=== PATIENT | female | born 1940 | race Caucasian/White ===

== ENCOUNTER → 2017-03-12 | Outpatient (CLI) | payer MEDICARE, OTHER ==
[2017-03-12 13:16] VITALS: BP 124/81; PULSE 67; RESP 18
--- NOTE | 2017-03-12 13:54 | P.PN ---
Subjective This is follow-up visit for this patient with a history of severe and chronic low back pain secondary to lumbar degenerative disc diseases , lumbar spondylosis with facet arthropathy, we have done interventional pain management injection,, diagnostic medial branch block , it will successful then we did, RFA of the medial branches lumbar area was done more than one year ago, patient reported that she had more than 80% improvement of low back pain after the radiofrequency, the last few weeks she started complaining of pain low back pain , she is increased with any activity, she denies any motor or sensory deficit, he denies any change in the bowel movements or urination, and is currently on pain medications 1-[place] 5/325 every 8 hours 2-naproxen for 50 when necessary Patient denies any side effects of the medication, denies excessive drowsiness or sleepiness, denies suicidal ideation, and reports that the current pain medication is NOT helping To control the pain and improve activity of daily living Patient denies any motor or sensory deficit , patient denies any fever or night sweats, denies any change in the bowel movements or urination Physical Examinations : 1-Constitutiona : Cooperative , not in acute distress . 2-HEENT : nech ; supple , no Lymphadenopathy , no Thyromegaly , normal thyroid size . eyes : no ptosis , no icterus, no photophobia . ENT : normal of hearing , normal oropharynx , no Thrush . 3- Respiratory : Chest clear to auscultations Bilaterally , no wheezing , no Rhonchi . 4- Cardiovascular : regular rate and rhythem , S1 , S2 , no S3 , no S4. 5- Gastrointestinal : abdomen soft no tenderness , bowel sounds positive all four quadrents , no organomegally . 6- Genitourinary : Defferred . 7- neurologic : Cranial nerve II to XII intact , no focal neurological deffecit . 8-psychatric : alert , oriented X 3 , appropriate affect , intact judgment and insight . 9-Lymphatic : no Lymphadenopathy . 10- musculoskeltal : exams of the Lumber spine = motor strength lower extremities ,thigh and legs .5/5 deep tendon reflexes : normal Knee Jerk , normal ankle Jerk . lumber facet Loading Test positive strait leg raising test positive at 60 degree , RT ,LT , Fabere test positive RT and positive LT . Range of motion: Range of motion in flexion of the lumbar spine 30 degrees Range of motion range of motion of extension of the lumbar spine 10 Assessment and plan = - Chronic low back pain secondary to lumbar degenerative disc disease , lumbar spondylosis with facet arthropathy without myelopathy , - Patient had good results after the radiofrequency ablation of the medial branch lumbar area done more than a year ago , and she got more than 80% improvement of her low back pain after radiofrequency , for this reason she would be good candidate to have repeat radiofrequency ablation of the medial branch L2-3 /L3-4 /L4-5/L5-S! Wouldn't do the left side first ,then we will do the right side later , procedure risk and benefits and alternatives discussed with the patient and she agreed to proceed Objective - Vital Signs Vital signs: Vital Signs Temp Pulse 67 03/12/17 13:05 Resp 18 03/12/17 13:05 BP 124/81 03/12/17 13:05 Pulse Ox 98 03/12/17 13:05 Intake & Output 03/11/17 03/12/17 03/12/17 18:59 06:59 18:59 Weight 75.75 kg
== END | disposition home or self-care (01) ==
LOC: PNWHC3 12:25
PROVIDERS: ATTEND Specialist
DX: M51.36 Other intervertebral disc degeneration, lumbar region (principal); M47.816 Spondylosis without myelopathy or radiculopathy, lumbar region; M46.96 Unspecified inflammatory spondylopathy, lumbar region; G89.29 Other chronic pain
CPT/HCPCS: 99211

== ENCOUNTER → 2017-04-19 | Day surgery (SDC) | payer MEDICARE ==
[2017-04-17 11:26] VITALS: BMI 27.4
[~2017-04-19] MED LIST: BUPIVACAINE (PF) 0.5% 30 ML VIAL ONE; DEXAMETHASONE SOD PHOS (MDV) 100 MG/10 ML VIAL ONE; IV FLUID CONTINUATION 1,000 ML IV ONE; LACTATED RINGERS 1,000 ML IV SCH; LIDOCAINE 1% 20 ML VIAL (10MG/ML) FOR IV START INTRADERMA ONE; MIDAZOLAM 2 MG/2 ML VIAL ONE; fentaNYL (PF) 50 MCG/ML 2 ML AMP ONE
[2017-04-19 11:04] VITALS: TEMP 97.5
--- NOTE | 2017-04-19 12:24 | P.PCN ---
Date of Procedure: 04/19/17 Preoperative Diagnosis: Postoperative Diagnosis: Procedure(s) Performed: PREOPERATIVE DIAGNOSIS: 1-Lumbar Spondylosis with Facet Arthropathy without myelopathy. 2- Lumber degenerative disc disease. POSTOPERATIVE DIAGNOSIS: 1- Lumbar Spondylosis with Facet Arthropathy without myelopathy. 2- Lumber degenerative disc disease. PROCEDURES : Right Radiofrequency thermocoagulation,L2-3 , L3-L4, L4-L5, and L5-S1 medial branch, with fluoroscopic guidance ANESTHESIA: IV sedation with versed 1 mg and fentaneyl 50 mcg and local infiltration with lidocaine 1% 6 ml EBL: Minimal PROCEDURE INDICATION: The patient with low back pain secondary to lumbar facet arthropathy who had more than 50% relief of her pain with previous diagnostic lumbar medial branch block with bupivacaine. PROCEDURE DESCRIPTION / TECHNIQUE: The patient was seen and identified in the preoperative area. Risks, benefits, complications, including but not limited to risk of infection ,bleeding , allergic reactions to the medications and no complete pain releife , and alternatives were discussed with the patient, the patient agreed to proceed with the procedure and signed the consent. IV was started. Vital signs remained stable throughout the procedure. Patient was taken to the OR and time out was completed. The patient was placed in the prone position on the procedure table. The lumber area was prepped and draped in the usual sterile fashion. . Vital signs were closely monitored during the procedure .IV sedation was used during the procedure to decrease patients anxiety. Using AP and then oblique fluoroscopy, the ``eye of the Papo dog corresponding to the connection between the superior and transverse articular processes of right L2, L3, L4, and L5 were identified, marked, and localized with 1% lidocaine. Subsequently, a 18 -sl radiofrequency cannula with a 10-mm active tip was advanced guided by fluoroscopy to each of the ``eyes of the Papo dog at right L2, , L3, L4, and L5. Each site then underwent sensory testing at 50 Hz and 0 to 1 volt and motor testing at 2.5 Hz and 0 to 3 volt with local stimulation, but no radicular symptoms down the legs. Thereafter the right L2-3 , L3-4, L4-5, and L5-S1 sites underwent radiofrequency thermocoagulation at 80 degrees celsius for 90 seconds after injecting 0.5 ml of PF lidocaine 1%. then After the thermocoagulation done , 1 ml of the block solution containing Dexamethasone 20 mg and 3 ml of marain 0.5% was injected at the right L2-3 , L3-4 , L4-5 , and L5-S1, levels after negative aspiration of CSF and blood and with no paresthesias. Cannulas were retracted while injecting lidocaine 1% until the needle is out. At the end of the procedure, the skin was cleansed and bandages were applied. COMPLICATIONS: No acute complications. DISPOSITION / PLANS: The patient was placed in a supine position and transferred to the recovery area in a stable condition for observation and was discharged from the recovery room after meeting discharge criteria. Home discharge instructions given to the patient by the staff. The patient was reexamined prior to discharge. The patient will schedule a follow up in the clinic in 2-4 weeks. ,and we will do the RFA to the Left side Implants: Indications for Procedure: Operative Findings: Description of Procedure:
[2017-04-19 12:31] VITALS: RESP 16
[2017-04-19 12:46] VITALS: BP 121/67; PULSE 52
--- NOTE | 2017-04-19 13:12 | FL ---
EXAMINATION TYPE: FL guided pain mgmt statistic DATE OF EXAM: 04/19/2017 CLINICAL HISTORY: Low back pain. TECHNIQUE: Fluoroscopy. COMPARISON: None. FINDINGS: Fluoroscopic guidance was provided during pain relief procedure performed by Dr. Borges . A total of 20 seconds of fluoroscopic time was utilized during the procedure and 3 spot images are acquired. Images acquired shows needle localization at multiple levels in the lower lumbar spine. IMPRESSION: As Above.
== END ==
LOC: ORPAIN 10:41
PROVIDERS: ATTEND Specialist
DX: M46.96 Unspecified inflammatory spondylopathy, lumbar region (principal); M51.36 Other intervertebral disc degeneration, lumbar region; M47.816 Spondylosis without myelopathy or radiculopathy, lumbar region; Z88.1 Allergy status to other antibiotic agents; Z88.8 Allergy status to other drugs, medicaments and biological substances
CPT/HCPCS: 64635; 64636 ×3; 99152; 99153; J2250; J3010; J1100

== ENCOUNTER 2017-05-10 13:48 | Emergency (ER) | payer MEDICARE ==
[2017-05-10] MEDS ORDERED: RX INFO: IV CONTRAST WAS GIVEN 1 EACH MISC MISCELLANE PRN (14:16)
[2017-05-10] MEDS ORDERED: ONDANSETRON 4 MG/2 ML VIAL IVP STA (14:16)
[2017-05-10] MEDS ORDERED: SODIUM CHLORIDE 0.9% 1,000 ML IV STA (14:16)
--- NOTE | 2017-05-10 14:18 | ED ---
Abdominal Pain HPI - General Chief Complaint: Abdominal Pain Stated Complaint: Lower Abd Pain Time Seen by Provider: 05/10/17 14:07 Source: patient, RN notes reviewed Mode of arrival: wheelchair Limitations: no limitations - History of Present Illness Initial Comments: 76-year-old female presents emergency Department chief complaint of left-sided abdominal pain. Patient states she's been having this pain on and off for the past month or so but over the last week it's been getting worse she's been having diarrhea and nausea. Patient states she has not been eating and drinking less due to the pain and now she is starting to feel somewhat lightheaded and shaky. Patient states that she was concerned due to her symptoms so she went to her doctor week ago and they said that she had a UTI she took the antibiotics however as she Developed so She Stopped Taking Those As Well. Patient Denies Any Fever Chills This. Patient Denies Any Other Symptoms with This. Patient States That She Was Concerned Due To the Fact She Started Becomes Shaky That She Shot That She Should Be Seen.Patient denies any recent fever, chills, shortness of breath, chest pain, back pain, numbness or tingling, dysuria or hematuria, constipation, headaches or visual changes, or any other current symptoms. - Related Data Home Medications Medication Instructions Recorded Confirmed Aspirin EC [Ecotrin] 81 mg PO DAILY 01/14/15 05/10/17 Cholecalciferol [Vitamin D3] 1,000 unit PO DAILY 01/14/15 05/10/17 Hydrocodone/Acetaminophen [Magnolia 1 tab PO Q8HR PRN 01/14/15 05/10/17 5-325] Levothyroxine Sodium [Synthroid] 75 mcg PO DAILY 01/14/15 05/10/17 Lisinopril [Prinivil] 10 mg PO QAM 01/14/15 05/10/17 Omeprazole [PriLOSEC] 20 mg PO AC-BRKFST 01/14/15 05/10/17 Meclizine [Antivert] 25 mg PO TID PRN 06/07/15 05/10/17 Previous Rx's Medication Instructions Recorded Ondansetron Odt [Zofran ODT] 4 mg PO Q8HR PRN #20 tab 05/10/17 Allergies Allergy/AdvReac Type Severity Reaction Status Date / Time ciprofloxacin [From Cipro] Allergy Abdominal Verified 05/10/17 14:49 Pain ciprofloxacin HCl Allergy Abdominal Verified 05/10/17 14:49 [From Cipro] Pain desvenlafaxine [From Pristiq] Allergy Unknown Verified 05/10/17 14:49 duloxetine [From Cymbalta] Allergy Unknown Verified 05/10/17 14:49 hydroxychloroquine sulfate Allergy Abdominal Verified 05/10/17 14:49 [From Plaquenil] Pain nitrofurantoin Allergy Abdominal Verified 05/10/17 14:49 [From Macrobid] Pain nitrofurantoin Allergy VOMITING,HE Verified 05/10/17 14:49 macrocrystalline ADACHE [From Macrobid] pregabalin [From Lyrica] Allergy VERTIGO Verified 05/10/17 14:49 sucralfate [From Carafate] Allergy VERTIGO,FELT Verified 05/10/17 14:49 LIKE PASSING OUT" Review of Systems ROS Statement: Those systems with pertinent positive or pertinent negative responses have been documented in the HPI. ROS Other: All systems not noted in ROS Statement are negative. Past Medical History Past Medical History: Fibromyalgia, Hypertension, Pulmonary Embolus (PE) Additional Past Medical History / Comment(s): acoustic neuroma, DEAF RT EAR. RIGHT HAND INDEX FINGER INFECTION. History of Any Multi-Drug Resistant Organisms: ESBL, MRSA Date of last positivie culture/infection: 12/03/15 MRSA; 03/27/15-ESBL MDRO Source:: Right 2nd Finger MRSA; Urine E.coli ESBL Past Surgical History: Cholecystectomy, Ear Surgery Additional Past Surgical History / Comment(s): right shoulder, right hand , BRAIN SURGERY, [facility] Past Anesthesia/Blood Transfusion Reactions: Family History of Problems w/ Anesthesia, Motion Sickness Additional Past Anesthesia/Blood Transfusion Reaction / Comment(s): brother had to be revived after anesthesia Past Psychological History: No Psychological Hx Reported Smoking Status: Never smoker Past Alcohol Use History: None Reported Past Drug Use History: None Reported - Past Family History Mother Family Medical History: No Reported History General Exam - General Exam Comments Initial Comments: General: The patient is awake and alert, in no distress, and does not appear acutely ill. Eye: Pupils are equal, round and reactive to light, extra-ocular movements are intact; there is normal conjunctiva bilaterally. No signs of icterus. Ears, nose, mouth and throat: There are moist mucous membranes and no oral lesions. Neck: The neck is supple, there is no tenderness. Cardiovascular: There is a regular rate and rhythm. No murmur, rub or gallop is appreciated. Respiratory: Lungs are clear to auscultation, respirations are non-labored, breath sounds are equal. No wheezes, stridor, rales, or rhonchi. Gastrointestinal: Soft, non-distended, non-tender abdomen without masses or organomegaly noted. There is no rebound or guarding present. No CVA tenderness. Bowel sounds are unremarkable. Back: There is no tenderness to palpation in the midline. There is no obvious deformity. No rashes noted. Musculoskeletal: Normal ROM, no tenderness, There is no pedal edema. There is no calf tenderness or swelling. Sensation intact. Pulses equal bilaterally 2+. Neurological: CN II-XII intact, There are no obvious motor or sensory deficits. Coordination appears grossly intact. Speech is normal. Skin: Skin is warm and dry and no rashes or lesions are noted. Psychiatric: Cooperative, appropriate mood & affect, normal judgment. Limitations: no limitations Course Vital Signs 05/10/17 05/10/17 14:00 16:06 Temperature 97.9 F 97.5 F L Pulse Rate 94 57 L Respiratory 18 16 Rate Blood Pressure 141/63 129/61 O2 Sat by Pulse 100 100 Oximetry Medical Decision Making - Medical Decision Making 76-year-old female emergency Department chief complaint of abdominal pain. At this time patient abdomen continues to be soft and nontender. Lab work is really presents now an acute finding. We did discuss the findings of the CAT scan that she is follow-up with her doctor about. The patient stated that she understood all questions have been answered. This time the patient will be discharged home. Patient is in agreement with the plan. We discussed follow- up and she is given referral to Dr. Dowling. - Lab Data Result diagrams: 05/10/17 14:57 05/10/17 14:57 Lab Results 05/10/17 05/10/17 05/10/17 Range/Units 14:57 14:57 14:57 WBC 4.9 (3.8-10.6) k/uL RBC 4.27 (3.80-5.40) m/uL Hgb 13.6 (11.4-16.0) gm/dL Hct 38.8 (34.0-46.0) % MCV 90.9 (80.0-100.0) fL MCH 31.9 (25.0-35.0) pg MCHC 35.1 (31.0-37.0) g/dL RDW 12.9 (11.5-15.5) % Plt Count 461 H (150-450) k/uL Neutrophils % (Manual) 44.0 % Lymphocytes % (Manual) 45.0 % Monocytes % (Manual) 9.0 % Eosinophils % (Manual) 2.0 % Neutrophils # (Manual) 2.2 (1.3-7.7) k/uL Lymphocytes # (Manual) 2.2 (1.0-4.8) k/uL Monocytes # (Manual) 0.4 (0-1.0) k/uL Eosinophils # (Manual) 0.1 (0-0.7) k/uL Nucleated RBCs 0 (0-0) /100 WBC Polychromasia Present PT (9.0-12.0) sec INR (<1.1) APTT (22.0-30.0) sec Sodium 136 L (137-145) mmol/L Potassium 4.9 (3.5-5.1) mmol/L Chloride 101 (98-107) mmol/L Carbon Dioxide 24 (22-30) mmol/L Anion Gap 11 mmol/L BUN 15 (7-17) mg/dL Creatinine 0.78 (0.52-1.04) mg/dL Est GFR (MDRD) Af Amer >60 (>60 ml/min/1.73 sqM) Est GFR (MDRD) Non-Af >60 (>60 ml/min/1.73 sqM) Glucose 82 (74-99) mg/dL Plasma Lactic Acid Henry 0.8 (0.7-2.0) mmol/L Calcium 9.7 (8.4-10.2) mg/dL Total Bilirubin 0.6 (0.2-1.3) mg/dL AST 17 (14-36) U/L ALT 23 (9-52) U/L Alkaline Phosphatase 77 (38-126) U/L Total Protein 6.8 (6.3-8.2) g/dL Albumin 4.0 (3.5-5.0) g/dL Amylase 43 (30-110) U/L Lipase 69 (23-300) U/L Urine Color Urine Appearance (Clear) Urine pH (5.0-8.0) Ur Specific Viola (1.001-1.035) Urine Protein (Negative) Urine Glucose (UA) (Negative) Urine Ketones (Negative) Urine Blood (Negative) Urine Nitrite (Negative) Urine Bilirubin (Negative) Urine Urobilinogen (<2.0) mg/dL Ur Leukocyte Esterase (Negative) Urine RBC (0-5) /hpf Urine WBC (0-5) /hpf Ur Squamous Epith Cells (0-4) /hpf Urine Bacteria (None) /hpf Hyaline Casts (0-2) /lpf 05/10/17 05/10/17 Range/Units 14:57 14:57 WBC (3.8-10.6) k/uL RBC (3.80-5.40) m/uL Hgb (11.4-16.0) gm/dL Hct (34.0-46.0) % MCV (80.0-100.0) fL MCH (25.0-35.0) pg MCHC (31.0-37.0) g/dL RDW (11.5-15.5) % Plt Count (150-450) k/uL Neutrophils % (Manual) % Lymphocytes % (Manual) % Monocytes % (Manual) % Eosinophils % (Manual) % Neutrophils # (Manual) (1.3-7.7) k/uL Lymphocytes # (Manual) (1.0-4.8) k/uL Monocytes # (Manual) (0-1.0) k/uL Eosinophils # (Manual) (0-0.7) k/uL Nucleated RBCs (0-0) /100 WBC Polychromasia PT 10.9 (9.0-12.0) sec INR 1.1 (<1.1) APTT 22.9 (22.0-30.0) sec Sodium (137-145) mmol/L Potassium (3.5-5.1) mmol/L Chloride (98-107) mmol/L Carbon Dioxide (22-30) mmol/L Anion Gap mmol/L BUN (7-17) mg/dL Creatinine (0.52-1.04) mg/dL Est GFR (MDRD) Af Amer (>60 ml/min/1.73 sqM) Est GFR (MDRD) Non-Af (>60 ml/min/1.73 sqM) Glucose (74-99) mg/dL Plasma Lactic Acid Henry (0.7-2.0) mmol/L Calcium (8.4-10.2) mg/dL Total Bilirubin (0.2-1.3) mg/dL AST (14-36) U/L ALT (9-52) U/L Alkaline Phosphatase (38-126) U/L Total Protein (6.3-8.2) g/dL Albumin (3.5-5.0) g/dL Amylase (30-110) U/L Lipase (23-300) U/L Urine Color Light Yellow Urine Appearance Clear (Clear) Urine pH 5.5 (5.0-8.0) Ur Specific Viola 1.005 (1.001-1.035) Urine Protein Negative (Negative) Urine Glucose (UA) Negative (Negative) Urine Ketones Negative (Negative) Urine Blood Negative (Negative) Urine Nitrite Negative (Negative) Urine Bilirubin Negative (Negative) Urine Urobilinogen <2.0 (<2.0) mg/dL Ur Leukocyte Esterase Trace H (Negative) Urine RBC <1 (0-5) /hpf Urine WBC 1 (0-5) /hpf Ur Squamous Epith Cells <1 (0-4) /hpf Urine Bacteria Rare H (None) /hpf Hyaline Casts 1 (0-2) /lpf - Radiology Data Radiology results: report reviewed, image reviewed Disposition Clinical Impression: Abdominal pain Disposition: TRANSFER TO PSYCH HOSP/UNIT Condition: Stable Instructions: Abdominal Pain (ED) Additional Instructions: Please use medication as discussed. Please follow up with family doctor if symptoms have not improved over the next two days. Please return to the emergency room if your symptoms increase or worsen or for any other concerns. Prescriptions: Ondansetron Odt [Zofran ODT] 4 mg PO Q8HR PRN #20 tab PRN Reason: Nausea Referrals: Pablo Argueta III, MD [Primary Care Provider] - 1-2 days Filomena Mansfield MD [STAFF PHYSICIAN] - 1-2 days Time of Disposition: 16:31
[2017-05-10 15:22] LABS: Appearance,Urine Clear (Clear); Bacteria,Urine Rare /hpf; Bilirubin,Urine Negative (Negative); Glucose,Urine (UA) Negative (Negative); Ketones,Urine Negative (Negative); Leukocyte Esterase,Urine Trace (Negative); Nitrite,Urine Negative (Negative); PH, Urine 5.5 (5.0-8.0); Particle Count 3284; Protein,Urine Negative (Negative); RBC,Urine <1 /hpf (0-5); Specific Gravity,Urine 1.005 (1.001-1.035); Squamous Epithelial Cell,Urine <1 /hpf (0-4); UA Billing (MACRO vs. MICRO) MICRO; Urobilinogen,Urine <2.0 mg/dL (<2.0); WBC,Urine 1 /hpf (0-5)
[2017-05-10 15:25] LABS: ALT 23 U/L (9-52); AST 17 U/L (14-36); Alkaline Phosphatase 77 U/L (38-126); Amylase 43 U/L (30-110); Anion Gap 11 mmol/L; Blood Urea Nitrogen 15 mg/dL (7-17); Calcium 9.7 mg/dL (8.4-10.2); Carbon Dioxide 24 mmol/L (22-30); Chloride 101 mmol/L (98-107); Glucose 82 mg/dL (74-99); INR 1.1 (<1.1); Non-African American GFR(MDRD) >60 (>60 ml/min/1.73 sqM); Partial Thromboplastin Time 22.9 sec (22.0-30.0); Potassium 4.9 mmol/L (3.5-5.1); Prothrombin Time 10.9 sec (9.0-12.0); Sodium 136 mmol/L (137-145); Total Bilirubin 0.6 mg/dL (0.2-1.3); Total Protein 6.8 g/dL (6.3-8.2)
[2017-05-10 15:26] LABS: Aty Lym Flag Moderate; CH 30.5; CHCM 33.7; HCT 38.8 % (34.0-46.0); HDW 2.25; HGB 13.6 gm/dL (11.4-16.0); MCH 31.9 pg (25.0-35.0); MCHC 35.1 g/dL (31.0-37.0); MCV 90.9 fL (80.0-100.0); Mean Platelet Volume 6.3; RBC 4.27 m/uL (3.80-5.40); RDW 12.9 % (11.5-15.5); WBC 4.9 k/uL (3.8-10.6); WBC (Perox) 4.76
[2017-05-10 15:45] LABS: Add Differential Manual Differential
[2017-05-10 15:46] LABS: Nucleated Red Blood Cells 0 /100 WBC (0-0); Polychromasia Present; Total Cells Counted 100
[2017-05-10 16:07] VITALS: RESP 16; TEMP 97.5
--- NOTE | 2017-05-10 16:10 | CT ---
EXAMINATION TYPE: CT abdomen pelvis w con DATE OF EXAM: 05/10/2017 COMPARISON: Correlation CT right hip 01/14/2015 HISTORY: 76-year-old female ABDOMINAL PAIN X1 MONTH. TECHNIQUE: Contiguous axial scanning of the abdomen and pelvis following administration of 100 ml Omn ipaque 300 IV contrast. Delayed images through the kidneys and coronal/sagittal reconstructions perf ormed. CT DLP: 639.7 mGycm Automated exposure control for dose reduction was used. FINDINGS: The heart is normal size without pericardial effusion. Lung bases clear without pleural effusion. 1.3 cm cyst in the central liver. No other focal liver lesion. The portal vein appears patent. No tresa iary ductal dilatation. Cholecystectomy clips are present. Adrenal glands, kidneys, spleen, and pancreas show no gross abnormality. [id number] atherosclerotic calcifications within the abdominal aorta without aneurysm. No dilated small bowel, free fluid, or free air. No mesenteric or retroperitoneal lymphadenopathy. Scattered mild stool burden. There is distal sigmoid diverticulosis without pericolonic inflammatory change. Bladder is urine distended. There is bulging convexity of the levator ani muscles curvature suggestin g some degree of pelvic floor relaxation. 1.4 cm cyst in the right ovary is unchanged from 2015. Left ovary is visualized. Uterus is present. No abnormal fluid collection in the pelvis or pelvic lymphad enopathy seen. Bones: Degenerated levoconvex scoliosis of the lumbar spine. There is a right L5 hemisacralization wi th a sacral alar. Mild degenerative changes at the right greater than left hip. No osseous destructiv e process. Grade 1 anterolistheses at L2-L3 and L3-L4. IMPRESSION: 1. NO ACUTE INFLAMMATORY PROCESS IDENTIFIED IN THE ABDOMEN OR PELVIS TO EXPLAIN THE PATIENT'S SYMPTOM S. 2. DISTAL SIGMOID DIVERTICULOSIS. 3. A 1.4 CM CYST IN THE RIGHT OVARY, STABLE FROM 2014. ANNUAL ULTRASOUND SURVEILLANCE IS RECOMMENDED IN A POSTMENOPAUSAL FEMALE. 4. DEGENERATIVE CHANGES THROUGHOUT THE LUMBAR SPINE.
[2017-05-10 17:12] VITALS: BP 149/66; PULSE 60
== END 2017-05-10 17:31 | disposition home or self-care (01) ==
LOC: EC 13:48
DX: R10.30 Lower abdominal pain, unspecified (principal); R11.0 Nausea; I10 Essential (primary) hypertension; Z90.49 Acquired absence of other specified parts of digestive tract; Z88.1 Allergy status to other antibiotic agents; Z88.8 Allergy status to other drugs, medicaments and biological substances; Z79.82 Long term (current) use of aspirin; Z79.899 Other long term (current) drug therapy
CPT/HCPCS: 99284; 96374; 96361; 36415; 80053; 82150; 83605; 83690; 85025; 85610; 85730; 81001; 87040; 87086; 74177; J2405; Q9967

== ENCOUNTER → 2017-06-22 | Outpatient (CLI) | payer MEDICARE ==
--- NOTE | 2017-06-23 09:08 | MR ---
EXAMINATION TYPE: MR brain and iac wo/w con DATE OF EXAM: 06/22/2017 COMPARISON: 02/28/2012 HISTORY: 76-year-old female with dizziness. History on prior MRI states surgery for acoustic neuroma in 1997. TECHNIQUE: Multiplanar, multisequence images of the brain and brainstem were acquired before and aft er administration of 15 mL IV MultiHance. Diffusion weighted imaging was performed. Additional cone d-down sequences through the internal auditory canals and posterior cranial fossa before and after IV contrast administration. FINDINGS: Diffusion weighted images demonstrate no evidence of an acute ischemic lesion in the brain. T2/FLAIR weighted sequences again show some encephalomalacia and gliosis along the right lateral aspe ct of the cerebellar hemisphere suspected to represent the surgical tract. Overlying craniotomy flap. There are mild to moderate scattered T2 bright white matter foci in the subcortical, deep, and periv entricular white matter of both cerebral hemispheres, largely unchanged from 2011. Some of these are now better seen due to less motion artifacts. Midline structures demonstrate partially empty sella but otherwise normal morphology. The craniocerv ical junction is normal. Similar mild generalized supratentorial volume loss. There is no evidence of an acute intracranial he morrhage, infarct, mass effect, or an extra-axial fluid collection. Redemonstrated is the homogeneously enhancing bifid mass which extends into both the right internal a uditory canal as well as the right cerebellar pontine angle. This measures 1.6 x 1.0 cm and 1.3 cm cr aniocaudal versus 1.5 x 1.1 x 1.3 cm, previously. Accounting for some differences in measurement tech nique, this appears overall unchanged Brainstem abnormalities are not seen. Post contrast images demonstrate no evidence of other pathologic enhancement in the posterior cranial fossa or within the left internal auditory canal. There is no abnormal enhancement of the labyrinths. Trace mucosal thickening floors of the maxillary sinuses. There is some contiguous pneumatization of the right anterior clinoid process, axial series 901 image 18. IMPRESSION: 1. 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 This is unchanged from 02/28/2012. 2. No acute intracranial abnormality seen. 3. Right posterior craniotomy flap with chronic surgical tract changes along the right lateral cerebe llar hemisphere. 4. Stable mild to moderate scattered T2 bright white matter foci. These are nonspecific but likely re present mild burden of chronic small vessel ischemic disease.
== END | disposition home or self-care (01) ==
LOC: RADMRIMAIN 12:59
PROVIDERS: ATTEND Psychiatry & Neurology Neurology
DX: G93.89 Other specified disorders of brain (principal); I67.82 Cerebral ischemia; R90.82 White matter disease, unspecified; Z98.890 Other specified postprocedural states; Z13.89 Encounter for screening for other disorder; Z86.018 Personal history of other benign neoplasm
CPT/HCPCS: 70553; A9577

== ENCOUNTER 2017-10-12 14:33 | Emergency (ER) | payer MEDICARE ==
[2017-10-12] MEDS ORDERED: NAPROXEN 250 MG TAB PO STA (15:00)
[2017-10-12 15:02] VITALS: BP 151/67; PULSE 59; RESP 16; TEMP 98.1
--- NOTE | 2017-10-12 15:11 | ED ---
Neck Injury/Pain HPI - General Source: RN notes reviewed Mode of arrival: ambulatory Limitations: no limitations <Kiana Chung - Last Filed: 10/12/17 14:59> <Ramesh Francis - Last Filed: 10/12/17 15:16> - General Chief Complaint: Neck Pain/Injury Stated Complaint: Neck Pain/Spasms Time Seen by Provider: 10/12/17 14:53 - History of Present Illness Initial Comments: This is a 77-year-old female who presents to the emergency department with chief complaint of right neck pain. Patient states that 1 hour prior to arrival she was folding laundry. She felt the sudden sharp pain in the right side of her neck. She states that she feels like she is having a muscle spasm. Denies any radiation or numbness or tingling. Denies any specific injury or trauma. Patient states that she regularly takes Aleve at home but has not taken any today. Denies fever, chills, chest pain, shortness of breath, abdominal pain, nausea or vomiting, constipation or diarrhea, dysuria or hematuria, numbness or tingling, headache or vision changes. (Kiana Chung) - Related Data Home Medications Medication Instructions Recorded Confirmed Aspirin EC [Ecotrin] 81 mg PO DAILY 01/14/15 09/12/17 Cholecalciferol [Vitamin D3] 1,000 unit PO DAILY 01/14/15 09/12/17 Hydrocodone/Acetaminophen [[place] 1 tab PO Q8HR PRN 01/14/15 09/12/17 5-325] Levothyroxine Sodium [Synthroid] 75 mcg PO DAILY 01/14/15 09/12/17 Lisinopril [Prinivil] 10 mg PO QAM 01/14/15 09/12/17 Omeprazole [PriLOSEC] 20 mg PO AC-BRKFST 01/14/15 09/12/17 Meclizine [Antivert] 25 mg PO TID PRN 06/07/15 09/12/17 Gabapentin [Neurontin] 300 mg PO HS 09/12/17 09/12/17 Previous Rx's Medication Instructions Recorded Ondansetron Odt [Zofran ODT] 4 mg PO Q8HR PRN #20 tab 05/10/17 Cephalexin [Keflex] 500 mg PO Q8HR #21 cap 09/12/17 Allergies Allergy/AdvReac Type Severity Reaction Status Date / Time ciprofloxacin [From Cipro] Allergy Abdominal Verified 05/10/17 14:49 Pain ciprofloxacin HCl Allergy Abdominal Verified 05/10/17 14:49 [From Cipro] Pain desvenlafaxine [From Pristiq] Allergy Unknown Verified 05/10/17 14:49 duloxetine [From Cymbalta] Allergy Unknown Verified 05/10/17 14:49 hydroxychloroquine sulfate Allergy Abdominal Verified 05/10/17 14:49 [From Plaquenil] Pain nitrofurantoin Allergy Abdominal Verified 05/10/17 14:49 [From Macrobid] Pain nitrofurantoin Allergy VOMITING,HE Verified 05/10/17 14:49 macrocrystalline ADACHE [From Macrobid] pregabalin [From Lyrica] Allergy VERTIGO Verified 05/10/17 14:49 sucralfate [From Carafate] Allergy VERTIGO,FELT Verified 05/10/17 14:49 LIKE PASSING OUT" Review of Systems ROS Other: All systems not noted in ROS Statement are negative. <Kiana Chung - Last Filed: 10/12/17 14:59> ROS Other: All systems not noted in ROS Statement are negative. <Ramesh Francis - Last Filed: 10/12/17 15:16> ROS Statement: Those systems with pertinent positive or pertinent negative responses have been documented in the HPI. Past Medical History Past Medical History: Fibromyalgia, Hypertension, Pulmonary Embolus (PE) Additional Past Medical History / Comment(s): acoustic neuroma, DEAF RT EAR. RIGHT HAND INDEX FINGER INFECTION. History of Any Multi-Drug Resistant Organisms: ESBL, MRSA Date of last positivie culture/infection: 12/03/15 MRSA; 03/27/15-ESBL MDRO Source:: Right 2nd Finger MRSA; Urine E.coli ESBL Past Surgical History: Cholecystectomy, Ear Surgery Additional Past Surgical History / Comment(s): right shoulder, right hand , BRAIN SURGERY, [facility] Past Anesthesia/Blood Transfusion Reactions: Family History of Problems w/ Anesthesia, Motion Sickness Additional Past Anesthesia/Blood Transfusion Reaction / Comment(s): brother had to be revived after anesthesia Past Psychological History: No Psychological Hx Reported Smoking Status: Never smoker Past Alcohol Use History: None Reported Past Drug Use History: None Reported - Past Family History Mother Family Medical History: No Reported History <JulietDustin herreraKiana Kristy - Last Filed: 10/12/17 14:59> General Exam Limitations: no limitations <Kiana Chung - Last Filed: 10/12/17 14:59> <Ramesh Francis - Last Filed: 10/12/17 15:16> - General Exam Comments Initial Comments: General: Awake and alert, well-developed; in no apparent distress. HEENT: Head atraumatic, normocephalic. Pupils are equal, round and reactive to light. Extraocular movements intact. Oropharynx moist without erythema or exudate. Neck: Supple. Normal active ROM. Tenderness on palpation of right sternocleidomastoid muscle. Cardiovascular: Regular rate and rhythm. No murmurs, rubs or gallops. Chest symmetrical. Respiratory: Lungs clear to auscultation bilaterally. No wheezes, rales or rhonchi. Normal respiratory effort with no use of accessory muscles. Musculoskeletal: Normal ROM, no tenderness bilateral upper and lower extremities. Ambulating normally. Skin: Anchor, warm and dry without rashes or lesions. Neurological: Alert and oriented x3. CN II-XII grossly intact. Speech is fluent and answers are appropriate. No focal neuro deficits. Psychiatric: Normal mood and affect. No overt signs of depression or anxiety noted. (Kiana Chung) Course <Kiana Chung Kristy - Last Filed: 10/12/17 14:59> <Ramesh Francis - Last Filed: 10/12/17 15:16> Vital Signs 10/12/17 14:54 Temperature 98.1 F Pulse Rate 59 L Respiratory 16 Rate Blood Pressure 151/67 O2 Sat by Pulse 98 Oximetry - Reevaluation(s) Reevaluation #1: 10/12/17 15:14 PT supervision: I did personally do a [id number] evaluation the patient she does demonstrate tenderness palpation over the right lateral neck musculature. There is tenderness on palpation consistent with the spasm the patient reported. No midline spinous tenderness. 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 I did review the treatment plan with the patient she is in agreement. (Ramesh Francis) Medical Decision Making <Kiana Chung - Last Filed: 10/12/17 14:59> <Ramesh Francis - Last Filed: 10/12/17 15:16> - Medical Decision Making This is a 77-year-old female who presents to the emergency department with chief complaint of neck pain. Patient states she feels that she is having a muscle spasm in the right side of her neck. There is tenderness on palpation of the sternocleidomastoid muscle. Patient denies radiation or numbness or tingling. This case was discussed with attending physician Dr. Francis, who also evaluated the patient. Patient given naproxen while in the emergency department. Recommended heat and gentle range of motion of the neck. Patient will be discharged home. She is in agreement and voices understanding. All questions were answered. (Kiana Chung) Disposition Time of Disposition: 15:12 <Kiana Chung - Last Filed: 10/12/17 14:59> <Ramesh Francis - Last Filed: 10/12/17 15:16> Clinical Impression: Strain of neck muscle Disposition: HOME SELF-CARE Condition: Good Instructions: Cervical Strain (ED) Additional Instructions: Please follow up with primary care provider within 1-2 days. Return to emergency department if symptoms should worsen or any concerns arise. Referrals: Pablo Argueta III, MD [Primary Care Provider] - 1-2 days
== END 2017-10-12 15:21 | disposition home or self-care (01) ==
LOC: EC 14:33
DX: S16.1XXA Strain of muscle, fascia and tendon at neck level, initial encounter (principal); M79.7 Fibromyalgia; I10 Essential (primary) hypertension; Z86.14 Personal history of Methicillin resistant Staphylococcus aureus infection; Z88.1 Allergy status to other antibiotic agents; Z88.8 Allergy status to other drugs, medicaments and biological substances; Z79.82 Long term (current) use of aspirin; Z79.899 Other long term (current) drug therapy; X50.1XXA Overexertion from prolonged static or awkward postures, initial encounter; Y93.89 Activity, other specified
CPT/HCPCS: 99283

== ENCOUNTER 2018-03-08 09:33 | Emergency (ER) | payer MEDICARE ==
[2018-03-08 09:55] VITALS: RESP 16
[2018-03-08] MEDS ORDERED: RX INFO: IV CONTRAST WAS GIVEN 1 EACH MISC MISCELLANE PRN (10:13)
--- NOTE | 2018-03-08 10:14 | ED ---
Abdominal Pain HPI - General Chief Complaint: Abdominal Pain Stated Complaint: rt sided abd pain Time Seen by Provider: 03/08/18 10:03 Source: patient Mode of arrival: ambulatory Limitations: no limitations - History of Present Illness Initial Comments: Patient is a 77-year-old female presented to [facility] department for abdominal pain. She states that it is located in the right lower quadrant started yesterday evening. It feels like a constant sensation that she is unable to give specifics about. There is no radiation with the pain but there is nausea present. She denies any vomiting or diarrhea as well as fever/chills. She also denies any urinary symptoms and states that she's got no past medical problems in regards her abdomen. She also admits to a 10 pound weight loss which is been unintentional over the last year. - Related Data Home Medications Medication Instructions Recorded Confirmed Aspirin EC [Ecotrin] 81 mg PO DAILY 01/14/15 03/08/18 Cholecalciferol [Vitamin D3] 5,000 unit PO DAILY 01/14/15 03/08/18 Hydrocodone/Acetaminophen [[place] 1 tab PO Q8HR PRN 01/14/15 03/08/18 5-325] Levothyroxine Sodium [Synthroid] 75 mcg PO DAILY 01/14/15 03/08/18 Lisinopril [Prinivil] 10 mg PO DAILY 01/14/15 03/08/18 Omeprazole [PriLOSEC] 20 mg PO DAILY 01/14/15 03/08/18 Meclizine [Antivert] 25 mg PO TID PRN 06/07/15 03/08/18 Gabapentin [Neurontin] 300 mg PO HS 09/12/17 03/08/18 Albuterol Inhaler [Ventolin Hfa 2 puff INHALATION RT-Q4H PRN 03/08/18 03/08/18 Inhaler] Calcium Carbonate [Calcium] 600 mg PO DAILY 03/08/18 03/08/18 Cetirizine HCl 10 mg PO DAILY 03/08/18 03/08/18 Ferrous Sulfate [Feosol] 325 mg PO DAILY 03/08/18 03/08/18 Fluticasone Nasal [place] [Flonase 2 spr EA NOSTRIL DAILY 03/08/18 03/08/18 Nasal [place]] Naproxen Sodium 440 mg PO Q12H PRN 03/08/18 03/08/18 Zolpidem [Ambien] 5 - 10 mg PO HS PRN 03/08/18 03/08/18 Allergies Allergy/AdvReac Type Severity Reaction Status Date / Time ciprofloxacin [From Cipro] Allergy Abdominal Verified 03/08/18 10:53 Pain nitrofurantoin Allergy Abdominal Verified 03/08/18 10:53 [From Macrobid] Pain pregabalin [From Lyrica] Allergy VERTIGO Verified 03/08/18 10:53 acetaminophen [From Vicodin] AdvReac Unknown Verified 03/08/18 10:53 ciprofloxacin HCl AdvReac Abdominal Verified 03/08/18 10:53 [From Cipro] Pain desvenlafaxine [From Pristiq] AdvReac Unknown Verified 03/08/18 10:53 duloxetine [From Cymbalta] AdvReac Unknown Verified 03/08/18 10:53 hydrocodone [From Vicodin] AdvReac Unknown Verified 03/08/18 10:53 hydroxychloroquine sulfate AdvReac Abdominal Verified 03/08/18 10:53 [From Plaquenil] Pain milnacipran [From [place]] AdvReac Unknown Verified 03/08/18 10:53 nitrofurantoin AdvReac VOMITING,HE Verified 03/08/18 10:53 macrocrystalline ADACHE [From Macrobid] sucralfate [From Carafate] AdvReac VERTIGO,FELT Verified 03/08/18 10:53 LIKE PASSING OUT" sulfamethoxazole AdvReac Nausea & Verified 03/08/18 10:53 [From Bactrim] Vomiting & Diarrhea trimethoprim [From Bactrim] AdvReac Nausea & Verified 03/08/18 10:53 Vomiting & Diarrhea Review of Systems ROS Statement: Those systems with pertinent positive or pertinent negative responses have been documented in the HPI. Constitutional: Negative for chills, fatigue and fever. Positive for weight loss HENT: Negative for congestion. Respiratory: Negative for chest tightness, shortness of breath and wheezing. Cardiovascular: Negative for chest pain and palpitations. Gastrointestinal: Positive for nausea and abdominal pain. Negative for abdominal distention, diarrhea, and vomiting. Genitourinary: Negative for dysuria. Musculoskeletal: Negative for back pain, neck pain and neck stiffness. Skin: Negative for color change. Neurological: Negative for dizziness, speech difficulty, weakness and light- headedness. Psychiatric/Behavioral: Negative for agitation and confusion. The patient is not nervous/anxious. ROS Other: All systems not noted in ROS Statement are negative. Past Medical History Past Medical History: Fibromyalgia, Hypertension, Pulmonary Embolus (PE) Additional Past Medical History / Comment(s): acoustic neuroma, DEAF RT EAR. RIGHT HAND INDEX FINGER INFECTION. History of Any Multi-Drug Resistant Organisms: ESBL, MRSA Date of last positivie culture/infection: 12/03/15 MRSA; 03/27/15-ESBL MDRO Source:: Right 2nd Finger MRSA; Urine E.coli ESBL Past Surgical History: Cholecystectomy, Ear Surgery Additional Past Surgical History / Comment(s): right shoulder, right hand , [facility]RAIN SURGERY, [facility] Past Anesthesia/Blood Transfusion Reactions: Family History of Problems w/ Anesthesia, Motion Sickness Additional Past Anesthesia/Blood Transfusion Reaction / Comment(s): brother had to be revived after anesthesia Past Psychological History: No Psychological Hx Reported Smoking Status: Never smoker Past Alcohol Use History: None Reported Past Drug Use History: None Reported - Past Family History Mother Family Medical History: No Reported History General Exam - General Exam Comments Initial Comments: Physical Exam Constitutional: Pt is oriented to person, place, and time. Pt appears well- developed and well-nourished. No distress. HENT: Head: Normocephalic and atraumatic. Eyes: EOM are normal. Neck: Normal range of motion. Neck supple. Cardiovascular: Normal rate, regular rhythm, S1 normal, S2 normal and normal heart sounds. Exam reveals no gallop and no friction rub. No murmur heard. Pulmonary/Chest: Effort normal and breath sounds normal. No tachypnea and no bradypnea. No respiratory distress. No wheezes or rales noted. Abdominal: Soft. Bowel sounds are normal. Pt exhibits no shifting dullness, no distension, no pulsatile liver, no fluid wave, no abdominal bruit and no ascites. There is very mild tenderness to right lower quadrant. There is no rigidity, no rebound, no guarding, no tenderness at McBurney's point and negative Virgen's sign. Musculoskeletal: Normal range of motion. Neurological: Pt is alert and oriented to person, place, and time. No cranial nerve deficit. Skin: Skin is warm and dry. No rash noted. Pt is not diaphoretic. No erythema. No pallor. Psychiatric: Pt has a normal mood and affect. Pt behavior is normal. Thought content normal. Limitations: no limitations Course Vital Signs 03/08/18 03/08/18 09:53 12:42 Temperature 98.7 F 98.6 F Pulse Rate 85 57 L Respiratory 16 16 Rate Blood Pressure 193/87 167/77 O2 Sat by Pulse 96 98 Oximetry Medical Decision Making - Medical Decision Making Laboratory studies revealed there is no significant leukocytosis and electrolytes were relatively within normal limits. Lipase and LFTs were also within normal limits and urinalysis showed no evidence acute pathology. Because the patient reported a 10 pound weight loss over the last year, CT of the abdomen was performed and showed a persistent 1.6 cm oval hypodensity lesion anteriorly on the right ovary stable from prior imaging. There were no other significant findings on CT. These results were discussed the patient and she stated that she did know about this ovarian lesion. Additionally, it was felt that it is very unlikely that this is an ovarian torsion because the patient was not having a significant amount of pain on physical exam.Explained all labs and diagnostic test results and that we will discharge the patient home and patient is to follow up with PCP in 1-2 days and return to the ED if symptoms worsen. Pt is agreeable to plan. - Lab Data Result diagrams: 03/08/18 10:10 03/08/18 10:10 Lab Results 03/08/18 03/08/18 03/08/18 Range/Units 10:10 10:10 10:10 WBC 4.8 (3.8-10.6) k/uL RBC 4.35 (3.80-5.40) m/uL Hgb 13.3 (11.4-16.0) gm/dL Hct 39.9 (34.0-46.0) % MCV 91.6 (80.0-100.0) fL MCH 30.4 (25.0-35.0) pg MCHC 33.2 (31.0-37.0) g/dL RDW 12.8 (11.5-15.5) % Plt Count 429 (150-450) k/uL Neutrophils % 49 % Lymphocytes % 35 % Monocytes % 7 % Eosinophils % 4 % Basophils % 2 % Neutrophils # 2.3 (1.3-7.7) k/uL Lymphocytes # 1.7 (1.0-4.8) k/uL Monocytes # 0.4 (0-1.0) k/uL Eosinophils # 0.2 (0-0.7) k/uL Basophils # 0.1 (0-0.2) k/uL Sodium 142 (137-145) mmol/L Potassium 4.2 (3.5-5.1) mmol/L Chloride 103 (98-107) mmol/L Carbon Dioxide 28 (22-30) mmol/L Anion Gap 11 mmol/L BUN 10 (7-17) mg/dL Creatinine 0.70 (0.52-1.04) mg/dL Est GFR (CKD-EPI)AfAm >90 (>60 ml/min/1.73 sqM) Est GFR (CKD-EPI)NonAf 84 (>60 ml/min/1.73 sqM) Glucose 83 (74-99) mg/dL Calcium 10.0 (8.4-10.2) mg/dL Magnesium 1.9 (1.6-2.3) mg/dL Total Bilirubin 0.3 (0.2-1.3) mg/dL AST 17 (14-36) U/L ALT 18 (9-52) U/L Alkaline Phosphatase 70 (38-126) U/L Total Protein 6.1 L (6.3-8.2) g/dL Albumin 3.7 (3.5-5.0) g/dL Lipase 37 (23-300) U/L Urine Color Colorless Urine Appearance Clear (Clear) Urine pH 6.0 (5.0-8.0) Ur Specific [place] 1.002 (1.001-1.035) Urine Protein Negative (Negative) Urine Glucose (UA) Negative (Negative) Urine Ketones Negative (Negative) Urine Blood Negative (Negative) Urine Nitrite Negative (Negative) Urine Bilirubin Negative (Negative) Urine Urobilinogen <2.0 (<2.0) mg/dL Ur Leukocyte Esterase Negative (Negative) Disposition Clinical Impression: Right lower quadrant abdominal pain, Lesion of ovary Disposition: HOME SELF-CARE Condition: Good Instructions: Abdominal Pain (ED) Is patient prescribed a controlled substance at d/c from ED?: No Referrals: Pablo Argueta III, MD [Primary Care Provider] - 1-2 days Time of Disposition: 12:13
[2018-03-08 10:29] LABS: Appearance,Urine Clear (Clear); Basophils # (A) 0.1 k/uL (0-0.2); Basophils % (A) 2 %; Bilirubin,Urine Negative (Negative); Blood,Urine Negative (Negative); Color,Urine Colorless; Eosinophils # (A) 0.2 k/uL (0-0.7); Eosinophils % (A) 4 %; Glucose,Urine (UA) Negative (Negative); HCT 39.9 % (34.0-46.0); HGB 13.3 gm/dL (11.4-16.0); Ketones,Urine Negative (Negative); Leukocyte Esterase,Urine Negative (Negative); Lymphocytes # (A) 1.7 k/uL (1.0-4.8); Lymphocytes % (A) 35 %; MCH 30.4 pg (25.0-35.0); MCHC 33.2 g/dL (31.0-37.0); MCV 91.6 fL (80.0-100.0); Mean Platelet Volume 6.3; Monocytes # (A) 0.4 k/uL (0-1.0); Monocytes % (A) 7 %; Neutrophils # (A) 2.3 k/uL (1.3-7.7); Neutrophils % (A) 49 %; Nitrite,Urine Negative (Negative); Platelet Count 429 k/uL (150-450); Protein,Urine Negative (Negative); RBC 4.35 m/uL (3.80-5.40); RDW 12.8 % (11.5-15.5); Specific Gravity,Urine 1.002 (1.001-1.035); Urobilinogen,Urine <2.0 mg/dL (<2.0); WBC 4.8 k/uL (3.8-10.6)
[2018-03-08 10:38] LABS: ALT 18 U/L (9-52); AST 17 U/L (14-36); Albumin 3.7 g/dL (3.5-5.0); Alkaline Phosphatase 70 U/L (38-126); Anion Gap 11 mmol/L; Blood Urea Nitrogen 10 mg/dL (7-17); Carbon Dioxide 28 mmol/L (22-30); Chloride 103 mmol/L (98-107); Glucose 83 mg/dL (74-99); Lipase 37 U/L (23-300); Magnesium 1.9 mg/dL (1.6-2.3); Potassium 4.2 mmol/L (3.5-5.1); Sodium 142 mmol/L (137-145); Total Bilirubin 0.3 mg/dL (0.2-1.3); Total Protein 6.1 g/dL (6.3-8.2)
--- NOTE | 2018-03-08 11:24 | CT ---
EXAMINATION TYPE: CT abdomen pelvis w con DATE OF EXAM: 03/08/2018 HISTORY: RLQ pain CT DLP: 682.8mGycm Automated Exposure Control for Dose Reduction was Utilized. CONTRAST: CT scan of the abdomen and pelvis is performed without oral but with IV Contrast, patient injected wi th 100 mL of Isovue 300. COMPARISON: CT abdomen and pelvis May 10, 2017 FINDINGS: LUNG BASES: In the right lung base there is 5 x 3 mm scarlike opacity axial image 1 outside field of view on prior exam. There is left basilar dependent atelectasis and/or scarring LIVER/GB: Cholecystectomy clips are seen. There is redemonstration of stable 1.0 cm hypodense lesion centrally in the liver axial image 19 favoring simple cyst. PANCREAS: No significant abnormality is seen. SPLEEN: No significant abnormality is seen. ADRENALS: No significant abnormality is seen. KIDNEYS: No significant abnormality is seen. BOWEL: Evaluation bowel is slightly suboptimal secondary to lack of enteric contrast. There is no gene picious small or large bowel dilatation. There is low-lying cecum into the right pelvis. Appendix is unremarkable from posterior aspect seen best on coronal images 42 through 53. There are diverticula s een in the sigmoid colon. No CT evidence for acute diverticulitis. UTERUS/ADNEXA: There is slightly retroverted uterus projecting to right of midline similar in appeara nce to prior. Both ovaries are seen on axial image 60. There is persistent 1.6 cm oval hypodense lesi on anteriorly right ovary stable from prior. LYMPH NODES: No greater than 1cm abdominal or pelvic lymph nodes are appreciated. OSSEOUS STRUCTURES: There is multilevel vacuum disc phenomenon and disc space narrowing. There is tra nsitional-type vertebra at lumbosacral junction there is grade 1 anterolisthesis L4 on L5. There is f acet arthropathy lower lumbar levels.. OTHER: There is moderate calcified plaque in the infrarenal abdominal aorta. IMPRESSION: No significant new or acute finding is seen to account for patient's clinical symptoms.
[2018-03-08 12:43] VITALS: BP 167/77; PULSE 57; TEMP 98.6
== END 2018-03-08 12:42 | disposition home or self-care (01) ==
LOC: EC 09:33
DX: N83.8 Other noninflammatory disorders of ovary, fallopian tube and broad ligament (principal); R10.31 Right lower quadrant pain; R11.0 Nausea; R63.4 Abnormal weight loss; H91.91 Unspecified hearing loss, right ear; I10 Essential (primary) hypertension; M79.7 Fibromyalgia; Z79.51 Long term (current) use of inhaled steroids; Z79.82 Long term (current) use of aspirin; Z79.899 Other long term (current) drug therapy; Z88.1 Allergy status to other antibiotic agents; Z88.5 Allergy status to narcotic agent; Z88.8 Allergy status to other drugs, medicaments and biological substances; Z86.14 Personal history of Methicillin resistant Staphylococcus aureus infection
CPT/HCPCS: 36415; 80053; 83690; 83735; 85025; 81003; 74177; 99284; Q9967

== ENCOUNTER → 2018-03-26 | Outpatient (CLI) | payer MEDICARE ==
--- NOTE | 2018-03-26 12:56 | US ---
EXAMINATION TYPE: US venous doppler duplex LE LT DATE OF EXAM: 03/26/2018 11:40 AM COMPARISON: NONE CLINICAL HISTORY: M79.652 Pain in left thigh; daily aspirin; PE 1987 SIDE PERFORMED: Left TECHNIQUE: The lower extremity deep venous system is examined utilizing real time linear array sonog alma with graded compression, doppler sonography and color-flow sonography. VESSELS IMAGED: Common Femoral Vein Deep Femoral Vein Greater Saphenous Vein * Femoral Vein Popliteal Vein Small Saphenous Vein * Proximal Calf Veins (* superficial vessels) Grayscale, color doppler, spectral doppler imaging performed of the deep veins of the left lower extr emity. There is normal flow, compressibility, vascular waveforms. Left Leg: Negative for DVT IMPRESSION: No sonographic evidence of deep venous arthrosis within the left lower extremity.
== END | disposition home or self-care (01) ==
LOC: RADUSWWP 11:11
PROVIDERS: ATTEND Family Medicine
DX: M79.652 Pain in left thigh (principal)

== ENCOUNTER → 2018-08-27 | Outpatient (CLI) | payer MEDICARE ==
--- NOTE | 2018-08-27 15:30 | BD ---
EXAMINATION TYPE: Axial Bone Density DATE OF EXAM: 08/27/2018 CLINICAL HISTORY: Postmenopausal female. Osteoporosis screening. Height: 61.25 Weight: 162.8 FRAX RISK QUESTIONS: Alcohol (3 or more units per day): no Family History (Parent hip fracture): no Glucocorticoids (More than 3mos): no (Ex: prednisone, prednisolone, methylprednisolone, dexamethasone, and hydrocortisone). History of Fracture in Adulthood: yes Secondary Osteoporosis: 1. Type 1 Diabetes: no 2. Hyperthyroidism: no 3. Menopause before 45: no 4. Malnutrition: no 5. Chronic liver disease: no Rheumatoid Arthritis: no Current Tobacco Use: no RISK FACTORS HISTORY OF: History of Wrist Fracture: yes, left When: about 2008 Family History of Osteoporosis: yes, mother Active: yes Diet low in dairy products/other sources of calcium: slightly, several servings a week Postmenopausal woman: yes Take estrogen and/or progesterone medications: not now How long: at least 5 years Lost more than 2 inches in height since high school: perhaps; patient states height may have been abo ut 64 inches at one time Frequent falls: no falls, just frequent dizziness Poor Health: no Hyperparathyroidism: no Adrenal Insufficiency: no MEDICATIONS: Prednisone or other steroids: no Thyroid Medications: yes Which medication: Levothyroxine How Long: more than 5 years Osteoporosis Medications: not now Which medication: possibly Fosamax How Long: unsure Additional Medications: Vitamin D Additional History: EXAM MEASUREMENTS: Bone mineral densitometry was performed using the [employer] System. Bone mineral density as measured about the Lumbar spine is: ----- L1-L4(G/cm2): 1.107 T Score Values are as follows: ----- L2: -1.7 ----- L3: -1.2 ----- L4: 0.5 ----- L1-L4: -0.6 Bone mineral density has: Increased 5.8% since study of: 11/21/2013 Bone mineral density about the R hip (g/cm2): 0.834 Bone mineral density about the L hip (g/cm2): 0.914 T Score values are as follows: -----R Neck: -1.5 -----L Neck: -0.9 -----R Total: -0.8 -----L Total: -0.9 Bone mineral density has: Decreased -3.0% since study of: 11/21/2013 IMPRESSION: Osteopenia (T Score between -2.5 and -1). There is slightly increased risk of fracture and the patient may be considered for treatment. Re-Screen 2-5 years. NOTE: T-SCORE=SD OF THE YOUNG ADULT MEAN.
== END | disposition home or self-care (01) ==
LOC: RADBDWWP 10:38
PROVIDERS: ATTEND Family Medicine
DX: M85.80 Other specified disorders of bone density and structure, unspecified site (principal)
CPT/HCPCS: 77080

== ENCOUNTER → 2018-09-12 | Outpatient (CLI) | payer MEDICARE ==
--- NOTE | 2018-09-12 15:45 | US ---
EXAMINATION TYPE: US thyroid st tissue head/neck DATE OF EXAM: 09/12/2018 COMPARISON: NONE CLINICAL HISTORY: R59.0 ENLARGED LYMPHNODES. Left lateral neck palpable x 1 year. Area of palpable scanned. Superficial vascular lesion seen = 2.7 x 2.3 x 1.0 cm. Contralateral image taken. Lesion is oval in shape and show some vascularity and color Doppler. Grayscale, color Doppler, spectral Doppler imaging performed. IMPRESSION: Indeterminate soft tissue lesion is isoechoic to surrounding fat, consider neck MRI or C T with overlying marker for better evaluation.
== END | disposition home or self-care (01) ==
LOC: RADUSWWP 13:55
PROVIDERS: ATTEND Family Medicine
DX: R59.0 Localized enlarged lymph nodes (principal)
CPT/HCPCS: 76536

== ENCOUNTER → 2018-11-07 | Outpatient (CLI) | payer MEDICARE ==
--- NOTE | 2018-11-07 09:38 | CT ---
EXAMINATION TYPE: CT soft tissue neck w con DATE OF EXAM: 11/07/2018 COMPARISON: Correlation ultrasound neck 09/12/2018 HISTORY: 78-year-old female Localized enlarged lymph on right back side of neck TECHNIQUE: Contiguous axial scanning of the soft tissues of the neck performed with IV Contrast, fernando ent injected with 100 mL of Isovue 300. Coronal/sagittal reconstructions performed. CT DLP: 372.80 mGycm Automated exposure control for dose reduction was used. FINDINGS: Right occipital craniotomy flap and partial resection extending into the right mastoid air cells. Ext ensive metal artifacts project from the anterior aspect of the right globe. Visualized paranasal sinu ses and left mastoid air cells are clear. Slight rightward nasal septal deviation. The nasopharynx is clear. Very mild thickening of the lingual tonsils. Oropharynx otherwise clear. The prevertebral soft tissues and epiglottis are within normal limits. The glottic and subglottic structures as well as the tracheal column and visualized upper lungs are c lear. Thyroid gland is small in size. The right submandibular gland is asymmetrically smaller in size. Paro tid glands appear satisfactory. There is a palpable marker along the right posterior base of the neck. Directly underlying, located d eep to the trapezius, overlying the right-sided paraspinal musculature and along the posterior margin of the levator scapulae, is an ovoid 3.3 x 2.1 x 1.5 cm fat density lesion causing asymmetric wideni ng of the intramuscular plane. No suspicious internal complexity is seen., Referred axial image 53, c oronal image 51, and sagittal image 11. Otherwise, no cervical lymphadenopathy or suspicious neck masses seen. Bones: Moderate degenerative disc disease mid to lower cervical spine. IMPRESSION: 1. PALPABLE MARKER ALONG THE RIGHT POSTERIOR BASE OF THE NECK. THERE IS AN UNDERLYING 3.3 CM LIPOMA L OCATED DEEP TO THE TRAPEZIUS MUSCLE AND ABUTTING THE RIGHT-SIDED PARASPINAL MUSCULATURE AND POSTERIOR MARGIN OF THE LEVATOR SCAPULAE. NO INTERNAL COMPLEXITY IS SEEN. IF THE AREA IS SYMPTOMATIC OR ANY GR OWTH IS NOTED, CONSIDER SURGICAL EVALUATION. 2. NO CERVICAL LYMPHADENOPATHY BY CT SIZE CRITERIA.
== END | disposition home or self-care (01) ==
LOC: RADCTMAIN 08:26
PROVIDERS: ATTEND Family Medicine
DX: D17.79 Benign lipomatous neoplasm of other sites (principal); R59.0 Localized enlarged lymph nodes
CPT/HCPCS: 82565; 84520; 70491; 36415; Q9967

== ENCOUNTER → 2019-05-01 | Outpatient (CLI) | payer MEDICARE ==
--- NOTE | 2019-05-01 10:21 | US ---
EXAMINATION TYPE: US abdomen complete DATE OF EXAM: 05/01/2019 COMPARISON: 09/29/2011 CLINICAL HISTORY: 78-year-old female R19.7 Diarrhea, R63.4 abnormal weight loss, R10.11. Lost 10 dayo nds in three weeks TECHNIQUE: Multiple sonographic images of the abdomen are obtained. FINDINGS: EXAM MEASUREMENTS: Liver Length: 12.9 cm Gallbladder: Surgically absent CBD: 1.1 cm Spleen: 8.2 cm Right Kidney: 7.9 x 3.7 x 4.7 cm Left Kidney: 9.2 x 4.1 x 4.3 cm Pancreas: wnl Liver: cyst, 1.3 x 1.1 x 1.3 cm, right lobe Gallbladder: Surgically absent Evidence for sonographic Virgen's sign: no CBD: dilated at head of pancreas Spleen: wnl Right Kidney: No hydronephrosis Left Kidney: No hydronephrosis Upper IVC: wnl Abd Aorta: wnl IMPRESSION: 1. Dilated bile duct at 1.1 cm likely within acceptable limits given patient's age and postcholecyste ctomy status. This can be confirmed with normal alkaline phosphatase and bilirubin levels. 2. Otherwise, no specific abnormality of the abdomen is identified.
== END | disposition home or self-care (01) ==
LOC: RADUSWWP 08:37
PROVIDERS: ATTEND Family Medicine
DX: K83.8 Other specified diseases of biliary tract (principal); R10.11 Right upper quadrant pain; R19.7 Diarrhea, unspecified; R63.4 Abnormal weight loss
CPT/HCPCS: 76700

== ENCOUNTER → 2020-01-21 | Outpatient (CLI) | payer MEDICARE ==
--- NOTE | 2020-01-21 12:30 | ECHOF ---
Referral Reason:R55 syncope and collapse MEASUREMENTS -------- HEIGHT: 160.0 cm WEIGHT: 72.6 kg BP: RVIDd: 3.2 cm (< 3.3) IVSd: 1.0 cm (0.6 - 1.1) LVIDd: 3.8 cm (3.9 - 5.3) LVPWd: 1.1 cm (0.6 - 1.1) IVSs: 1.4 cm LVIDs: 2.3 cm LVPWs: 1.5 cm LAESV Index (A-L): 23.78 ml/m Ao Diam: 2.4 cm (2.0 - 3.7) AV Cusp: 1.6 cm (1.5 - 2.6) MV EXCURSION: 18.414 mm (> 18.000) MV EF SLOPE: 123 mm/s (70 - 150) EPSS: 0.1 cm MV E Deonte: 0.87 m/s MV DecT: 223 ms MV A Deonte: 1.06 m/s MV E/A Ratio: 0.82 RAP: 5.00 mmHg RVSP: 40.09 mmHg FINDINGS -------- Sinus rhythm. This was a technically adequate study. The left ventricular size is normal. There is borderline concentric left ventricular hypertrophy. There is normal global left ventricular contractility. Overall left ventricular systolic function is normal with, an EF between 55 - 60 %. The diastolic filling pattern is normal for the age of the patient 9.00. The right ventricle is normal in size. Normal LA size by volume 22+/-6 ml/m2. The right atrial size is normal. Interatrial and interventricular septum intact. The aortic valve is trileaflet and appears structurally normal. There is no evidence of aortic regu rgitation. There is no evidence of aortic stenosis. Mild mitral regurgitation is present. [id number]-[id number]-[id number] tricuspid regurgitation present. There is mild to moderate pulmonary hypertension. The right ventricular systolic pressure, as measured by Doppler, is 40.09mmHg. There is no pulmonic regurgitation present. The aortic root size is normal. Normal inferior vena cava with normal inspiratory collapse consistent with estimated right atrial pre ssure of 5 mmHg. There is no pericardial effusion. CONCLUSIONS -------- 1. Sinus rhythm. 2. This was a technically adequate study. 3. The left ventricular size is normal. 4. There is borderline concentric left ventricular hypertrophy. 5. There is normal global left ventricular contractility. 6. Overall left ventricular systolic function is normal with, an EF between 55 - 60 %. 7. The diastolic filling pattern is normal for the age of the patient 9.00 8. The right ventricle is normal in size. 9. Normal LA size by volume 22+/-6 ml/m2. 10. The right atrial size is normal. 11. Interatrial and interventricular septum intact. 12. The aortic valve is trileaflet and appears structurally normal. 13. There is no evidence of aortic regurgitation. 14. There is no evidence of aortic stenosis. 15. Mild mitral regurgitation is present. 16. Wrlm-rv-[id number] tricuspid regurgitation present. 17. There is mild to moderate pulmonary hypertension. 18. The right ventricular systolic pressure, as measured by Doppler, is 40.09mmHg. 19. There is no pulmonic regurgitation present. 20. The aortic root size is normal. 21. Normal inferior vena cava with normal inspiratory collapse consistent with estimated right atrial pressure of 5 mmHg. 22. There is no pericardial effusion. CLASSROOM AIDE: Najma Shaikh RDCS
== END | disposition home or self-care (01) ==
LOC: RADECHMAIN 10:29
PROVIDERS: ATTEND Family Medicine
DX: I08.1 Rheumatic disorders of both mitral and tricuspid valves (principal); I27.20 Pulmonary hypertension, unspecified
CPT/HCPCS: 93306

== ENCOUNTER 2020-05-02 03:32 | Emergency (ER) | payer MEDICARE, OTHER ==
[2020-05-02 03:40] VITALS: RESP 18; TEMP 98
[2020-05-02] MEDS ORDERED: MORPHINE SULFATE 4 MG/ML SYRINGE IM STA (04:39)
[2020-05-02 04:55] VITALS: BP 137/87; PULSE 60
--- NOTE | 2020-05-02 04:58 | XR ---
EXAMINATION TYPE: XR knee complete RT DATE OF EXAM: 05/02/2020 COMPARISON: NONE HISTORY: Knee pain TECHNIQUE: 3 views FINDINGS: I see no fracture nor dislocation. Joint spaces are normal. There is no sign of joint effus ion. IMPRESSION: Negative right knee exam. No fracture.
--- NOTE | 2020-05-02 05:22 | ED ---
Lower Extremity Injury HPI - General Chief Complaint: Extremity Injury, Lower Stated Complaint: knee injury Time Seen by Provider: 05/02/20 03:59 Source: patient, family Mode of arrival: ambulatory Limitations: no limitations - History of Present Illness Initial Comments: This patient is 79-year-old woman who presents to be evaluated for right knee pain. The patient states that it is along the lateral aspect of the right knee. She states that it is much worse with flexion of the knee where she tries to bear weight. She has not recall an exact injury. She is able to bear some weight. Patient denies previous injury or surgery. No loss of sensation or function distal to the injury. She states that she did take a [place] which did not provide much relief at all so she thought she should have this evaluated. MD Complaint: knee injury -: hour(s) Injury: Knee: Right Type of Injury: unknown Place: home Severity: moderate Improves With: nothing Worsens With: weight bearing, movement Associated Symptoms: swelling, able to partially bear weight Treatments Prior to Arrival: other ([place]) - Related Data Home Medications Medication Instructions Recorded Confirmed Aspirin EC [Ecotrin] 81 mg PO DAILY 01/14/15 03/08/18 Cholecalciferol [Vitamin D3] 5,000 unit PO DAILY 01/14/15 03/08/18 Hydrocodone/Acetaminophen [[place] 1 tab PO Q8HR PRN 01/14/15 03/08/18 5-325] Levothyroxine Sodium [Synthroid] 75 mcg PO DAILY 01/14/15 03/08/18 Lisinopril [Prinivil] 10 mg PO DAILY 01/14/15 03/08/18 Omeprazole [PriLOSEC] 20 mg PO DAILY 01/14/15 03/08/18 Meclizine [Antivert] 25 mg PO TID PRN 06/07/15 03/08/18 Gabapentin [Neurontin] 300 mg PO HS 09/12/17 03/08/18 Albuterol Inhaler (Mhu) [Ventolin 2 puff INHALATION RT-Q4H PRN 03/08/18 03/08/18 Hfa Inhaler] Calcium Carbonate [Calcium] 600 mg PO DAILY 03/08/18 03/08/18 Cetirizine HCl 10 mg PO DAILY 03/08/18 03/08/18 Ferrous Sulfate [Feosol] 325 mg PO DAILY 03/08/18 03/08/18 Fluticasone Nasal [place] [Flonase 2 spr EA NOSTRIL DAILY 03/08/18 03/08/18 Nasal [place]] Naproxen Sodium 440 mg PO Q12H PRN 03/08/18 03/08/18 Zolpidem [Ambien] 5 - 10 mg PO HS PRN 03/08/18 03/08/18 Allergies Allergy/AdvReac Type Severity Reaction Status Date / Time ciprofloxacin [From Cipro] Allergy Abdominal Verified 05/02/20 03:40 Pain nitrofurantoin Allergy Abdominal Verified 05/02/20 03:40 [From Macrobid] Pain pregabalin [From Lyrica] Allergy VERTIGO Verified 05/02/20 03:40 acetaminophen [From Vicodin] AdvReac Unknown Verified 05/02/20 03:40 ciprofloxacin HCl AdvReac Abdominal Verified 05/02/20 03:40 [From Cipro] Pain desvenlafaxine [From Pristiq] AdvReac Unknown Verified 05/02/20 03:40 duloxetine [From Cymbalta] AdvReac Unknown Verified 05/02/20 03:40 hydrocodone [From Vicodin] AdvReac Unknown Verified 05/02/20 03:40 hydroxychloroquine sulfate AdvReac Abdominal Verified 05/02/20 03:40 [From Plaquenil] Pain milnacipran [From Savella] AdvReac Unknown Verified 05/02/20 03:40 nitrofurantoin AdvReac VOMITING,HE Verified 05/02/20 03:40 macrocrystalline ADACHE [From Macrobid] sucralfate [From Carafate] AdvReac VERTIGO,FELT Verified 05/02/20 03:40 LIKE PASSING OUT" sulfamethoxazole AdvReac Nausea & Verified 05/02/20 03:40 [From Bactrim] Vomiting & Diarrhea trimethoprim [From Bactrim] AdvReac Nausea & Verified 05/02/20 03:40 Vomiting & Diarrhea Review of Systems ROS Statement: Those systems with pertinent positive or pertinent negative responses have been documented in the HPI. ROS Other: All systems not noted in ROS Statement are negative. Constitutional: Denies: fever, chills Respiratory: Denies: dyspnea Cardiovascular: Denies: chest pain, palpitations Musculoskeletal: Reports: joint swelling, arthralgia. Denies: back pain, myalgia Skin: Denies: rash Neurological: Denies: weakness, numbness, paresthesias Past Medical History Past Medical History: Fibromyalgia, Hypertension, Pulmonary Embolus (PE) Additional Past Medical History / Comment(s): acoustic neuroma, DEAF RT EAR. RIGHT HAND INDEX FINGER INFECTION. History of Any Multi-Drug Resistant Organisms: ESBL, MRSA Date of last positivie culture/infection: 12/03/15 MRSA; 03/27/15-ESBL MDRO Source:: Right 2nd Finger MRSA; Urine E.coli ESBL Past Surgical History: Cholecystectomy, Ear Surgery Additional Past Surgical History / Comment(s): right shoulder, right hand , B RAIN SURGERY, [facility] Past Anesthesia/Blood Transfusion Reactions: Family History of Problems w/ Anesthesia, Motion Sickness Additional Past Anesthesia/Blood Transfusion Reaction / Comment(s): brother had to be revived after anesthesia Past Psychological History: No Psychological Hx Reported Smoking Status: Never smoker Past Alcohol Use History: None Reported Past Drug Use History: None Reported - Past Family History Mother Family Medical History: No Reported History General Exam Limitations: no limitations General appearance: alert, in no apparent distress Head exam: Present: atraumatic, normocephalic Eye exam: Present: normal appearance Respiratory exam: Present: normal lung sounds bilaterally. Absent: respiratory distress, wheezes, rales, rhonchi, stridor Cardiovascular Exam: Present: regular rate, normal rhythm, normal heart sounds. Absent: systolic murmur, diastolic murmur, rubs, gallop Right Hip exam: Present: normal inspection, full ROM. Absent: tenderness, swelling Upper Leg exam: Present: normal inspection, full ROM. Absent: tenderness, swelling Knee exam: Present: normal inspection, tenderness (There is tenderness in the lateral aspect), pain/laxity with valgus, pain/laxity with varus, full knee extension. Absent: full ROM (Patient refuses flexion greater than 20 active range of motion), swelling, abrasion, laceration, ecchymosis, deformity, crepitus, dislocation, erythema, effusion, posterior draw sign Lower Leg exam: Present: normal inspection, full ROM. Absent: tenderness, swelling Ankle exam: Present: normal inspection, full ROM. Absent: tenderness, swelling Foot/Toe exam: Present: normal inspection, full ROM. Absent: tenderness, swelling Neurovascular tendon exam: Absent: no vascular compromise, abnormal cap refill, motor deficit, sensory deficit Neurological exam: Present: alert. Absent: motor sensory deficit Skin exam: Present: rash. Absent: warm, dry, intact, normal color Course Vital Signs 05/02/20 05/02/20 03:35 04:53 Temperature 98 F Pulse Rate 63 60 Respiratory 18 18 Rate Blood Pressure 151/77 137/87 O2 Sat by Pulse 100 98 Oximetry Disposition Clinical Impression: Knee sprain Disposition: HOME SELF-CARE Condition: Good Instructions (If sedation given, give patient instructions): Knee Sprain (ED) Is patient prescribed a controlled substance at d/c from ED?: No Referrals: Pablo Argueta III, MD [Primary Care Provider] - 1-2 days
[2020-05-02] MEDS ORDERED: HYDROmorphone 0.5 MG/0.5 ML SYRINGE IM STA (05:25)
== END 2020-05-02 06:16 | disposition home or self-care (01) ==
LOC: EC 03:32
DX: S83.91XA Sprain of unspecified site of right knee, initial encounter (principal); M79.7 Fibromyalgia; I10 Essential (primary) hypertension; Z79.82 Long term (current) use of aspirin; Z79.899 Other long term (current) drug therapy; Z88.1 Allergy status to other antibiotic agents; Z88.2 Allergy status to sulfonamides; Z88.8 Allergy status to other drugs, medicaments and biological substances; Z88.5 Allergy status to narcotic agent; Z86.711 Personal history of pulmonary embolism; Z86.14 Personal history of Methicillin resistant Staphylococcus aureus infection; X50.9XXA Other and unspecified overexertion or strenuous movements or postures, initial encounter
CPT/HCPCS: 73562; 96372 ×2; 99283; J2270; J1170

== ENCOUNTER 2020-08-23 09:12 | Emergency (ER) | payer MEDICARE, OTHER ==
[2020-08-23 09:19] VITALS: TEMP 97.9
[2020-08-23] MEDS ORDERED: KETOROLAC 15 MG/ML 1 ML VIAL IM STA (09:52)
--- NOTE | 2020-08-23 09:55 | ED ---
Upper Extremity HPI - General Chief Complaint: Extremity Injury, Upper Stated Complaint: lt arm pain Time Seen by Provider: 08/23/20 09:25 Source: patient Mode of arrival: ambulatory Limitations: physical limitation - History of Present Illness Initial Comments: This 80-year-old female who states she's had left shoulder pain for about the last 2 weeks she worse today. She denies any trauma any history of bursitis or rotator cuff injury. She is dominant right-handed. She points to the anterior left shoulder and over the posterior superior aspect of the shoulder for pain. The loss of function to her upper or lower extremities however. No shortness breath no cough no other symptoms reported. MD Complaint: Injury to:: left, shoulder - Related Data Home Medications Medication Instructions Recorded Confirmed Aspirin EC [Ecotrin] 81 mg PO DAILY 01/14/15 08/23/20 Cholecalciferol [Vitamin D3] 1,000 unit PO DAILY 01/14/15 08/23/20 Hydrocodone/Acetaminophen [[place] 1 tab PO Q8HR PRN 01/14/15 08/23/20 5-325] Lisinopril [Prinivil] 10 mg PO DAILY 01/14/15 08/23/20 Omeprazole [PriLOSEC] 20 mg PO DAILY 01/14/15 08/23/20 Meclizine [Antivert] 25 mg PO TID PRN 06/07/15 08/23/20 Atorvastatin [Lipitor] 40 mg PO HS 08/23/20 08/23/20 Levothyroxine Sodium [Synthroid] 75 mcg PO DAILY 08/23/20 08/23/20 Previous Rx's Medication Instructions Recorded predniSONE [Deltasone] 20 mg PO BID #10 tab 08/23/20 Allergies Allergy/AdvReac Type Severity Reaction Status Date / Time ciprofloxacin [From Cipro] Allergy Abdominal Verified 08/23/20 09:49 Pain nitrofurantoin Allergy Abdominal Verified 08/23/20 09:49 [From Macrobid] Pain pregabalin [From Lyrica] Allergy VERTIGO Verified 08/23/20 09:49 acetaminophen [From Vicodin] AdvReac Unknown Verified 08/23/20 09:49 ciprofloxacin HCl AdvReac Abdominal Verified 08/23/20 09:49 [From Cipro] Pain desvenlafaxine [From Pristiq] AdvReac Unknown Verified 08/23/20 09:49 duloxetine [From Cymbalta] AdvReac Unknown Verified 08/23/20 09:49 hydrocodone [From Vicodin] AdvReac Unknown Verified 08/23/20 09:49 hydroxychloroquine sulfate AdvReac Abdominal Verified 08/23/20 09:49 [From Plaquenil] Pain milnacipran [From Sav[place]] AdvReac Unknown Verified 08/23/20 09:49 nitrofurantoin AdvReac VOMITING,HE Verified 08/23/20 09:49 macrocrystalline ADACHE [From Macrobid] sucralfate [From Carafate] AdvReac VERTIGO,FELT Verified 08/23/20 09:49 LIKE PASSING OUT" sulfamethoxazole AdvReac Nausea & Verified 08/23/20 09:49 [From Bactrim] Vomiting & Diarrhea trimethoprim [From Bactrim] AdvReac Nausea & Verified 08/23/20 09:49 Vomiting & Diarrhea Review of Systems ROS Statement: Those systems with pertinent positive or pertinent negative responses have been documented in the HPI. ROS Other: All systems not noted in ROS Statement are negative. Past Medical History Past Medical History: Fibromyalgia, Hypertension, Pulmonary Embolus (PE) Additional Past Medical History / Comment(s): acoustic neuroma, DEAF RT EAR. RIGHT HAND INDEX FINGER INFECTION. History of Any Multi-Drug Resistant Organisms: ESBL, MRSA Date of last positivie culture/infection: 12/03/15 MRSA; 03/27/15-ESBL MDRO Source:: Right 2nd Finger MRSA; Urine E.coli ESBL Past Surgical History: Cholecystectomy, Ear Surgery Additional Past Surgical History / Comment(s): right shoulder, right hand , BRAIN SURGERY, [facility] Past Anesthesia/Blood Transfusion Reactions: Family History of Problems w/ Anesthesia, Motion Sickness Additional Past Anesthesia/Blood Transfusion Reaction / Comment(s): brother had to be revived after anesthesia Past Psychological History: No Psychological Hx Reported Smoking Status: Never smoker Past Alcohol Use History: None Reported Past Drug Use History: None Reported - Past Family History Mother Family Medical History: No Reported History General Exam - General Exam Comments Initial Comments: This is a well-developed well-nourished awake alert oriented 3 female Limitations: physical limitation General appearance: alert, in no apparent distress, anxious Head exam: Present: atraumatic, normocephalic, normal inspection Eye exam: Present: normal appearance Neck exam: Present: normal inspection, full ROM, other. Absent: tenderness, meningismus, lymphadenopathy Respiratory exam: Present: normal lung sounds bilaterally. Absent: respiratory distress, wheezes, rales, rhonchi, stridor Cardiovascular Exam: Present: regular rate (Stridor JVD or bruits), normal rhythm, normal heart sounds. Absent: systolic murmur, diastolic murmur, rubs, gallop, clicks Extremities exam: Present: normal inspection, tenderness, normal capillary refill, other (Decreased range of motion the left shoulder secondary to pain when passive range of motion pain is elicited over the anterior shoulder no step-off no crepitation before meals joint is nontender at this time.) Back exam: Present: full ROM. Absent: tenderness Neurological exam: Present: alert, oriented X3, CN II-XII intact Psychiatric exam: Present: normal affect, normal mood Skin exam: Present: warm, dry, intact, normal color. Absent: rash Course Vital Signs 08/23/20 09:16 Temperature 97.9 F Pulse Rate 96 Respiratory 18 Rate Blood Pressure 142/78 O2 Sat by Pulse 98 Oximetry Medical Decision Making - Medical Decision Making I did discuss the findings with the patient family. Patient will be discharged we placed on oral steroids a short course of a sling Tylenol for pain and orthopedic follow-up she has [facility] past return when necessary - Radiology Data Radiology results: image reviewed (Review the imaging no evidence of acute findings some evidence of degenerative joint disease.) Disposition Clinical Impression: Left shoulder pain Disposition: HOME SELF-CARE Condition: Good Instructions (If sedation given, give patient instructions): Shoulder Pain (ED), Arthralgia (ED) Prescriptions: predniSONE [Deltasone] 20 mg PO BID #10 tab Is patient prescribed a controlled substance at d/c from ED?: No Referrals: Pablo Argueta III, MD [Primary Care Provider] - 1-2 days Reggie Garcia DO [Doctor of Osteopathic Medicine] - 1-2 days
[2020-08-23] MEDS ORDERED: predniSONE 50 MG TAB PO STA (10:41)
--- NOTE | 2020-08-23 10:43 | XR ---
EXAMINATION TYPE: XR shoulder complete LT DATE OF EXAM: 08/23/2020 Comparison: None Clinical History: 80-year-old female Nontraumatic pain Findings: Moderate degenerative change at the acromioclavicular joint with joint space narrowing, marginal spur ring, and a fragmented spur or loose body. Subacromial space is preserved. There is mild degenerative spurring of the inferior humeral head. Some mild bony irregularity also noted at the greater tuberos ity. No acute fracture, subluxation, or dislocation. Visualized left hemithorax is clear. Impression: Moderate AC joint OA. Some changes at the greater tuberosity can be seen with chronic rotator cuff te ndinopathy. No acute osseous abnormality seen.
[2020-08-23 10:55] VITALS: BP 143/69; PULSE 62; RESP 12
== END 2020-08-23 10:56 | disposition home or self-care (01) ==
LOC: EC 09:12
DX: M25.512 Pain in left shoulder (principal); I10 Essential (primary) hypertension; Z79.82 Long term (current) use of aspirin; Z79.899 Other long term (current) drug therapy; Z79.890 Hormone replacement therapy; Z88.1 Allergy status to other antibiotic agents; Z88.8 Allergy status to other drugs, medicaments and biological substances; Z88.6 Allergy status to analgesic agent; Z88.2 Allergy status to sulfonamides; Z86.711 Personal history of pulmonary embolism; Z88.5 Allergy status to narcotic agent
CPT/HCPCS: 73030; 99283; 96372; J1885; J7512

== ENCOUNTER → 2021-06-14 | Outpatient (CLI) | payer MEDICARE, OTHER ==
--- NOTE | 2021-06-14 12:02 | US ---
EXAMINATION TYPE: US abdomen complete DATE OF EXAM: 06/14/2021 COMPARISON: 05/01/2019 CLINICAL HISTORY: 80-year-old female R10.10 Upper Abdominal Pain,R14.0,N28.1 Cyst of kidney. Abdomen pain and bloating x couple months, history cholecystectomy TECHNIQUE: Multiple sonographic images of the abdomen are obtained. FINDINGS: EXAM MEASUREMENTS: Liver Length: 12.4 cm CBD: 1.1 cm Spleen: Unable to adequately assess Right Kidney: 8.2 x 3.5 x 4.6 cm Left Kidney: 9.4 x 4.3 x 3.8 cm Pancreas: Suboptimal visualization of the pancreatic tail due to shadowing from bowel gas. Visualize d portions appear within normal limits. Liver: 1.4cm right lobe cyst. Overall normal homogeneous echotexture. Gallbladder: surgically absent Evidence for sonographic Virgen's sign: no CBD: Dilated up to 1.1 cm. Spleen: obscured by overlying bowel gas Right Kidney: visualized portions wnl, inferior pole limited by overlying bowel gas. No hydronephros is. Left Kidney: wnl Upper IVC: wnl Abd Aorta: wnl IMPRESSION: 1. Dilated bile duct at 1.1 cm, suspected chronic, secondary to postcholecystectomy status and patien t's age, unchanged from 05/01/2019. 2. A benign 1.4 cm right hepatic lobe cyst.
== END | disposition home or self-care (01) ==
LOC: RADUSWWP 09:22
PROVIDERS: ATTEND Family Medicine
DX: K76.89 Other specified diseases of liver (principal); N28.1 Cyst of kidney, acquired; Z90.49 Acquired absence of other specified parts of digestive tract
CPT/HCPCS: 76700

== ENCOUNTER 2021-09-10 10:38 | Emergency (ER) | payer MEDICARE, OTHER ==
[2021-09-10 10:46] VITALS: RESP 18
[2021-09-10] MEDS ORDERED: LIDOCAINE-PRILOCAINE 2.5-2.5% CREAM 5 GM TUBE TOPICAL STA (12:05)
[2021-09-10] MEDS ORDERED: LIDOCAINE 1% INJ 10MG/ML (20 ML MDV) SQ ONE (12:06)
--- NOTE | 2021-09-10 12:08 | ED ---
General Adult HPI - General Source: patient, RN notes reviewed Mode of arrival: ambulatory Limitations: no limitations - History of Present Illness -: days(s) (2) Location: genitals (Left labia) Radiation: non-radiation Severity scale (1-10): 5 Consistency: constant Improves with: none Worsens with: other (Palpation) Associated Symptoms: denies other symptoms Treatments Prior to Arrival: none <Oscar Coffman - Last Filed: 09/10/21 16:37> <Barbara Santacruz - Last Filed: 09/11/21 14:30> - General Chief complaint: Urogenital Stated complaint: abscess Time Seen by Provider: 09/10/21 11:12 - History of Present Illness Initial comments: 81-year-old female presents to the emergency room alert and oriented 4 with complaints of left labial abscess for 2 days. Patient states that she has had this before several years ago. She has not seen her primary care doctor. She states that it is increasing in size. She denies any drainage, fevers, nausea or vomiting. (Oscar Coffman) - Related Data Home Medications Medication Instructions Recorded Confirmed Aspirin EC [Ecotrin] 81 mg PO DAILY 01/14/15 08/23/20 Cholecalciferol [Vitamin D3] 1,000 unit PO DAILY 01/14/15 08/23/20 Hydrocodone/Acetaminophen [[place] 1 tab PO Q8HR PRN 01/14/15 08/23/20 5-325] Lisinopril [Prinivil] 10 mg PO DAILY 01/14/15 08/23/20 Omeprazole [PriLOSEC] 20 mg PO DAILY 01/14/15 08/23/20 Meclizine [Antivert] 25 mg PO TID PRN 06/07/15 08/23/20 Atorvastatin [Lipitor] 40 mg PO HS 08/23/20 08/23/20 Levothyroxine Sodium [Synthroid] 75 mcg PO DAILY 08/23/20 08/23/20 Previous Rx's Medication Instructions Recorded predniSONE [Deltasone] 20 mg PO BID #10 tab 08/23/20 Cephalexin [Keflex] 500 mg PO Q6HR 7 Days #28 cap 09/10/21 Allergies Allergy/AdvReac Type Severity Reaction Status Date / Time ciprofloxacin [From Cipro] Allergy Abdominal Verified 09/10/21 10:46 Pain nitrofurantoin Allergy Abdominal Verified 09/10/21 10:46 [From Macrobid] Pain pregabalin [From Lyrica] Allergy VERTIGO Verified 09/10/21 10:46 acetaminophen [From Vicodin] AdvReac Unknown Verified 09/10/21 10:46 ciprofloxacin HCl AdvReac Abdominal Verified 09/10/21 10:46 [From Cipro] Pain desvenlafaxine [From Pristiq] AdvReac Unknown Verified 09/10/21 10:46 duloxetine [From Cymbalta] AdvReac Unknown Verified 09/10/21 10:46 hydrocodone [From Vicodin] AdvReac Unknown Verified 09/10/21 10:46 hydroxychloroquine sulfate AdvReac Abdominal Verified 09/10/21 10:46 [From Plaquenil] Pain milnacipran [From Savella] AdvReac Unknown Verified 09/10/21 10:46 nitrofurantoin AdvReac VOMITING,HE Verified 09/10/21 10:46 macrocrystalline ADACHE [From Macrobid] sucralfate [From Carafate] AdvReac VERTIGO,FELT Verified 09/10/21 10:46 LIKE PASSING OUT" sulfamethoxazole AdvReac Nausea & Verified 09/10/21 10:46 [From Bactrim] Vomiting & Diarrhea trimethoprim [From Bactrim] AdvReac Nausea & Verified 09/10/21 10:46 Vomiting & Diarrhea Review of Systems ROS Other: All systems not noted in ROS Statement are negative. <Oscar Coffman - Last Filed: 09/10/21 16:37> ROS Other: All systems not noted in ROS Statement are negative. <Barbara Santacruz - Last Filed: 09/11/21 14:30> ROS Statement: Those systems with pertinent positive or pertinent negative responses have been documented in the HPI. Past Medical History Past Medical History: Fibromyalgia, Hypertension, Pulmonary Embolus (PE) Additional Past Medical History / Comment(s): acoustic neuroma, DEAF RT EAR. RIGHT HAND INDEX FINGER INFECTION. History of Any Multi-Drug Resistant Organisms: ESBL, MRSA Date of last positivie culture/infection: 12/03/15 MRSA; 03/27/15-ESBL MDRO Source:: Right 2nd Finger MRSA; Urine E.coli ESBL Past Surgical History: Cholecystectomy, Ear Surgery Additional Past Surgical History / Comment(s): right shoulder, right hand , BRAIN SURGERY, [facility] Past Anesthesia/Blood Transfusion Reactions: Family History of Problems w/ Anesthesia, Motion Sickness Additional Past Anesthesia/Blood Transfusion Reaction / Comment(s): brother had to be revived after anesthesia Past Psychological History: No Psychological Hx Reported Smoking Status: Never smoker Past Alcohol Use History: None Reported Past Drug Use History: None Reported - Past Family History Mother Family Medical History: No Reported History <Oscar Coffman - Last Filed: 09/10/21 16:37> General Exam Limitations: no limitations General appearance: alert, in no apparent distress Head exam: Present: atraumatic, normocephalic, normal inspection Eye exam: Present: normal appearance, EOMI ENT exam: Present: normal exam, normal oropharynx, mucous membranes moist Neck exam: Present: normal inspection, full ROM. Absent: tenderness, meningismus, lymphadenopathy Respiratory exam: Present: normal lung sounds bilaterally. Absent: respiratory distress, wheezes, rales, rhonchi, stridor Cardiovascular Exam: Present: regular rate, normal rhythm, normal heart sounds. Absent: systolic murmur, diastolic murmur, rubs, gallop, clicks GI/Abdominal exam: Present: soft, normal bowel sounds. Absent: distended, tenderness, guarding, rebound, rigid External exam: Present: erythema (Left labia), swelling. Absent: lacerations, ecchymosis Back exam: Present: normal inspection. Absent: full ROM, tenderness, CVA tenderness (R), CVA tenderness (L), rash noted Neurological exam: Present: alert, oriented X3 Psychiatric exam: Present: normal affect, normal mood Skin exam: Present: warm, dry, intact, normal color, erythema (Left labia). Absent: rash, cyanosis, diaphoretic <Oscar Coffman - Last Filed: 09/10/21 16:37> Course Vital Signs 09/10/21 09/10/21 09/10/21 10:42 14:30 14:56 Temperature 97.6 F 101.8 F H Pulse Rate 74 95 Respiratory 18 18 Rate Blood Pressure 185/92 129/61 O2 Sat by Pulse 98 97 Oximetry Medical Decision Making <Oscar Coffman - Last Filed: 09/10/21 16:37> <Barbara Santacruz Last Filed: 09/11/21 14:30> - Medical Decision Making 2 incisions made, one to the left labia and one to the buttock. There was no purulent drainage. The area is indurated with evidence of cellulitis. Patient was placed on antibiotics and directed to do sitz baths once a day. Drected to follow up with her primary care doctor or paper tube cutter. Patient and family member are agreeable to this plan of care. Case discussed with Dr. Santacruz (Oscar Coffman) I was available for consultation in the emergency department. The history and physical exam were done by the midlevel provider. I was consulted for this patients care. I reviewed the case with the midlevel provider and based on their presentation of the patient, I agree with the assessment, medical decision making and plan of care as documented. Chart was dictated using [employer] dictation software. Attempts were made to correct any dictation errors however some typographical errors may persist. (Barbara Santacruz) Disposition Is patient prescribed a controlled substance at d/c from ED?: No Time of Disposition: 13:34 <Oscar Coffman - Last Filed: 09/10/21 16:37> <Barbara Santacruz - Last Filed: 09/11/21 14:30> Clinical Impression: Bartholin's gland abscess Disposition: HOME SELF-CARE Condition: Good Instructions (If sedation given, give patient instructions): Abscess Incision and Drainage (ED), Sitz Bath (DC) Additional Instructions: Take antibiotics as prescribed for the next 7 days. Do sitz baths while at home as directed. Follow-up with your primary care doctor or paper tube cutter next week. Return to the emergency room with any new or worsening symptoms. Tylenol and or Motrin for pain. Prescriptions: Cephalexin [Keflex] 500 mg PO Q6HR 7 Days #28 cap Referrals: Pablo Argueta III, MD [Primary Care Provider] - 1-2 days Ryan Geller MD [STAFF PHYSICIAN] - 1-2 days
[2021-09-10] MEDS ORDERED: IBUPROFEN 600 MG TAB PO STA (14:32)
[2021-09-10 14:56] VITALS: TEMP 101.8
[2021-09-10 14:57] VITALS: BP 129/61; PULSE 95
== END 2021-09-10 14:57 | disposition home or self-care (01) ==
LOC: EC 10:38
DX: N75.1 Abscess of Bartholin's gland (principal); I10 Essential (primary) hypertension; Z79.82 Long term (current) use of aspirin; Z88.1 Allergy status to other antibiotic agents; Z88.2 Allergy status to sulfonamides; Z86.711 Personal history of pulmonary embolism; Z90.49 Acquired absence of other specified parts of digestive tract; Z88.5 Allergy status to narcotic agent
CPT/HCPCS: 99282; 56420; J2001

== ENCOUNTER 2021-09-11 14:27 | Inpatient (IN) | payer MEDICARE, OTHER ==
[2021-09-11] MEDS ORDERED: ONDANSETRON 4 MG/2 ML VIAL IVP STA (16:04)
[2021-09-11] MEDS ORDERED: FAMOTIDINE 20 MG/2 ML VIAL IV STA (16:04)
--- NOTE | 2021-09-11 16:08 | ED ---
General Adult HPI - General Chief complaint: Nausea/Vomiting/Diarrhea Stated complaint: Revisit/Nausea/Vomiting/Shakiness Time Seen by Provider: 09/11/21 15:40 Source: patient, family, RN notes reviewed Mode of arrival: wheelchair Limitations: no limitations - History of Present Illness Initial comments: Patient is a pleasant 81-year-old female presenting to the emergency department with nausea. Onset of symptoms was this morning. Patient feels nauseated however has only vomited once. Patient did have around 5 episodes of diarrhea this morning however that seems to stop. No abdominal pain. Patient was recently seen for abscess in her groin. This was attempted to be drained. Patient did have fever yesterday. - Related Data Home Medications Medication Instructions Recorded Confirmed Aspirin EC [Ecotrin] 81 mg PO DAILY 01/14/15 08/23/20 Cholecalciferol [Vitamin D3] 1,000 unit PO DAILY 01/14/15 08/23/20 Hydrocodone/Acetaminophen [[place] 1 tab PO Q8HR PRN 01/14/15 08/23/20 5-325] Lisinopril [Prinivil] 10 mg PO DAILY 01/14/15 08/23/20 Omeprazole [PriLOSEC] 20 mg PO DAILY 01/14/15 08/23/20 Meclizine [Antivert] 25 mg PO TID PRN 06/07/15 08/23/20 Atorvastatin [Lipitor] 40 mg PO HS 08/23/20 08/23/20 Levothyroxine Sodium [Synthroid] 75 mcg PO DAILY 08/23/20 08/23/20 Previous Rx's Medication Instructions Recorded predniSONE [Deltasone] 20 mg PO BID #10 tab 08/23/20 Cephalexin [Keflex] 500 mg PO Q6HR 7 Days #28 cap 09/10/21 Allergies Allergy/AdvReac Type Severity Reaction Status Date / Time ciprofloxacin [From Cipro] Allergy Abdominal Verified 09/11/21 15:01 Pain nitrofurantoin Allergy Abdominal Verified 09/11/21 15:01 [From Macrobid] Pain pregabalin [From Lyrica] Allergy VERTIGO Verified 09/11/21 15:01 acetaminophen [From Vicodin] AdvReac Unknown Verified 09/11/21 15:01 ciprofloxacin HCl AdvReac Abdominal Verified 09/11/21 15:01 [From Cipro] Pain desvenlafaxine [From Pristiq] AdvReac Unknown Verified 09/11/21 15:01 duloxetine [From Cymbalta] AdvReac Unknown Verified 09/11/21 15:01 hydrocodone [From Vicodin] AdvReac Unknown Verified 09/11/21 15:01 hydroxychloroquine sulfate AdvReac Abdominal Verified 09/11/21 15:01 [From Plaquenil] Pain milnacipran [From Savella] AdvReac Unknown Verified 09/11/21 15:01 nitrofurantoin AdvReac VOMITING,HE Verified 09/11/21 15:01 macrocrystalline ADACHE [From Macrobid] sucralfate [From Carafate] AdvReac VERTIGO,FELT Verified 09/11/21 15:01 LIKE PASSING OUT" sulfamethoxazole AdvReac Nausea & Verified 09/11/21 15:01 [From Bactrim] Vomiting & Diarrhea trimethoprim [From Bactrim] AdvReac Nausea & Verified 09/11/21 15:01 Vomiting & Diarrhea Review of Systems ROS Statement: Those systems with pertinent positive or pertinent negative responses have been documented in the HPI. ROS Other: All systems not noted in ROS Statement are negative. Constitutional: Reports: fever, chills Eyes: Denies: eye pain ENT: Denies: ear pain Respiratory: Denies: cough, dyspnea Cardiovascular: Denies: chest pain Endocrine: Denies: fatigue Gastrointestinal: Reports: nausea, vomiting, diarrhea. Denies: abdominal pain Genitourinary: Denies: dysuria Musculoskeletal: Denies: back pain Skin: Reports: rash Neurological: Denies: weakness Past Medical History Past Medical History: Fibromyalgia, Hypertension, Pulmonary Embolus (PE) Additional Past Medical History / Comment(s): acoustic neuroma, DEAF RT EAR. RIGHT HAND INDEX FINGER INFECTION. History of Any Multi-Drug Resistant Organisms: ESBL, MRSA Date of last positivie culture/infection: 12/03/15 MRSA; 03/27/15-ESBL MDRO Source:: Right 2nd Finger MRSA; Urine E.coli ESBL Past Surgical History: Cholecystectomy, Ear Surgery Additional Past Surgical History / Comment(s): right shoulder, right hand , BRAIN SURGERY, [facility], abscess lanced in groin Past Anesthesia/Blood Transfusion Reactions: Family History of Problems w/ Anesthesia, Motion Sickness Additional Past Anesthesia/Blood Transfusion Reaction / Comment(s): brother had to be revived after anesthesia Past Psychological History: No Psychological Hx Reported Smoking Status: Never smoker Past Alcohol Use History: None Reported Past Drug Use History: None Reported - Past Family History Mother Family Medical History: No Reported History General Exam Limitations: no limitations General appearance: alert, in no apparent distress Head exam: Present: normocephalic Eye exam: Present: normal appearance Neck exam: Present: normal inspection Respiratory exam: Present: normal lung sounds bilaterally Cardiovascular Exam: Present: tachycardia GI/Abdominal exam: Present: soft, normal bowel sounds. Absent: distended, tenderness, guarding, rebound, rigid, pulsatile mass External exam: Present: other (Left labial region with mild swelling and erythema. No fluctuance.) Extremities exam: Present: normal inspection Neurological exam: Present: alert Psychiatric exam: Present: normal affect, normal mood Skin exam: Present: normal color Course Vital Signs 09/11/21 09/11/21 09/11/21 14:58 15:50 16:45 Temperature 98.9 F Pulse Rate 120 H 103 H 77 Respiratory 19 20 20 Rate Blood Pressure 89/49 89/47 92/53 O2 Sat by Pulse 96 95 94 L Oximetry 09/11/21 09/11/21 17:30 17:50 Temperature Pulse Rate 81 77 Respiratory 20 20 Rate Blood Pressure 111/69 92/46 O2 Sat by Pulse 98 99 Oximetry - Reevaluation(s) Reevaluation #1: 09/11/21 18:15 Patient does meet criteria for severe sepsis diagnosed at 1814. IV fluid bolus has been ordered. Blood cultures and lactic acid and IV antibiotics have all been ordered. Patient reevaluated. EKG Findings - EKG Comments: EKG Findings:: Normal sinus rhythm with rate of 78. IN 136. QRS 74. QT 380. QTC 433. Normal axis. Normal QRS. No acute ST change. Procedures - Sepsis Sepsis Focused Exam #1 Time Sepsis Criteria Met: 18:14 Sepsis Focused Exam Date: 09/11/21 Sepsis Focused Exam Time: 19:00 Sepsis Focused Exam Complete: Yes Vital Signs & RN Notes Reviewed: Yes Capillary Refill: < 2 Seconds: Fingers, Toes Peripheral Pulses: Normal: Radial (R), Radial (L) Skin Color: Normal for Patient Respiratory Exam: normal lung sounds Cardiovascular Exam: regular rate Medical Decision Making - Medical Decision Making Patient was reevaluated. Patient and family were updated. Case was discussed with practitioner Bhavana, covering with Dr. Kaplan, who admits for Dr. Argueta. - Lab Data Result diagrams: 09/11/21 16:15 09/11/21 16:15 Lab Results 09/11/21 09/11/21 09/11/21 Range/Units 16:15 16:15 16:15 WBC 21.5 H (3.8-10.6) k/uL RBC 3.93 (3.80-5.40) m/uL Hgb 12.5 (11.4-16.0) gm/dL Hct 37.1 (34.0-46.0) % MCV 94.3 (80.0-100.0) fL MCH 31.9 (25.0-35.0) pg MCHC 33.9 (31.0-37.0) g/dL RDW 13.1 (11.5-15.5) % Plt Count 448 (150-450) k/uL MPV 8.0 Neutrophils % 92 % Lymphocytes % 4 % Monocytes % 3 % Eosinophils % 1 % Basophils % 0 % Neutrophils # 19.8 H (1.3-7.7) k/uL Lymphocytes # 0.8 L (1.0-4.8) k/uL Monocytes # 0.6 (0-1.0) k/uL Eosinophils # 0.3 (0-0.7) k/uL Basophils # 0.1 (0-0.2) k/uL PT 11.9 (9.0-12.0) sec INR 1.1 (<1.2) APTT 25.8 (22.0-30.0) sec Sodium 132 L (137-145) mmol/L Potassium 3.7 (3.5-5.1) mmol/L Chloride 101 (98-107) mmol/L Carbon Dioxide 19 L (22-30) mmol/L Anion Gap 12 mmol/L BUN 19 H (7-17) mg/dL Creatinine 1.44 H (0.52-1.04) mg/dL Est GFR (CKD-EPI)AfAm 39 (>60 ml/min/1.73 sqM) Est GFR (CKD-EPI)NonAf 34 (>60 ml/min/1.73 sqM) Glucose 103 H (74-99) mg/dL Plasma Lactic Acid Henry (0.7-2.0) mmol/L Calcium 9.2 (8.4-10.2) mg/dL Total Bilirubin 0.7 (0.2-1.3) mg/dL AST 25 (14-36) U/L ALT 21 (4-34) U/L Alkaline Phosphatase 96 (38-126) U/L Troponin I (0.000-0.034) ng/mL Total Protein 5.9 L (6.3-8.2) g/dL Albumin 3.1 L (3.5-5.0) g/dL Coronavirus (PCR) (Not Detectd) 09/11/21 09/11/21 09/11/21 Range/Units 16:15 16:15 16:43 WBC (3.8-10.6) k/uL RBC (3.80-5.40) m/uL Hgb (11.4-16.0) gm/dL Hct (34.0-46.0) % MCV (80.0-100.0) fL MCH (25.0-35.0) pg MCHC (31.0-37.0) g/dL RDW (11.5-15.5) % Plt Count (150-450) k/uL MPV Neutrophils % % Lymphocytes % % Monocytes % % Eosinophils % % Basophils % % Neutrophils # (1.3-7.7) k/uL Lymphocytes # (1.0-4.8) k/uL Monocytes # (0-1.0) k/uL Eosinophils # (0-0.7) k/uL Basophils # (0-0.2) k/uL PT (9.0-12.0) sec INR (<1.2) APTT (22.0-30.0) sec Sodium (137-145) mmol/L Potassium (3.5-5.1) mmol/L Chloride (98-107) mmol/L Carbon Dioxide (22-30) mmol/L Anion Gap mmol/L BUN (7-17) mg/dL Creatinine (0.52-1.04) mg/dL Est GFR (CKD-EPI)AfAm (>60 ml/min/1.73 sqM) Est GFR (CKD-EPI)NonAf (>60 ml/min/1.73 sqM) Glucose (74-99) mg/dL Plasma Lactic Acid Henry 1.6 (0.7-2.0) mmol/L Calcium (8.4-10.2) mg/dL Total Bilirubin (0.2-1.3) mg/dL AST (14-36) U/L ALT (4-34) U/L Alkaline Phosphatase (38-126) U/L Troponin I <0.012 (0.000-0.034) ng/mL Total Protein (6.3-8.2) g/dL Albumin (3.5-5.0) g/dL Coronavirus (PCR) Not Detected (Not Detectd) - Radiology Data Radiology results: image reviewed (Chest x-ray shows no acute process) Critical Care Time Critical Care Time: Yes Total Critical Care Time: 33 Disposition Clinical Impression: Cellulitis of labia, Severe sepsis Disposition: ADMITTED IP TO THIS [facility] Condition: Serious Is patient prescribed a controlled substance at d/c from ED?: No Referrals: Pablo Argueta III, MD [Primary Care Provider] - 1-2 days Decision Time: 18:16
[2021-09-11] MEDS: SODIUM CHLORIDE 0.9% 500 ML 500 ML IV SCH (16:12)
[2021-09-11] MEDS ORDERED: SODIUM CHLORIDE 0.9% 1,000 ML IV SCH (16:15)
[2021-09-11 16:36] LABS: Basophils # (A) 0.1 k/uL (0-0.2); Basophils % (A) 0 %; Eosinophils # (A) 0.3 k/uL (0-0.7); Eosinophils % (A) 1 %; HCT 37.1 % (34.0-46.0); HGB 12.5 gm/dL (11.4-16.0); INR 1.1 (<1.2); Lymphocytes # (A) 0.8 k/uL (1.0-4.8); Lymphocytes % (A) 4 %; MCH 31.9 pg (25.0-35.0); MCHC 33.9 g/dL (31.0-37.0); MCV 94.3 fL (80.0-100.0); Monocytes # (A) 0.6 k/uL (0-1.0); Monocytes % (A) 3 %; Neutrophils # (A) 19.8 k/uL (1.3-7.7); Neutrophils % (A) 92 %; Partial Thromboplastin Time 25.8 sec (22.0-30.0); Platelet Count 448 k/uL (150-450); Prothrombin Time 11.9 sec (9.0-12.0); RBC 3.93 m/uL (3.80-5.40); RDW 13.1 % (11.5-15.5); WBC 21.5 k/uL (3.8-10.6)
[2021-09-11 16:42] LABS: Albumin 3.1 g/dL (3.5-5.0); Calcium 9.2 mg/dL (8.4-10.2); Potassium 3.7 mmol/L (3.5-5.1); Total Bilirubin 0.7 mg/dL (0.2-1.3); Total Protein 5.9 g/dL (6.3-8.2)
--- NOTE | 2021-09-11 17:17 | XR ---
EXAMINATION TYPE: XR chest 2V DATE OF EXAM: 09/11/2021 COMPARISON: NONE HISTORY: Nausea and vomiting TECHNIQUE: 2 views FINDINGS: Heart and mediastinum are normal. Lungs are clear. Diaphragm is normal. Bony thorax appears normal. IMPRESSION: Normal chest. No change.
[2021-09-11] MEDS ORDERED: SODIUM CHLORIDE 0.9% 500 ML 500 ML IV STA (17:38)
[2021-09-11] MEDS ORDERED: SODIUM CHLORIDE 0.9% 1,000 ML IV STA (17:38)
[2021-09-11] MEDS ORDERED: VANCOMYCIN IV PER PHARMACY 1 EACH MISC MISCELLANE PRN (18:11)
[2021-09-11] MEDS ORDERED: AMPICILLIN-SULBACTAM 3 GM in SODIUM CHLORIDE 0.9% 100 ML IVPB STA (18:11)
[2021-09-11] MEDS ORDERED: ONDANSETRON 4 MG/2 ML VIAL IVP PRN (18:12)
[2021-09-11] MEDS ORDERED: NALOXONE 0.4 MG/ML 1 ML VIAL IV PRN (18:12)
[2021-09-11] MEDS ORDERED: VANCOMYCIN 1,250 MG in SODIUM CHLORIDE 0.9% 250 ML IVPB STA (18:15)
[2021-09-11 19:30] LABS: Appearance,Urine Clear (Clear); Bacteria,Urine Rare /hpf; Bilirubin,Urine Negative (Negative); Blood,Urine Trace (Negative); Color,Urine Yellow; Glucose,Urine (UA) Negative (Negative); Ketones,Urine Negative (Negative); Leukocyte Esterase,Urine Moderate (Negative); Mucus,Urine Rare /hpf; Nitrite,Urine Negative (Negative); Protein,Urine Negative (Negative); RBC,Urine 1 /hpf (0-5); Specific Gravity,Urine 1.009 (1.001-1.035); Squamous Epithelial Cell,Urine 2 /hpf (0-4); Urobilinogen,Urine <2.0 mg/dL (<2.0); WBC,Urine 17 /hpf (0-5)
[2021-09-11] MEDS: ACETAMINOPHEN TAB 325 MG TAB PO PRN (23:17)
[2021-09-12] MEDS: SODIUM CHLORIDE 0.9% 1,000 ML IV SCH ×2 (00:17→13:29)
[2021-09-12] MEDS: AMPICILLIN-SULBACTAM 1.5 GM in SODIUM CHLORIDE 0.9% 50 ML IVPB SCH ×5 (00:18→23:18)
[2021-09-12] MEDS: ACETAMINOPHEN TAB 325 MG TAB PO PRN ×3 (05:43→19:57)
[2021-09-12 08:43] LABS: MCH 31.4 pg (27.0-32.0); MCHC 32.3 g/dL (32.0-37.0); MCV 97.5 fL (80.0-97.0); Mean Platelet Volume 10.1 fL (9.5-12.2); Platelet Count 332 X 10*3/uL (140-440); RBC 3.18 X 10*6/uL (4.10-5.20); RDW 13.2 % (11.5-14.5); WBC 17.35 X 10*3/uL (4.50-10.00)
[2021-09-12 09:06] LABS: African American GFR (CKD) 49.1 (60.0-200.0); Albumin 2.5 g/dL (3.8-4.9); Albumin/Globulin Ratio 1.47 (1.60-3.17); Anion Gap 10.2 mmol/L (4.00-12.00); BUN/Creat Ratio 12.58 Ratio (12.00-20.00); Blood Urea Nitrogen 15.1 mg/dL (9.0-27.0); Calcium 7.8 mg/dL (8.7-10.3); Carbon Dioxide 18.8 mmol/L (21.6-31.8); Globulin 1.7 g/dL (1.6-3.3); Non-African American GFR(CKD) 42.3 (60.0-200.0); Potassium 3.8 mmol/L (3.5-5.5); Total Bilirubin 0.5 mg/dL (0.30-1.20); Total Protein 4.2 g/dL (6.2-8.2)
[2021-09-12] MEDS ORDERED: VANCOMYCIN 1,250 MG in SODIUM CHLORIDE 0.9% 250 ML IVPB SCH (10:00)
[2021-09-12 10:20] LABS: Basophils % (A) 0.6 %; Eosinophils # (A) 0.02 X 10*3/uL (0.04-0.35); Eosinophils % (A) 0.1 %; Lymphocytes # (A) 0.76 X 10*3/uL (0.90-5.00); Lymphocytes % (A) 4.4 %; Monocytes # (A) 0.69 X 10*3/uL (0.20-1.00); Neutrophils # (A) 15.52 X 10*3/uL (1.80-7.70); Neutrophils % (A) 89.4 %
--- NOTE | 2021-09-12 13:30 | P.HPIM ---
History of Present Illness 81-year-old pleasant female came in with complaints of multiple episodes of nausea vomiting. Patient was a recently treated for left groin abscess which was incised and drained and see any obvious abscesses but patient may have cell ulitis in the left groin area and maybe intertrigo. Patient was given prescription of Keflex after I&D and patient didn't tolerate this medication started having nausea vomiting abdominal discomfort because of which patient came to ER. Patient is presently on Unasyn and vancomycin and infectious d isease evaluated the patient patient is able to tolerate these medications we will patient doesn't have any fevers at this time patient does have leukocytosis. Patient is bit hyponatremic because of nausea vomiting and the noniron gap metabolic acidosis secondary to nausea vomiting which improved at this time. Patient is an 75 mL of normal saline at this time. REVIEW OF SYSTEMS: CONSTITUTIONAL: No fever, no malaise, no fatigue. HEENT: No recent visual problems or hearing problems. Denied any sore throat. CARDIOVASCULAR: No chest pain, orthopnea, PND, no palpitations, no syncope. PULMONARY: No shortness of breath, no cough, no hemoptysis. GASTROINTESTINAL: No diarrhea, no abdominal pain. NEUROLOGICAL: No headaches, no weakness, no numbness. HEMATOLOGICAL: Denies any bleeding or petechiae. GENITOURINARY: Denies any burning micturition, frequency, or urgency. MUSCULOSKELETAL/RHEUMATOLOGICAL: Denies any joint pain, swelling, or any muscle pain. ENDOCRINE: Denies any polyuria or polydipsia. The rest of the 14-point review of systems is negative. PHYSICAL EXAMINATION: GENERAL: The patient is alert and oriented x3, not in any acute distress. Well developed, well nourished. HEENT: Pupils are round and equally reacting to light. EOMI. No scleral icterus. No conjunctival pallor. Normocephalic, atraumatic. No pharyngeal erythema. No thyromegaly. CARDIOVASCULAR: S1 and S2 present. No murmurs, rubs, or gallops. PULMONARY: Chest is clear to auscultation, no wheezing or crackles. ABDOMEN: Soft, nontender, nondistended, normoactive bowel sounds. No palpable organomegaly. MUSCULOSKELETAL: No joint swelling or deformity. EXTREMITIES: No cyanosis, clubbing, or pedal edema. NEUROLOGICAL: Gross neurological examination did not reveal any focal deficits. SKIN: No rashes. Assessment and plan -Left groin cellulitis history of recent abscess that was drained possible intertrigo and antibiotics as per infectious disease. Patient is presently on IV vancomycin which will be continued patient has history of MRSA in the past patient is also on Unasyn. -Hypervolemic hyponatremia improved with IV fluids -Acute and failure secondary to prerenal azotemia from nausea vomiting which improved -Leukocytosis: Secondary to left groin cellulitis or intertrigo which is improving with her present antibiotics which will be continued -Noniron gap metabolic acidosis secondary to nausea vomiting. -Nausea vomiting: Secondary to antibiotics, patient is presently tolerating vancomycin and Unasyn which will be continued. DVT prophylaxis: Lovenox Past Medical History Past Medical History: Fibromyalgia, Hypertension, Pulmonary Embolus (PE) Additional Past Medical History / Comment(s): acoustic neuroma, DEAF RT EAR. RIGHT HAND INDEX FINGER INFECTION. History of Any Multi-Drug Resistant Organisms: ESBL, MRSA Date of last positivie culture/infection: 12/03/15 MRSA; 03/27/15-ESBL MDRO Source:: Right 2nd Finger MRSA; Urine E.coli ESBL Past Surgical History: Cholecystectomy, Ear Surgery Additional Past Surgical History / Comment(s): right shoulder, right hand , BRAIN SURGERY, [facility], abscess lanced in groin Past Anesthesia/Blood Transfusion Reactions: Family History of Problems w/ Anesthesia, Motion Sickness Additional Past Anesthesia/Blood Transfusion Reaction / Comment(s): brother had to be revived after anesthesia Past Psychological History: No Psychological Hx Reported Smoking Status: Never smoker Past Alcohol Use History: None Reported Past Drug Use History: None Reported - Past Family History Mother Family Medical History: No Reported History Medications and Allergies Home Medications Medication Instructions Recorded Confirmed Type Aspirin EC [Ecotrin] 81 mg PO DAILY 01/14/15 09/11/21 History Hydrocodone/Acetaminophen [[place] 1 tab PO Q8HR PRN 01/14/15 09/11/21 History 5-325] Lisinopril [Prinivil] 10 mg PO DAILY 01/14/15 09/11/21 History Omeprazole [PriLOSEC] 20 mg PO DAILY 01/14/15 09/11/21 History Meclizine [Antivert] 25 mg PO DIRECTED PRN 06/07/15 09/11/21 History Levothyroxine Sodium [Synthroid] 75 mcg PO DAILY 08/23/20 09/11/21 History Cephalexin [Keflex] 500 mg PO Q6HR 7 Days #28 cap 09/10/21 09/11/21 Rx Cholecalciferol [Vitamin D3 (25 25 mcg PO DAILY 09/11/21 09/11/21 History Mcg = 1000 Iu)] Ezetimibe [Zetia] 10 mg PO DAILY 09/11/21 09/11/21 History Allergies Allergy/AdvReac Type Severity Reaction Status Date / Time ciprofloxacin [From Cipro] Allergy Abdominal Verified 09/11/21 19:48 Pain nitrofurantoin Allergy Abdominal Verified 09/11/21 19:48 [From Macrobid] Pain pregabalin [From Lyrica] Allergy VERTIGO Verified 09/11/21 19:48 acetaminophen [From Vicodin] AdvReac Unknown Verified 09/11/21 19:48 ciprofloxacin HCl AdvReac Abdominal Verified 09/11/21 19:48 [From Cipro] Pain desvenlafaxine [From Pristiq] AdvReac Unknown Verified 09/11/21 19:48 duloxetine [From Cymbalta] AdvReac Unknown Verified 09/11/21 19:48 hydrocodone [From Vicodin] AdvReac Unknown Verified 09/11/21 19:48 hydroxychloroquine sulfate AdvReac Abdominal Verified 09/11/21 19:48 [From Plaquenil] Pain milnacipran [From Savella] AdvReac Unknown Verified 09/11/21 19:48 nitrofurantoin AdvReac VOMITING,HE Verified 09/11/21 19:48 macrocrystalline ADACHE [From Macrobid] sucralfate [From Carafate] AdvReac VERTIGO,FELT Verified 09/11/21 19:48 LIKE PASSING OUT" sulfamethoxazole AdvReac Nausea & Verified 09/11/21 19:48 [From Bactrim] Vomiting & Diarrhea trimethoprim [From Bactrim] AdvReac Nausea & Verified 09/11/21 19:48 Vomiting & Diarrhea Physical Exam Vitals: Vital Signs Temp Pulse Pulse Resp BP BP Pulse Ox 09/12/21 08:00 16 09/12/21 07:47 99.1 F 76 16 93/59 97 09/12/21 06:00 86/50 09/12/21 03:49 90/58 09/12/21 01:42 98.6 F 67 14 80/46 98 09/11/21 23:15 89/53 09/11/21 21:16 92/57 09/11/21 20:00 98.3 F 16 84/50 95 09/11/21 19:35 98.2 F 94 20 98/48 98 09/11/21 19:00 85 20 98/47 99 09/11/21 18:30 83 20 104/50 100 09/11/21 18:20 82 20 84/57 99 09/11/21 17:50 77 20 92/46 99 09/11/21 17:30 81 20 111/69 98 09/11/21 16:45 77 20 92/53 94 L 09/11/21 15:50 103 H 20 89/47 95 09/11/21 14:58 98.9 F 120 H 19 89/49 96 Intake and Output 09/11/21 09/12/21 09/12/21 22:59 06:59 14:59 Intake Total 200 Balance 200 Intake: Oral 200 Other: # Voids 1 Weight 72.575 kg Results CBC & Chem 7: 09/12/21 02:49 09/12/21 02:49 Labs: Abnormal Lab Results - Last 24 Hours (Table) 09/11/21 09/11/21 09/11/21 Range/Units 16:15 16:15 16:15 WBC 21.5 H (3.8-10.6) k/uL RBC (4.10-5.20) X 10*6/uL Hgb (12.0-15.0) g/dL Hct (37.2-46.3) % MCV (80.0-97.0) fL Immature Gran # (0.00-0.04) X 10*3/uL Neutrophils # 19.8 H (1.3-7.7) k/uL Lymphocytes # 0.8 L (1.0-4.8) k/uL Eosinophils # (0.04-0.35) X 10*3/uL Sodium 132 L (137-145) mmol/L Chloride (96-109) mmol/L Carbon Dioxide 19 L (22-30) mmol/L BUN 19 H (7-17) mg/dL Creatinine 1.44 H (0.52-1.04) mg/dL Est GFR (CKD-EPI)AfAm (60.0-200.0) Est GFR (CKD-EPI)NonAf (60.0-200.0) Glucose 103 H (74-99) mg/dL Calcium (8.7-10.3) mg/dL Total Protein 5.9 L (6.3-8.2) g/dL Albumin 3.1 L (3.5-5.0) g/dL Albumin/Globulin Ratio (1.60-3.17) g/dL Urine Blood Trace H (Negative) Ur Leukocyte Esterase Moderate H (Negative) Urine WBC 17 H (0-5) /hpf Urine Bacteria Rare H (None) /hpf Urine Mucus Rare H (None) /hpf 09/12/21 09/12/21 Range/Units 02:49 02:49 WBC 17.35 H (3.8-10.6) k/uL RBC 3.18 L (4.10-5.20) X 10*6/uL Hgb 10.0 L (12.0-15.0) g/dL Hct 31.0 L (37.2-46.3) % MCV 97.5 H (80.0-97.0) fL Immature Gran # 0.26 H (0.00-0.04) X 10*3/uL Neutrophils # 15.52 H (1.3-7.7) k/uL Lymphocytes # 0.76 L (1.0-4.8) k/uL Eosinophils # 0.02 L (0.04-0.35) X 10*3/uL Sodium (137-145) mmol/L Chloride 110 H (96-109) mmol/L Carbon Dioxide 18.8 L (22-30) mmol/L BUN (7-17) mg/dL Creatinine (0.52-1.04) mg/dL Est GFR (CKD-EPI)AfAm 49.1 L (60.0-200.0) Est GFR (CKD-EPI)NonAf 42.3 L (60.0-200.0) Glucose (74-99) mg/dL Calcium 7.8 L (8.7-10.3) mg/dL Total Protein 4.2 L (6.3-8.2) g/dL Albumin 2.5 L (3.5-5.0) g/dL Albumin/Globulin Ratio 1.47 L (1.60-3.17) g/dL Urine Blood (Negative) Ur Leukocyte Esterase (Negative) Urine WBC (0-5) /hpf Urine Bacteria (None) /hpf Urine Mucus (None) /hpf Microbiology - Last 24 Hours (Table) 09/11/21 16:15 Urine Culture - Preliminary Urine,Voided
[2021-09-12] MEDS: FAMOTIDINE 20 MG TAB PO SCH ×2 (14:09→19:57)
--- NOTE | 2021-09-12 18:50 | P.OBCN ---
History of Present Illness Consult date: 09/12/21 Reason for consult: other (Labial cellulitis) Chief complaint: Perineal pain History of present illness: This patient is a very pleasant 81-year-old 3 para 3 female who initially presented to the emergency department afternoon of Sunday with complaints of left labial pain for 2 days. Patient was seen in the emergency department that they and apparently they felt she had an abscess in the left labia and attempted to drain it twice without any fluid presenting. She was subsequently sent home on oral antibiotics. At the time of that emergency room visit her temperature was 101.8. Patient was discharged home and instructed to follow up with her primary physician. She developed some nausea vomiting and increased pain and repeat presented to the emergency department yesterday afternoon. Patient was subsequently admitted yesterday and given IV antibiotics. In talking to the patient, she reports a past history of an infection in the labial area in the remote past, many years ago. She does not have a primary drag seiner that she sees. Review of Systems Genitourinary: Reports as per HPI Menstruation: Reports amenorrhea Past Medical History Past Medical History: Fibromyalgia, Hypertension, Pulmonary Embolus (PE) Additional Past Medical History / Comment(s): acoustic neuroma, DEAF RT EAR. RIGHT HAND INDEX FINGER INFECTION. History of Any Multi-Drug Resistant Organisms: ESBL, MRSA Year Discovered:: 12/03/15 MRSA; 03/27/15-ESBL MDRO Source:: Right 2nd Finger MRSA; Urine E.coli ESBL Past Surgical History: Cholecystectomy, Ear Surgery Additional Past Surgical History / Comment(s): right shoulder, right hand , BRAIN SURGERY, [facility], abscess lanced in groin Past Anesthesia/Blood Transfusion Reactions: Family History of Problems w/ Anesthesia, Motion Sickness Additional Past Anesthesia/Blood Transfusion Reaction / Comm: brother had to be revived after anesthesia Past Psychological History: No Psychological Hx Reported Smoking Status: Never smoker Past Alcohol Use History: None Reported Past Drug Use History: None Reported - Past Family History Mother Family Medical History: No Reported History Medications and Allergies Home Medications Medication Instructions Recorded Confirmed Type Aspirin EC [Ecotrin] 81 mg PO DAILY 01/14/15 09/11/21 History Hydrocodone/Acetaminophen [[place] 1 tab PO Q8HR PRN 01/14/15 09/11/21 History 5-325] Lisinopril [Prinivil] 10 mg PO DAILY 01/14/15 09/11/21 History Omeprazole [PriLOSEC] 20 mg PO DAILY 01/14/15 09/11/21 History Meclizine [Antivert] 25 mg PO DIRECTED PRN 06/07/15 09/11/21 History Levothyroxine Sodium [Synthroid] 75 mcg PO DAILY 08/23/20 09/11/21 History Cephalexin [Keflex] 500 mg PO Q6HR 7 Days #28 cap 09/10/21 09/11/21 Rx Cholecalciferol [Vitamin D3 (25 25 mcg PO DAILY 09/11/21 09/11/21 History Mcg = 1000 Iu)] Ezetimibe [Zetia] 10 mg PO DAILY 09/11/21 09/11/21 History Allergies Allergy/AdvReac Type Severity Reaction Status Date / Time ciprofloxacin [From Cipro] Allergy Abdominal Verified 09/11/21 19:48 Pain nitrofurantoin Allergy Abdominal Verified 09/11/21 19:48 [From Macrobid] Pain pregabalin [From Lyrica] Allergy VERTIGO Verified 09/11/21 19:48 acetaminophen [From Vicodin] AdvReac Unknown Verified 09/11/21 19:48 ciprofloxacin HCl AdvReac Abdominal Verified 09/11/21 19:48 [From Cipro] Pain desvenlafaxine [From Pristiq] AdvReac Unknown Verified 09/11/21 19:48 duloxetine [From Cymbalta] AdvReac Unknown Verified 09/11/21 19:48 hydrocodone [From Vicodin] AdvReac Unknown Verified 09/11/21 19:48 hydroxychloroquine sulfate AdvReac Abdominal Verified 09/11/21 19:48 [From Plaquenil] Pain milnacipran [From Savella] AdvReac Unknown Verified 09/11/21 19:48 nitrofurantoin AdvReac VOMITING,HE Verified 09/11/21 19:48 macrocrystalline ADACHE [From Macrobid] sucralfate [From Carafate] AdvReac VERTIGO,FELT Verified 09/11/21 19:48 LIKE PASSING OUT" sulfamethoxazole AdvReac Nausea & Verified 09/11/21 19:48 [From Bactrim] Vomiting & Diarrhea trimethoprim [From Bactrim] AdvReac Nausea & Verified 09/11/21 19:48 Vomiting & Diarrhea Exam Vital Signs Temp Pulse Pulse Resp BP BP Pulse Ox 09/12/21 14:00 98.4 F 75 18 96/59 97 09/12/21 08:00 16 09/12/21 07:47 99.1 F 76 16 93/59 97 09/12/21 06:00 86/50 09/12/21 03:49 90/58 09/12/21 01:42 98.6 F 67 14 80/46 98 09/11/21 23:15 89/53 09/11/21 21:16 92/57 09/11/21 20:00 98.3 F 16 84/50 95 09/11/21 19:35 98.2 F 94 20 98/48 98 09/11/21 19:00 85 20 98/47 99 Intake and Output 09/12/21 09/12/21 09/12/21 06:59 14:59 22:59 Intake Total 200 Balance 200 Intake: Oral 200 Other: # Voids 1 2 - OBG Physical Exam Vulva: Examination is limited to the pelvis. She has significant induration of the left labia without flocculants consistent with cellulitis. Results Result Diagrams: 09/12/21 02:49 09/12/21 02:49 Abnormal Lab Results - Last 24 Hours (Table) 09/11/21 09/12/21 09/12/21 Range/Units 16:15 02:49 02:49 WBC 17.35 H (4.50-10.00) X 10*3/uL RBC 3.18 L (4.10-5.20) X 10*6/uL Hgb 10.0 L (12.0-15.0) g/dL Hct 31.0 L (37.2-46.3) % MCV 97.5 H (80.0-97.0) fL Immature Gran # 0.26 H (0.00-0.04) X 10*3/uL Neutrophils # 15.52 H (1.80-7.70) X 10*3/uL Lymphocytes # 0.76 L (0.90-5.00) X 10*3/uL Eosinophils # 0.02 L (0.04-0.35) X 10*3/uL Chloride 110 H (96-109) mmol/L Carbon Dioxide 18.8 L (21.6-31.8) mmol/L Est GFR (CKD-EPI)AfAm 49.1 L (60.0-200.0) Est GFR (CKD-EPI)NonAf 42.3 L (60.0-200.0) Calcium 7.8 L (8.7-10.3) mg/dL Total Protein 4.2 L (6.2-8.2) g/dL Albumin 2.5 L (3.8-4.9) g/dL Albumin/Globulin Ratio 1.47 L (1.60-3.17) g/dL Urine Blood Trace H (Negative) Ur Leukocyte Esterase Moderate H (Negative) Urine WBC 17 H (0-5) /hpf Urine Bacteria Rare H (None) /hpf Urine Mucus Rare H (None) /hpf Microbiology - Last 24 Hours (Table) 09/11/21 16:07 Blood Culture - Preliminary Blood No Growth after 24 hours 09/11/21 16:23 Blood Culture - Preliminary Blood No Growth after 24 hours 09/11/21 16:15 Urine Culture - Preliminary Urine,Voided Assessment and Plan Assessment: This is a pleasant 81-year-old female with a several day history of left labial cellulitis. I do not believe based on exam and the attempt to drain this, that this is an abscess. I completely agree with continuing IV antibiotics with inpatient hospitalization. I explained to the patient and her daughter the severity of the cellulitis and the necessity of keeping her here until this is responding to IV antibiotics. She is agreeable to this. Her white blood cell count has decreased from admission and she is not had any significant fever since Sunday. She'll need a CBC daily and I'll continue to follow closely w ith you. At this point there is no indication for surgical intervention. (1) Cellulitis of labia Current Visit: Yes Status: Acute Code(s): N76.2 - ACUTE VULVITIS SNOMED Code(s): 85143675
[2021-09-13] MEDS: SODIUM CHLORIDE 0.9% 1,000 ML IV SCH ×2 (02:51→05:15)
[2021-09-13] MEDS: AMPICILLIN-SULBACTAM 1.5 GM in SODIUM CHLORIDE 0.9% 50 ML IVPB SCH ×3 (05:15→17:31)
--- NOTE | 2021-09-13 06:07 | P.PN ---
Progress Note - Text Progress Note Date: 09/13/21 Patient is seen and examined again this morning. She rested overnight without additional complaints. Labia appears less erythematous but still indurated. CBC is pending. She continues to be afebrile. My impression is that she appears to responding to antibiotics. We'll await CBC today. Most likely will need several days of IV antibiotics prior to discharge.
--- NOTE | 2021-09-13 07:00 | P.CONS ---
History of Present Illness - Reason for Consult Consult date: 09/12/21 labial abscess Requesting physician: Homero Vizcarra - Chief Complaint left labial pain and redness x few days - History of Present Illness History of present illness : Patient is 81-year-old female presenting to the hospital for left labial pain that started about 4 days ago patient mention she presented to the ER on Sunday where the ER physician tried to drai n it however no fluid came out patient subsequently was sent home on oral antibiotic in the form of Keflex however she presented back to the hospital with a fever and persistent pain to the left labial area which he is describing to be throbbing intensity is 5-6 out of 10 and no radiation the area is swollen and red but no significant purulent drainage patient denies having any headache or URI symptoms no chest pain shortness of breath or cough no abdominal pain or any diarrhea on presentation to the hospital patient did not have any fever and no fever has been recorded subsequently patient did have white count of 21 point 5 repeat this morning is 17.35 with a left shift he did have elevated creatinine on admission which is subsequent has normalized as of this morning UA was mildly positive blood culture has been obtained patient was started on Unasyn and vancomycin infectious disease was consulted for further management of antibiotic therapy patient did have a chest x-ray that was reported negative Review of system: CONSTITUTIONAL: Positive for weakness along with the fever. EYES: No complaint. ENT: No complaint. RESPIRATORY: No complaint. CARDIOVASCULAR: No complaint. GENITOURINARY as per history of present illness. GASTROINTESTINAL: No complaint. MUSCULOSKELETAL: No complaint. INTEGUMENTARY: No complaint. PSYCHOLOGIC: No complaint. ENDOCRINE: No complaint. NEUROLOGIC: No complaint. Past medical history : Reviewed, documented below Past surgical history : Reviewed, documented below Social history: Reviewed, documented below Medications: Reviewed, as documented below EXAMINATION: Vital sigans= Reviewed and documented below GENERAL DESCRIPTION: Elderly female lying in bed, no distress. No tachypnea or accessory muscle of respiration use. HEENT: Shows Pallor , no scleral icterus. Oral mucous membrane is dry. NECK: Trachea central, no thyromegaly. LUNGS: Unlabored breathing. Clear to auscultation anteriorly. No wheeze or crackle. HEART: S1, S2, regular rate and rhythm. ABDOMEN: Soft, no tenderness , guarding or rigidity : Left labial area did have a induration and swelling no significant fluctuation or drainage was noticed EXTREMITIES: No edema of feet. SKIN: No rash, no masses palpable. NEUROLOGICAL: The patient is awake, alert, oriented x3, mood and affect normal. LABS AND RADIOLOGY: Reviewed results see below Assessment : Patient presented to hospital with left labial abscess in this patient failing to respond to the outpatient oral Keflex therapy and concern for possible community associated MRSA versus a polymicrobial infection Plan: 1-await OB evaluation and possible drainage and deep culture 2-vancomycin pharmacy to dose with a target trough of 15 while watching kidney function and Vanco trough closely. 3-Unasyn 3 g every 6 hours We will follow on clinical condition and cultures to further adjust medication if needed Thank you for this consultation we will follow the patient along with you Past Medical History Past Medical History: Fibromyalgia, Hypertension, Pulmonary Embolus (PE) Additional Past Medical History / Comment(s): acoustic neuroma, DEAF RT EAR. RIGHT HAND INDEX FINGER INFECTION. History of Any Multi-Drug Resistant Organisms: ESBL, MRSA Year Discovered:: 12/03/15 MRSA; 03/27/15-ESBL MDRO Source:: Right 2nd Finger MRSA; Urine E.coli ESBL Past Surgical History: Cholecystectomy, Ear Surgery Additional Past Surgical History / Comment(s): right shoulder, right hand , BRAIN SURGERY, [facility], abscess lanced in groin Past Anesthesia/Blood Transfusion Reactions: Family History of Problems w/ Anesthesia, Motion Sickness Additional Past Anesthesia/Blood Transfusion Reaction / Comm: brother had to be revived after anesthesia Past Psychological History: No Psychological Hx Reported Smoking Status: Never smoker Past Alcohol Use History: None Reported Past Drug Use History: None Reported - Past Family History Mother Family Medical History: No Reported History Medications and Allergies Home Medications Medication Instructions Recorded Confirmed Type Aspirin EC [Ecotrin] 81 mg PO DAILY 01/14/15 09/11/21 History Hydrocodone/Acetaminophen [[place] 1 tab PO Q8HR PRN 01/14/15 09/11/21 History 5-325] Lisinopril [Prinivil] 10 mg PO DAILY 01/14/15 09/11/21 History Omeprazole [PriLOSEC] 20 mg PO DAILY 01/14/15 09/11/21 History Meclizine [Antivert] 25 mg PO DIRECTED PRN 06/07/15 09/11/21 History Levothyroxine Sodium [Synthroid] 75 mcg PO DAILY 08/23/20 09/11/21 History Cephalexin [Keflex] 500 mg PO Q6HR 7 Days #28 cap 09/10/21 09/11/21 Rx Cholecalciferol [Vitamin D3 (25 25 mcg PO DAILY 09/11/21 09/11/21 History Mcg = 1000 Iu)] Ezetimibe [Zetia] 10 mg PO DAILY 09/11/21 09/11/21 History Allergies Allergy/AdvReac Type Severity Reaction Status Date / Time ciprofloxacin [From Cipro] Allergy Abdominal Verified 09/11/21 19:48 Pain nitrofurantoin Allergy Abdominal Verified 09/11/21 19:48 [From Macrobid] Pain pregabalin [From Lyrica] Allergy VERTIGO Verified 09/11/21 19:48 acetaminophen [From Vicodin] AdvReac Unknown Verified 09/11/21 19:48 ciprofloxacin HCl AdvReac Abdominal Verified 09/11/21 19:48 [From Cipro] Pain desvenlafaxine [From Pristiq] AdvReac Unknown Verified 09/11/21 19:48 duloxetine [From Cymbalta] AdvReac Unknown Verified 09/11/21 19:48 hydrocodone [From Vicodin] AdvReac Unknown Verified 09/11/21 19:48 hydroxychloroquine sulfate AdvReac Abdominal Verified 09/11/21 19:48 [From Plaquenil] Pain milnacipran [From Savella] AdvReac Unknown Verified 09/11/21 19:48 nitrofurantoin AdvReac VOMITING,HE Verified 09/11/21 19:48 macrocrystalline ADACHE [From Macrobid] sucralfate [From Carafate] AdvReac VERTIGO,FELT Verified 09/11/21 19:48 LIKE PASSING OUT" sulfamethoxazole AdvReac Nausea & Verified 09/11/21 19:48 [From Bactrim] Vomiting & Diarrhea trimethoprim [From Bactrim] AdvReac Nausea & Verified 09/11/21 19:48 Vomiting & Diarrhea Physical Exam Vitals: Vital Signs Temp Pulse Pulse Resp BP BP Pulse Ox 09/12/21 07:47 99.1 F 76 16 93/59 97 09/12/21 06:00 86/50 09/12/21 03:49 90/58 09/12/21 01:42 98.6 F 67 14 80/46 98 09/11/21 23:15 89/53 09/11/21 21:16 92/57 09/11/21 20:00 98.3 F 16 84/50 95 09/11/21 19:35 98.2 F 94 20 98/48 98 09/11/21 19:00 85 20 98/47 99 09/11/21 18:30 83 20 104/50 100 09/11/21 18:20 82 20 84/57 99 09/11/21 17:50 77 20 92/46 99 09/11/21 17:30 81 20 111/69 98 09/11/21 16:45 77 20 92/53 94 L 09/11/21 15:50 103 H 20 89/47 95 09/11/21 14:58 98.9 F 120 H 19 89/49 96 Intake and Output 09/11/21 09/12/21 09/12/21 22:59 06:59 14:59 Other: # Voids 1 Weight 72.575 kg Results CBC & Chem 7: 09/12/21 02:49 09/12/21 02:49 Labs: Abnormal Lab Results - Last 24 Hours (Table) 09/11/21 09/11/21 09/11/21 Range/Units 16:15 16:15 16:15 WBC 21.5 H (3.8-10.6) k/uL RBC (4.10-5.20) X 10*6/uL Hgb (12.0-15.0) g/dL Hct (37.2-46.3) % MCV (80.0-97.0) fL Neutrophils # 19.8 H (1.3-7.7) k/uL Lymphocytes # 0.8 L (1.0-4.8) k/uL Sodium 132 L (137-145) mmol/L Chloride (96-109) mmol/L Carbon Dioxide 19 L (22-30) mmol/L BUN 19 H (7-17) mg/dL Creatinine 1.44 H (0.52-1.04) mg/dL Est GFR (CKD-EPI)AfAm (60.0-200.0) Est GFR (CKD-EPI)NonAf (60.0-200.0) Glucose 103 H (74-99) mg/dL Calcium (8.7-10.3) mg/dL Total Protein 5.9 L (6.3-8.2) g/dL Albumin 3.1 L (3.5-5.0) g/dL Albumin/Globulin Ratio (1.60-3.17) g/dL Urine Blood Trace H (Negative) Ur Leukocyte Esterase Moderate H (Negative) Urine WBC 17 H (0-5) /hpf Urine Bacteria Rare H (None) /hpf Urine Mucus Rare H (None) /hpf 09/12/21 09/12/21 Range/Units 02:49 02:49 WBC 17.35 H (3.8-10.6) k/uL RBC 3.18 L (4.10-5.20) X 10*6/uL Hgb 10.0 L (12.0-15.0) g/dL Hct 31.0 L (37.2-46.3) % MCV 97.5 H (80.0-97.0) fL Neutrophils # (1.3-7.7) k/uL Lymphocytes # (1.0-4.8) k/uL Sodium (137-145) mmol/L Chloride 110 H (96-109) mmol/L Carbon Dioxide 18.8 L (22-30) mmol/L BUN (7-17) mg/dL Creatinine (0.52-1.04) mg/dL Est GFR (CKD-EPI)AfAm 49.1 L (60.0-200.0) Est GFR (CKD-EPI)NonAf 42.3 L (60.0-200.0) Glucose (74-99) mg/dL Calcium 7.8 L (8.7-10.3) mg/dL Total Protein 4.2 L (6.3-8.2) g/dL Albumin 2.5 L (3.5-5.0) g/dL Albumin/Globulin Ratio 1.47 L (1.60-3.17) g/dL Urine Blood (Negative) Ur Leukocyte Esterase (Negative) Urine WBC (0-5) /hpf Urine Bacteria (None) /hpf Urine Mucus (None) /hpf Microbiology - Last 24 Hours (Table) 09/11/21 16:15 Urine Culture - Preliminary Urine,Voided
[2021-09-13 07:10] LABS: Basophils # (A) 0.1 k/uL (0-0.2); Basophils % (A) 0 %; Eosinophils # (A) 0.1 k/uL (0-0.7); Eosinophils % (A) 1 %; HGB 10.7 gm/dL (11.4-16.0); Lymphocytes # (A) 0.7 k/uL (1.0-4.8); Lymphocytes % (A) 4 %; MCH 31.9 pg (25.0-35.0); MCHC 32.5 g/dL (31.0-37.0); Mean Platelet Volume 7.6; Monocytes # (A) 0.5 k/uL (0-1.0); Monocytes % (A) 3 %; Neutrophils # (A) 16.6 k/uL (1.3-7.7); Neutrophils % (A) 92 %; Platelet Count 379 k/uL (150-450); RBC 3.36 m/uL (3.80-5.40); RDW 13.3 % (11.5-15.5); WBC 18.1 k/uL (3.8-10.6)
[2021-09-13 07:36] LABS: African American GFR (CKD) 79 (>60 ml/min/1.73 sqM); Anion Gap 7 mmol/L; Blood Urea Nitrogen 14 mg/dL (7-17); Calcium 8.3 mg/dL (8.4-10.2); Carbon Dioxide 19 mmol/L (22-30); Chloride 111 mmol/L (98-107); Glucose 72 mg/dL (74-99); Non-African American GFR(CKD) 69 (>60 ml/min/1.73 sqM); Potassium 3.4 mmol/L (3.5-5.1); Sodium 137 mmol/L (137-145)
[2021-09-13] MEDS: ENOXAPARIN 40 MG/0.4 ML SYRINGE SQ SCH (08:42)
[2021-09-13] MEDS: ACETAMINOPHEN TAB 325 MG TAB PO PRN ×2 (08:43→13:45)
[2021-09-13] MEDS: FAMOTIDINE 20 MG TAB PO SCH (08:43)
[2021-09-13] MEDS: VANCOMYCIN 1,250 MG in SODIUM CHLORIDE 0.9% 250 ML IVPB SCH (08:44)
[2021-09-13] MEDS ORDERED: Potassium Replacement Protocol 1 EACH MISC MISCELLANE PRN (09:24)
[2021-09-13] MEDS: POTASSIUM CHLORIDE ER 20 MEQ TAB.ER PO SCH ×2 (11:38→12:18)
[2021-09-13 11:41] LABS: Glucose,Whole Blood 83 mg/dL (75-99)
--- NOTE | 2021-09-13 11:53 | P.PN ---
Subjective Progress Note Date: 09/13/21 81-year-old pleasant female came in with complaints of multiple episodes of nausea vomiting. Patient was a recently treated for left groin abscess which was incised and drained and see any obvious abscesses but patient may have cellulitis in the left groin area and maybe intertrigo. Patient was given pre scription of Keflex after I&D and patient didn't tolerate this medication started having nausea vomiting abdominal discomfort because of which patient came to ER. Patient is presently on Unasyn and vancomycin and infectious disease evaluated the patient patient is able to tolerate these medications we will patient doesn't have any fevers at this time patient does have leukocytosis. Patient is bit hyponatremic because of nausea vomiting and the noniron gap metabolic acidosis secondary to nausea vomiting which improved at this time. Patient is an 75 mL of normal saline at this time. 09/14/2021 Patient seen today for management given the bedside. She was evaluated by OB and ID for labial cellulitis. Labia still appears erythematous however OB feels it is improving. Patient states that the area of redness did break open today and is bleeding a little bit. Labs today show white count of 18.1. Hemoglobin stable at 10.7. Potassium is 3.4 replaced per protocol. She was afebrile, hea rt rate 79. Blood pressure is on the lower side at 95/61. She is 98% room air. ROS Constitutional: Denied any fatigue denied any fever. Cardio vascular: denied any chest pain, palpitations Gastrointestinal denied any nausea vomiting, denies diarrhea : Denies dysuria, urgency or frequency Pulmonary: Denied any shortness of breath cough Neurologic denied any new focal deficits All inpatient medications were reviewed and appropriate changes in these medications as dictated in the interval history and assessment and plan. PHYSICAL EXAMINATION: GENERAL: The patient is alert and oriented x3, not in any acute distress. Well developed, well nourished. HEENT: Pupils are round and equally reacting to light. EOMI. No scleral icterus. No conjunctival pallor. Normocephalic, atraumatic. No pharyngeal erythema. No thyromegaly. CARDIOVASCULAR: S1 and S2 present. No murmurs, rubs, or gallops. PULMONARY: Chest is clear to auscultation, no wheezing or crackles. ABDOMEN: Soft, nontender, nondistended, normoactive bowel sounds. No palpable organomegaly. MUSCULOSKELETAL: No joint swelling or deformity. EXTREMITIES: No cyanosis, clubbing, or pedal edema. NEUROLOGICAL: Gross neurological examination did not reveal any focal deficits. SKIN: No rashes. : Deferred to OB. Assessment and plan -Labial cellulitis history of recent abscess that was drained possible intertrigo and antibiotics as per infectious disease. Patient is presently on IV vancomycin which will be continued patient has history of MRSA in the past patient is also on Unasyn. -Hypervolemic hyponatremia improved with IV fluids -Acute and failure secondary to prerenal azotemia from nausea vomiting which improved -Leukocytosis: Secondary to labial cellulitis and intertrigo, 18.1 today continue antibiotics -Noniron gap metabolic acidosis secondary to nausea vomiting. -Nausea vomiting: Secondary to antibiotics, patient is presently tolerating vancomycin and Unasyn which will be continued. DVT prophylaxis: Lovenox GI prophylaxis: Pepcid Objective - Vital Signs Vital signs: Vital Signs Temp 98.9 F 09/13/21 08:00 Pulse 79 09/13/21 08:00 Resp 18 09/13/21 08:00 BP 95/61 09/13/21 08:00 Pulse Ox 98 09/13/21 08:00 Intake & Output 09/12/21 09/13/21 09/13/21 18:59 06:59 18:59 Intake Total 200 900 Balance 200 900 Intake: Intake, IV Titration 900 Amount Sodium Chloride 0.9% 1, 900 000 ml @ 75 mls/hr IV . [id number] [facility] Rx#:[id number] Oral 200 Other: # Voids 2 4 # Bowel Movements 0 - Labs CBC & Chem 7: 09/13/21 05:42 09/13/21 05:42 Labs: Abnormal Lab Results - Last 24 Hours (Table) 09/13/21 09/13/21 Range/Units 05:42 05:42 WBC 18.1 H (3.8-10.6) k/uL RBC 3.36 L (3.80-5.40) m/uL Hgb 10.7 L (11.4-16.0) gm/dL Hct 33.0 L (34.0-46.0) % Neutrophils # 16.6 H (1.3-7.7) k/uL Lymphocytes # 0.7 L (1.0-4.8) k/uL Potassium 3.4 L (3.5-5.1) mmol/L Chloride 111 H (98-107) mmol/L Carbon Dioxide 19 L (22-30) mmol/L Glucose 72 L (74-99) mg/dL Calcium 8.3 L (8.4-10.2) mg/dL Microbiology - Last 24 Hours (Table) 09/11/21 16:15 Urine Culture - Final Urine,Voided 09/11/21 16:07 Blood Culture - Preliminary Blood No Growth after 24 hours 09/11/21 16:23 Blood Culture - Preliminary Blood No Growth after 24 hours Assessment and Plan Time with Patient: Greater than 30
--- NOTE | 2021-09-13 15:19 | CDI ---
Documentation Clarification Form Date: 09/13/2021 02:59:26 PM From: Serena Guidry RN CCDS Admit Date: 09/11/2021 06:12:00 PM Patient Name: Adela Melton Visit Number: [id number] Discharge Date: ATTENTION: The Clinical Documentation Specialists (CDI) and [facility] Coding Staff appreciate your assistance in clarifying documentation. Please respond to the clarification below the line at the bottom and electronically sign. The CDI & [facility] Coding staff will review the response and follow-up if needed. Please note: Queries are made part of the Legal Health Record. If you have any questions, please contact the author of this message via ITS. Dr. Kym Domínguez Severe Sepsis is documented ED note, 09/11, but is not noted in subsequent documentation. Clarification is requested. History/Risk Factors: 81-year-old female presents to the ED for nausea and vomiting. Recently treated for left groin abscess which was incised and drained. Medical history: HTN and Fibromyalgia. H&P, 09/12 Clinical Indicators: VSS: 09/11 B/P 89/49, HR 120, Temp 98.9F, RR 19, SpO2 96% room air. Labs: 09/11 Wbc 21.5, Neutrophil 19.8 OB Consult: 09/12 Left labial cellulitis. I do not believe based on exam and the attempt to drain this, that this is an abscess. ED note: 09/11 Constitutional reports: fever, chills. Treatment: 09/11 0.9ns 500cc IV bolus x 2, 09/11 0.9ns 1L IV bolus x 1, 09/11 x1, 09/11 0.9ns 500cc IV bolus x 1, Ampicillin 3gm IVPB, 09/12 current Ampicillin 1.5gm IVPB Q6HR, 09/11 Vancomycin 1,250mg IVPB x 1, 09/12 09/12 dc Vancomycin 1,250MG Q48H, 09/13 to current Vancomycin 1,250mg IVPB Q24HR. Please clarify if the Severe Sepsis is: [ x ] Sepsis confirmed, remains under treatment [ ] Sepsis confirmed, resolved [ ] Sepsis ruled out [ ] Other condition, please specify [ ] Unable to determine (Template Last Revised: January 2021) MTDD
[2021-09-13 16:47] LABS: Glucose,Whole Blood 83 mg/dL (75-99)
[2021-09-13 20:15] LABS: Glucose,Whole Blood 87 mg/dL (75-99)
--- NOTE | 2021-09-13 21:56 | PN ---
PROGRESS NOTE DATE OF SERVICE: 09/13/2021 REASON FOR FOLLOWUP: Left labial abscess and cellulitis. INTERVAL HISTORY: The patient was seen on rounds this morning. The patient has been afebrile. Overall pain and discomfort to the left labial area is slightly decreased. No chest pain, shortness of breath or cough. No abdominal pain or diarrhea. PHYSICAL EXAMINATION: Blood pressure 131/82, pulse of 71, temperature 98.2. She is 99% on room air. General description is an elderly female lying in bed in no distress. RESPIRATORY SYSTEM: Unlabored breathing. Clear to auscultation anteriorly. HEART: S1, S2. Regular rate and rhythm. ABDOMEN: Soft. No tenderness. Left labial area has swelling and induration, small opening. Cultures were obtained. LABS: Hemoglobin is 10.6, white count 18.1. Creatinine 0.81. DIAGNOSTIC IMPRESSION AND PLAN: Patient with left labial abscess and cellulitis. Culture has been obtained to guide antibiotic therapy. Continue vancomycin, Unasyn, adjusting it further based on the culture report. Continue with supportive care. MMODL / IJN: [id number] /
[2021-09-14] MEDS: AMPICILLIN-SULBACTAM 1.5 GM in SODIUM CHLORIDE 0.9% 50 ML IVPB SCH ×4 (00:52→17:37)
[2021-09-14] MEDS: SODIUM CHLORIDE 0.9% 1,000 ML IV SCH ×2 (06:05→13:28)
--- NOTE | 2021-09-14 06:42 | P.PN ---
Progress Note - Text Progress Note Date: 09/14/21 Patient is seen and examined. She patient states that she rested overnight however she does complain of constipation and some left lower quadrant discomfort today. For the most part she remains afebrile except for low-grade temp of 99. White count was still elevated yesterday at 18 is pending today. Examination is limited to her external genitalia on her left labia is still indurated but continues to improve. She states that it has started to drain which is a good sign. It appears the labial as this is responding to IV antibiotics. I'm uncertain as to the etiology for constipation and left lower quadrant pain this does not appear to be [employer] related therefore may need to be addressed otherwise. I'll continue to follow her labial abscess with you.
[2021-09-14 06:47] LABS: Glucose,Whole Blood 90 mg/dL (75-99)
[2021-09-14] MEDS: ENOXAPARIN 40 MG/0.4 ML SYRINGE SQ SCH (08:53)
[2021-09-14] MEDS: FAMOTIDINE 20 MG TAB PO SCH (08:53)
[2021-09-14] MEDS: VANCOMYCIN 1,250 MG in SODIUM CHLORIDE 0.9% 250 ML IVPB SCH (08:53)
[2021-09-14 09:40] LABS: HCT 31.1 % (37.2-46.3); HGB 10.1 g/dL (12.0-15.0); MCH 31.1 pg (27.0-32.0); MCHC 32.5 g/dL (32.0-37.0); MCV 95.7 fL (80.0-97.0); Mean Platelet Volume 9.9 fL (9.5-12.2); Platelet Count 423 X 10*3/uL (140-440); RBC 3.25 X 10*6/uL (4.10-5.20); RDW 14.1 % (11.5-14.5); WBC 16.37 X 10*3/uL (4.50-10.00)
[2021-09-14] MEDS: ACETAMINOPHEN TAB 325 MG TAB PO PRN ×2 (09:44→20:33)
[2021-09-14 10:56] LABS: African American GFR (CKD) 80.1 (60.0-200.0); Anion Gap 7.8 mmol/L (4.00-12.00); BUN/Creat Ratio 14.88 Ratio (12.00-20.00); Blood Urea Nitrogen 11.9 mg/dL (9.0-27.0); Calcium 8.2 mg/dL (8.7-10.3); Carbon Dioxide 18.2 mmol/L (21.6-31.8); Magnesium 1.8 mg/dL (1.5-2.4); Non-African American GFR(CKD) 69.1 (60.0-200.0); Potassium 4.1 mmol/L (3.5-5.5)
[2021-09-14 11:28] LABS: Glucose,Whole Blood 97 mg/dL (75-99)
[2021-09-14 13:31] LABS: Basophils # (A) 0.11 X 10*3/uL (0.00-0.10); Basophils % (A) 0.7 %; Eosinophils # (A) 0.29 X 10*3/uL (0.04-0.35); Eosinophils % (A) 1.8 %; Lymphocytes # (A) 0.98 X 10*3/uL (0.90-5.00); Monocytes # (A) 0.63 X 10*3/uL (0.20-1.00); Monocytes % (A) 3.8 %; Neutrophils # (A) 14.19 X 10*3/uL (1.80-7.70); Neutrophils % (A) 86.7 %
--- NOTE | 2021-09-14 15:49 | P.PN ---
Subjective Progress Note Date: 09/14/21 81-year-old pleasant female came in with complaints of multiple episodes of nausea vomiting. Patient was a recently treated for left groin abscess which was incised and drained and see any obvious abscesses but patient may have cellulitis in the left groin area and maybe intertrigo. Patient was given pre scription of Keflex after I&D and patient didn't tolerate this medication started having nausea vomiting abdominal discomfort because of which patient came to ER. Patient is presently on Unasyn and vancomycin and infectious disease evaluated the patient patient is able to tolerate these medications we will patient doesn't have any fevers at this time patient does have leukocytosis. Patient is bit hyponatremic because of nausea vomiting and the noniron gap metabolic acidosis secondary to nausea vomiting which improved at this time. Patient is an 75 mL of normal saline at this time. 09/13/2021 Patient seen today for management given the bedside. She was evaluated by OB and ID for labial cellulitis. Labia still appears erythematous however OB feels it is improving. Patient states that the area of redness did break open today and is bleeding a little bit. Labs today show white count of 18.1. Hemoglobin stable at 10.7. Potassium is 3.4 replaced per protocol. She was afebrile, hea rt rate 79. Blood pressure is on the lower side at 95/61. She is 98% room air. 09/14/2021 Patient is facing the chair. She states that overall she is feeling better however weak. She is on IV antibiotics for labial cellulitis. It is still draining. Labs today include a white blood cell count of 16.37, hemoglobin 10.1. Watch lites are better her potassium today is 4.1. Magnesium 1.8. Blood pressures are better 120s over 60s, afebrile, heart rate 69 sinus rhythm and she is 100% on room air. She is using some prune juice for constipation, she states her last bowel movement was Sunday where she had diarrhea. We can add Colace. Repeat labs tomorrow. Cultures are pending. Pending PT OT evaluation. ROS Constitutional: Denied any fatigue denied any fever. Cardio vascular: denied any chest pain, palpitations Gastrointestinal denied any nausea vomiting, denies diarrhea : Denies dysuria, urgency or frequency Pulmonary: Denied any shortness of breath cough Neurologic denied any new focal deficits All inpatient medications were reviewed and appropriate changes in these medica tions as dictated in the interval history and assessment and plan. PHYSICAL EXAMINATION: GENERAL: The patient is alert and oriented x3, not in any acute distress. Well developed, well nourished. HEENT: Pupils are round and equally reacting to light. EOMI. No scleral icterus. No conjunctival pallor. Normocephalic, atraumatic. No pharyngeal erythema. No thyromegaly. CARDIOVASCULAR: S1 and S2 present. No murmurs, rubs, or gallops. PULMONARY: Chest is clear to auscultation, no wheezing or crackles. ABDOMEN: Soft, nontender, nondistended, normoactive bowel sounds. No palpable organomegaly. MUSCULOSKELETAL: No joint swelling or deformity. EXTREMITIES: No cyanosis, clubbing, or pedal edema. NEUROLOGICAL: Gross neurological examination did not reveal any focal deficits. SKIN: No rashes. : Deferred to OB. Assessment and plan -Labial cellulitis history of recent abscess that was drained possible intertrigo and antibiotics as per infectious disease. Patient is presently on IV vancomycin which will be continued patient has history of MRSA in the past patient is also on Unasyn. Cultures are currently pending. -Hypervolemic hyponatremia improved with IV fluids -Acute and failure secondary to prerenal azotemia from nausea vomiting which improved -Leukocytosis: Secondary to labial cellulitis and intertrigo, 18.1 today continue antibiotics -Non anion gap metabolic acidosis secondary to nausea vomiting. -Nausea vomiting: Secondary to antibiotics, patient is presently tolerating vancomycin and Unasyn which will be continued. DVT prophylaxis: Lovenox GI prophylaxis: Pepcid PT/OT consult FULL CODE Objective - Vital Signs Vital signs: Vital Signs Temp 97.8 F 09/14/21 14:00 Pulse 69 09/14/21 14:00 Resp 18 09/14/21 14:00 BP 127/68 09/14/21 14:00 Pulse Ox 99 09/14/21 14:00 Intake & Output 09/13/21 09/14/21 09/14/21 18:59 06:59 18:59 Other: # Voids 5 6 # Bowel Movements 0 - Labs CBC & Chem 7: 09/14/21 05:43 09/14/21 05:43 Labs: Abnormal Lab Results - Last 24 Hours (Table) 09/14/21 09/14/21 Range/Units 05:43 05:43 WBC 16.37 H (4.50-10.00) X 10*3/uL RBC 3.25 L (4.10-5.20) X 10*6/uL Hgb 10.1 L (12.0-15.0) g/dL Hct 31.1 L (37.2-46.3) % Immature Gran # 0.17 H (0.00-0.04) X 10*3/uL Neutrophils # 14.19 H (1.80-7.70) X 10*3/uL Basophils # 0.11 H (0.00-0.10) X 10*3/uL Chloride 113 H (96-109) mmol/L Carbon Dioxide 18.2 L (21.6-31.8) mmol/L Calcium 8.2 L (8.7-10.3) mg/dL Microbiology - Last 24 Hours (Table) 09/13/21 11:28 Gram Stain - Preliminary Groin Wound Culture - Preliminary 09/11/21 16:07 Blood Culture - Preliminary Blood No Growth after 48 hours 09/11/21 16:23 Blood Culture - Preliminary Blood No Growth after 48 hours Assessment and Plan Time with Patient: Greater than 30
[2021-09-14 16:38] LABS: Glucose,Whole Blood 89 mg/dL (75-99)
[2021-09-14] MEDS: DOCUSATE 100 MG CAP PO SCH (20:33)
--- NOTE | 2021-09-14 23:30 | PN ---
PROGRESS NOTE DATE OF SERVICE: 09/14/2021 REASON FOR FOLLOWUP: Left labial abscess. INTERVAL HISTORY: The patient is afebrile. The patient is breathing comfortably. Overall pain and discomfort to the labial area has slightly decreased. No chest pain, shortness of breath or cough. No abdominal pain. No diarrhea. EXAMINATION: Her blood pressure is 146/82 with a pulse of 74, temperature 98.3. She is 99% on room air. General description is an elderly female lying in bed in no distress. Respiratory system: Unlabored breathing, clear to auscultation anteriorly. Heart S1, S2. Regular rate and rhythm. Abdomen soft, no tenderness. LABS: Hemoglobin is 10.1, white count 16.37, creatinine 0.80. Cultures are currently pending. DIAGNOSTIC IMPRESSION AND PLAN: Patient with left labial abscess. This patient currently covered with vancomycin which will be continued while waiting for the culture to finalize. Monitor clinical course closely. MMMAGIL / IJN: [id number] /
[2021-09-15] MEDS: AMPICILLIN-SULBACTAM 1.5 GM in SODIUM CHLORIDE 0.9% 50 ML IVPB SCH ×5 (00:56→23:41)
--- NOTE | 2021-09-15 06:29 | P.PN ---
Progress Note - Text Progress Note Date: 09/15/21 Patient seen and examined. Set she is feeling better today. Vital signs are stable she is afebrile. White blood cell count yesterday was 16 which is down from the previous day. Examination today of the left labia shows be markedly improved with less induration and does continue to drain. If the patient's WBCs continue to decrease and she stays afebrile most likely be allowed to go home on oral antibiotics in 1-2 days. Most likely these will need to be continued for 10-14 days and would need to follow up with me in 1-2 weeks. I'll continue to see her tomorrow to see how she is progressing.
[2021-09-15 07:13] LABS: Glucose,Whole Blood 81 mg/dL (75-99)
[2021-09-15] MEDS ORDERED: VANCOMYCIN TROUGH DUE 1 EACH MISC MISCELLANE ONE (08:00)
[2021-09-15 09:35] LABS: HCT 32.9 % (37.2-46.3); HGB 10.5 g/dL (12.0-15.0); MCH 30.4 pg (27.0-32.0); MCHC 31.9 g/dL (32.0-37.0); MCV 95.4 fL (80.0-97.0); Mean Platelet Volume 9.6 fL (9.5-12.2); Platelet Count 451 X 10*3/uL (140-440); RBC 3.45 X 10*6/uL (4.10-5.20); RDW 14.3 % (11.5-14.5); WBC 12.63 X 10*3/uL (4.50-10.00)
[2021-09-15 09:50] LABS: African American GFR (CKD) 90 (>60 ml/min/1.73 sqM); Anion Gap 4 mmol/L; Blood Urea Nitrogen 10 mg/dL (7-17); Calcium 8.7 mg/dL (8.4-10.2); Carbon Dioxide 21 mmol/L (22-30); Chloride 111 mmol/L (98-107); Glucose 80 mg/dL (74-99); Non-African American GFR(CKD) 78 (>60 ml/min/1.73 sqM); Potassium 4.1 mmol/L (3.5-5.1); Sodium 136 mmol/L (137-145)
[2021-09-15] MEDS: SODIUM CHLORIDE 0.9% 1,000 ML IV SCH ×2 (10:12→20:55)
[2021-09-15] MEDS: DOCUSATE 100 MG CAP PO SCH ×2 (10:12→20:55)
[2021-09-15] MEDS: FAMOTIDINE 20 MG TAB PO SCH (10:12)
[2021-09-15] MEDS: ENOXAPARIN 40 MG/0.4 ML SYRINGE SQ SCH (10:12)
[2021-09-15] MEDS: VANCOMYCIN 1,250 MG in SODIUM CHLORIDE 0.9% 250 ML IVPB SCH (10:16)
[2021-09-15 11:04] LABS: Basophils # (M) 0.13 X 10*3/uL (0.00-0.10); Eosinophils # (M) 0.38 X 10*3/uL (0.04-0.35); Lymphocytes # (M) 0.76 X 10*3/uL (0.90-5.00); Monocytes # (M) 0.51 X 10*3/uL (0.20-1.00); Neutrophils # (M) 10.86 X 10*3/uL (2.00-8.90); Neutrophils % (M) 86 %
--- NOTE | 2021-09-15 13:55 | P.PN ---
Subjective Progress Note Date: 09/15/21 81-year-old pleasant female came in with complaints of multiple episodes of nausea vomiting. Patient was a recently treated for left groin abscess which was incised and drained and see any obvious abscesses but patient may have cellulitis in the left groin area and maybe intertrigo. Patient was given pre scription of Keflex after I&D and patient didn't tolerate this medication started having nausea vomiting abdominal discomfort because of which patient came to ER. Patient is presently on Unasyn and vancomycin and infectious disease evaluated the patient patient is able to tolerate these medications we will patient doesn't have any fevers at this time patient does have leukocytosis. Patient is bit hyponatremic because of nausea vomiting and the noniron gap metabolic acidosis secondary to nausea vomiting which improved at this time. Patient is an 75 mL of normal saline at this time. 09/13/2021 Patient seen today for management given the bedside. She was evaluated by OB and ID for labial cellulitis. Labia still appears erythematous however OB feels it is improving. Patient states that the area of redness did break open today and is bleeding a little bit. Labs today show white count of 18.1. Hemoglobin stable at 10.7. Potassium is 3.4 replaced per protocol. She was afebrile, hea rt rate 79. Blood pressure is on the lower side at 95/61. She is 98% room air. 09/14/2021 Patient is facing the chair. She states that overall she is feeling better however weak. She is on IV antibiotics for labial cellulitis. It is still draining. Labs today include a white blood cell count of 16.37, hemoglobin 10.1. Watch lites are better her potassium today is 4.1. Magnesium 1.8. Blood pressures are better 120s over 60s, afebrile, heart rate 69 sinus rhythm and she is 100% on room air. She is using some prune juice for constipation, she states her last bowel movement was Sunday where she had diarrhea. We can add Colace. Repeat labs tomorrow. Cultures are pending. Pending PT OT evaluation. 09/15/2021 Patient is evaluated today sitting up in the chair. She does state that she is feeling better. Labial cellulitis has mix of purulent and bloody drainage. Cultures are still pending. Blood cultures are negative after 72 hours. Urine culture is negative. White count today is 12.63, hemoglobin 10.5 platelet count is 451. Her sodium level today is 136, chloride 111, CO2 21. She remains on IV Vanco. Patient is afebrile, blood pressure 135/76 on room air. She is sitting infectious disease and OB. She'll continue on IV antibiotics for 1-2 more days, pending finalized cultures and ID will make oral antibiotic recommendation for discharge. Patient did have a bowel movement today, shows some thinning of some constipation. ROS Constitutional: Denied any fatigue denied any fever. Cardio vascular: denied any chest pain, palpitations Gastrointestinal denied any nausea vomiting, denies diarrhea : Denies dysuria, urgency or frequency Pulmonary: Denied any shortness of breath cough Neurologic denied any new focal deficits All inpatient medications were reviewed and appropriate changes in these medications as dictated in the interval history and assessment and plan. PHYSICAL EXAMINATION: GENERAL: The patient is alert and oriented x3, not in any acute distress. Well developed, well nourished. HEENT: Pupils are round and equally reacting to light. EOMI. No scleral icterus. No conjunctival pallor. Normocephalic, atraumatic. No pharyngeal erythema. No thyromegaly. CARDIOVASCULAR: S1 and S2 present. No murmurs, rubs, or gallops. PULMONARY: Chest is clear to auscultation, no wheezing or crackles. ABDOMEN: Soft, nontender, nondistended, normoactive bowel sounds. No palpable organomegaly. MUSCULOSKELETAL: No joint swelling or deformity. EXTREMITIES: No cyanosis, clubbing, or pedal edema. NEUROLOGICAL: Gross neurological examination did not reveal any focal deficits. SKIN: No rashes. : Deferred to OB. 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 DVT prophylaxis: Lovenox GI prophylaxis: Pepcid PT/OT consult recommending home on discharge FULL CODE Objective - Vital Signs Vital signs: Vital Signs Temp 98.6 F 09/15/21 08:00 Pulse 71 09/15/21 08:00 Resp 16 09/15/21 08:00 BP 135/76 09/15/21 08:00 Pulse Ox 96 09/15/21 08:00 Intake & Output 09/14/21 09/15/21 09/15/21 18:59 06:59 18:59 Intake Total 460 Balance 460 Intake: Intake, IV Titration 260 Amount Ampicillin-Sulbactam 1.5 100 gm In Sodium Chloride 0.9 % 50 ml @ 100 mls/hr IVPB Q6HR [facility] Rx#:[id number] Sodium Chloride 0.9% 1, 160 000 ml @ 75 mls/hr IV . [id number] [facility] Rx#:[id number] Oral 200 Other: Voiding Method Toilet # Voids 4 4 - Labs CBC & Chem 7: 09/15/21 05:19 09/15/21 05:19 Labs: Abnormal Lab Results - Last 24 Hours (Table) 09/15/21 09/15/21 Range/Units 05:19 05:19 WBC 12.63 H (4.50-10.00) X 10*3/uL RBC 3.45 L (4.10-5.20) X 10*6/uL Hgb 10.5 L (12.0-15.0) g/dL Hct 32.9 L (37.2-46.3) % MCHC 31.9 L (32.0-37.0) g/dL Plt Count 451 H (140-440) X 10*3/uL Plt Count Comment INCREASED A Neutrophils # (Manual) 10.86 H (2.00-8.90) X 10*3/uL Lymphocytes # (Manual) 0.76 L (0.90-5.00) X 10*3/uL Eosinophils # (Manual) 0.38 H (0.04-0.35) X 10*3/uL Basophils # (Manual) 0.13 H (0.00-0.10) X 10*3/uL Sodium 136 L (137-145) mmol/L Chloride 111 H (98-107) mmol/L Carbon Dioxide 21 L (22-30) mmol/L Microbiology - Last 24 Hours (Table) 09/11/21 16:07 Blood Culture - Preliminary Blood No Growth after 72 hours 09/11/21 16:23 Blood Culture - Preliminary Blood No Growth after 72 hours 09/13/21 11:28 Gram Stain - Preliminary Groin Wound Culture - Preliminary Assessment and Plan Time with Patient: Greater than 30
[2021-09-15 15:36] LABS: African American GFR (CKD) 80.1 (60.0-200.0); Anion Gap 8.5 mmol/L (4.00-12.00); BUN/Creat Ratio 12.38 Ratio (12.00-20.00); Blood Urea Nitrogen 9.9 mg/dL (9.0-27.0); Calcium 8.4 mg/dL (8.7-10.3); Carbon Dioxide 19.5 mmol/L (21.6-31.8); Non-African American GFR(CKD) 69.1 (60.0-200.0); Potassium 4.3 mmol/L (3.5-5.5)
--- NOTE | 2021-09-15 16:54 | PN ---
PROGRESS NOTE DATE OF SERVICE: 09/15/2021 REASON FOR FOLLOWUP: Left labial abscess. INTERVAL HISTORY: The patient is afebrile. The patient is currently breathing comfortably. The patient denies having any chest pain or shortness of breath or cough. No abdominal pain. Overall pain and discomfort to the left labial area has decreased. She has more drainage now. PHYSICAL EXAMINATION: Blood pressure 123/76, pulse of 73, temperature of 98.9. She is 99% on room air. General description is an elderly female lying in bed in no distress. RESPIRATORY SYSTEM: Unlabored breathing. Clear to auscultation anteriorly. HEART: S1, S2. Regular rate and rhythm. ABDOMEN: Soft. No tenderness. Left labial area induration has decreased. LABS: White count down to 12.63, creatinine 0.8. Blood culture negative. DIAGNOSTIC IMPRESSION AND PLAN: Patient with left labial abscess with drainage and cultures. Those are currently pending. Patient to continue with Unasyn and vancomycin while waiting for the cultures to finalize. Continue supportive care. MMODL / IJN: [id number] /
[2021-09-16] MEDS: AMPICILLIN-SULBACTAM 1.5 GM in SODIUM CHLORIDE 0.9% 50 ML IVPB SCH ×2 (05:27→11:48)
[2021-09-16 06:11] VITALS: BP 147/77; PULSE 77; RESP 17; TEMP 99.4
--- NOTE | 2021-09-16 06:22 | P.PN ---
Progress Note - Text Progress Note Date: 09/16/21 Patient is seen and examined today. She reports that she's feeling much better today. White blood cell count was down to 12 yesterday. She did have a low- grade temp 299 for however for the most part is afebrile. Examination shows the labial cellulitis to be markedly improved as compared to yesterday. Much less induration and minimal erythema. From my standpoint I believe that her white blood cell count is good today and remains afebrile she could most likely be discharged home on oral antibiotic today or tomorrow.. I'm going to sign off on her from this point and please have her see me in 1-2 weeks in my office for follow-up examination. Thank you very much for this consultation.
[2021-09-16 06:30] LABS: African American GFR (CKD) >90 (>60 ml/min/1.73 sqM); Anion Gap 5 mmol/L; Blood Urea Nitrogen 8 mg/dL (7-17); Calcium 8.3 mg/dL (8.4-10.2); Carbon Dioxide 22 mmol/L (22-30); Chloride 109 mmol/L (98-107); Glucose 80 mg/dL (74-99); Non-African American GFR(CKD) 84 (>60 ml/min/1.73 sqM); Potassium 3.7 mmol/L (3.5-5.1); Sodium 136 mmol/L (137-145)
[2021-09-16 08:07] VITALS: BMI 28.3
[2021-09-16 09:13] LABS: HGB 10.2 g/dL (12.0-15.0); MCH 32.3 pg (27.0-32.0); MCV 94.9 fL (80.0-97.0); Mean Platelet Volume 9.3 fL (9.5-12.2); Platelet Count 466 X 10*3/uL (140-440); RBC 3.16 X 10*6/uL (4.10-5.20); RDW 14.4 % (11.5-14.5); WBC 8.49 X 10*3/uL (4.50-10.00)
[2021-09-16] MEDS: VANCOMYCIN 1,250 MG in SODIUM CHLORIDE 0.9% 250 ML IVPB SCH (09:13)
[2021-09-16] MEDS ORDERED: POTASSIUM CHLORIDE ER 20 MEQ TAB.ER PO SCH (10:00)
[2021-09-16] MEDS: FAMOTIDINE 20 MG TAB PO SCH (10:12)
[2021-09-16] MEDS: DOCUSATE 100 MG CAP PO SCH (10:12)
[2021-09-16] MEDS: ENOXAPARIN 40 MG/0.4 ML SYRINGE SQ SCH (10:12)
[2021-09-16] MEDS: SODIUM CHLORIDE 0.9% 1,000 ML IV SCH (11:33)
--- NOTE | 2021-09-16 12:12 | P.PN ---
Subjective Progress Note Date: 09/16/21 81-year-old pleasant female came in with complaints of multiple episodes of nausea vomiting. Patient was a recently treated for left groin abscess which was incised and drained and see any obvious abscesses but patient may have cellulitis in the left groin area and maybe intertrigo. Patient was given pre scription of Keflex after I&D and patient didn't tolerate this medication started having nausea vomiting abdominal discomfort because of which patient came to ER. Patient is presently on Unasyn and vancomycin and infectious disease evaluated the patient patient is able to tolerate these medications we will patient doesn't have any fevers at this time patient does have leukocytosis. Patient is bit hyponatremic because of nausea vomiting and the noniron gap metabolic acidosis secondary to nausea vomiting which improved at this time. Patient is an 75 mL of normal saline at this time. 09/13/2021 Patient seen today for management given the bedside. She was evaluated by OB and ID for labial cellulitis. Labia still appears erythematous however OB feels it is improving. Patient states that the area of redness did break open today and is bleeding a little bit. Labs today show white count of 18.1. Hemoglobin stable at 10.7. Potassium is 3.4 replaced per protocol. She was afebrile, hea rt rate 79. Blood pressure is on the lower side at 95/61. She is 98% room air. 09/14/2021 Patient is facing the chair. She states that overall she is feeling better however weak. She is on IV antibiotics for labial cellulitis. It is still draining. Labs today include a white blood cell count of 16.37, hemoglobin 10.1. Watch lites are better her potassium today is 4.1. Magnesium 1.8. Blood pressures are better 120s over 60s, afebrile, heart rate 69 sinus rhythm and she is 100% on room air. She is using some prune juice for constipation, she states her last bowel movement was Sunday where she had diarrhea. We can add Colace. Repeat labs tomorrow. Cultures are pending. Pending PT OT evaluation. 09/15/2021 Patient is evaluated today sitting up in the chair. She does state that she is feeling better. Labial cellulitis has mix of purulent and bloody drainage. Cultures are still pending. Blood cultures are negative after 72 hours. Urine culture is negative. White count today is 12.63, hemoglobin 10.5 platelet count is 451. Her sodium level today is 136, chloride 111, CO2 21. She remains on IV Vanco. Patient is afebrile, blood pressure 135/76 on room air. She is sitting infectious disease and OB. She'll continue on IV antibiotics for 1-2 more days, pending finalized cultures and ID will make oral antibiotic recommendation for discharge. Patient did have a bowel movement today, shows some thinning of some constipation. 09/16/2021 Patient was cleared from OB services for discharge and oral antibiotics and to follow up in office in 2 weeks. Patient was okay with going home today. Microbiology has finalized and there is no resistant organisms isolated. Pending oral antibiotic recommendations from infectious disease. Around lunchtime patient experienced some nausea and vomiting and was given a dose of IV Zofran. We'll just order an abdominal x-ray patient was complaining of some constipation this admission. White count today is 8.49, hemoglobin stable at 10.2, sodium 136. Vital signs show a low-grade temp of 99.4, heart rate 77, blood pressure 147/77 and she is 95% room air. ROS Constitutional: Denied any fatigue denied any fever. Cardio vascular: denied any chest pain, palpitations Gastrointestinal: Denies diarrhea, reports nausea and vomiting : Denies dysuria, urgency or frequency, reports drainage from labial lesion Pulmonary: Denied any shortness of breath cough Neurologic denied any new focal deficits All inpatient medications were reviewed and appropriate changes in these medications as dictated in the interval history and assessment and plan. PHYSICAL EXAMINATION: GENERAL: The patient is alert and oriented x3, not in any acute distress. Well developed, well nourished. HEENT: Pupils are round and equally reacting to light. EOMI. No scleral icterus. No conjunctival pallor. Normocephalic, atraumatic. No pharyngeal erythema. No thyromegaly. CARDIOVASCULAR: S1 and S2 present. No murmurs, rubs, or gallops. PULMONARY: Chest is clear to auscultation, no wheezing or crackles. ABDOMEN: Soft, nontender, nondistended, normoactive bowel sounds. No palpable organomegaly. MUSCULOSKELETAL: No joint swelling or deformity. EXTREMITIES: No cyanosis, clubbing, or pedal edema. NEUROLOGICAL: Gross neurological examination did not reveal any focal deficits. SKIN: No rashes. : Deferred to OB. 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 DVT prophylaxis: Lovenox GI prophylaxis: Pepcid FULL CODE Antibiotic recommendations from ID and patient can be discharged home. We will order an abdominal x-ray and if negative we will send patient home with oral Zofran if tolerating diet. Objective - Vital Signs Vital signs: Vital Signs Temp 99.4 F 09/16/21 06:11 Pulse 77 09/16/21 06:11 Resp 17 09/16/21 06:11 BP 147/77 09/16/21 06:11 Pulse Ox 95 09/16/21 06:11 Intake & Output 09/15/21 09/16/21 09/16/21 18:59 06:59 18:59 Weight 72.575 kg Other: Voiding Method Toilet # Voids 3 2 # Bowel Movements 1 - Labs CBC & Chem 7: 09/16/21 05:41 09/16/21 05:41 Labs: Abnormal Lab Results - Last 24 Hours (Table) 09/15/21 09/16/21 09/16/21 Range/Units 05:19 05:41 05:41 RBC 3.16 L (4.10-5.20) X 10*6/uL Hgb 10.2 L (12.0-15.0) g/dL Hct 30.0 L (37.2-46.3) % MCH 32.3 H (27.0-32.0) pg Plt Count 466 H (140-440) X 10*3/uL MPV 9.3 L (9.5-12.2) fL Sodium 136 L (137-145) mmol/L Chloride 112 H 109 H (96-109) mmol/L Carbon Dioxide 19.5 L (21.6-31.8) mmol/L Calcium 8.4 L 8.3 L (8.7-10.3) mg/dL Microbiology - Last 24 Hours (Table) 09/11/21 16:07 Blood Culture - Preliminary Blood No Growth after 96 hours 09/11/21 16:23 Blood Culture - Preliminary Blood No Growth after 96 hours 09/13/21 11:28 Gram Stain - Final Groin Wound Culture - Final Assessment and Plan Time with Patient: Greater than 30
[2021-09-16 13:20] LABS: Basophils # (M) 0.17 X 10*3/uL (0.00-0.10); Eosinophils # (M) 0.25 X 10*3/uL (0.04-0.35); Lymphocytes # (M) 0.51 X 10*3/uL (0.90-5.00); Metamyelocytes % 1 % (0-0); Monocytes # (M) 0.51 X 10*3/uL (0.20-1.00); Neutrophils # (M) 6.88 X 10*3/uL (2.00-8.90); Neutrophils % (M) 81 %; Promyelocytes # (M) 0.08 k/uL (0); Promyelocytes % 1 % (0-0)
--- NOTE | 2021-09-16 17:29 | PN ---
PROGRESS NOTE DATE OF SERVICE: 09/16/2021 REASON FOR FOLLOWUP: Left labial abscess. INTERVAL HISTORY: The patient is afebrile. The patient is currently breathing comfortably. The patient denies having any chest pain. No shortness of breath or cough. No abdominal pain or pain to the left labial area. PHYSICAL EXAMINATION: Blood pressure 147/77 with a pulse of 77, temperature 98.4. She is 95% on room air. General description is an elderly female lying in bed in no distress. Respiratory system: Unlabored breathing, clear to auscultation anteriorly. Heart S1, S2. Regular rate and rhythm. Abdomen soft, no tenderness. Left labial area swelling decreased. LABS: Hemoglobin is 10.8, white count 8.49, creatinine 0.65. DIAGNOSTIC IMPRESSION AND PLAN: Patient with left labial abscess spontaneous drainage. Culture with resistant pathogen. Finish therapy with oral Augmentin. Local wound care with Aquacel Silver packing of the wound and follow up in the office in one week. MMODL / IJN: [id number] /
--- NOTE | 2021-09-16 22:51 | P.DS ---
Providers Date of admission: 09/11/21 18:12 Attending physician: Homero Vizcarra MD Consults: 09/11/21 18:13 Consult Physician Routine Consulting Provider: Zia Beltrán Consult Reason/Comments: Labia cellulitis Do you want consulting provider notified?: Yes Consult Physician Urgent Consulting Provider: Dread Olivas Consult Reason/Comments: Labia cellulitis, sepsis Do you want consulting provider notified?: Yes [facility]: Final Diagnosis -Labial cellulitis, cultures are finalized, discharged on oral augmentin -Hypervolemic hyponatremia improved with IV fluids -Acute and failure secondary to prerenal azotemia from nausea vomiting which improved -Leukocytosis: Secondary to labial cellulitis, white count normalized today 8.49 -Non anion gap metabolic acidosis secondary to nausea vomiting, and poor oral intake, resolving -Nausea vomiting: Secondary to antibiotics DVT prophylaxis: Lovenox Patient is discharged home on oral augmentin with daily wound packing with aquacel rope and will follow up in the wound clinic in one week with Dr Olivas. In addition, she will need to follow up in the OB office in 1-[address] Beltrán. Please see progress note dated 09/16/2021 for additional information Please see medication reconciliation for a list of current medications. Thank you for allowing us to participate in the care of this patient. Patient Condition at Discharge: Stable Plan - Discharge Summary Discharge Rx Participant: No New Discharge Prescriptions: New Amoxic-Pot Clav 875-125Mg [Augmentin 875-125] 1 tab PO Q12HR 10 Days #20 tab Docusate [Colace] 100 mg PO BID cap Ondansetron Odt [Zofran Odt] 4 mg PO Q8HR PRN #12 tab PRN Reason: Nausea Famotidine [Pepcid] 20 mg PO DAILY #30 tab Continue Aspirin EC [Ecotrin Low Dose] 81 mg PO DAILY Omeprazole [PriLOSEC] 20 mg PO DAILY Lisinopril [Prinivil] 10 mg PO DAILY Hydrocodone/Acetaminophen [Driver 5-325] 1 tab PO Q8HR PRN PRN Reason: Severe Pain Meclizine [Antivert] 25 mg PO DIRECTED PRN PRN Reason: DIZZINESS Levothyroxine Sodium [Synthroid] 75 mcg PO DAILY Ezetimibe [Zetia] 10 mg PO DAILY Cholecalciferol [Vitamin D3 (25 Mcg = 1000 Iu)] 25 mcg PO DAILY Discontinued Cephalexin [Keflex] 500 mg PO Q6HR 7 Days #28 cap Discharge Medication List Aspirin EC [Ecotrin Low Dose] 81 mg PO DAILY 01/14/15 [History] Hydrocodone/Acetaminophen [Driver 5-325] 1 tab PO Q8HR PRN 01/14/15 [History] Lisinopril [Prinivil] 10 mg PO DAILY 01/14/15 [History] Omeprazole [PriLOSEC] 20 mg PO DAILY 01/14/15 [History] Meclizine [Antivert] 25 mg PO DIRECTED PRN 06/07/15 [History] Levothyroxine Sodium [Synthroid] 75 mcg PO DAILY 08/23/20 [History] Cholecalciferol [Vitamin D3 (25 Mcg = 1000 Iu)] 25 mcg PO DAILY 09/11/21 [History] Ezetimibe [Zetia] 10 mg PO DAILY 09/11/21 [History] Amoxic-Pot Clav 875-125Mg [Augmentin 875-125] 1 tab PO Q12HR 10 Days #20 tab 09/16/21 [Rx] Docusate [Colace] 100 mg PO BID cap 09/16/21 [Rx] Famotidine [Pepcid] 20 mg PO DAILY #30 tab 09/16/21 [Rx] Ondansetron Odt [Zofran Odt] 4 mg PO Q8HR PRN #12 tab 09/16/21 [Rx] Follow up Appointment(s)/Referral(s): [facility], [NON-STAFF] - ([facility] will call you to schedule your visits for home care. ) Zia Beltrán MD [STAFF PHYSICIAN] - 09/30/21 10:15 am Pablo Argueta III, MD [Primary Care Provider] - 09/21/21 8:00 am Ambulatory/Diagnostic Orders: Complete Blood Count w/diff [LAB.AMB] Time Frame: 2 Days, Location: None Selected Patient Instructions/Handouts: Cellulitis (DC) Activity/Diet/Wound Care/Special Instructions: Please call wound center [phone] to make f/u for [address] Olivas Wound care instructions Please pack wound daily with Aquacel rope , change daily Discharge Disposition: HOME WITH HOME HEALTH SERVICES
== END 2021-09-16 15:06 | disposition home health service (06) | DRG 872 ==
LOC: EC 14:27 → 4SSUR 18:12
PROVIDERS: ADMIT Internal Medicine; ATTEND Internal Medicine
DX: A41.9 Sepsis, unspecified organism (principal); E87.1 Hypo-osmolality and hyponatremia; E87.2 Acidosis; L03.314 Cellulitis of groin; Z16.24 Resistance to multiple antibiotics; Z20.822 Contact with and (suspected) exposure to COVID-19; E87.70 Fluid overload, unspecified; N76.2 Acute vulvitis; M79.7 Fibromyalgia; H91.91 Unspecified hearing loss, right ear; I10 Essential (primary) hypertension; K59.00 Constipation, unspecified; L30.4 Erythema intertrigo; R65.20 Severe sepsis without septic shock; Z79.82 Long term (current) use of aspirin; Z79.899 Other long term (current) drug therapy; Z86.711 Personal history of pulmonary embolism; Z86.14 Personal history of Methicillin resistant Staphylococcus aureus infection; Z79.890 Hormone replacement therapy
CPT/HCPCS: 36415; 56420; 71046; 80048; 80053; 80202; 81001; 83605; 83735; 84132; 84484; 85025; 85610; 85730; 87040; 87070; 87086; 87205; 87635; 93005; 94760; 96361; 96374; 96375; 99282; 99291

== ENCOUNTER → 2022-04-13 | Outpatient (CLI) | payer MEDICARE, OTHER ==
--- NOTE | 2022-04-13 22:51 | US ---
EXAMINATION TYPE: US abdomen complete DATE OF EXAM: 04/13/2022 COMPARISON: US [address] 2018 CLINICAL HISTORY: R10.9 ABD PAIN. Cholecystectomy. Pain. EXAM MEASUREMENTS: Liver Length: 11.5 cm CBD: 1.29 cm Right Kidney: 9.0 x 4.1 x 3.4 cm. Limited measurement-lower pole obscured. Left Kidney: 9.3 x 4.0 x 4.0 cm Limited due to gas. Pancreas: Appears hyperechoic. Limited due to gas. Liver: Appears coarse in echotexture with increased attenuation. Ducts appear dilated. Anechoic area seen within the right lobe: 1.7 x 1.1 x 1.1 cm. Gallbladder: Surgically absent. Evidence for sonographic Virgen's sign: No CBD: Appears dilated Spleen: Obscured by gas. Right Kidney: Limited, lower pole obscured by gas. Measurement is limited. No hydronephrosis or tj s seen. Cortex appears thin. Left Kidney: No hydronephrosis or masses seen. Cortex appears thin. Upper IVC: Slightly limited Abd Aorta: Portions seen appear wnl. Iliacs are obscured by gas. No aneurysm in the visualized abdominal aorta. Visualized pancreas within normal limits. Persistent s lightly heterogeneous liver with mild to moderate left-sided intrahepatic biliary dilatation redemons trated. Gallbladder surgically absent. Common bile duct mildly dilated similar to prior studies. García ical thinning in both kidneys. No hydronephrosis seen bilaterally. Spleen suboptimally seen on curren t study. IMPRESSION: No new suspicious findings are evident. Mild to moderate biliary dilatation redemonstrate d.
--- NOTE | 2022-04-13 22:52 | US ---
EXAMINATION TYPE: US pelvic complete DATE OF EXAM: 04/13/2022 COMPARISON: CT 2018 CLINICAL HISTORY: R10.9 ABD PAIN. Pain. . TECHNIQUE: Transabdominal (TA). Transabdominal sonographic images of the pelvis were acquired. Brooklynn purvis feels like she cannot drink more water and that her bladder is full. Patient denied transvaginal exam. Date of LMP: At 50 years old. EXAM MEASUREMENTS: Uterus: Very limited, measured at 5.5 x 3.0 x 3.2 cm Exam is very limited. 1. Uterus: Unable to clearly visualize borders. 2. Endometrium: Unable to visualize. 3. Right Ovary: Unable to visualize. 4. Left Ovary: Unable to visualize 5. Bilateral Adnexa: Appear wnl 6. Posterior cul-de-sac: Limited, appears wnl Markedly suboptimal study due to poor distended bladder and patient refusing transvaginal investigati on. IMPRESSION: As above.
== END | disposition home or self-care (01) ==
LOC: RADUSWWP 12:30
PROVIDERS: ATTEND Family Medicine
DX: K83.8 Other specified diseases of biliary tract (principal); N32.89 Other specified disorders of bladder; Z90.49 Acquired absence of other specified parts of digestive tract
CPT/HCPCS: 76700; 76856

== ENCOUNTER → 2022-05-08 | Outpatient (CLI) | payer MEDICARE, OTHER ==
--- NOTE | 2022-05-09 05:03 | MR ---
EXAMINATION TYPE: MR brain and iac wo/w con DATE OF EXAM: 05/08/2022 COMPARISON: 06/22/2017 HISTORY: Headaches, history of acoustic neuroma right ear, ear canal removed. CONTRAST: Standard multiplanar, multisequence MRI departmental protocol images were obtained without contrast a nd with 7 mL intravenous Gadavist gadolinium contrast. Diffusion images show no evidence of an acute infarct. There is some cerebral cortical atrophy. There is no mass effect or midline shift. No evidence of intracranial hemorrhage. There are scattered whit e matter high signal foci that measure up to 7 mm in both cerebral hemispheres. Total number is appro ximately 10. Ventricles are fairly normal size. Corpus callosum is intact. Sella turcica is intact. No evidence of orbital mass. Brainstem is intact. There is a large enhancing mass at the right cerebellopontine angle that measures 15 x 16 mm and exte nds into the right internal auditory canal. Lesion has fairly uniform enhancement. No evidence of a m ass on the left side internal auditory canal. On the FLAIR images there is some increased signal in the posterior fossa on the right side involving the inferior lateral right cerebellar hemisphere. This is consistent with some edema and could be po sttreatment changes or tumor reactive changes. There is normal enhancement of the venous sinuses. IMPRESSION: There is acoustic neuroma on the right side which is increased in size approximately 4 mm in thicknes s compared to the old exam. There is some reactive signal changes in the adjacent cerebellum which are slightly increased compare d to old exam.
== END | disposition home or self-care (01) ==
LOC: RADMRIMAIN 17:50
PROVIDERS: ATTEND Family Medicine
DX: H93.91 Unspecified disorder of right ear (principal); Z86.018 Personal history of other benign neoplasm
CPT/HCPCS: 70553; A9585

== ENCOUNTER → 2022-05-11 | Outpatient (CLI) | payer MEDICARE, OTHER ==
--- NOTE | 2022-05-12 09:57 | US ---
EXAMINATION TYPE: US arterial LE multi level DATE OF EXAM: 05/11/2022 11:20 AM CLINICAL HISTORY: R94.39 ABNORMAL RESULT OF OTHER CARDIOVASCULAR FUN. Abnormal result of other cardio vascular function study. Essential hypertension, hyperlipidemia, headache. Doppler Waveforms: Right: Multiphasic Left: Biphasic Ankle-Brachial Indices: Right: 1.03 Left: 0.85 Toe Brachial Indices: Right: 0.56 Left: 0.37 IMPRESSION: 1. Abnormal left LA and TBI correlate for significant atherosclerotic disease. Dedicated arteriogram recommended.
== END | disposition home or self-care (01) ==
LOC: RADUSWWP 10:14
PROVIDERS: ATTEND Family Medicine
DX: R94.39 Abnormal result of other cardiovascular function study (principal); E78.5 Hyperlipidemia, unspecified; I10 Essential (primary) hypertension
CPT/HCPCS: 93923

== ENCOUNTER 2022-05-19 14:23 | Emergency (ER) | payer MEDICARE, OTHER ==
[2022-05-19] MEDS ORDERED: SODIUM CHLORIDE 0.9% 1,000 ML IV STA (17:19)
[2022-05-19 17:55] LABS: Basophils # (A) 0.2 k/uL (0-0.2); Basophils % (A) 2 %; Eosinophils # (A) 0.2 k/uL (0-0.7); Eosinophils % (A) 2 %; HCT 39.1 % (34.0-46.0); HGB 13.2 gm/dL (11.4-16.0); Lymphocytes # (A) 1.8 k/uL (1.0-4.8); Lymphocytes % (A) 21 %; MCHC 33.8 g/dL (31.0-37.0); MCV 94.6 fL (80.0-100.0); Monocytes # (A) 0.4 k/uL (0-1.0); Monocytes % (A) 5 %; Neutrophils # (A) 5.6 k/uL (1.3-7.7); Neutrophils % (A) 68 %; Platelet Count 503 k/uL (150-450); RBC 4.13 m/uL (3.80-5.40); RDW 12.9 % (11.5-15.5); WBC 8.3 k/uL (3.8-10.6)
[2022-05-19 17:59] LABS: Appearance,Urine Cloudy (Clear); Bilirubin,Urine 1+ (Negative); Blood,Urine Negative (Negative); Color,Urine Yellow; Glucose,Urine (UA) Negative (Negative); Hyaline Casts,Urine 8 /lpf (0-2); Ketones,Urine Negative (Negative); Leukocyte Esterase,Urine Moderate (Negative); Mucus,Urine Many /hpf; Nitrite,Urine Negative (Negative); PH, Urine 5.5 (5.0-8.0); Protein,Urine Trace (Negative); RBC,Urine 1 /hpf (0-5); Specific Gravity,Urine 1.028 (1.001-1.035); Squamous Epithelial Cell,Urine <1 /hpf (0-4); WBC,Urine 3 /hpf (0-5)
[2022-05-19 18:09] LABS: Albumin 3.6 g/dL (3.5-5.0); Calcium 9.3 mg/dL (8.4-10.2); Potassium 4.4 mmol/L (3.5-5.1); Total Bilirubin 0.6 mg/dL (0.2-1.3); Total Protein 6.4 g/dL (6.3-8.2)
[2022-05-19] MEDS ORDERED: KETOROLAC 15 MG/ML 1 ML VIAL IVP STA (18:20)
[2022-05-19 18:43] VITALS: PULSE 56
--- NOTE | 2022-05-19 19:28 | ED ---
Abdominal Pain HPI - General Chief Complaint: Abdominal Pain Stated Complaint: Rt side back/Kidney Pain/Headache Time Seen by Provider: 05/19/22 16:57 Source: patient Mode of arrival: wheelchair Limitations: no limitations - History of Present Illness Initial Comments: Patient is an 81-year-old female who presents to the emergency department for evaluation of left side pain. Patient states the symptoms started this morning. Patient endorses moderate left-sided pain with radiation to the left back. Denies back injury. Denies leg weakness, numbness, and tingling. Denies numbness and tingling in the groin/buttock region. Patient also endorses chills. Denies burning with urination and increased urinary frequency however she noticed today it was more difficult to start her stream. Patient denies history of kidney infection and stone. States she has had history of urinary tract infection however it was several years ago. She denies shortness of breath, chest pain, other abdominal pain, nausea, vomiting, and blood in the urine. - Related Data Home Medications Medication Instructions Recorded Confirmed Aspirin EC [Ecotrin Low Dose] 81 mg PO DAILY 01/14/15 09/11/21 Hydrocodone/Acetaminophen [[place] 1 tab PO Q8HR PRN 01/14/15 09/11/21 5-325] Omeprazole [PriLOSEC] 20 mg PO DAILY 01/14/15 09/11/21 lisinopriL [Prinivil] 10 mg PO DAILY 01/14/15 09/11/21 Meclizine [Antivert] 25 mg PO DIRECTED PRN 06/07/15 09/11/21 Levothyroxine Sodium [Synthroid] 75 mcg PO DAILY 08/23/20 09/11/21 Cholecalciferol [Vitamin D3 (25 25 mcg PO DAILY 09/11/21 09/11/21 Mcg = 1000 Iu)] Ezetimibe [Zetia] 10 mg PO DAILY 09/11/21 09/11/21 Previous Rx's Medication Instructions Recorded Amoxic-Pot Clav 875-125Mg 1 tab PO Q12HR 10 Days #20 tab 09/16/21 [Augmentin 875-125] Docusate [Colace] 100 mg PO BID cap 09/16/21 Famotidine [Pepcid] 20 mg PO DAILY #30 tab 09/16/21 Ondansetron Odt [Zofran Odt] 4 mg PO Q8HR PRN #12 tab 09/16/21 Ibuprofen [Motrin] 800 mg PO Q8H 7 Days #21 tab 05/19/22 Lidocaine 5% Patch [Lidoderm] 1 patch TOPICAL DAILY 7 Days #7 05/19/22 patch Allergies Allergy/AdvReac Type Severity Reaction Status Date / Time ciprofloxacin [From Cipro] Allergy Abdominal Verified 05/19/22 16:10 Pain nitrofurantoin Allergy Abdominal Verified 05/19/22 16:10 [From Macrobid] Pain pregabalin [From Lyrica] Allergy VERTIGO Verified 05/19/22 16:10 acetaminophen [From Vicodin] AdvReac Unknown Verified 05/19/22 16:10 ciprofloxacin HCl AdvReac Abdominal Verified 05/19/22 16:10 [From Cipro] Pain desvenlafaxine [From Pristiq] AdvReac Unknown Verified 05/19/22 16:10 duloxetine [From Cymbalta] AdvReac Unknown Verified 05/19/22 16:10 hydrocodone [From Vicodin] AdvReac Unknown Verified 05/19/22 16:10 hydroxychloroquine sulfate AdvReac Abdominal Verified 05/19/22 16:10 [From Plaquenil] Pain milnacipran [From Savella] AdvReac Unknown Verified 05/19/22 16:10 nitrofurantoin AdvReac VOMITING,HE Verified 05/19/22 16:10 macrocrystalline ADACHE [From Macrobid] sucralfate [From Carafate] AdvReac VERTIGO,FELT Verified 05/19/22 16:10 LIKE PASSING OUT" sulfamethoxazole AdvReac Nausea & Verified 05/19/22 16:10 [From Bactrim] Vomiting & Diarrhea trimethoprim [From Bactrim] AdvReac Nausea & Verified 05/19/22 16:10 Vomiting & Diarrhea Review of Systems ROS Statement: Those systems with pertinent positive or pertinent negative responses have been documented in the HPI. ROS Other: All systems not noted in ROS Statement are negative. Past Medical History Past Medical History: Fibromyalgia, Hypertension, Pulmonary Embolus (PE) Additional Past Medical History / Comment(s): acoustic neuroma, DEAF RT EAR. RIGHT HAND INDEX FINGER INFECTION. History of Any Multi-Drug Resistant Organisms: ESBL, MRSA Date of last positivie culture/infection: 12/03/15 MRSA; 03/27/15-ESBL MDRO Source:: Right 2nd Finger MRSA; Urine E.coli ESBL Past Surgical History: Cholecystectomy, Ear Surgery Additional Past Surgical History / Comment(s): right shoulder, right hand , BRAIN SURGERY, [facility], abscess lanced in groin Past Anesthesia/Blood Transfusion Reactions: Family History of Problems w/ Anesthesia, Motion Sickness Additional Past Anesthesia/Blood Transfusion Reaction / Comment(s): brother had to be revived after anesthesia Past Psychological History: No Psychological Hx Reported Smoking Status: Never smoker Past Alcohol Use History: None Reported Past Drug Use History: None Reported - Past Family History Mother Family Medical History: No Reported History General Exam Limitations: no limitations General appearance: alert, in no apparent distress Head exam: Present: atraumatic, normocephalic, normal inspection Eye exam: Present: normal appearance, PERRL, EOMI. Absent: scleral icterus, conjunctival injection, periorbital swelling Respiratory exam: Present: normal lung sounds bilaterally. Absent: respiratory distress, wheezes, rales, rhonchi, stridor Cardiovascular Exam: Present: regular rate, normal rhythm, normal heart sounds. Absent: systolic murmur, diastolic murmur, rubs, gallop, clicks GI/Abdominal exam: Present: soft, normal bowel sounds. Absent: distended, tenderness, guarding, rebound, rigid Back exam: Present: normal inspection, full ROM, paraspinal tenderness (left lumbar). Absent: CVA tenderness (R), CVA tenderness (L), muscle spasm, vertebral tenderness, rash noted Neurological exam: Present: alert, oriented X3, CN II-XII intact Psychiatric exam: Present: normal affect, normal mood Skin exam: Present: warm, dry, intact, normal color. Absent: rash Course Vital Signs 05/19/22 05/19/22 16:11 18:42 Temperature 97.8 F Pulse Rate 61 56 L Respiratory 16 16 Rate Blood Pressure 163/71 146/77 O2 Sat by Pulse 99 99 Oximetry Medical Decision Making - Medical Decision Making This is an 81-year-old male who presents for evaluation of left flank pain. Thorough history and examination was performed. Patient is well-appearing. She is afebrile. Vitals are stable. Reports chills. The abdomen is soft and nontender. There is no CVA tenderness however there is some mild tenderness with palpation of the left lumbar paravertebral muscles. No injury. No saddle anesthesia. No loss of bowel or bladder function. Laboratory studies were obtained. Patient has a normal white blood cell count 8.3. Sodium is low at 127. There is normal kidney function. Urinalysis is not indicated of blood or infection. CT of the abdomen and pelvis without contrast shows a dilated biliary tree with some suspicion for distal common bile duct obstruction however patient does not have right-sided back pain or right-sided abdominal pain. Patient has history of cholecystectomy. There are no abnormalities in liver function enzymes and bilirubin. Patient given Toradol and fluid bolus. On reevaluation patient's have improved. Results discussed with patient. At this time there are no diagnostic studies to explain patient's symptoms. Possibly mechanical back pain as pain is reproducible with palpation and movement. Patient will be discharged with Motrin 800 and lidocaine patches. Strict return parameters were discussed. Patient and her daughter verbalize understanding and are agreeable to this plan. Dr. Arevalo is my attending. - Lab Data Result diagrams: 05/19/22 17:41 05/19/22 17:41 Lab Results 05/19/22 05/19/22 05/19/22 Range/Units 17:41 17:41 17:41 WBC 8.3 (3.8-10.6) k/uL RBC 4.13 (3.80-5.40) m/uL Hgb 13.2 (11.4-16.0) gm/dL Hct 39.1 (34.0-46.0) % MCV 94.6 (80.0-100.0) fL MCH 32.0 (25.0-35.0) pg MCHC 33.8 (31.0-37.0) g/dL RDW 12.9 (11.5-15.5) % Plt Count 503 H (150-450) k/uL MPV 7.0 Neutrophils % 68 % Lymphocytes % 21 % Monocytes % 5 % Eosinophils % 2 % Basophils % 2 % Neutrophils # 5.6 (1.3-7.7) k/uL Lymphocytes # 1.8 (1.0-4.8) k/uL Monocytes # 0.4 (0-1.0) k/uL Eosinophils # 0.2 (0-0.7) k/uL Basophils # 0.2 (0-0.2) k/uL Sodium 127 L (137-145) mmol/L Potassium 4.4 (3.5-5.1) mmol/L Chloride 95 L (98-107) mmol/L Carbon Dioxide 25 (22-30) mmol/L Anion Gap 7 mmol/L BUN 10 (7-17) mg/dL Creatinine 0.90 (0.52-1.04) mg/dL Est GFR (CKD-EPI)AfAm 70 (>60 ml/min/1.73 sqM) Est GFR (CKD-EPI)NonAf 60 (>60 ml/min/1.73 sqM) Glucose 89 (74-99) mg/dL Plasma Lactic Acid Henry (0.7-2.0) mmol/L Calcium 9.3 (8.4-10.2) mg/dL Total Bilirubin 0.6 (0.2-1.3) mg/dL AST 23 (14-36) U/L ALT 14 (4-34) U/L Alkaline Phosphatase 76 (38-126) U/L Total Protein 6.4 (6.3-8.2) g/dL Albumin 3.6 (3.5-5.0) g/dL Lipase 43 (23-300) U/L Urine Color Yellow Urine Appearance Cloudy H (Clear) Urine pH 5.5 (5.0-8.0) Ur Specific [place] 1.028 (1.001-1.035) Urine Protein Trace H (Negative) Urine Glucose (UA) Negative (Negative) Urine Ketones Negative (Negative) Urine Blood Negative (Negative) Urine Nitrite Negative (Negative) Urine Bilirubin 1+ H (Negative) Urine Urobilinogen 3.0 (<2.0) mg/dL Ur Leukocyte Esterase Moderate H (Negative) Urine RBC 1 (0-5) /hpf Urine WBC 3 (0-5) /hpf Ur Squamous Epith Cells <1 (0-4) /hpf Hyaline Casts 8 H (0-2) /lpf Urine Mucus Many H (None) /hpf 05/19/22 Range/Units 17:41 WBC (3.8-10.6) k/uL RBC (3.80-5.40) m/uL Hgb (11.4-16.0) gm/dL Hct (34.0-46.0) % MCV (80.0-100.0) fL MCH (25.0-35.0) pg MCHC (31.0-37.0) g/dL RDW (11.5-15.5) % Plt Count (150-450) k/uL MPV Neutrophils % % Lymphocytes % % Monocytes % % Eosinophils % % Basophils % % Neutrophils # (1.3-7.7) k/uL Lymphocytes # (1.0-4.8) k/uL Monocytes # (0-1.0) k/uL Eosinophils # (0-0.7) k/uL Basophils # (0-0.2) k/uL Sodium (137-145) mmol/L Potassium (3.5-5.1) mmol/L Chloride (98-107) mmol/L Carbon Dioxide (22-30) mmol/L Anion Gap mmol/L BUN (7-17) mg/dL Creatinine (0.52-1.04) mg/dL Est GFR (CKD-EPI)AfAm (>60 ml/min/1.73 sqM) Est GFR (CKD-EPI)NonAf (>60 ml/min/1.73 sqM) Glucose (74-99) mg/dL Plasma Lactic Acid [place] 0.9 (0.7-2.0) mmol/L Calcium (8.4-10.2) mg/dL Total Bilirubin (0.2-1.3) mg/dL AST (14-36) U/L ALT (4-34) U/L Alkaline Phosphatase (38-126) U/L Total Protein (6.3-8.2) g/dL Albumin (3.5-5.0) g/dL Lipase (23-300) U/L Urine Color Urine Appearance (Clear) Urine pH (5.0-8.0) Ur Specific [place] (1.001-1.035) Urine Protein (Negative) Urine Glucose (UA) (Negative) Urine Ketones (Negative) Urine Blood (Negative) Urine Nitrite (Negative) Urine Bilirubin (Negative) Urine Urobilinogen (<2.0) mg/dL Ur Leukocyte Esterase (Negative) Urine RBC (0-5) /hpf Urine WBC (0-5) /hpf Ur Squamous Epith Cells (0-4) /hpf Hyaline Casts (0-2) /lpf Urine Mucus (None) /hpf Disposition Clinical Impression: Left flank pain, Back pain Disposition: HOME SELF-CARE Condition: Good Instructions (If sedation given, give patient instructions): Flank Pain (ED), Back Pain (ED) Additional Instructions: Please take medication as prescribed. Apply lidocaine patches as directed. Using warm compress on the left lower back may help symptoms as well. Please follow-up with primary care provider in one to 2 days. Return to the emergency department if you experience new, concerning, or worsening symptoms. Prescriptions: Lidocaine 5% Patch [Lidoderm] 1 patch TOPICAL DAILY 7 Days #7 patch Ibuprofen [Motrin] 800 mg PO Q8H 7 Days #21 tab Is patient prescribed a controlled substance at d/c from ED?: No Referrals: Pablo Argueta III, MD [Primary Care Provider] - 1-2 days Time of Disposition: 19:57
--- NOTE | 2022-05-19 19:32 | CT ---
EXAMINATION TYPE: CT abdomen pelvis wo con DATE OF EXAM: 05/19/2022 COMPARISON: CT brain with no contrast HISTORY: flank pain CT DLP: 591.4 mGycm Automated exposure control for dose reduction was used. Images obtained from the diaphragm to the floor the pelvis with no contrast. Lung bases are clear of consolidation. No pleural effusion. Heart size is normal. No pericardial effu yola. There is minimal subsegmental atelectasis left lung base. There are multiple dilated bile ducts throughout the liver. There is large common bile duct that adolph ures 1.5 cm. There are clips from cholecystectomy. Spleen is intact. No pancreatic mass. Stomach is i ntact. There is no adrenal mass. Kidneys show normal size. No hydronephrosis. No retroperitoneal adenopathy. Bladder distends smoothly. No inguinal hernia. No free fluid in the pelvis. No evidence of a pelvic mass. There is no mesenteric edema. No ascites or free air. No sign of a bowel obstruction. Appendix is inf erior and appears normal. There is a degenerative first-degree L3-4 and L4-5 spondylolisthesis. No compression fracture. The sam ny pelvis is intact. The hip joints are intact. There is mild lumbar levoscoliosis. IMPRESSION: Dilated biliary tree. Distal common bile duct obstruction is suspected. MRCP or ultrasound might be h elpful for further evaluation if clinically indicated. No mass seen. Spondylotic changes in the lower lumbar spine. Degenerative subluxation. No compression fracture.
[2022-05-19] MEDS ORDERED: LIDOCAINE 5% PATCH TOPICAL SCH (20:00)
[2022-05-19 20:26] VITALS: BP 154/68; RESP 14; TEMP 96
== END 2022-05-19 20:38 | disposition home or self-care (01) ==
LOC: EC 14:23
DX: R10.9 Unspecified abdominal pain (principal); M54.50 Low back pain, unspecified; I10 Essential (primary) hypertension; Z88.2 Allergy status to sulfonamides; Z88.3 Allergy status to other anti-infective agents; Z88.6 Allergy status to analgesic agent; Z88.8 Allergy status to other drugs, medicaments and biological substances; Z91.048 Other nonmedicinal substance allergy status
CPT/HCPCS: 36415; 80053; 83605; 83690; 85025; 81001; 74176; 99284; 96374; 96361; J1885

== ENCOUNTER → 2022-10-28 | Outpatient (CLI) | payer MEDICARE, OTHER ==
--- NOTE | 2022-10-29 20:23 | MR ---
EXAMINATION TYPE: MR brain wo/w con DATE OF EXAM: 10/28/2022 COMPARISON: Prior brain MRI May 08, 2022 HISTORY: Headaches, history of acoustic neuroma, right ear canal removed TECHNIQUE: Multiplanar, multisequence images of the brain and brainstem is performed without and with IV contras t, utilizing 7 mL intravenous Gadavist . FINDINGS: Diffusion weighted images demonstrate no evidence of a recent infarct or other diffusion ab normality. There is mild to moderate ventricular and sulcal prominence. There are scattered foci of hyperintensity demonstrated throughout the white matter bilaterally. Approximately 10-15 scattered le sions are redemonstrated. Midline structures redemonstrated normal morphology. The craniocervical junction remains within norm al limits. There is persistent homogeneous enhancing right cerebellopontine angle mass measuring 1.8 x 1.1 x 1.2 cm axial image 8 and coronal image 23 grossly unchanged from prior study likely reflecting acoustic neuroma. Surgical change to the periphery of this on the right is redemonstrated. 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 No new enhancing masses are seen. The dural venous sinuses remain patent. Globes are intact and visua lized sinuses remain clear. 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 Adjacent postsurgical changes and lateral right cerebellar encephalomalacia re demonstrated. No new enhancing masses. Mild nonspecific white matter changes again seen.
== END | disposition home or self-care (01) ==
LOC: RADMRIMAIN 11:09
PROVIDERS: ATTEND Neurological Surgery
DX: D33.3 Benign neoplasm of cranial nerves (principal); G93.89 Other specified disorders of brain; R90.82 White matter disease, unspecified
CPT/HCPCS: 70553; A9585

== ENCOUNTER 2023-06-08 11:41 | Emergency (ER) | payer MEDICARE, OTHER ==
[2023-06-08 12:40] VITALS: RESP 16
--- NOTE | 2023-06-08 13:09 | ED ---
Lower Extremity Injury HPI - General Chief Complaint: Extremity Injury, Lower Stated Complaint: Left leg pain Time Seen by Provider: 06/08/23 12:44 Source: patient, RN notes reviewed Mode of arrival: ambulatory Limitations: no limitations - History of Present Illness Initial Comments: 82-year-old female presents emergency Department chief complaint left calf pain. Patient patient no injury. Patient states she feels like it's swollen but denies any redness or discoloration. Patient is concerned that she has a history of clots. Patient denies being on blood there is on daily aspirin. Patient offers no other complaints denies chest pain or shortness of breath. - Related Data Home Medications Medication Instructions Recorded Confirmed Aspirin EC [Ecotrin Low Dose] 81 mg PO DAILY 01/14/15 09/11/21 Hydrocodone/Acetaminophen [[place] 1 tab PO Q8HR PRN 01/14/15 09/11/21 5-325] Omeprazole [PriLOSEC] 20 mg PO DAILY 01/14/15 09/11/21 lisinopriL [Prinivil] 10 mg PO DAILY 01/14/15 09/11/21 Meclizine [Antivert] 25 mg PO DIRECTED PRN 06/07/15 09/11/21 Levothyroxine Sodium [Synthroid] 75 mcg PO DAILY 08/23/20 09/11/21 Cholecalciferol [Vitamin D3 (25 25 mcg PO DAILY 09/11/21 09/11/21 Mcg = 1000 Iu)] Ezetimibe [Zetia] 10 mg PO DAILY 09/11/21 09/11/21 Previous Rx's Medication Instructions Recorded Amoxic-Pot Clav 875-125Mg 1 tab PO Q12HR 10 Days #20 tab 09/16/21 [Augmentin 875-125] Docusate [Colace] 100 mg PO BID cap 09/16/21 Famotidine [Pepcid] 20 mg PO DAILY #30 tab 09/16/21 Ondansetron Odt [Zofran Odt] 4 mg PO Q8HR PRN #12 tab 09/16/21 Ibuprofen [Motrin] 800 mg PO Q8H 7 Days #21 tab 05/19/22 Lidocaine 5% Patch [Lidoderm] 1 patch TOPICAL DAILY 7 Days #7 05/19/22 patch Allergies Allergy/AdvReac Type Severity Reaction Status Date / Time ciprofloxacin [From Cipro] Allergy Abdominal Verified 06/08/23 12:37 Pain nitrofurantoin Allergy Abdominal Verified 06/08/23 12:37 [From Macrobid] Pain pregabalin [From Lyrica] Allergy VERTIGO Verified 06/08/23 12:37 acetaminophen [From Vicodin] AdvReac Unknown Verified 06/08/23 12:37 ciprofloxacin HCl AdvReac Abdominal Verified 06/08/23 12:37 [From Cipro] Pain desvenlafaxine [From Pristiq] AdvReac Unknown Verified 06/08/23 12:37 duloxetine [From Cymbalta] AdvReac Unknown Verified 06/08/23 12:37 hydrocodone [From Vicodin] AdvReac Unknown Verified 06/08/23 12:37 hydroxychloroquine sulfate AdvReac Abdominal Verified 06/08/23 12:37 [From Plaquenil] Pain milnacipran [From [place]] AdvReac Unknown Verified 06/08/23 12:37 nitrofurantoin AdvReac VOMITING,HE Verified 06/08/23 12:37 macrocrystalline ADACHE [From Macrobid] sucralfate [From Carafate] AdvReac VERTIGO,FELT Verified 06/08/23 12:37 LIKE PASSING OUT" sulfamethoxazole AdvReac Nausea & Verified 06/08/23 12:37 [From Bactrim] Vomiting & Diarrhea trimethoprim [From Bactrim] AdvReac Nausea & Verified 06/08/23 12:37 Vomiting & Diarrhea Review of Systems ROS Statement: Those systems with pertinent positive or pertinent negative responses have been documented in the HPI. ROS Other: All systems not noted in ROS Statement are negative. Past Medical History Past Medical History: Fibromyalgia, Hypertension, Pulmonary Embolus (PE) Additional Past Medical History / Comment(s): acoustic neuroma, DEAF RT EAR. RIGHT HAND INDEX FINGER INFECTION. History of Any Multi-Drug Resistant Organisms: ESBL, MRSA Date of last positivie culture/infection: 12/03/15 MRSA; 03/27/15-ESBL MDRO Source:: Right 2nd Finger MRSA; Urine E.coli ESBL Past Surgical History: Cholecystectomy, Ear Surgery Additional Past Surgical History / Comment(s): right shoulder, right hand , BRAIN SURGERY, [facility], abscess lanced in groin Past Anesthesia/Blood Transfusion Reactions: Family History of Problems w/ Anesthesia, Motion Sickness Additional Past Anesthesia/Blood Transfusion Reaction / Comment(s): brother had to be revived after anesthesia Past Psychological History: No Psychological Hx Reported Smoking Status: Never smoker Past Alcohol Use History: None Reported Past Drug Use History: None Reported - Past Family History Mother Family Medical History: No Reported History General Exam Limitations: no limitations General appearance: alert, in no apparent distress Head exam: Present: atraumatic, normocephalic, normal inspection Eye exam: Present: normal appearance, PERRL, EOMI. Absent: scleral icterus, conjunctival injection, periorbital swelling ENT exam: Present: normal exam, mucous membranes moist Neck exam: Present: normal inspection, full ROM. Absent: tenderness, meningismus, lymphadenopathy Respiratory exam: Present: normal lung sounds bilaterally. Absent: respiratory distress, wheezes, rales, rhonchi, stridor Cardiovascular Exam: Present: regular rate, normal rhythm, normal heart sounds. Absent: systolic murmur, diastolic murmur, rubs, gallop, clicks Extremities exam: Present: calf tenderness (Left). Absent: pedal edema Neurological exam: Present: alert Course Vital Signs 06/08/23 06/08/23 12:37 14:33 Temperature 98.0 F 97.6 F Pulse Rate 120 H 87 Respiratory 16 16 Rate Blood Pressure 123/69 103/71 O2 Sat by Pulse 98 97 Oximetry Medical Decision Making - Medical Decision Making Was pt. sent in by a medical professional or institution (, PA, [employer], urgent care, hospital, or custodial...) When possible be specific @ -No Did you speak to anyone other than the patient for history (EMS, parent, family, police, friend...)? What history was obtained from this source @ -No Did you review nursing and triage notes (agree or disagree)? Why? @ -I reviewed and agree with nursing and triage notes Were old charts reviewed (outside hosp., previous admission, EMS record, old EKG, old radiological studies, urgent care reports/EKG's, custodial records)? Report findings @ -No old charts were reviewed Differential Diagnosis (chest pain, altered mental status, abdominal pain women, abdominal pain men, vaginal bleeding, weakness, fever, dyspnea, syncope, headache, dizziness, GI bleed, back pain, seizure, CVA, palpatations, mental health, musculoskeletal)? @ -DVT, leg pain, calf Strain EKG interpreted by me (3pts min.). @ -None X-rays interpreted by me (1pt min.). @ -None done CT interpreted by me (1pt min.). @ -None done U/S interpreted by me (1pt. min.). @ -Ultrasound left leg negative for acute DVT What testing was considered but not performed or refused? (CT, X-rays, U/S, labs)? Why? @ -None What meds were considered but not given or refused? Why? @ -None Did you discuss the management of the patient with other professionals (professionals i.e. Dr., PA, [employer], lab, RT, psych nurse, adoption social worker, space sciences director, teacher, correction officer city or county jail, pillowcase cutter)? Give summary @ -No Was smoking cessation discussed for >3mins.? @ -No Was critical care preformed (if so, how long)? @ -No Were there social determinants of health that impacted care today? How? (Homelessness, low income, unemployed, alcoholism, drug addiction, transportation, low edu. Level, literacy, decrease access to med. care, [facility], rehab)? @ -No Was there de-escalation of care discussed even if they declined (Discuss DNR or withdrawal of care, Hospice)? DNR status @ -No What co-morbidities impacted this encounter? (DM, HTN, Smoking, COPD, CAD, Cancer, CVA, ARF, Chemo, Hep., AIDS, mental health diagnosis, sleep apnea, morbid obesity)? @ -None Was patient admitted / discharged? Hospital course, mention meds given and route, prescriptions, significant lab abnormalities, going to OR and other pertinent info. @ -Discharge ultrasound was negative for acute DVT patient symptoms are consistent with strain will be discharged in stable condition return parameters were discussed. Undiagnosed new problem with uncertain prognosis? @ -No Drug Therapy requiring intensive monitoring for toxicity (Heparin, Nitro, Ins ulin, Cardizem)? @ -No Were any procedures done? @ -No Diagnosis/symptom? @ -Left leg pain Acute, or Chronic, or Acute on Chronic? @ -Acute Uncomplicated (without systemic symptoms) or Complicated (systemic symptoms)? @ -Uncomplicated Side effects of treatment? @ -No Exacerbation, Progression, or Severe Exacerbation? @ -No Poses a threat to life or bodily function? How? (Chest pain, [place], [place], pneumonia, PE, COPD, DKA, ARF, appy, cholecystitis, CVA, Diverticulitis, Homicidal, Suicidal, threat to staff... and all critical care pts) @ -No Disposition Clinical Impression: Leg pain, left Disposition: HOME SELF-CARE Condition: Stable Instructions (If sedation given, give patient instructions): Leg Pain (ED) Additional Instructions: Please return to the Emergency Department if symptoms worsen or any other concerns. Is patient prescribed a controlled substance at d/c from ED?: No Referrals: Pablo Argueta III, MD [Primary Care Provider] - 1-2 days Time of Disposition: 13:49
--- NOTE | 2023-06-08 13:37 | US ---
EXAMINATION TYPE: US venous doppler duplex LE LT DATE OF EXAM: 06/08/2023 12:53 PM COMPARISON: NONE CLINICAL INDICATION: Female, 82 years old with history of pain; SIDE PERFORMED: Left TECHNIQUE: The lower extremity deep venous system is examined utilizing real time linear array sonog alma with graded compression, doppler sonography and color-flow sonography. VESSELS IMAGED: Common Femoral Vein Deep Femoral Vein Greater Saphenous Vein * Femoral Vein Popliteal Vein Small Saphenous Vein * Proximal Calf Veins (* superficial vessels) Left Leg: Negative for DVT IMPRESSION: Grayscale, color doppler, spectral doppler imaging performed of the deep veins of the lo wer extremities. There is normal flow, compressibility, vascular waveforms.
[2023-06-08 14:35] VITALS: BP 103/71; PULSE 87; TEMP 97.6
== END 2023-06-08 14:40 | disposition home or self-care (01) ==
LOC: EC 11:41
DX: M79.605 Pain in left leg (principal); I10 Essential (primary) hypertension; Z86.711 Personal history of pulmonary embolism; Z79.82 Long term (current) use of aspirin; Z79.899 Other long term (current) drug therapy; Z88.6 Allergy status to analgesic agent; Z88.2 Allergy status to sulfonamides; Z88.8 Allergy status to other drugs, medicaments and biological substances; Z88.1 Allergy status to other antibiotic agents
CPT/HCPCS: 99283

== ENCOUNTER → 2023-07-19 | Outpatient (CLI) | payer MEDICARE ==
[2023-07-19 12:55] LABS: African American GFR (CKD) 82 (>60 ml/min/1.73 sqM); Blood Urea Nitrogen 6 mg/dL (7-17); Non-African American GFR(CKD) 71 (>60 ml/min/1.73 sqM)
--- NOTE | 2023-07-20 13:54 | CT ---
EXAMINATION TYPE: CT chest abdomen w con DATE OF EXAM: 07/19/2023 INDICATION: abnormal lung scan COMPARISON: 05/19/2022 CT DLP: 627.2 mGycm CONTRAST: Performed with Oral Contrast and with IV Contrast, patient injected with 100 mL of Isovue 300. TECHNIQUE: Axial images at 5 mm thick sections. Reconstructed images in the coronal plane. Delayed images through the kidneys. FINDINGS: CT CHEST: Portion of the thyroid visualized is normal. The punctate peripheral density right anterolateral upper lung. Series 4 image 15. Smaller area pneum onitis is in the anterior right upper lung field. Series 4 image 19. There is a 6.6 x 3.3 cm mass dense consolidation in the posterior medial right midlung. Example image series 4 image 32. Additional workup for neoplasm is recommended. There is a 1.1 cm right hilar lymph node. Series 3 image 27Couple of small shoddy lymph nodes are not ed within the mediastinum. The ascending aorta diameter at the level of the main pulmonary artery is 3.7 cm. The main pulmonary artery diameter at the bifurcation is 2.[address] ABDOMEN: Liver: Biliary dilatation is present. Common bile duct appears prominent. No obvious mass within the head of the pancreas is identified. Spleen: Normal Pancreas: Common bile duct at the head of the pancreas appears the upper limits for normal for size. No pancreatic duct dilatation is evident. No obvious mass at the head of the pancreas is evident. Adrenal glands: The adrenal glands are normal. Gallbladder: Surgically absent Kidneys: No masses are evident. No hydronephrosis is present. No cysts are present. Delayed images were obtained through the kidneys, which remain unremarkable. Aorta: Vascular calcification is within the aorta. Inferior vena cava: Normal. Loops of bowel within the abdomen and upper pelvis are normal. There are loops of bowel which are incompletely distended or lack oral contrast limiting their evaluation. IMPRESSION: 1. Masslike area in the posterior medial right lower lung field. Additional workup neoplasm is recomm ended. 2. Prominent dilated intrahepatic bile ducts are similar to slightly more prominent than the comparis on study.
== END | disposition home or self-care (01) ==
LOC: RADCTMAIN 11:54
PROVIDERS: ATTEND Family Medicine
DX: K83.9 Disease of biliary tract, unspecified (principal); R91.8 Other nonspecific abnormal finding of lung field
CPT/HCPCS: 82565; 84520; 71260; 74160; 36415; Q9967

== ENCOUNTER → 2023-07-31 | Outpatient (CLI) | payer MEDICARE ==
--- NOTE | 2023-08-01 15:22 | MR ---
EXAMINATION TYPE: MR brain wo/w con DATE OF EXAM: 07/31/2023 2:51 PM CLINICAL INDICATION:Female, 82 years old with history of C34.81; PHH, Headaches, history of acoustic neuroma, right ear canal removed. COMPARISON: 10/28/2022. TECHNIQUE: Multi planar, multi sequence imaging was performed through the brain including: T1, T2, In version recovery, susceptibility weighted imaging and gradient echo imaging and Diffusion weighted im aging. The patient was then given intravenous contrast and multi planar, T1 fat-saturation images wer e obtained. IV Contrast: 7 cc Gadavist FINDINGS: Postsurgical changes to the right temporal bone with homogeneously enhancing lesion within the international logistics manager al auditory canal and extending into the cerebellar pontine angle measuring 17 x 13 x 12 mm similar t o prior when given differences in measuring technique. No new masses visualized. No additional abnormal postcontrast enhancement. The gillespie-white junctions, ventricular system, basal cisterns appear unremarkable. Diffusion-weighted imaging shows no evidence of restricted diffusion to suggest acute/subacute infarct. Intracranial arterial flow voids are maint ained. Midline structures show no abnormality. Scattered foci of high T2 signal intensity are seen wi thin the periventricular white matter. The susceptibility weighted images do not reveal any evidence for micro-hemorrhage. The bone marrow signal is within normal limits. Paranasal sinuses and mastoid air cells: No significant paranasal sinus disease. 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 Stable Adjacent postsurgical changes and lateral right cerebellar encephalomalacia redemonstrated. There remains no new enhancing masses. Mild nonspecific white matter changes again seen.
== END | disposition home or self-care (01) ==
LOC: RADMRIMAIN 13:53
PROVIDERS: ATTEND Internal Medicine Hematology & Oncology
DX: C34.81 Malignant neoplasm of overlapping sites of right bronchus and lung (principal); G93.89 Other specified disorders of brain; R90.82 White matter disease, unspecified; Z86.018 Personal history of other benign neoplasm
CPT/HCPCS: 70553; A9585

== ENCOUNTER 2023-10-02 14:04 | Emergency (ER) | payer MEDICARE ==
--- NOTE | 2023-10-02 14:30 | ED ---
General Adult HPI - General Source: patient, RN notes reviewed Mode of arrival: wheelchair Limitations: no limitations <Reggie Russell - Last Filed: 10/02/23 14:28> - History of Present Illness -: hour(s) Radiation: non-radiation Quality: aching Consistency: constant Improves with: none Worsens with: none Associated Symptoms: chest pain, cough, shortness of breath, weakness <Zach Roman - Last Filed: 10/09/23 22:45> - General Chief complaint: Shortness of Breath Stated complaint: covid symptoms Time Seen by Provider: 10/02/23 14:29 - History of Present Illness Initial comments: 83-year-old female presents emergency Department with chief complaint of shortness of breath. Patient's daughter tested positive for COVID-19. Patient is concerned that she has increasing cough congestion she is currently under radiation therapy for lung cancer. Patient has not been eating and drinking as much as usual. They're concerned that she may positive for COVID-19. (Reggie Russell) This is a 83-year-old female to the emergency department for shortness of breath with daughter positive coronavirus. Patient's concerned she herself also has coronavirus. Activity level as well as appetite is been diminished. (Zach Roman) - Related Data Home Medications Medication Instructions Recorded Confirmed Aspirin EC [Ecotrin Low Dose] 81 mg PO DAILY 01/14/15 09/11/21 Hydrocodone/Acetaminophen [Herkimer 1 tab PO Q8HR PRN 01/14/15 09/11/21 5-325] Omeprazole [PriLOSEC] 20 mg PO DAILY 01/14/15 09/11/21 lisinopriL [Prinivil] 10 mg PO DAILY 01/14/15 09/11/21 Meclizine [Antivert] 25 mg PO DIRECTED PRN 06/07/15 09/11/21 Levothyroxine Sodium [Synthroid] 75 mcg PO DAILY 08/23/20 09/11/21 Cholecalciferol [Vitamin D3 (25 25 mcg PO DAILY 09/11/21 09/11/21 Mcg = 1000 Iu)] Ezetimibe [Zetia] 10 mg PO DAILY 09/11/21 09/11/21 Previous Rx's Medication Instructions Recorded Amoxic-Pot Clav 875-125Mg 1 tab PO Q12HR 10 Days #20 tab 09/16/21 [Augmentin 875-125] Docusate [Colace] 100 mg PO BID cap 09/16/21 Famotidine [Pepcid] 20 mg PO DAILY #30 tab 09/16/21 Ondansetron Odt [Zofran Odt] 4 mg PO Q8HR PRN #12 tab 09/16/21 Ibuprofen [Motrin] 800 mg PO Q8H 7 Days #21 tab 05/19/22 Lidocaine 5% Patch [Lidoderm] 1 patch TOPICAL DAILY 7 Days #7 05/19/22 patch Allergies Allergy/AdvReac Type Severity Reaction Status Date / Time ciprofloxacin [From Cipro] Allergy Abdominal Verified 10/02/23 14:23 Pain nitrofurantoin Allergy Abdominal Verified 10/02/23 14:23 [From Macrobid] Pain pregabalin [From Lyrica] Allergy VERTIGO Verified 10/02/23 14:23 acetaminophen [From Vicodin] AdvReac Unknown Verified 10/02/23 14:23 ciprofloxacin HCl AdvReac Abdominal Verified 10/02/23 14:23 [From Cipro] Pain desvenlafaxine [From Pristiq] AdvReac Unknown Verified 10/02/23 14:23 duloxetine [From Cymbalta] AdvReac Unknown Verified 10/02/23 14:23 hydrocodone [From Vicodin] AdvReac Unknown Verified 10/02/23 14:23 hydroxychloroquine sulfate AdvReac Abdominal Verified 10/02/23 14:23 [From Plaquenil] Pain milnacipran [From Savella] AdvReac Unknown Verified 10/02/23 14:23 nitrofurantoin AdvReac VOMITING,HE Verified 10/02/23 14:23 macrocrystalline ADACHE [From Macrobid] sucralfate [From Carafate] AdvReac VERTIGO,FELT Verified 10/02/23 14:23 LIKE PASSING OUT" sulfamethoxazole AdvReac Nausea & Verified 10/02/23 14:23 [From Bactrim] Vomiting & Diarrhea trimethoprim [From Bactrim] AdvReac Nausea & Verified 10/02/23 14:23 Vomiting & Diarrhea Review of Systems ROS Other: All systems not noted in ROS Statement are negative. <Reggie Russell - Last Filed: 10/02/23 14:28> ROS Other: All systems not noted in ROS Statement are negative. <Zach Roman - Last Filed: 10/09/23 22:45> ROS Statement: Those systems with pertinent positive or pertinent negative responses have been documented in the HPI. Past Medical History Past Medical History: Fibromyalgia, Hypertension, Pulmonary Embolus (PE) Additional Past Medical History / Comment(s): acoustic neuroma, DEAF RT EAR. RIGHT HAND INDEX FINGER INFECTION. History of Any Multi-Drug Resistant Organisms: ESBL, MRSA Date of last positivie culture/infection: 12/03/15 MRSA; 03/27/15-ESBL MDRO Source:: Right 2nd Finger MRSA; Urine E.coli ESBL Past Surgical History: Cholecystectomy, Ear Surgery Additional Past Surgical History / Comment(s): right shoulder, right hand , BRAIN SURGERY, [facility], abscess lanced in groin Past Anesthesia/Blood Transfusion Reactions: Family History of Problems w/ Anesthesia, Motion Sickness Additional Past Anesthesia/Blood Transfusion Reaction / Comment(s): brother had to be revived after anesthesia Past Psychological History: No Psychological Hx Reported Smoking Status: Never smoker Past Alcohol Use History: None Reported Past Drug Use History: None Reported - Past Family History Mother Family Medical History: No Reported History <Regige Russell M - Last Filed: 10/02/23 14:28> General Exam Limitations: no limitations <Reggie Russell M - Last Filed: 10/02/23 14:28> General appearance: alert, in no apparent distress Head exam: Present: atraumatic, normocephalic, normal inspection Eye exam: Present: normal appearance, PERRL, EOMI. Absent: scleral icterus, conjunctival injection, periorbital swelling ENT exam: Present: normal exam, mucous membranes moist Neck exam: Present: normal inspection. Absent: tenderness, meningismus, lymphadenopathy Respiratory exam: Present: normal lung sounds bilaterally. Absent: respiratory distress, wheezes, rales, rhonchi, stridor Cardiovascular Exam: Present: regular rate, normal rhythm, normal heart sounds. Absent: systolic murmur, diastolic murmur, rubs, gallop, clicks GI/Abdominal exam: Present: soft, normal bowel sounds. Absent: distended, tenderness, guarding, rebound, rigid Extremities exam: Present: normal inspection, full ROM, normal capillary refill. Absent: tenderness, pedal edema, joint swelling, calf tenderness Back exam: Present: normal inspection Neurological exam: Present: alert, oriented X3, CN II-XII intact Psychiatric exam: Present: normal affect, normal mood Skin exam: Present: warm, dry, intact, normal color. Absent: rash <Zach Roman - Last Filed: 10/09/23 22:45> - General Exam Comments Initial Comments: Visual Physical Exam Vital signs reviewed General: Well-appearing, nontoxic, no acute distress. Head: Normocephalic, atraumatic Eyes: PERRLA, EOMI ENT: Airway patent Chest: Nonlabored breathing Skin: No visual rash, normal skin tone Neuro: Alert and oriented 3 Musculoskeletal: No gross abnormalities (Reggie Russell) Course <Zach Roman Filed: 10/09/23 22:45> Vital Signs 10/02/23 10/02/23 14:23 20:11 Temperature 98.4 F 97.8 F Pulse Rate 142 H 75 Respiratory 18 14 Rate Blood Pressure 122/22 116/53 O2 Sat by Pulse 97 98 Oximetry - Reevaluation(s) Reevaluation #1: 10/02/23 Medical record is reviewed (Zach Roman) Reevaluation #2: 10/02/23 Patient symptoms are improved (Zach Roman) Reevaluation #3: 10/02/23 Patient informed results and questions answered (Zach Roman) Reevaluation #4: Was pt. sent in by a medical professional or institution (, PA, ADMINISTRATIVE SERVICES OFFICER, urgent care, hospital, or detention...) When possible be specific @ -no Did you speak to anyone other than the patient for history (EMS, parent, family, police, friend...)? What history was obtained from this source @ -no Did you review nursing and triage notes (agree or disagree)? Why? @ -agree Are old charts reviewed (outside hosp., previous admission, EMS record, old EKG, old radiological studies, urgent care reports/EKG's, detention records)? Report findings @ -yes Differential Diagnosis (chest pain, altered mental status, abdominal pain women, abdominal pain men, vaginal bleeding, weakness, fever, dyspnea, syncope, headache, dizziness, GI bleed, back pain, seizure, CVA, palpatations, mental health, musculoskeletal)? @ -prior EKG interpreted by me (3pts min.). @ -yes X-rays interpreted by me (1pt min.). @ -yes CT interpreted by me (1pt min.). @ -no U/S interpreted by me (1pt. min.). @ -no What testing was considered but not performed or refused? (CT, X-rays, U/S, labs)? Why? @ -none What meds were considered but not given or refused? Why? @ -none Did you discuss the management of the patient with other professionals (professionals i.e. , PA, ADMINISTRATIVE SERVICES OFFICER, lab, RT, psych nurse, social sciences department chair, food assembler commissary kitchen, teacher, physics technical officer, mattress spring encaser)? Give summary @ -no Was smoking cessation discussed for >3mins.? @ -no Was critical care preformed (if so, how long)? @ -no Were there social determinants of health that impacted care today? How? (Homelessness, low income, unemployed, alcoholism, drug addiction, transportation, low edu. Level, literacy, decrease access to med. care, half-way, rehab)? @ -none Was there de-escalation of care discussed even if they declined (Discuss DNR or withdrawal of care, Hospice)? DNR status @ -no What co-morbidities impacted this encounter? (DM, HTN, Smoking, COPD, CAD, Cancer, CVA, ARF, Chemo, Hep., AIDS, mental health diagnosis, sleep apnea, morbid obesity)? @ -none Was patient admitted / discharged? Hospital course, mention meds given and route, prescriptions, significant lab abnormalities, going to OR and other pertinent info. @ - 83 female to the emergency department for evaluation of not feeling well positive diagnosis for coronavirus. Patient is in no acute distress can be discharged home Discharged Undiagnosed new problem with uncertain prognosis? @ -no Drug Therapy requiring intensive monitoring for toxicity (Heparin, Nitro, Insulin, Cardizem)? @ -no Were any procedures done? @ -no Diagnosis/symptom? @ -COronavirus Infection fever weakenss Acute, or Chronic, or Acute on Chronic? @ -Acute Uncomplicated (without systemic symptoms) or Complicated (systemic symptoms)? @ -Complicated Side effects of treatment? @ -no Exacerbation, Progression, or Severe Exacerbation? @ -exacerbation Poses a threat to life or bodily function? How? (Chest pain, USA, MS, pneumonia, PE, COPD, DKA, ARF, appy, cholecystitis, CVA, Diverticulitis, Homicidal, Suicidal, threat to staff... and all critical care pts) @ -yes with extreme of age and positive coronavirus infection (Zach Roman) Reevaluation #5: Differential Dyspnea: Coronary syndrome, arrhythmia, tamponade, asthma, COPD, pulmonary embolism, pneu monia, pneumothorax, pulmonary effusion, anaphylaxis, diabetic ketoacidosis, flailed chest, pulmonary contusion, diaphragmatic rupture, anemia, neuromuscular, this is not meant to be an all-inclusive list. (Zach Roman) EKG Findings - EKG Comments: EKG Findings:: EKG is atrial tachycardia 136 OH 147 QRS 76 QTC 339 - EKG Results: EKG: interpreted by ERMD <Zach Roman - Last Filed: 10/09/23 22:45> Medical Decision Making <Reggie Russell - Last Filed: 10/02/23 14:28> - Lab Data Result diagrams: 10/02/23 14:32 10/02/23 14:32 - EKG Data -: EKG Interpreted by Me - Radiology Data Radiology results: report reviewed (Chest x-rays negative for acute disease), image reviewed <Zach Roman - Last Filed: 10/09/23 22:45> - Medical Decision Making I performed a quick note portion of this chart signed Reggie MARION (Reggie Russell) 83 female to the emergency department for evaluation of not feeling well positive diagnosis for coronavirus. Patient is in no acute distress can be discharged home (Zach Roman) - Lab Data Lab Results 10/02/23 10/02/23 10/02/23 Range/Units 14:26 14:32 14:32 WBC 8.5 (3.8-10.6) k/uL RBC 4.73 (3.80-5.40) m/uL Hgb 14.4 (11.4-16.0) gm/dL Hct 44.6 (34.0-46.0) % MCV 94.1 (80.0-100.0) fL MCH 30.5 (25.0-35.0) pg MCHC 32.4 (31.0-37.0) g/dL RDW 14.3 (11.5-15.5) % Plt Count 415 (150-450) k/uL MPV 6.6 Neutrophils % 90 % Lymphocytes % 3 % Monocytes % 4 % Eosinophils % 3 % Basophils % 0 % Neutrophils # 7.6 (1.3-7.7) k/uL Lymphocytes # 0.2 L (1.0-4.8) k/uL Monocytes # 0.3 (0-1.0) k/uL Eosinophils # 0.2 (0-0.7) k/uL Basophils # 0.0 (0-0.2) k/uL Sodium 134 L (137-145) mmol/L Potassium 3.8 (3.5-5.1) mmol/L Chloride 100 (98-107) mmol/L Carbon Dioxide 23 (22-30) mmol/L Anion Gap 11 mmol/L BUN 9 (7-17) mg/dL Creatinine 0.63 (0.52-1.04) mg/dL Est GFR (CKD-EPI)AfAm >90 (>60 ml/min/1.73 sqM) Est GFR (CKD-EPI)NonAf 83 (>60 ml/min/1.73 sqM) Glucose 96 (74-99) mg/dL Plasma Lactic Acid Henry (0.7-2.0) mmol/L Calcium 9.4 (8.4-10.2) mg/dL Total Bilirubin 0.5 (0.2-1.3) mg/dL AST 58 H (14-36) U/L ALT 43 H (4-34) U/L Alkaline Phosphatase 81 (38-126) U/L Total Protein 6.8 (6.3-8.2) g/dL Albumin 3.9 (3.5-5.0) g/dL Influenza Type A (PCR) Not Detected (Not Detectd) Influenza Type B (PCR) Not Detected (Not Detectd) RSV (PCR) Not Detected (Not Detectd) SARS-CoV-2 (PCR) Detected A (Not Detectd) 10/02/23 Range/Units 14:32 WBC (3.8-10.6) k/uL RBC (3.80-5.40) m/uL Hgb (11.4-16.0) gm/dL Hct (34.0-46.0) % MCV (80.0-100.0) fL MCH (25.0-35.0) pg MCHC (31.0-37.0) g/dL RDW (11.5-15.5) % Plt Count (150-450) k/uL MPV Neutrophils % % Lymphocytes % % Monocytes % % Eosinophils % % Basophils % % Neutrophils # (1.3-7.7) k/uL Lymphocytes # (1.0-4.8) k/uL Monocytes # (0-1.0) k/uL Eosinophils # (0-0.7) k/uL Basophils # (0-0.2) k/uL Sodium (137-145) mmol/L Potassium (3.5-5.1) mmol/L Chloride (98-107) mmol/L Carbon Dioxide (22-30) mmol/L Anion Gap mmol/L BUN (7-17) mg/dL Creatinine (0.52-1.04) mg/dL Est GFR (CKD-EPI)AfAm (>60 ml/min/1.73 sqM) Est GFR (CKD-EPI)NonAf (>60 ml/min/1.73 sqM) Glucose (74-99) mg/dL Plasma Lactic Acid Henry 1.6 (0.7-2.0) mmol/L Calcium (8.4-10.2) mg/dL Total Bilirubin (0.2-1.3) mg/dL AST (14-36) U/L ALT (4-34) U/L Alkaline Phosphatase (38-126) U/L Total Protein (6.3-8.2) g/dL Albumin (3.5-5.0) g/dL Influenza Type A (PCR) (Not Detectd) Influenza Type B (PCR) (Not Detectd) RSV (PCR) (Not Detectd) SARS-CoV-2 (PCR) (Not Detectd) Disposition <Reggie Russell - Last Filed: 10/02/23 14:28> Is patient prescribed a controlled substance at d/c from ED?: No Time of Disposition: 18:45 <Zach Roman - Last Filed: 10/09/23 22:45> Clinical Impression: Coronavirus infection, Weakness, Fever Disposition: HOME SELF-CARE Condition: Fair Instructions (If sedation given, give patient instructions): Chest Pain (ED) Referrals: Dianna Rodriguez DO [Primary Care Provider] - 1-2 days
[2023-10-02 14:59] LABS: Basophils % (A) 0 %; Eosinophils # (A) 0.2 k/uL (0-0.7); Eosinophils % (A) 3 %; HCT 44.6 % (34.0-46.0); HGB 14.4 gm/dL (11.4-16.0); Lymphocytes # (A) 0.2 k/uL (1.0-4.8); Lymphocytes % (A) 3 %; MCH 30.5 pg (25.0-35.0); MCHC 32.4 g/dL (31.0-37.0); MCV 94.1 fL (80.0-100.0); Mean Platelet Volume 6.6; Monocytes # (A) 0.3 k/uL (0-1.0); Monocytes % (A) 4 %; Neutrophils # (A) 7.6 k/uL (1.3-7.7); Neutrophils % (A) 90 %; Platelet Count 415 k/uL (150-450); RBC 4.73 m/uL (3.80-5.40); RDW 14.3 % (11.5-15.5); WBC 8.5 k/uL (3.8-10.6)
[2023-10-02 15:12] LABS: ALT 43 U/L (4-34); AST 58 U/L (14-36); African American GFR (CKD) >90 (>60 ml/min/1.73 sqM); Albumin 3.9 g/dL (3.5-5.0); Alkaline Phosphatase 81 U/L (38-126); Anion Gap 11 mmol/L; Blood Urea Nitrogen 9 mg/dL (7-17); Calcium 9.4 mg/dL (8.4-10.2); Carbon Dioxide 23 mmol/L (22-30); Chloride 100 mmol/L (98-107); Glucose 96 mg/dL (74-99); Non-African American GFR(CKD) 83 (>60 ml/min/1.73 sqM); Potassium 3.8 mmol/L (3.5-5.1); Sodium 134 mmol/L (137-145); Total Bilirubin 0.5 mg/dL (0.2-1.3); Total Protein 6.8 g/dL (6.3-8.2)
--- NOTE | 2023-10-02 15:59 | XR ---
EXAMINATION TYPE: XR chest 2V DATE OF EXAM: 10/02/2023 COMPARISON: PET/CT 08/03/2023 and older radiograph 09/11/2021 HISTORY: 83-year-old female shortness of breath, cough, difficulty breathing TECHNIQUE: PA and lateral views FINDINGS: Heart normal size. Aorta and pelvic vasculature within normal limits. Dextro convex scoliosis. Focal posterior right midlung opacity. IMPRESSION: Large focal posterior right midlung opacity persists. Either incompletely treated pneumonia or potent ial causes of chronic airspace disease such as low-grade adenocarcinoma and lymphoma are differential considerations.
[2023-10-02] MEDS ORDERED: DEXAMETHASONE SOD PHOSPHATE 10 MG/ML 1 ML VIAL IVP STA (17:44)
[2023-10-02] MEDS ORDERED: SODIUM CHLORIDE 0.9% 2,000 ML IV STA (17:44)
[2023-10-02] MEDS ORDERED: KETOROLAC 15 MG/ML 1 ML VIAL IVP STA (17:44)
[2023-10-02] MEDS ORDERED: ACETAMINOPHEN IV (For NPO) 1,000 MG in EMPTY BAG 1 BAG IVPB STA (17:45)
[2023-10-02 20:25] VITALS: BP 116/53; PULSE 75; RESP 14; TEMP 97.8
== END 2023-10-02 20:21 | disposition home or self-care (01) ==
LOC: EC 14:04
DX: R53.1 Weakness (principal); R50.9 Fever, unspecified; I10 Essential (primary) hypertension; Z79.82 Long term (current) use of aspirin; Z79.899 Other long term (current) drug therapy; Z88.2 Allergy status to sulfonamides; Z88.5 Allergy status to narcotic agent; Z88.8 Allergy status to other drugs, medicaments and biological substances; Z90.49 Acquired absence of other specified parts of digestive tract; Z20.822 Contact with and (suspected) exposure to COVID-19
CPT/HCPCS: 96375 ×3; 96361 ×3; 96374 ×2; 99285 ×2; 36415; 93005; 80053; 83605; 85025; 87636; 71046; J1100; J0131; J1885

== ENCOUNTER 2023-10-21 09:43 | Day surgery (SDC) | payer MEDICARE ==
[2023-10-21] MEDS: SODIUM CHLORIDE 0.9% 1,000 ML IV STA (10:06)
[2023-10-21 10:12] LABS: Glucose,Whole Blood 99 mg/dL (70-110)
--- NOTE | 2023-10-21 10:18 | ED ---
Weakness HPI - General Chief complaint: Weakness Stated complaint: WEAKNESS Time Seen by Provider: 10/21/23 09:46 Source: patient, family, EMS, RN notes reviewed Mode of arrival: EMS Limitations: no limitations - History of Present Illness Initial comments: This is an 83-year-old female who presents to the emergency department for increasing weakness and shortness of breath. Patient was diagnosed with Covid about 3 weeks ago, and did end up having a negative test one week ago. However, since Covid she has been increasingly weak and short of breath according to her daughter. She was treated with Paxlovid. She did just finish treatment for lung cancer about 3 weeks ago as well. She lives with her daughter, who states that she's been increasingly weak and falling much more frequently. She has also been complaining of pain in both of her legs. MD Complaint: generalized weakness - Related Data Home Medications Medication Instructions Recorded Confirmed Aspirin EC [Ecotrin Low Dose] 81 mg PO DAILY 01/14/15 10/21/23 Omeprazole [PriLOSEC] 20 mg PO DAILY 01/14/15 10/21/23 lisinopriL [Prinivil] 10 mg PO DAILY 01/14/15 10/21/23 Levothyroxine Sodium [Synthroid] 75 mcg PO DAILY 08/23/20 10/21/23 Cholecalciferol [Vitamin D3 (25 25 mcg PO MOWEFR 09/11/21 10/21/23 Mcg = 1000 Iu)] Ezetimibe [Zetia] 10 mg PO DAILY 09/11/21 10/21/23 Albuterol Inhaler [Ventolin Hfa 1 - 2 puff INHALATION RT-Q6H PRN 10/21/23 10/21/23 Inhaler] Benzonatate [Tessalon Perle] 200 mg PO TID PRN 10/21/23 10/21/23 predniSONE See Taper PO DIRECTED 10/21/23 10/21/23 Allergies Allergy/AdvReac Type Severity Reaction Status Date / Time ciprofloxacin [From Cipro] Allergy Abdominal Verified 10/21/23 14:25 Pain, Nausea, vomiting nitrofurantoin Allergy Abdominal Verified 10/21/23 14:25 [From Macrobid] Pain, Nausea, vomiting pregabalin [From Lyrica] Allergy VERTIGO, Verified 10/21/23 14:25 confusion ciprofloxacin HCl AdvReac Abdominal Verified 10/21/23 14:25 [From Cipro] Pain, Nausea, vomiting desvenlafaxine [From Pristiq] AdvReac Confusion Verified 10/21/23 14:25 duloxetine [From Cymbalta] AdvReac Confusion Verified 10/21/23 14:25 hydrocodone [From Vicodin] AdvReac flushed, Verified 10/21/23 14:25 red face hydroxychloroquine sulfate AdvReac Confusion Verified 10/21/23 14:25 [From Plaquenil] milnacipran [From Savella] AdvReac Confusion Verified 10/21/23 14:25 nitrofurantoin AdvReac Abdominal Verified 10/21/23 14:25 macrocrystalline Pain, [From Macrobid] Nausea, vomiting sucralfate [From Carafate] AdvReac VERTIGO, Verified 10/21/23 14:25 [place] like she "was going to pass out" sulfamethoxazole AdvReac Abdominal Verified 10/21/23 14:26 [From Bactrim] Pain, Nausea, vomiting trimethoprim [From Bactrim] AdvReac Abdominal Verified 10/21/23 14:26 Pain, Nausea, vomiting Review of Systems ROS Statement: Those systems with pertinent positive or pertinent negative responses have been documented in the HPI. ROS Other: All systems not noted in ROS Statement are negative. Past Medical History Past Medical History: Fibromyalgia, Hypertension, Pulmonary Embolus (PE) Additional Past Medical History / Comment(s): acoustic neuroma, DEAF RT EAR. RIGHT HAND INDEX FINGER INFECTION. History of Any Multi-Drug Resistant Organisms: ESBL, MRSA Date of last positivie culture/infection: 12/03/15 MRSA; 03/27/15-ESBL MDRO Source:: Right 2nd Finger MRSA; Urine E.coli ESBL Past Surgical History: Cholecystectomy, Ear Surgery Additional Past Surgical History / Comment(s): right shoulder, right hand , BRAIN SURGERY, [facility], abscess lanced in groin Past Anesthesia/Blood Transfusion Reactions: Family History of Problems w/ Anesthesia, Motion Sickness Additional Past Anesthesia/Blood Transfusion Reaction / Comment(s): brother had to be revived after anesthesia Past Psychological History: No Psychological Hx Reported Smoking Status: Never smoker Past Alcohol Use History: None Reported Past Drug Use History: None Reported - Past Family History Mother Family Medical History: No Reported History General Exam Limitations: no limitations General appearance: alert, in no apparent distress Head exam: Present: atraumatic, normocephalic, normal inspection Respiratory exam: Present: wheezes Cardiovascular Exam: Present: normal rhythm, tachycardia Neurological exam: Present: alert, oriented X3, CN II-XII intact Psychiatric exam: Present: normal affect, normal mood Skin exam: Present: warm, dry, intact, normal color. Absent: rash Course Vital Signs 10/21/23 10/21/23 10/21/23 09:44 09:50 12:37 Temperature 98.0 F Pulse Rate 112 H 104 H Respiratory 18 20 18 Rate Blood Pressure 133/98 113/82 O2 Sat by Pulse 98 96 Oximetry 10/21/23 10/21/23 14:10 16:52 Temperature Pulse Rate 100 96 Respiratory 18 18 Rate Blood Pressure 123/85 118/82 O2 Sat by Pulse 95 98 Oximetry Medical Decision Making - Medical Decision Making This is an 83-year-old female who presents to the emergency department for shortness of breath and weakness. Was pt. sent in by a medical professional or institution? @ -No Did you speak to anyone other than the patient for history? @ -Her daughter provided the majority of the history. Did you review nursing and triage notes? @ -Yes, and I agree, it is accurate with regards to the patient's symptoms. Were old charts reviewed? @ -No Differential Diagnosis? @ -Differential Dyspnea: Coronary syndrome, arrhythmia, tamponade, asthma, COPD, pulmonary embolism, pneumonia, pneumothorax, pulmonary effusion, anaphylaxis, diabetic ketoacidosis, flailed chest, pulmonary contusion, diaphragmatic rupture, anemia, neurom uscular, this is not meant to be an all-inclusive list. EKG interpreted by me (3pts min.)? @ -EKG interpreted by me demonstrating the following: Sinus tachycardia. Ventricular rate 111 BPM, DC interval 127 ms, QRS duration 78 ms, QTc 360 ms. X-rays interpreted by me (1pt min.)? @ -Chest x-ray obtained. My interpretation identifies a right perihilar opacity. CT interpreted by me (1pt min.)? @ -CT angiogram of the chest obtained. My interpretation identifies a right- sided pulmonary embolus. U/S interpreted by me (1pt. min.)? @ -Duplex ultrasound of the bilateral lower extremities obtained. My interpretation identifies a right-sided DVT. What testing was considered but not performed? (CT, X-rays, U/S, labs)? Why? @ -None What meds were considered but not given? Why? @ -None Did you discuss the management of the patient with other professionals? @ -Dr. Arevalo, ED attending, discussed the case with Dr. Murdock, who accepts the patient for admission. Did you reconcile home meds? @ -Yes Was smoking cessation discussed for >3mins.? @ -No Was critical care preformed (if so, how long)? @ -Yes, >32 minutes Were there social determinants of health that impacted care today? How? (Homelessness, low income, unemployed, alcoholism, drug addiction, transportation, low edu. Level, literacy, decrease access to med. care, long-term, rehab)? @ -No Was there de-escalation of care discussed even if they declined? (Discuss DNR or withdrawal of care, Hospice)? @ -No What co-morbidities impacted this encounter? (DM, HTN, Smoking, COPD, CAD, Cancer, CVA, Hep., AIDS, mental health diagnosis, sleep apnea, morbid obesity)? @ -Fibromyalgia, hypertension Was patient admitted / discharged? @ -Admitted. Lab work obtained revealing an elevated d-dimer of 5.50 and an elevated lactic acid of 2.5. Lab work was otherwise fairly unremarkable including a negative troponin and negative BNP. Patient is still positive for COVID-19 on our testing, however this was diagnosed a few weeks ago. Chest x- ray reveals a right perihilar opacity that is persistent since at least 08/03/23, and correlation for low-grade neoplasm was advised. CT angiogram of the chest was obtained in light of the patient's symptoms and elevated d-dimer. This revealed an acute pulmonary embolus extending through the distal aspect of the right main pulmonary artery throughout the right-sided lobar branches and some of the segmental branches throughout the right lung lobes. There is no evidence of right heart strain. They also identified extensive consolidation/airspace disease throughout the posterior right mid lung that has been present since 08/03/23. Some of which has improved while other groundglass opacities have increased. They advised consideration for recurrent pneumonia or low-grade adenocarcinoma or lymphoma. They also advised the possibility of pulmonary infarct, however this is thought to be less likely. Additionally, the patient has severe intrahepatic biliary duct dilation that seems to be gradually worsening. However, patient's liver enzymes are within normal limits. Findings reviewed with the patient. States that she has had 2 pulmonary embolisms in the past, however it has been many years. Patient started on high intensity heparin protocol for pulmonary embolus. I did order a duplex ultrasound of the bilateral lower extremities at the time of admission given her reports of lower extremity pain. This revealed a DVT in the right popliteal vein and no evidence of a DVT in the left lower extremity. Patient admitted to medicine for pulmonary embolus, dyspnea, and weakness. Consult placed for vascular surgery. Undiagnosed new problem with uncertain prognosis? @ -None Drug Therapy requiring intensive monitoring for toxicity (Heparin, Nitro, Insulin, Cardizem)? @ -Heparin Were any procedures done? @ -None Diagnosis/symptom? @ -Pulmonary embolus, weakness, and dyspnea Acute, or Chronic, or Acute on Chronic? @ -Acute Uncomplicated (without systemic symptoms) or Complicated (systemic symptoms)? @ -Complicated Side effects of treatment? @ -None Exacerbation, Progression, or Severe Exacerbation] @ -Not applicable Poses a threat to life or bodily function? @ -Yes This case was discussed in detail with the attending ED physician, Dr. Arevalo. Presentation, findings, and treatment plan discussed in detail as well. - Lab Data Result diagrams: 10/21/23 10:08 10/21/23 10:08 Lab Results 10/21/23 10/21/23 10/21/23 Range/Units 10:08 10:08 10:08 WBC 7.3 (3.8-10.6) k/uL RBC 4.70 (3.80-5.40) m/uL Hgb 14.6 (11.4-16.0) gm/dL Hct 43.1 (34.0-46.0) % MCV 91.7 (80.0-100.0) fL MCH 31.1 (25.0-35.0) pg MCHC 33.9 (31.0-37.0) g/dL RDW 13.5 (11.5-15.5) % Plt Count 331 (150-450) k/uL MPV 7.5 Neutrophils % 88 % Lymphocytes % 5 % Monocytes % 4 % Eosinophils % 1 % Basophils % 0 % Neutrophils # 6.5 (1.3-7.7) k/uL Lymphocytes # 0.4 L (1.0-4.8) k/uL Monocytes # 0.3 (0-1.0) k/uL Eosinophils # 0.1 (0-0.7) k/uL Basophils # 0.0 (0-0.2) k/uL PT 10.5 (10.0-12.5) sec INR 1.0 (<1.2) APTT 21.3 L (22.0-30.0) sec D-Dimer 5.50 H (<0.60) mg/L FEU Sodium (137-145) mmol/L Potassium (3.5-5.1) mmol/L Chloride (98-107) mmol/L Carbon Dioxide (22-30) mmol/L Anion Gap mmol/L BUN (7-17) mg/dL Creatinine (0.52-1.04) mg/dL Est GFR (CKD-EPI)AfAm (>60 ml/min/1.73 sqM) Est GFR (CKD-EPI)NonAf (>60 ml/min/1.73 sqM) Glucose (74-99) mg/dL POC Glucose (mg/dL) (70-110) mg/dL POC Glu Wire Stripper ID Lactic Ac Sepsis Rflx Plasma Lactic Acid Henry (0.7-2.0) mmol/L Calcium (8.4-10.2) mg/dL Magnesium (1.6-2.3) mg/dL Total Bilirubin (0.2-1.3) mg/dL AST (14-36) U/L ALT (4-34) U/L Alkaline Phosphatase (38-126) U/L Creatine Kinase (30-135) U/L Troponin I (0.000-0.034) ng/mL NT-Pro-B Natriuret Pep pg/mL Total Protein (6.3-8.2) g/dL Albumin (3.5-5.0) g/dL Urine Color Yellow Urine Appearance Clear (Clear) Urine pH 6.0 (5.0-8.0) Ur Specific [place] 1.010 (1.001-1.035) Urine Protein Negative (Negative) Urine Glucose (UA) Negative (Negative) Urine Ketones Negative (Negative) Urine Blood Negative (Negative) Urine Nitrite Negative (Negative) Urine Bilirubin Negative (Negative) Urine Urobilinogen <2.0 (<2.0) mg/dL Ur Leukocyte Esterase Negative (Negative) Influenza Type A (PCR) (Not Detectd) Influenza Type B (PCR) (Not Detectd) RSV (PCR) (Not Detectd) SARS-CoV-2 (PCR) (Not Detectd) 10/21/23 10/21/23 10/21/23 Range/Units 10:08 10:08 10:08 WBC (3.8-10.6) k/uL RBC (3.80-5.40) m/uL Hgb (11.4-16.0) gm/dL Hct (34.0-46.0) % MCV (80.0-100.0) fL MCH (25.0-35.0) pg MCHC (31.0-37.0) g/dL RDW (11.5-15.5) % Plt Count (150-450) k/uL MPV Neutrophils % % Lymphocytes % % Monocytes % % Eosinophils % % Basophils % % Neutrophils # (1.3-7.7) k/uL Lymphocytes # (1.0-4.8) k/uL Monocytes # (0-1.0) k/uL Eosinophils # (0-0.7) k/uL Basophils # (0-0.2) k/uL PT (10.0-12.5) sec INR (<1.2) APTT (22.0-30.0) sec D-Dimer (<0.60) mg/L FEU Sodium 130 L (137-145) mmol/L Potassium 5.0 (3.5-5.1) mmol/L Chloride 99 (98-107) mmol/L Carbon Dioxide 19 L (22-30) mmol/L Anion Gap 12 mmol/L BUN 21 H (7-17) mg/dL Creatinine 0.72 (0.52-1.04) mg/dL Est GFR (CKD-EPI)AfAm >90 (>60 ml/min/1.73 sqM) Est GFR (CKD-EPI)NonAf 78 (>60 ml/min/1.73 sqM) Glucose 98 (74-99) mg/dL POC Glucose (mg/dL) (70-110) mg/dL POC Glu Wire Stripper ID Lactic Ac Sepsis Rflx Plasma Lactic Acid Henry 2.5 H* (0.7-2.0) mmol/L Calcium 9.4 (8.4-10.2) mg/dL Magnesium 2.1 (1.6-2.3) mg/dL Total Bilirubin 0.8 (0.2-1.3) mg/dL AST 24 (14-36) U/L ALT 27 (4-34) U/L Alkaline Phosphatase 87 (38-126) U/L Creatine Kinase 39 (30-135) U/L Troponin I <0.012 (0.000-0.034) ng/mL NT-Pro-B Natriuret Pep 317 pg/mL Total Protein 6.3 (6.3-8.2) g/dL Albumin 3.3 L (3.5-5.0) g/dL Urine Color Urine Appearance (Clear) Urine pH (5.0-8.0) Ur Specific [place] (1.001-1.035) Urine Protein (Negative) Urine Glucose (UA) (Negative) Urine Ketones (Negative) Urine Blood (Negative) Urine Nitrite (Negative) Urine Bilirubin (Negative) Urine Urobilinogen (<2.0) mg/dL Ur Leukocyte Esterase (Negative) Influenza Type A (PCR) (Not Detectd) Influenza Type B (PCR) (Not Detectd) RSV (PCR) (Not Detectd) SARS-CoV-2 (PCR) (Not Detectd) 10/21/23 10/21/23 10/21/23 Range/Units 10:08 10:11 10:42 WBC (3.8-10.6) k/uL RBC (3.80-5.40) m/uL Hgb (11.4-16.0) gm/dL Hct (34.0-46.0) % MCV (80.0-100.0) fL MCH (25.0-35.0) pg MCHC (31.0-37.0) g/dL RDW (11.5-15.5) % Plt Count (150-450) k/uL MPV Neutrophils % % Lymphocytes % % Monocytes % % Eosinophils % % Basophils % % Neutrophils # (1.3-7.7) k/uL Lymphocytes # (1.0-4.8) k/uL Monocytes # (0-1.0) k/uL Eosinophils # (0-0.7) k/uL Basophils # (0-0.2) k/uL PT (10.0-12.5) sec INR (<1.2) APTT (22.0-30.0) sec D-Dimer (<0.60) mg/L FEU Sodium (137-145) mmol/L Potassium (3.5-5.1) mmol/L Chloride (98-107) mmol/L Carbon Dioxide (22-30) mmol/L Anion Gap mmol/L BUN (7-17) mg/dL Creatinine (0.52-1.04) mg/dL Est GFR (CKD-EPI)AfAm (>60 ml/min/1.73 sqM) Est GFR (CKD-EPI)NonAf (>60 ml/min/1.73 sqM) Glucose (74-99) mg/dL POC Glucose (mg/dL) 99 (70-110) mg/dL POC Glu Wire Stripper ID [place] Lactic Ac Sepsis Rflx Y Plasma Lactic Acid Henry (0.7-2.0) mmol/L Calcium (8.4-10.2) mg/dL Magnesium (1.6-2.3) mg/dL Total Bilirubin (0.2-1.3) mg/dL AST (14-36) U/L ALT (4-34) U/L Alkaline Phosphatase (38-126) U/L Creatine Kinase (30-135) U/L Troponin I (0.000-0.034) ng/mL NT-Pro-B Natriuret Pep pg/mL Total Protein (6.3-8.2) g/dL Albumin (3.5-5.0) g/dL Urine Color Urine Appearance (Clear) Urine pH (5.0-8.0) Ur Specific [place] (1.001-1.035) Urine Protein (Negative) Urine Glucose (UA) (Negative) Urine Ketones (Negative) Urine Blood (Negative) Urine Nitrite (Negative) Urine Bilirubin (Negative) Urine Urobilinogen (<2.0) mg/dL Ur Leukocyte Esterase (Negative) Influenza Type A (PCR) Not Detected (Not Detectd) Influenza Type B (PCR) Not Detected (Not Detectd) RSV (PCR) Not Detected (Not Detectd) SARS-CoV-2 (PCR) Detected A (Not Detectd) - Radiology Data Radiology results: report reviewed, image reviewed Disposition Clinical Impression: Weakness, Pulmonary embolus, Dyspnea Disposition: ADMITTED IP TO THIS HOSP
[2023-10-21 10:26] LABS: Basophils % (A) 0 %; Eosinophils # (A) 0.1 k/uL (0-0.7); Eosinophils % (A) 1 %; HCT 43.1 % (34.0-46.0); HGB 14.6 gm/dL (11.4-16.0); Lymphocytes # (A) 0.4 k/uL (1.0-4.8); Lymphocytes % (A) 5 %; MCH 31.1 pg (25.0-35.0); MCHC 33.9 g/dL (31.0-37.0); MCV 91.7 fL (80.0-100.0); Mean Platelet Volume 7.5; Monocytes # (A) 0.3 k/uL (0-1.0); Monocytes % (A) 4 %; Neutrophils # (A) 6.5 k/uL (1.3-7.7); Neutrophils % (A) 88 %; Platelet Count 331 k/uL (150-450); RDW 13.5 % (11.5-15.5); WBC 7.3 k/uL (3.8-10.6)
[2023-10-21 10:51] LABS: ALT 27 U/L (4-34); African American GFR (CKD) >90 (>60 ml/min/1.73 sqM); Albumin 3.3 g/dL (3.5-5.0); Anion Gap 12 mmol/L; Blood Urea Nitrogen 21 mg/dL (7-17); Calcium 9.4 mg/dL (8.4-10.2); Carbon Dioxide 19 mmol/L (22-30); Chloride 99 mmol/L (98-107); Creatine Kinase 39 U/L (30-135); Glucose 98 mg/dL (74-99); Non-African American GFR(CKD) 78 (>60 ml/min/1.73 sqM); Sodium 130 mmol/L (137-145); Total Bilirubin 0.8 mg/dL (0.2-1.3); Total Protein 6.3 g/dL (6.3-8.2)
--- NOTE | 2023-10-21 10:55 | XR ---
EXAMINATION TYPE: XR chest 2V DATE OF EXAM: 10/21/2023 COMPARISON: 10/02/2023 HISTORY: 83-year-old female with weakness and coughing TECHNIQUE: AP and lateral views FINDINGS: Heart normal size. Aorta and pulmonary vasculature within normal limits. Ongoing right perihilar/post erior right mid lung opacity. No sizable pleural effusion. IMPRESSION: Ongoing right perihilar opacity. Given the persistence back to at least 08/03/2023, consider low-grade neoplasm as a possible etiology.
[2023-10-21 10:59] LABS: NT-Pro-B-Type Natriuretic Pept 317 pg/mL
[2023-10-21 11:00] LABS: Prothrombin Time 10.5 sec (10.0-12.5)
[2023-10-21 11:05] LABS: AST 24 U/L (14-36); Alkaline Phosphatase 87 U/L (38-126); Magnesium 2.1 mg/dL (1.6-2.3)
[2023-10-21 11:12] LABS: Partial Thromboplastin Time 21.3 sec (22.0-30.0)
[2023-10-21] MEDS: IPRATROPIUM-ALBUTEROL 3 ML NEB INHALATION STA (11:18)
[2023-10-21] MEDS: ALBUTEROL HFA INHALER INHALATION STA (11:38)
--- NOTE | 2023-10-21 11:54 | CT ---
EXAMINATION TYPE: CT chest angio for PE DATE OF EXAM: 10/21/2023 COMPARISON: PET/CT 08/03/2023 HISTORY: 83-year-old female shortness of breath, difficulty breathing, elevated d-dimer TECHNIQUE: Contiguous axial scanning of the chest performed with IV Contrast, patient injected with 6 0 mL of Isovue 370. Coronal/sagittal MIP reconstructions performed. CT DLP: 253.8 mGycm Automated exposure control for dose reduction was used. FINDINGS: Heart normal size without pericardial effusion. No flattening of the interventricular septum reflux o f contrast into the hepatic veins. Ectatic ascending aorta 3.7 cm. Conventional arch vessel branching anatomy. No thoracic lymphadenopathy by CT size criteria. Satisfactory opacification of the pulmonary to systemic examination is positive for acute pulmonary e mboli. This extends from the distal right main pulmonary artery throughout the lobar branches as well as some of the segmental branches throughout the right-sided lung lobes. Moderate burden on the left . Ongoing consolidation superior segment right lower lobe and additional patchy groundglass changes pos terior right lower lobe. There has been some improvement in the additional groundglass opacities whic h extended into the lateral margin of the right midlung. Nonspecific 3 mm nodule posterior left midlung can be reassessed on follow-up, not well seen previous ly. Several additional subpleural densities likely scarring at the right upper lobe. Severe intrahepatic biliary ductal dilatation. This may be chronic for the patient given that it was present on 08/03/2023 as well. It appears to be slightly increased from 05/19/2022 and significantly inc reased from older prior 03/08/2018. Cholecystectomy clips. Bones: Moderate multilevel degenerative disc disease. IMPRESSION: 1. EXAM POSITIVE FOR ACUTE PULMONARY EMBOLI EXTENDING THROUGH THE DISTAL ASPECT OF THE RIGHT MAIN PUL MONARY ARTERY, THROUGHOUT THE RIGHT-SIDED LOBAR BRANCHES, AND SOME OF THE SEGMENTAL BRANCHES THROUGHO UT THE RIGHT LUNG LOBES. MODERATE OVERALL BURDEN ON THE RIGHT. NO CT EVIDENCE FOR RIGHT HEART STRAIN. 2. Extensive consolidation/airspace disease throughout posterior right midlung was present to some ex tent on 08/03/2023. Some of the opacity is improved while other groundglass such as at the right lower lobe has increased. The etiology is unclear. Consider either recurrent pneumonia and/or low-grade ad enocarcinoma or lymphoma. A large area of pulmonary infarct is also possible but considered less like ly given that it was there on 08/03/2023. 3. Severe intrahepatic biliary ductal dilatation seems to be gradually worsening. Similar compared to 08/03/2023 though. Correlate with alkaline phosphatase and bilirubin levels, any known diagnosis, and for any biliary tumor markers. ERCP can be considered. Findings [address] Arevalo in the ER at 11:50 AM.
[2023-10-21] MEDS ORDERED: HEPARIN SODIUM 1,000 UN/ML (10ML VL) IV PRN (11:55)
[2023-10-21] MEDS ORDERED: MORPHINE SULFATE 4 MG/ML SYRINGE IV PRN (12:26)
[2023-10-21] MEDS ORDERED: ONDANSETRON 4 MG/2 ML VIAL IVP PRN (12:26)
[2023-10-21] MEDS ORDERED: NALOXONE 0.4 MG/ML 1 ML VIAL IV PRN (12:26)
[2023-10-21] MEDS: HEPARIN SOD,PORK IN 0.45% NACL 25,000 UNIT in 0.45% NACL 1 250ML.BAG IV SCH (12:51)
[2023-10-21] MEDS: HEPARIN SODIUM 1,000 UN/ML (10ML VL) IV ONE (12:54)
--- NOTE | 2023-10-21 14:16 | P.HPIM ---
History of Present Illness Is a pleasant 83 years old female with past medical history of Fibromyalgia, Hypertension, Pulmonary Embolus , acoustic neuroma, DEAF RT EAR. Patient presents because of dyspnea associated with a dry cough but no chest pain Patient was diagnosed with call with infection about one week ago but her dyspnea was getting worse so she decided to come to the hospital She has some loose stool but no other diarrhea, no abdominal pain no vomiting and she has good appetite, no urinary complaints no headache dizziness weakness or numbness. She feels generally weak She denies smoking alcohol or illicit tracts Patient may be tachycardic and tachypneic but a febrile She has unremarkable CBC LFTs and troponin. Sodium slightly low at 1:30 CTA of the chest showing extensive pulmonary embolism of the right main pulmonary artery with extension into the lobar branches and some segmental branches there is some moderate burden on the right side but no evidence of hard straining by radiologist. Also patient has extensive consultation on the right mid lung which could be related to pneumonia, adenocarcinoma versus lymphoma per radiologist. Also patient with evidence of severe intrabiliary dilatation intrahepatic biliary dilatation which is suspicious for malignancy causing obstruction versus others Review of Systems Review of systems CONSTITUTIONAL: No fever, no malaise, no fatigue. HEENT: No recent visual problems or hearing problems. Denied any sore throat. CARDIOVASCULAR: No orthopnea, PND, no palpitations, no syncope. PULMONARY: No shortness of breath, no cough, no hemoptysis. GASTROINTESTINAL: No diarrhea, no nausea, no vomiting, no abdominal pain. Normoactive bowel sounds. NEUROLOGICAL: No headaches, no weakness, no numbness. HEMATOLOGICAL: Denies any bleeding or petechiae. GENITOURINARY: Denies any burning micturition, frequency, or urgency. MUSCULOSKELETAL/RHEUMATOLOGICAL: Denies any joint pain, swelling, or any muscle pain. ENDOCRINE: Denies any polyuria or polydipsia. Past Medical History Past Medical History: Fibromyalgia, Hypertension, Pulmonary Embolus (PE) Additional Past Medical History / Comment(s): acoustic neuroma, DEAF RT EAR. RIGHT HAND INDEX FINGER INFECTION. History of Any Multi-Drug Resistant Organisms: ESBL, MRSA Date of last positivie culture/infection: 12/03/15 MRSA; 03/27/15-ESBL MDRO Source:: Right 2nd Finger MRSA; Urine E.coli ESBL Past Surgical History: Cholecystectomy, Ear Surgery Additional Past Surgical History / Comment(s): right shoulder, right hand , BRAIN SURGERY, [facility], abscess lanced in groin Past Anesthesia/Blood Transfusion Reactions: Family History of Problems w/ Anesthesia, Motion Sickness Additional Past Anesthesia/Blood Transfusion Reaction / Comment(s): brother had to be revived after anesthesia Past Psychological History: No Psychological Hx Reported Smoking Status: Never smoker Past Alcohol Use History: None Reported Past Drug Use History: None Reported - Past Family History Mother Family Medical History: No Reported History Medications and Allergies Home Medications Medication Instructions Recorded Confirmed Type Aspirin EC [Ecotrin Low Dose] 81 mg PO DAILY 01/14/15 09/11/21 History Hydrocodone/Acetaminophen [[place] 1 tab PO Q8HR PRN 01/14/15 09/11/21 History 5-325] Omeprazole [PriLOSEC] 20 mg PO DAILY 01/14/15 09/11/21 History lisinopriL [Prinivil] 10 mg PO DAILY 01/14/15 09/11/21 History Meclizine [Antivert] 25 mg PO DIRECTED PRN 06/07/15 09/11/21 History Levothyroxine Sodium [Synthroid] 75 mcg PO DAILY 08/23/20 09/11/21 History Cholecalciferol [Vitamin D3 (25 25 mcg PO DAILY 09/11/21 09/11/21 History Mcg = 1000 Iu)] Ezetimibe [Zetia] 10 mg PO DAILY 09/11/21 09/11/21 History Amoxic-Pot Clav 875-125Mg 1 tab PO Q12HR 10 Days #20 tab 09/16/21 Rx [Augmentin 875-125] Docusate [Colace] 100 mg PO BID cap 09/16/21 Rx Famotidine [Pepcid] 20 mg PO DAILY #30 tab 09/16/21 Rx Ondansetron Odt [Zofran Odt] 4 mg PO Q8HR PRN #12 tab 09/16/21 Rx Ibuprofen [Motrin] 800 mg PO Q8H 7 Days #21 tab 05/19/22 Rx Lidocaine 5% Patch [Lidoderm] 1 patch TOPICAL DAILY 7 Days #7 05/19/22 Rx patch Allergies Allergy/AdvReac Type Severity Reaction Status Date / Time ciprofloxacin [From Cipro] Allergy Abdominal Verified 10/02/23 14:23 Pain nitrofurantoin Allergy Abdominal Verified 10/02/23 14:23 [From Macrobid] Pain pregabalin [From Lyrica] Allergy VERTIGO Verified 10/02/23 14:23 acetaminophen [From Vicodin] AdvReac Unknown Verified 10/02/23 14:23 ciprofloxacin HCl AdvReac Abdominal Verified 10/02/23 14:23 [From Cipro] Pain desvenlafaxine [From Pristiq] AdvReac Unknown Verified 10/02/23 14:23 duloxetine [From Cymbalta] AdvReac Unknown Verified 10/02/23 14:23 hydrocodone [From Vicodin] AdvReac Unknown Verified 10/02/23 14:23 hydroxychloroquine sulfate AdvReac Abdominal Verified 10/02/23 14:23 [From Plaquenil] Pain milnacipran [From Savella] AdvReac Unknown Verified 10/02/23 14:23 nitrofurantoin AdvReac VOMITING,HE Verified 10/02/23 14:23 macrocrystalline ADACHE [From Macrobid] sucralfate [From Carafate] AdvReac VERTIGO,FELT Verified 10/02/23 14:23 LIKE PASSING OUT" sulfamethoxazole AdvReac Nausea & Verified 10/02/23 14:23 [From Bactrim] Vomiting & Diarrhea trimethoprim [From Bactrim] AdvReac Nausea & Verified 10/02/23 14:23 Vomiting & Diarrhea Physical Exam Vitals: Vital Signs Temp Pulse Resp BP Pulse Ox 10/21/23 12:37 104 H 18 113/82 96 10/21/23 09:50 20 10/21/23 09:44 98.0 F 112 H 18 133/98 98 Intake and Output 10/20/23 10/21/23 10/21/23 22:59 06:59 14:59 Other: Weight 65.771 kg GENERAL: The patient is alert and oriented x3, not in any acute distress. Well developed, well nourished. HEENT: Pupils are round and equally reacting to light. EOMI. No scleral icterus. No conjunctival pallor. Normocephalic, atraumatic. No pharyngeal erythema. No thyromegaly. CARDIOVASCULAR: S1 and S2 present. No murmurs, rubs, or gallops. PULMONARY: Chest is clear to auscultation, no wheezing , no crackles. ABDOMEN: Soft, nontender, nondistended, normoactive bowel sounds. No palpable organomegaly. MUSCULOSKELETAL: No joint swelling or deformity. EXTREMITIES: No cyanosis, clubbing, or pedal edema. NEUROLOGICAL: Gross neurological examination did not reveal any focal deficits. SKIN: No rashes. no petechiae. Results CBC & Chem 7: 10/21/23 10:08 10/21/23 10:08 Labs: Abnormal Lab Results - Last 24 Hours (Table) 10/21/23 10/21/23 10/21/23 Range/Units 10:08 10:08 10:08 Lymphocytes # 0.4 L (1.0-4.8) k/uL APTT 21.3 L (22.0-30.0) sec D-Dimer 5.50 H (<0.60) mg/L FEU Sodium 130 L (137-145) mmol/L Carbon Dioxide 19 L (22-30) mmol/L BUN 21 H (7-17) mg/dL Plasma Lactic Acid Henry (0.7-2.0) mmol/L Albumin 3.3 L (3.5-5.0) g/dL SARS-CoV-2 (PCR) (Not Detectd) 10/21/23 10/21/23 10/21/23 Range/Units 10:08 10:08 13:03 Lymphocytes # (1.0-4.8) k/uL APTT (22.0-30.0) sec D-Dimer (<0.60) mg/L FEU Sodium (137-145) mmol/L Carbon Dioxide (22-30) mmol/L BUN (7-17) mg/dL Plasma Lactic Acid Henry 2.5 H* 2.2 H* (0.7-2.0) mmol/L Albumin (3.5-5.0) g/dL SARS-CoV-2 (PCR) Detected A (Not Detectd) Assessment and Plan Assessment: Acute pulmonary embolism involving the right main branch extending into lobar and segmental branches with no evidence of right strain Extensive consolidation especially on the right side could be related to pneumonia, cannot rule out lymphoma or adenocarcinoma for now. Mild hyponatremia Generalized weakness Recent cold and infection 1 week ago with possible pneumonia, no hypoxia Plan: Continue with heparin drip Check echocardiogram Pulmonary team consult Severe intrahepatic biliary dilatation (no GI service in this facility this weekend prior to this week) Patient informed about this problem including risk of cancers as well as friend at bedside upon patient request and she verbalized understanding and acceptance Labs and medication were reviewed.. Continue same treatment. Continue with symptomatic treatment. Resume home medication. Monitor labs and vitals. DVT and GI prophylaxis. Further recommendations as per clinical course of the patient DVT prophylaxis: heparin GI Prophylaxis: Pepcid PT/OT: Pending Prognosis is guarded
--- NOTE | 2023-10-21 15:32 | US ---
EXAMINATION TYPE: US venous doppler duplex LE BI DATE OF EXAM: 10/21/2023 2:30 PM COMPARISON: NONE CLINICAL INDICATION: Female, 83 years old with history of Bilateral LE pain, has pulmonary embolus; P E. Bilateral leg pain SIDE PERFORMED: bilateral TECHNIQUE: The lower extremity deep venous system is examined utilizing real time linear array sonog alma with graded compression, doppler sonography and color-flow sonography. VESSELS IMAGED: Common Femoral Vein Deep Femoral Vein Greater Saphenous Vein * Femoral Vein Popliteal Vein Small Saphenous Vein * Proximal Calf Veins (* superficial vessels) There is normal color signal with no evidence of intraluminal filling defect or noncompressibility of the imaged veins of the left lower extremity. On the right, there is echogenic material within the l umen of the popliteal vein with loss of color flow signal and noncompressibility consistent with DVT, acute in appearance. Right Leg: +positive for DVT right popliteal vein Left Leg: No evidence of DVT IMPRESSION: 1. Positive for DVT in the right popliteal vein. 2. No evidence of DVT in the left lower extremity.
[2023-10-21 16:23] LABS: Appearance,Urine Clear (Clear); Color,Urine Yellow
[2023-10-21 16:24] LABS: Bilirubin,Urine Negative (Negative); Blood,Urine Negative (Negative); Glucose,Urine (UA) Negative (Negative); Ketones,Urine Negative (Negative); Leukocyte Esterase,Urine Negative (Negative); Nitrite,Urine Negative (Negative); Protein,Urine Negative (Negative); Urobilinogen,Urine <2.0 mg/dL (<2.0)
[2023-10-21] MEDS ORDERED: BENZONATATE 100 MG CAP PO PRN (18:00)
[2023-10-21] MEDS ORDERED: ALBUTEROL HFA INHALER INHALATION PRN (18:00)
[2023-10-21] MEDS: FAMOTIDINE 20 MG/2 ML VIAL IV SCH (20:33)
[2023-10-21] MEDS: ACETAMINOPHEN TAB 325 MG TAB PO PRN (21:28)
[2023-10-22] MEDS: HYDROcodone/APAP 5-325MG 1 EACH TAB PO PRN (01:10)
[2023-10-22 02:58] LABS: Basophils % (A) 0 %; Eosinophils # (A) 0.2 k/uL (0-0.7); Eosinophils % (A) 4 %; HCT 37.8 % (34.0-46.0); HGB 12.8 gm/dL (11.4-16.0); Lymphocytes # (A) 0.4 k/uL (1.0-4.8); Lymphocytes % (A) 6 %; MCH 31.2 pg (25.0-35.0); MCHC 33.8 g/dL (31.0-37.0); MCV 92.5 fL (80.0-100.0); Mean Platelet Volume 6.9; Monocytes # (A) 0.3 k/uL (0-1.0); Monocytes % (A) 5 %; Neutrophils # (A) 5.3 k/uL (1.3-7.7); Neutrophils % (A) 84 %; Platelet Count 313 k/uL (150-450); RBC 4.09 m/uL (3.80-5.40); RDW 13.9 % (11.5-15.5); WBC 6.3 k/uL (3.8-10.6)
[2023-10-22 04:08] LABS: ALT 22 U/L (4-34); AST 24 U/L (14-36); African American GFR (CKD) 85 (>60 ml/min/1.73 sqM); Albumin 2.5 g/dL (3.5-5.0); Alkaline Phosphatase 80 U/L (38-126); Anion Gap 7 mmol/L; Blood Urea Nitrogen 22 mg/dL (7-17); C Reactive Protein 1.5 mg/dL (<1.0); Calcium 8.4 mg/dL (8.4-10.2); Carbon Dioxide 21 mmol/L (22-30); Chloride 103 mmol/L (98-107); Glucose 89 mg/dL (74-99); LDH 187 U/L (120-246); Non-African American GFR(CKD) 74 (>60 ml/min/1.73 sqM); Sodium 131 mmol/L (137-145); Total Bilirubin 0.4 mg/dL (0.2-1.3)
[2023-10-22 04:50] LABS: Bilirubin, Delta 0.3 mg/dL (0.0-0.2); Bilirubin,Unconjugated 0.1 mg/dL (0.0-1.1)
[2023-10-22] MEDS: LEVOTHYROXINE 75 MCG TAB PO SCH (08:38)
[2023-10-22] MEDS: ASCORBIC ACID 500 MG TAB PO SCH (08:38)
[2023-10-22] MEDS: PANTOPRAZOLE 40 MG TABLET PO SCH (08:38)
[2023-10-22] MEDS: CHOLECALCIFEROL 25 MCG (1000 IU) TABLET PO SCH (08:38)
[2023-10-22] MEDS: lisinopriL 10 MG TAB PO SCH (08:38)
[2023-10-22] MEDS: ZINC SULFATE 220 MG CAP PO SCH (08:38)
[2023-10-22] MEDS: EZETIMIBE 10 MG TAB PO SCH (08:38)
[2023-10-22] MEDS: ASPIRIN 81 MG PO SCH (08:38)
[2023-10-22] MEDS: Apixaban Initiation Dose--VTE 5 MG TAB PO SCH (12:32)
--- NOTE | 2023-10-22 12:33 | P.GSCN ---
History of Present Illness Consult date: 10/22/23 History of present illness: CHIEF COMPLAINT: Weakness and shortness of breath HISTORY OF PRESENT ILLNESS: This is a 83-year-old female who presented with weakness and shortness of breath diagnosed with Covid about 3 weeks ago. She was found to have PE and a right leg DVT. Currently on IV heparin. The CTA of the chest has shown evidence of a severe intrahepatic biliary ductal dilation that worsened. Therefore surgical service has been consulted. Patient denies any abdominal pain. Denies any nausea or vomiting. PAST MEDICAL HISTORY: Lung CA, PE, fibromyalgia, hypertension, acoustic neuroma, PAST SURGICAL HISTORY: Cholecystectomy, ear surgery, MEDICATIONS: See below ALLERGIES: See below SOCIAL HISTORY: No illicit drug use. REVIEW OF SYSTEMS: CONSTITUTIONAL: Denies fever or chills. HEENT: Denies blurred vision, vision changes, or eye pain. Denies hemoptysis CARDIOVASCULAR: Denies chest pain or pressure. RESPIRATORY: No shortness of breath. GASTROINTESTINAL: See HPI for pertinent findings HEMATOLOGIC: Denies bleeding disorders. GENITOURINARY: Denies any blood in urine or increased urinary frequency. SKIN: Denies pruitis. Denies rash. PHYSICAL EXAM: VITAL SIGNS: Reviewed GENERAL: Well-developed in no acute distress. HEENT: No sclera icterus. Extraocular movements grossly intact. Moist buccal mucosa. Head is atraumatic, normocephalic. No nasal drainage. ABDOMEN: Soft. Nondistended. nontender NEUROLOGIC: Alert and oriented. Cranial nerves II through XII grossly intact. LABORATORY DATA: WBC 6.3 Hgb 12.8 plt 313 Na 131 K 4.0 cr 0.75 Lactic acid 2.5 to 1.4 LFTs are normal Covid detected IMAGING: Chest CTA acute pulmonary emboli through the distal aspect of the right main pulmonary artery and right-sided lobar branches. Severe intrahepatic biliary ductal dilatation seems to be gradually worsening. Similar compared to 08/03/2023. ASSESSMENT: 1. Severe intrahepatic biliary ductal dilatation that seems to have worsened noted on computed tomography scan of abdomen and pelvis 2. PE and DVT right leg 3. History of cholecystectomy several years ago PLAN: -No surgical intervention planned -Recommend that patient follow up with GI service outpatient for ERCP for further evaluation of intrahepatic and biliary ductal dilatation -Continue supportive care -Continue regular diet Physician Unit Nurse note has been reviewed by physician. Signing provider agrees with the documented findings, assessment, and plan of care. Past Medical History Past Medical History: Cancer, Fibromyalgia, Hypertension, Pulmonary Embolus (PE) Additional Past Medical History / Comment(s): acoustic neuroma, DEAF RT EAR. RIGHT HAND INDEX FINGER INFECTION. 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, MRSA Year Discovered:: 12/03/15 MRSA; 03/27/15-ESBL MDRO Source:: Right 2nd Finger MRSA; Urine E.coli ESBL Past Surgical History: Cholecystectomy, Ear Surgery Additional Past Surgical History / Comment(s): right shoulder, right hand , [facility], [facility], abscess lanced in groin, decompression of R balance system Past Anesthesia/Blood Transfusion Reactions: Family History of Problems w/ Anesthesia, Motion Sickness Additional Past Anesthesia/Blood Transfusion Reaction / Comm: brother had to be revived after anesthesia Past Psychological History: No Psychological Hx Reported Smoking Status: Never smoker Past Alcohol Use History: None Reported Past Drug Use History: None Reported - Past Family History Mother Family Medical History: No Reported History Medications and Allergies Home Medications Medication Instructions Recorded Confirmed Type Aspirin EC [Ecotrin Low Dose] 81 mg PO DAILY 01/14/15 10/21/23 History Omeprazole [PriLOSEC] 20 mg PO DAILY 01/14/15 10/21/23 History lisinopriL [Prinivil] 10 mg PO DAILY 01/14/15 10/21/23 History Levothyroxine Sodium [Synthroid] 75 mcg PO DAILY 08/23/20 10/21/23 History Cholecalciferol [Vitamin D3 (25 25 mcg PO MOWEFR 09/11/21 10/21/23 History Mcg = 1000 Iu)] Ezetimibe [Zetia] 10 mg PO DAILY 09/11/21 10/21/23 History Albuterol Inhaler [Ventolin Hfa 1 - 2 puff INHALATION RT-Q6H PRN 10/21/23 10/21/23 History Inhaler] Benzonatate [Tessalon [place]] 200 mg PO TID PRN 10/21/23 10/21/23 History predniSONE See Taper PO DIRECTED 10/21/23 10/21/23 History Apixaban [Eliquis Starter Pack 5 - 10 mg PO DIRECTED 30 Days 10/22/23 Rx (for VTE)] #1 each Allergies Allergy/AdvReac Type Severity Reaction Status Date / Time ciprofloxacin [From Cipro] Allergy Abdominal Verified 10/21/23 14:25 Pain, Nausea, vomiting nitrofurantoin Allergy Abdominal Verified 10/21/23 14:25 [From Macrobid] Pain, Nausea, vomiting pregabalin [From Lyrica] Allergy VERTIGO, Verified 10/21/23 14:25 confusion ciprofloxacin HCl AdvReac Abdominal Verified 10/21/23 14:25 [From Cipro] Pain, Nausea, vomiting desvenlafaxine [From Pristiq] AdvReac Confusion Verified 10/21/23 14:25 duloxetine [From Cymbalta] AdvReac Confusion Verified 10/21/23 14:25 hydrocodone [From Vicodin] AdvReac flushed, Verified 10/21/23 14:25 red face hydroxychloroquine sulfate AdvReac Confusion Verified 10/21/23 14:25 [From Plaquenil] milnacipran [From Savella] AdvReac Confusion Verified 10/21/23 14:25 nitrofurantoin AdvReac Abdominal Verified 10/21/23 14:25 macrocrystalline Pain, [From Macrobid] Nausea, vomiting sucralfate [From Carafate] AdvReac VERTIGO, Verified 10/21/23 14:25 [place] like she "was going to pass out" sulfamethoxazole AdvReac Abdominal Verified 10/21/23 14:26 [From Bactrim] Pain, Nausea, vomiting trimethoprim [From Bactrim] AdvReac Abdominal Verified 10/21/23 14:26 Pain, Nausea, vomiting Surgical - Exam Vital Signs Temp Pulse Resp BP Pulse Ox 98.0 F 112 H 18 133/98 98 10/21/23 09:44 10/21/23 09:44 10/21/23 09:44 10/21/23 09:44 10/21/23 09:44 Results - Labs 10/22/23 02:32 10/22/23 02:32 Abnormal Lab Results - Last 24 Hours (Table) 10/21/23 10/21/23 10/22/23 Range/Units 13:03 18:37 02:32 Lymphocytes # (1.0-4.8) k/uL APTT >200.0 H* 72.2 H (22.0-30.0) sec Sodium (137-145) mmol/L Carbon Dioxide (22-30) mmol/L BUN (7-17) mg/dL Plasma Lactic Acid Henry 2.2 H* (0.7-2.0) mmol/L Delta Bilirubin (0.0-0.2) mg/dL C-Reactive Protein (<1.0) mg/dL Total Protein (6.3-8.2) g/dL Albumin (3.5-5.0) g/dL 10/22/23 10/22/23 Range/Units 02:32 02:32 Lymphocytes # 0.4 L (1.0-4.8) k/uL APTT (22.0-30.0) sec Sodium 131 L (137-145) mmol/L Carbon Dioxide 21 L (22-30) mmol/L BUN 22 H (7-17) mg/dL Plasma Lactic Acid Henry (0.7-2.0) mmol/L Delta Bilirubin 0.3 H (0.0-0.2) mg/dL C-Reactive Protein 1.5 H (<1.0) mg/dL Total Protein 5.0 L (6.3-8.2) g/dL Albumin 2.5 L (3.5-5.0) g/dL Diabetes panel 10/22/23 Range/Units 02:32 Sodium 131 L (137-145) mmol/L Potassium 4.0 (3.5-5.1) mmol/L Chloride 103 (98-107) mmol/L Carbon Dioxide 21 L (22-30) mmol/L BUN 22 H (7-17) mg/dL Creatinine 0.75 (0.52-1.04) mg/dL Glucose 89 (74-99) mg/dL Calcium 8.4 (8.4-10.2) mg/dL AST 24 (14-36) U/L ALT 22 (4-34) U/L Alkaline Phosphatase 80 (38-126) U/L Total Protein 5.0 L (6.3-8.2) g/dL Albumin 2.5 L (3.5-5.0) g/dL Calcium panel 10/22/23 Range/Units 02:32 Calcium 8.4 (8.4-10.2) mg/dL Albumin 2.5 L (3.5-5.0) g/dL Pituitary panel 10/22/23 Range/Units 02:32 Sodium 131 L (137-145) mmol/L Potassium 4.0 (3.5-5.1) mmol/L Chloride 103 (98-107) mmol/L Carbon Dioxide 21 L (22-30) mmol/L BUN 22 H (7-17) mg/dL Creatinine 0.75 (0.52-1.04) mg/dL Glucose 89 (74-99) mg/dL Calcium 8.4 (8.4-10.2) mg/dL Adrenal panel 10/22/23 Range/Units 02:32 Sodium 131 L (137-145) mmol/L Potassium 4.0 (3.5-5.1) mmol/L Chloride 103 (98-107) mmol/L Carbon Dioxide 21 L (22-30) mmol/L BUN 22 H (7-17) mg/dL Creatinine 0.75 (0.52-1.04) mg/dL Glucose 89 (74-99) mg/dL Calcium 8.4 (8.4-10.2) mg/dL Total Bilirubin 0.4 (0.2-1.3) mg/dL AST 24 (14-36) U/L ALT 22 (4-34) U/L Alkaline Phosphatase 80 (38-126) U/L Total Protein 5.0 L (6.3-8.2) g/dL Albumin 2.5 L (3.5-5.0) g/dL
[2023-10-22 13:34] VITALS: BMI 25.7
--- NOTE | 2023-10-22 14:10 | P.GSCN ---
History of Present Illness Consult date: 10/22/23 Reason for Consult: Pulmonary embolism Requesting physician: Pippa Mendoza History of present illness: This is a pleasant 83-year-old female who presented to the emergency department for shortness of breath and weakness. Patient was diagnosed with Covid on about 3 weeks ago. She is still testing positive for coronavirus. Since her Covid infection that she has been increasingly weak and short of breath. She was treated with packed slow bid. She has a history of lung cancer and just finished treatment about 3 weeks ago as well, hypertension, fibromyalgia and history of acoustic neuroma. She had a CT angiogram of the chest that reported positive for acute pulmonary emboli extending through the distal aspect of right main pulmonary artery. Right-sided lobar branches and some segmental branches throughout the right lung lobes moderate overall burden on the right. No CT evidence for right heart strain. Troponin is negative. She also had a venous duplex that was positive for a right lower extremity DVT. Vascular surgery was consulted for pulmonary embolism. Patient was started on a heparin drip. Echocardiogram has been ordered, currently pending. Patient states she has some lower extremity discomfort. No chest pain, some shortness of breath however somewhat improved. Denies abdominal pain, nausea or vomiting. Review of Systems A 14 point review systems was completed all pertinent positives and negatives as stated in the HPI. Past Medical History Past Medical History: Cancer, Fibromyalgia, Hypertension, Pulmonary Embolus (PE) Additional Past Medical History / Comment(s): acoustic neuroma, DEAF RT EAR. RIGHT HAND INDEX FINGER INFECTION. 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, MRSA Year Discovered:: 12/03/15 MRSA; 03/27/15-ESBL MDRO Source:: Right 2nd Finger MRSA; Urine E.coli ESBL Past Surgical History: Cholecystectomy, Ear Surgery Additional Past Surgical History / Comment(s): right shoulder, right hand , BRAIN SURGERY, [facility], abscess lanced in groin, decompression of R balance system Past Anesthesia/Blood Transfusion Reactions: Family History of Problems w/ Anesthesia, Motion Sickness Additional Past Anesthesia/Blood Transfusion Reaction / Comm: brother had to be revived after anesthesia Past Psychological History: No Psychological Hx Reported Smoking Status: Never smoker Past Alcohol Use History: None Reported Past Drug Use History: None Reported - Past Family History Mother Family Medical History: No Reported History Medications and Allergies Home Medications Medication Instructions Recorded Confirmed Type Aspirin EC [Ecotrin Low Dose] 81 mg PO DAILY 01/14/15 10/21/23 History Omeprazole [PriLOSEC] 20 mg PO DAILY 01/14/15 10/21/23 History lisinopriL [Prinivil] 10 mg PO DAILY 01/14/15 10/21/23 History Levothyroxine Sodium [Synthroid] 75 mcg PO DAILY 08/23/20 10/21/23 History Cholecalciferol [Vitamin D3 (25 25 mcg PO MOWEFR 09/11/21 10/21/23 History Mcg = 1000 Iu)] Ezetimibe [Zetia] 10 mg PO DAILY 09/11/21 10/21/23 History Albuterol Inhaler [Ventolin Hfa 1 - 2 puff INHALATION RT-Q6H PRN 10/21/23 10/21/23 History Inhaler] Benzonatate [Tessalon Perle] 200 mg PO TID PRN 10/21/23 10/21/23 History predniSONE See Taper PO DIRECTED 10/21/23 10/21/23 History Apixaban [Eliquis Starter Pack 5 - 10 mg PO DIRECTED 30 Days 10/22/23 Rx (for VTE)] #1 each Allergies Allergy/AdvReac Type Severity Reaction Status Date / Time ciprofloxacin [From Cipro] Allergy Abdominal Verified 10/21/23 14:25 Pain, Nausea, vomiting nitrofurantoin Allergy Abdominal Verified 10/21/23 14:25 [From Macrobid] Pain, Nausea, vomiting pregabalin [From Lyrica] Allergy VERTIGO, Verified 10/21/23 14:25 confusion ciprofloxacin HCl AdvReac Abdominal Verified 10/21/23 14:25 [From Cipro] Pain, Nausea, vomiting desvenlafaxine [From Pristiq] AdvReac Confusion Verified 10/21/23 14:25 duloxetine [From Cymbalta] AdvReac Confusion Verified 10/21/23 14:25 hydrocodone [From Vicodin] AdvReac flushed, Verified 10/21/23 14:25 red face hydroxychloroquine sulfate AdvReac Confusion Verified 10/21/23 14:25 [From Plaquenil] milnacipran [From Savella] AdvReac Confusion Verified 10/21/23 14:25 nitrofurantoin AdvReac Abdominal Verified 10/21/23 14:25 macrocrystalline Pain, [From Macrobid] Nausea, vomiting sucralfate [From Carafate] AdvReac VERTIGO, Verified 10/21/23 14:25 [place] like she "was going to pass out" sulfamethoxazole AdvReac Abdominal Verified 10/21/23 14:26 [From Bactrim] Pain, Nausea, vomiting trimethoprim [From Bactrim] AdvReac Abdominal Verified 10/21/23 14:26 Pain, Nausea, vomiting Surgical - Exam Vital Signs Temp Pulse Resp BP Pulse Ox 98.0 F 112 H 18 133/98 98 10/21/23 09:44 10/21/23 09:44 10/21/23 09:44 10/21/23 09:44 10/21/23 09:44 General appearance: The patient is alert, oriented, appears in no acute distress. HET: Head is normocephalic and atraumatic. Pupils are equal and reactive. Neck: Supple. Heart: Regular. Lungs: Equal expansion, normal respiratory effort. Abdomen: Soft, nontender, nondistended. Extremities: Normal skin color and turgor. Neurological: No focal deficits. Generalized weakness. Right facial droop. Results - Labs 10/22/23 02:32 10/22/23 02:32 Abnormal Lab Results - Last 24 Hours (Table) 10/21/23 10/21/23 10/21/23 Range/Units 10:08 10:08 10:08 Lymphocytes # 0.4 L (1.0-4.8) k/uL APTT 21.3 L (22.0-30.0) sec D-Dimer 5.50 H (<0.60) mg/L FEU Sodium 130 L (137-145) mmol/L Carbon Dioxide 19 L (22-30) mmol/L BUN 21 H (7-17) mg/dL Plasma Lactic Acid Henry (0.7-2.0) mmol/L Delta Bilirubin (0.0-0.2) mg/dL C-Reactive Protein (<1.0) mg/dL Total Protein (6.3-8.2) g/dL Albumin 3.3 L (3.5-5.0) g/dL SARS-CoV-2 (PCR) (Not Detectd) 10/21/23 10/21/23 10/21/23 Range/Units 10:08 10:08 13:03 Lymphocytes # (1.0-4.8) k/uL APTT (22.0-30.0) sec D-Dimer (<0.60) mg/L FEU Sodium (137-145) mmol/L Carbon Dioxide (22-30) mmol/L BUN (7-17) mg/dL Plasma Lactic Acid Henry 2.5 H* 2.2 H* (0.7-2.0) mmol/L Delta Bilirubin (0.0-0.2) mg/dL C-Reactive Protein (<1.0) mg/dL Total Protein (6.3-8.2) g/dL Albumin (3.5-5.0) g/dL SARS-CoV-2 (PCR) Detected A (Not Detectd) 10/21/23 10/22/23 10/22/23 Range/Units 18:37 02:32 02:32 Lymphocytes # (1.0-4.8) k/uL APTT >200.0 H* 72.2 H (22.0-30.0) sec D-Dimer (<0.60) mg/L FEU Sodium 131 L (137-145) mmol/L Carbon Dioxide 21 L (22-30) mmol/L BUN 22 H (7-17) mg/dL Plasma Lactic Acid Henry (0.7-2.0) mmol/L Delta Bilirubin 0.3 H (0.0-0.2) mg/dL C-Reactive Protein 1.5 H (<1.0) mg/dL Total Protein 5.0 L (6.3-8.2) g/dL Albumin 2.5 L (3.5-5.0) g/dL SARS-CoV-2 (PCR) (Not Detectd) 10/22/23 Range/Units 02:32 Lymphocytes # 0.4 L (1.0-4.8) k/uL APTT (22.0-30.0) sec D-Dimer (<0.60) mg/L FEU Sodium (137-145) mmol/L Carbon Dioxide (22-30) mmol/L BUN (7-17) mg/dL Plasma Lactic Acid Henry (0.7-2.0) mmol/L Delta Bilirubin (0.0-0.2) mg/dL C-Reactive Protein (<1.0) mg/dL Total Protein (6.3-8.2) g/dL Albumin (3.5-5.0) g/dL SARS-CoV-2 (PCR) (Not Detectd) Diabetes panel 10/21/23 10/22/23 Range/Units 10:08 02:32 Sodium 130 L 131 L (137-145) mmol/L Potassium 5.0 4.0 (3.5-5.1) mmol/L Chloride 99 103 (98-107) mmol/L Carbon Dioxide 19 L 21 L (22-30) mmol/L BUN 21 H 22 H (7-17) mg/dL Creatinine 0.72 0.75 (0.52-1.04) mg/dL Glucose 98 89 (74-99) mg/dL Calcium 9.4 8.4 (8.4-10.2) mg/dL AST 24 24 (14-36) U/L ALT 27 22 (4-34) U/L Alkaline Phosphatase 87 80 (38-126) U/L Total Protein 6.3 5.0 L (6.3-8.2) g/dL Albumin 3.3 L 2.5 L (3.5-5.0) g/dL Calcium panel 10/21/23 10/22/23 Range/Units 10:08 02:32 Calcium 9.4 8.4 (8.4-10.2) mg/dL Albumin 3.3 L 2.5 L (3.5-5.0) g/dL Pituitary panel 10/21/23 10/22/23 Range/Units 10:08 02:32 Sodium 130 L 131 L (137-145) mmol/L Potassium 5.0 4.0 (3.5-5.1) mmol/L Chloride 99 103 (98-107) mmol/L Carbon Dioxide 19 L 21 L (22-30) mmol/L BUN 21 H 22 H (7-17) mg/dL Creatinine 0.72 0.75 (0.52-1.04) mg/dL Glucose 98 89 (74-99) mg/dL Calcium 9.4 8.4 (8.4-10.2) mg/dL Adrenal panel 10/21/23 10/22/23 Range/Units 10:08 02:32 Sodium 130 L 131 L (137-145) mmol/L Potassium 5.0 4.0 (3.5-5.1) mmol/L Chloride 99 103 (98-107) mmol/L Carbon Dioxide 19 L 21 L (22-30) mmol/L BUN 21 H 22 H (7-17) mg/dL Creatinine 0.72 0.75 (0.52-1.04) mg/dL Glucose 98 89 (74-99) mg/dL Calcium 9.4 8.4 (8.4-10.2) mg/dL Total Bilirubin 0.8 0.4 (0.2-1.3) mg/dL AST 24 24 (14-36) U/L ALT 27 22 (4-34) U/L Alkaline Phosphatase 87 80 (38-126) U/L Total Protein 6.3 5.0 L (6.3-8.2) g/dL Albumin 3.3 L 2.5 L (3.5-5.0) g/dL - Imaging Comments: stasis chest CT angiogram positive for acute pulmonary emboli extending through the distal aspect of the right main pulmonary artery, throughout the right-sided lobar branches, and some of the segmental branches throughout the right lung lobes. Moderate overall burden on the right. No CT evidence for right heart strain. Extensive consolidation/airspace disease throughout posterior right midlung was present to some extent on 08/03/2023. Some of the obesity is improving other groundglass such as the right lower lobe has increased. Etiology is unclear. Consider either recurrent pneumonia and/or low-grade adenocarcinoma or lymphoma. Large area of pulmonary infarct is also possible but considered less likely given that it was there on 08/03/2023. Severe intrahepatic biliary ductal dilation seems to be gradually worsening. Similar compared to 08/03/2023 though. Correlate with alkaline phosphatase and bilirubin levels, any known diagnosis and for any biliary tumor markers. ERCP can be considered. Assessment and Plan Assessment: 1. Acute right pulmonary embolism 2. Right lower extremity deep vein thrombosis 3. SARS-CoV-2 PCR positive Plan: 1. Transition patient from heparin drip to Eliquis 10 mg twice a day 2. Eliquis prescription starter pack sent to pharmacy 3. Elevate right lower extremity 4. SHEKHAR hose to right lower extremity 5. Activity as tolerated Thank you for this consultation, there is no indication for any vascular surgical intervention. Patient is cleared from vascular surgery for discharge. We will sign off at this time. The impression and plan of care has been dictated as directed. I performed a history and examination of this patient, discussed the same with the dictator. I agree with the dictator's note ,documented as a scribe. Any additional findings or plans will be noted.
--- NOTE | 2023-10-22 15:05 | P.PN ---
Subjective Progress Note Date: 10/22/23 This is an 83-year-old female with past medical history significant for lung cancer,recent Covid 2-3 weeks ago, and multiple other medical issues admitted with shortness of breath accompanying diarrhea progressing weakness. Chest CTA reported acute pulmonary emboli extending through the distal aspect of right main pulmonary artery, right-sided lobar branches and some segmental branches throughout the right lung lobes moderate overall burden on the right. No evidence for right heart strain. Doppler positive right lower extremity DVT. Echo pending. Evaluated by vascular surgery, heparin drip initiated. CTA also reported severe intrahepatic biliary ductal dilation that worsened. Evaluated by general surgery with no surgical intervention recommended .Denies nausea vomiting or diarrhea. Denies abdominal pain. Denies chest pain, palpitations. Mild shortness of breath. Objective - Vital Signs Vital signs: Vital Signs Temp 96.2 F L 10/22/23 08:00 Pulse 105 H 10/22/23 08:00 Resp 20 10/22/23 08:00 BP 104/57 10/22/23 08:00 Pulse Ox 99 10/22/23 08:00 FiO2 Intake & Output 10/21/23 10/22/23 10/22/23 18:59 06:59 18:59 Intake Total 121.678 110 Balance 121.678 110 Weight 65.771 kg 65.771 kg Intake: Intake, IV Titration 121.678 Amount Heparin Sod,Pork in 0.45% 121.678 NaCl 25,000 unit In 0.45 % NaCl 1 250ml.bag @ 18 UNITS/KG/HR 11.839 mls/hr IV .[id number] [facility] [place] Rx#: [id number] Oral 110 Other: Voiding Method Bedside Commode # Voids 2 - Exam GENERAL: alert and oriented x3, sitting up in bed, NAD HEENT: Normocephalic, Pupils are round and equally reacting to light. EOMI. No scleral icterus. No conjunctival pallor. Neck supple, no JVD. CARDIOVASCULAR: S1 and S2 present. No murmurs, rubs, or gallops. PULMONARY: Unlabored, Equal air entry, Chest is clear to auscultation, no wheezing , no crackles. ABDOMEN: Soft, nontender, nondistended, normoactive bowel sounds. No guarding EXTREMITIES: No cyanosis, clubbing, or pedal edema. NEUROLOGICAL: Gross neurological examination did not reveal any new focal deficits, right facial droop. SKIN: No rashes, warm and dry - Labs CBC & Chem 7: 10/22/23 02:32 10/22/23 02:32 Labs: Abnormal Lab Results - Last 24 Hours (Table) 10/21/23 10/21/23 10/21/23 Range/Units 10:08 10:08 10:08 Lymphocytes # (1.0-4.8) k/uL APTT 21.3 L (22.0-30.0) sec D-Dimer 5.50 H (<0.60) mg/L FEU Sodium 130 L (137-145) mmol/L Carbon Dioxide 19 L (22-30) mmol/L BUN 21 H (7-17) mg/dL Plasma Lactic Acid Henry 2.5 H* (0.7-2.0) mmol/L Delta Bilirubin (0.0-0.2) mg/dL C-Reactive Protein (<1.0) mg/dL Total Protein (6.3-8.2) g/dL Albumin 3.3 L (3.5-5.0) g/dL SARS-CoV-2 (PCR) (Not Detectd) 10/21/23 10/21/23 10/21/23 Range/Units 10:08 13:03 18:37 Lymphocytes # (1.0-4.8) k/uL APTT >200.0 H* (22.0-30.0) sec D-Dimer (<0.60) mg/L FEU Sodium (137-145) mmol/L Carbon Dioxide (22-30) mmol/L BUN (7-17) mg/dL Plasma Lactic Acid Henry 2.2 H* (0.7-2.0) mmol/L Delta Bilirubin (0.0-0.2) mg/dL C-Reactive Protein (<1.0) mg/dL Total Protein (6.3-8.2) g/dL Albumin (3.5-5.0) g/dL SARS-CoV-2 (PCR) Detected A (Not Detectd) 10/22/23 10/22/23 10/22/23 Range/Units 02:32 02:32 02:32 Lymphocytes # 0.4 L (1.0-4.8) k/uL APTT 72.2 H (22.0-30.0) sec D-Dimer (<0.60) mg/L FEU Sodium 131 L (137-145) mmol/L Carbon Dioxide 21 L (22-30) mmol/L BUN 22 H (7-17) mg/dL Plasma Lactic Acid Henry (0.7-2.0) mmol/L Delta Bilirubin 0.3 H (0.0-0.2) mg/dL C-Reactive Protein 1.5 H (<1.0) mg/dL Total Protein 5.0 L (6.3-8.2) g/dL Albumin 2.5 L (3.5-5.0) g/dL SARS-CoV-2 (PCR) (Not Detectd) Assessment and Plan Assessment: Acute right pulmonary embolism Right lower extremity deep vein thrombosis Severe intrahepatic biliary ductal dilatation that appears to have worsened as reported per computed tomography SARS-CoV-2 PCR positive Plan: Continue on current medication regime ,monitoring and symptomatic treatment. Transitioning to oral anticoagulant as per vascular surgery. No surgical intervention as per general surgery, with recommendations to follow-up with GI outpatient for ERCP. Discharge planning in progress pending clearance per pulmonary. The impression and plan of care has been dictated as directed. : I performed a history and examination of this patient, discussed the same with the dictator. I agree with the dictator's note ,documented as a scribe. Any additional findings or plans will be noted.
--- NOTE | 2023-10-22 15:57 | P.CNPUL ---
History of Present Illness Consult date: 10/22/23 Requesting physician: Felipe E Collette Reason for consult: dyspnea, pulmonary embolism, abnormal CXR/CT Chief complaint: Shortness of breath, cough, congestion History of present illness: This is a pleasant 83-year-old female patient with a known history of lung cancer recently treated, COVID-19 infection 2-3 weeks ago, thyroid is in, hypertension, gastroesophageal reflux disease. She presented here to the emergency room yesterday increasing weakness and shortness of breath since her CoVID diagnosis. She was treated with Paxlovid in the outpatient setting without much improvement. His x-ray showed ongoing right perihilar opacity. CT angiogram was positive for an acute pulmonary emboli extending through the distal aspect of the right main pulmonary artery throughout the right sided lo bar branches and some of the seventh segmental branches as well. No CT evidence of right heart strain. Extensive consolidation/airspace disease throughout the posterior right midlung consistent with lung cancer. There is also severe intrahepatic biliary ductal dilatation. White count 6.3. Hemoglobin 12.8. Platelets 313. Sodium 131. Potassium 4.0. Bicarb 21. BUN 22. Creatinine 0.75. Pro-calcitonin 0.08. Initiated on a heparin drip. Echocardiogram is pending. Dopplers of the lower extremity did reveal a positive DVT on the right. He is seen today in consultation on the regular medical floor. She is awake and alert in no acute distress. Sitting up in bed. Denies any worsening shortness of breath, cough or congestion. No chest pain. No hemoptysis. Maintaining good O2 saturations up to 99% on room air. Afebrile. Hemodynamically stable. Review of Systems REVIEW OF SYSTEMS: CONSTITUTIONAL: Positive for generalized weakness. Denies any recent significant weight loss or weight gain. EYES: Denies change in vision. EARS, NOSE, MOUTH, THROAT: Denies headaches, denies sore throat. CARDIOVASCULAR: Denies chest pain, palpitations or syncopal episodes. RESPIRATORY: Positive for shortness of breath, cough, congestion no hemoptysis. GASTROINTESTINAL: Denies change in appetite, denies abdominal pain GENITOURINARY: Denies hematuria, denies infections. MUSKULOSKELETAL: Denies pain, denies swelling. INTEGUMENTARY: Denies rash, denies eczema. NEUROLOGICAL: Denies recent memory loss, no recent seizure activity. PSYCHIATRIC: Denies anxiety, denies depression. HEMATOLOGIC/LYMPHATIC: Denies anemia, denies enlarged lymph nodes. Past Medical History Past Medical History: Cancer, Fibromyalgia, Hypertension, Pulmonary Embolus (PE) Additional Past Medical History / Comment(s): acoustic neuroma, DEAF RT EAR. RIGHT HAND INDEX FINGER INFECTION. 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, MRSA Date of last positivie culture/infection: 12/03/15 MRSA; 03/27/15-ESBL MDRO Source:: Right 2nd Finger MRSA; Urine E.coli ESBL Past Surgical History: Cholecystectomy, Ear Surgery Additional Past Surgical History / Comment(s): right shoulder, right hand , BRAIN SURGERY, [facility], abscess lanced in groin, decompression of R [place] nce system Past Anesthesia/Blood Transfusion Reactions: Family History of Problems w/ Anesthesia, Motion Sickness Additional Past Anesthesia/Blood Transfusion Reaction / Comment(s): brother had to be revived after anesthesia Past Psychological History: No Psychological Hx Reported Smoking Status: Never smoker Past Alcohol Use History: None Reported Past Drug Use History: None Reported - Past Family History Mother Family Medical History: No Reported History Medications and Allergies Home Medications Medication Instructions Recorded Confirmed Type Aspirin EC [Ecotrin Low Dose] 81 mg PO DAILY 01/14/15 10/21/23 History Omeprazole [PriLOSEC] 20 mg PO DAILY 01/14/15 10/21/23 History lisinopriL [Prinivil] 10 mg PO DAILY 01/14/15 10/21/23 History Levothyroxine Sodium [Synthroid] 75 mcg PO DAILY 08/23/20 10/21/23 History Cholecalciferol [Vitamin D3 (25 25 mcg PO MOWEFR 09/11/21 10/21/23 History Mcg = 1000 Iu)] Ezetimibe [Zetia] 10 mg PO DAILY 09/11/21 10/21/23 History Albuterol Inhaler [Ventolin Hfa 1 - 2 puff INHALATION RT-Q6H PRN 10/21/23 10/21/23 History Inhaler] Benzonatate [Tessalon Perle] 200 mg PO TID PRN 10/21/23 10/21/23 History predniSONE See Taper PO DIRECTED 10/21/23 10/21/23 History Apixaban [Eliquis Starter Pack 5 - 10 mg PO DIRECTED 30 Days 10/22/23 Rx (for VTE)] #1 each Allergies Allergy/AdvReac Type Severity Reaction Status Date / Time ciprofloxacin [From Cipro] Allergy Abdominal Verified 10/21/23 14:25 Pain, Nausea, vomiting nitrofurantoin Allergy Abdominal Verified 10/21/23 14:25 [From Macrobid] Pain, Nausea, vomiting pregabalin [From Lyrica] Allergy VERTIGO, Verified 10/21/23 14:25 confusion ciprofloxacin HCl AdvReac Abdominal Verified 10/21/23 14:25 [From Cipro] Pain, Nausea, vomiting desvenlafaxine [From Pristiq] AdvReac Confusion Verified 10/21/23 14:25 duloxetine [From Cymbalta] AdvReac Confusion Verified 10/21/23 14:25 hydrocodone [From Vicodin] AdvReac flushed, Verified 10/21/23 14:25 red face hydroxychloroquine sulfate AdvReac Confusion Verified 10/21/23 14:25 [From Plaquenil] milnacipran [From Savella] AdvReac Confusion Verified 10/21/23 14:25 nitrofurantoin AdvReac Abdominal Verified 10/21/23 14:25 macrocrystalline Pain, [From Macrobid] Nausea, vomiting sucralfate [From Carafate] AdvReac VERTIGO, Verified 10/21/23 14:25 [place] like she "was going to pass out" sulfamethoxazole AdvReac Abdominal Verified 10/21/23 14:26 [From Bactrim] Pain, Nausea, vomiting trimethoprim [From Bactrim] AdvReac Abdominal Verified 10/21/23 14:26 Pain, Nausea, vomiting Physical Exam Vitals: Vital Signs Temp Pulse Pulse Resp BP BP Pulse Ox 10/22/23 12:00 97.4 F L 104 H 20 125/65 99 10/22/23 08:00 96.2 F L 105 H 20 104/57 99 10/22/23 04:18 78 16 112/52 98 10/22/23 02:00 102 H 10/21/23 22:50 98.0 F 102 H 16 108/64 99 10/21/23 22:17 98.1 F 100 18 91/52 10/21/23 19:12 78 18 121/74 98 10/21/23 16:52 96 18 118/82 98 Intake and Output 10/22/23 10/22/23 10/22/23 06:59 14:59 22:59 Intake Total 39.594 256.8 Balance 39.594 256.8 Intake: IV 36.8 Heparin Sod,Pork in 0.45% 36.8 NaCl 25,000 unit In 0.45 % NaCl 1 250ml.bag @ 18 UNITS/KG/HR 11.839 mls/hr IV .Q21H7M [facility] Rx#: [id number] Intake, IV Titration 39.594 Amount Heparin Sod,Pork in 0.45% 39.594 NaCl 25,000 unit In 0.45 % NaCl 1 250ml.bag @ 18 UNITS/KG/HR 11.839 mls/hr IV .Q21H7M [facility] Rx#: [id number] Oral 220 Other: Voiding Method Bedside Commode # Voids 2 Weight 65.771 kg GENERAL EXAM: Alert, pleasant 83-year-old female, on room air, fairly comfortable in no apparent distress. HEAD: Normocephalic. EYES: Normal reaction of pupils, equal size. NOSE: Clear with pink turbinates. THROAT: No erythema or exudates. NECK: No masses, no JVD. CHEST: No chest wall deformity. LUNGS: Equal air entry with crackles in the right lung base. CVS: S1 and S2 normal with no audible murmur, regular rhythm. ABDOMEN: No hepatosplenomegaly, normal bowel sounds, no guarding or rigidity. SPINE: No scoliosis or deformity SKIN: No rashes CENTRAL NERVOUS SYSTEM: No focal deficits, tone is normal in all 4 extremities. EXTREMITIES: There is no peripheral edema. No clubbing, no cyanosis. Perip heral pulses are intact.am Results - Laboratory Findings CBC and BMP: 10/22/23 02:32 10/22/23 02:32 PT/INR, D-dimer PT 10.5 sec (10.0-12.5) 10/21/23 10:08 INR 1.0 (<1.2) 10/21/23 10:08 D-Dimer 5.50 mg/L FEU (<0.60) H 10/21/23 10:08 Abnormal lab findings: Abnormal Labs 10/21/23 10/21/23 10/21/23 10:08 10:08 10:08 Lymphocytes # 0.4 L APTT 21.3 L D-Dimer 5.50 H Sodium 130 L Carbon Dioxide 19 L BUN 21 H Plasma Lactic Acid Henry Delta Bilirubin C-Reactive Protein Total Protein Albumin 3.3 L SARS-CoV-2 (PCR) 10/21/23 10/21/23 10/21/23 10:08 10:08 13:03 Lymphocytes # APTT D-Dimer Sodium Carbon Dioxide BUN Plasma Lactic Acid Henry 2.5 H* 2.2 H* Delta Bilirubin C-Reactive Protein Total Protein Albumin SARS-CoV-2 (PCR) Detected A 10/21/23 10/22/23 10/22/23 18:37 02:32 02:32 Lymphocytes # APTT >200.0 H* 72.2 H D-Dimer Sodium 131 L Carbon Dioxide 21 L BUN 22 H Plasma Lactic Acid Henry Delta Bilirubin 0.3 H C-Reactive Protein 1.5 H Total Protein 5.0 L Albumin 2.5 L SARS-CoV-2 (PCR) 10/22/23 02:32 Lymphocytes # 0.4 L APTT D-Dimer Sodium Carbon Dioxide BUN Plasma Lactic Acid Henry Delta Bilirubin C-Reactive Protein Total Protein Albumin SARS-CoV-2 (PCR) - Diagnostic Findings Chest x-ray: image reviewed CT scan - chest: image reviewed Assessment and Plan Assessment: Dyspnea secondary to acute pulmonary emboli of the right lung suspect secondary to COVID-19 infection and/or recent cancer diagnosis Acute right lower extremity DVT COVID-19 infection, treated with Paxlovid in the outpatient setting Generalized weakness secondary to above Right lower lung consolidation PET scan in July 2023 with abnormal FDG uptake suspicious for neoplastic process. Recent treatment for cancer Hypothyroidism Hypertension Gastroesophageal reflux disease Plan: The patient was seen and evaluated Chest x-ray, computed tomography scan of the chest, labs and medications reviewed Currently on a heparin drip to be transitioned to oral anticoagulants Being followed by vascular services, no plans for intervention Currently stable and on room air We will continue to follow and make further recommendations based on her clinical status I have personally seen and examined the patient, performed the documentation and the assessment and plan as written. Number of minutes spent on the visit: 20.
[2023-10-22] MEDS: SODIUM CHLORIDE 0.9% 500 ML 500 ML IV ONE (21:30)
--- NOTE | 2023-10-23 10:26 | CA ---
Transthoracic Echo Report Name: Adela Melton Age: 83 Gender: F : 1940 Exam Date: 10/22/2023 10:02 Exam Location: [place] [facility] Ht (in): 63 Wt (lb): 145 Ordering Physician: Felipe Murdock MD Attending/Referring Phys: [id number], Collette Ocular Care Technologist Melanie Perez [facility] Procedure CPT: Indications: Rule out heart disease Cardiac Hx: Technical Quality: Fair Contrast 1: Total Dose (mL): Contrast 2: Total Dose (mL): MEASUREMENTS (Male / Female) Normal Values 2D ECHO LV Diastolic Diameter PLAX 3.8 cm 4.2 - 5.9 / 3.9 - 5.3 cm LV Systolic Diameter PLAX 2.6 cm IVS Diastolic Thickness 0.8 cm 0.6 - 1.0 / 0.6 - 0.9 cm LVPW Diastolic Thickness 0.6 cm 0.6 - 1.0 / 0.6 - 0.9 cm LV Relative Wall Thickness 0.4 DOPPLER AV Peak Velocity 116.3 cm/s AV Peak Gradient 5.4 mmHg AV Mean Velocity 80.0 cm/s AV Mean Gradient 2.9 mmHg AV Velocity Time Integral 18.0 cm LVOT Peak Velocity 101.9 cm/s LVOT Peak Gradient 4.2 mmHg LVOT Velocity Time Integral 16.2 cm Mitral E Point Velocity 65.8 cm/s Mitral A Point Velocity 82.8 cm/s Mitral E to A Ratio 0.8 MV Deceleration Time 190.6 ms LV E' Lateral Velocity 12.6 cm/s Mitral E to LV E' Lateral Ratio 5.2 LV E' Septal Velocity 8.8 cm/s Mitral E to LV E' Septal Ratio 7.5 TR Peak Velocity 291.2 cm/s TR Peak Gradient 33.9 mmHg Right Atrial Pressure 3.0 mmHg Pulmonary Artery Systolic Pressu 36.9 mmHg Right Ventricular Systolic Press 36.9 mmHg FINDINGS Left Ventricle Left ventricular wall thickness normal. Left ventricular cavity size normal. Normal left ventricular systolic function with no obvious regional wall motion abnormalities. Left ventricular ejection fraction is estimated at 55-60%. Right Ventricle Moderate right ventricular dilatation. Low normal right ventricular global systolic function. Mild pulmonary hypertension. Right Atrium Left Atrium Mitral Valve Structurally normal mitral valve. No mitral regurgitation. Aortic Valve No aortic valve stenosis or regurgitation. Tricuspid Valve Structurally normal tricuspid valve. Trace tricuspid regurgitation. Pulmonic Valve Pericardium No pericardial effusion. Echo free space anterior to the right ventricle likely represents a fat pad. Aorta CONCLUSIONS COVID+ limited study Technically difficult study Left ventricular ejection fraction is estimated at 55-60%. No obvious regional wall motion abnormalities. No significant valvular disease Previewed by: Dr Stefano Shell (Electronically Signed) Final Date: 23 October 2023 10:25
--- NOTE | 2023-10-23 15:27 | P.PN ---
Subjective Progress Note Date: 10/23/23 Principal diagnosis: Acute pulmonary embolism This is a pleasant 83-year-old female patient with a known history of lung cancer recently treated, COVID-19 infection 2-3 weeks ago, thyroid is in, hypertension, gastroesophageal reflux disease. She presented here to the emergency room yesterday increasing weakness and shortness of breath since her CoVID diagnosis. She was treated with Paxlovid in the outpatient setting without much improvement. His x-ray showed ongoing right perihilar opacity. CT angiogram was positive for an acute pulmonary emboli extending through the distal aspect of the right main pulmonary artery throughout the right sided lobar branches and some of the seventh segmental branches as well. No CT evidence of right heart strain. Extensive consolidation/airspace disease throughout the posterior right midlung consistent with lung cancer. There is also severe intrahepatic biliary ductal dilatation. White count 6.3. Hemoglobin 12.8. Platelets 313. Sodium 131. Potassium 4.0. Bicarb 21. BUN 22. Creatinine 0.75. Pro-calcitonin 0.08. Initiated on a heparin drip. Echocardiogram is pending. Dopplers of the lower extremity did reveal a positive DVT on the right. He is seen today in consultation on the regular medical floor. She is awake and alert in no acute distress. Sitting up in bed. Denies any worsening shortness of breath, cough or congestion. No chest pain. No hemoptysis. Maintaining good O2 saturations up to 99% on room air. Afebrile. Hemodynamically stable. Patient was reevaluated today on 10/23/2023, patient is now off heparin with transition to eliquis as per protocol. Patient continues to have some shortness of breath upon ambulation or getting out of bed. May be considered for home oxygen. Patient remains on the COVID-19 cocktail for COVID-19 infection, patient is being considered for discharge planning on oral anticoagulation therapy. Patient seems to be quite comfortable, and not in any distress Objective - Vital Signs Vital signs: Vital Signs Temp 98.2 F 10/23/23 11:21 Pulse 99 10/23/23 13:47 Resp 20 10/23/23 11:21 BP 97/55 10/23/23 11:21 Pulse Ox 99 10/23/23 13:47 FiO2 Intake & Output 10/22/23 10/23/23 10/23/23 18:59 06:59 18:59 Intake Total 481.8 220 Output Total 550 Balance 481.8 -550 220 Weight 65.771 kg Intake: IV 36.8 Heparin Sod,Pork in 0.45% 36.8 NaCl 25,000 unit In 0.45 % NaCl 1 250ml.bag @ 18 UNITS/KG/HR 11.839 mls/hr IV .Q21H7M [facility] Rx#: [id number] Oral 445 220 Output: Urine 550 Straight 550 Other: Voiding Method Bedside Commode Bedpan External Catheter External Catheter # Voids 0 1 # Bowel Movements 1 - Exam Physical Exam: Revealed 83-year-old female in no distress, on 2 L nasal cannula and O2 saturation is 99% Head: Atraumatic normocephalic HEENT:[Neck is supple.] [No neck masses.] [No thyromegaly.] [No JVD.] Chest: [Clear throughout, no crackles, no rhonchi, no wheezes.] Cardiac Exam: [Normal S1 and S2, no S3 gallop, no murmur.] Abdomen: [Soft, nontender, no megaly, no rebound, no guarding, normal bowel sounds.] Extremities: [No clubbing, no edema, no cyanosis.] Neurological Exam: [No focal neurologic deficit.] Alert and oriented 3 Psychiatric: Normal mood affect and normal mental status examination. Skin: No rash - Labs CBC & Chem 7: 10/22/23 02:32 10/22/23 02:32 Assessment and Plan Assessment: Impression: Acute pulmonary embolism Acute right lower extremity DVT Acute COVID-19 infection treated in outpatient setting with paxlovid Right lower lobe mass/ consolidation, suspicious for malignancy, needs to have further evaluation on outpatient basis unless the patient has been seen already by oncology, apparently she had a recent PET scan which was positive for significant uptake in the area of the right lower lobe. Intrahepatic biliary duct dilatation, will likely be eventually ERCP by gastroenterology. Recommendation: Continue anticoagulation therapy, patient is now on Could be considered for discharge planning however the patient needs close outpatient follow-up Could see the patient on outpatient basis for her abnormality on the CT of the chest and the right lower lobe masslike consolidation, may eventually require biopsy if not already done Recommend outpatient follow-up with gastroenterology for her intrahepatic biliary duct dilatation and possibly ERCP We'll continue to follow for now. Time with Patient: Less than 30
--- NOTE | 2023-10-23 16:03 | P.PN ---
Subjective Progress Note Date: 10/23/23 CHIEF COMPLAINT: Weakness and shortness of breath HISTORY OF PRESENT ILLNESS: Patient denies any abdominal pain. Denies any nausea or vomiting. [facility] A[facility]. WBC 6.3 Hgb 12.8 platelets 313 PHYSICAL EXAM: VITAL SIGNS: Reviewed. GENERAL: Well-developed in no acute distress. ABDOMEN: Soft. Nondistended. Nontender. NEUROLOGIC: Alert and oriented. Cranial nerves II through XII grossly intact. ASSESSMENT: 1. Severe intrahepatic biliary ductal dilatation that seems to have worsened noted on computed tomography scan of abdomen and pelvis 2. PE and DVT right leg 3. History of cholecystectomy several years ago PLAN: -Okay to discharge from surgical standpoint when medically cleared -No surgical intervention planned -Recommend that patient follow up with GI service outpatient for ERCP for further evaluation of intrahepatic and biliary ductal dilatation -Continue supportive care -Continue regular diet Physician Manager State note has been reviewed by physician. Signing provider agrees with the documented findings, assessment, and plan of care. Objective - Vital Signs Vital signs: Vital Signs Temp 98.2 F 10/23/23 11:21 Pulse 99 10/23/23 11:21 Resp 20 10/23/23 11:21 BP 97/55 10/23/23 11:21 Pulse Ox 99 10/23/23 11:32 FiO2 Intake & Output 10/22/23 10/23/23 10/23/23 18:59 06:59 18:59 Intake Total 481.8 110 Output Total 550 Balance 481.8 -550 110 Weight 65.771 kg Intake: IV 36.8 Heparin Sod,Pork in 0.45% 36.8 NaCl 25,000 unit In 0.45 % NaCl 1 250ml.bag @ 18 UNITS/KG/HR 11.839 mls/hr IV .Q21H7M [facility] Rx#: [id number] Oral 445 110 Output: Urine 550 Straight 550 Other: Voiding Method Bedside Commode Bedpan External Catheter External Catheter # Voids 0 1 # Bowel Movements 1 - Labs CBC & Chem 7: 10/22/23 02:32 10/22/23 02:32
--- NOTE | 2023-10-23 16:55 | P.PN ---
Subjective Progress Note Date: 10/23/23 10/22/23 This is an 83-year-old female with past medical history significant for lung cancer,recent Covid 2-3 weeks ago, and multiple other medical issues admitted with shortness of breath accompanying diarrhea progressing weakness. Chest CTA reported acute pulmonary emboli extending through the distal aspect of right main pulmonary artery, right-sided lobar branches and some segmental branches throughout the right lung lobes moderate overall burden on the right. No evidence for right heart strain. Doppler positive right lower extremity DVT. Echo pending. Evaluated by vascular surgery, heparin drip initiated. CTA also reported severe intrahepatic biliary ductal dilation that worsened. Evaluated by general surgery with no surgical intervention recommended .Denies nausea vomiting or diarrhea. Denies abdominal pain. Denies chest pain, palpitations. Mild shortness of breath. 10/23/2023 transitioned to oral anticoagulant. Tolerating well. This morning, patient hypotensive, 97/55 lying, 79/49 sitting and 81/55 standing with heart rates ranging from 117-121, REYMUNDO inhibitor discontinued. Denies chest pain, palpitations. Reports exertional shortness of breath. Objective - Vital Signs Vital signs: Vital Signs Temp 98.2 F 10/23/23 11:21 Pulse 99 10/23/23 11:21 Resp 20 10/23/23 11:21 BP 97/55 10/23/23 11:21 Pulse Ox 99 10/23/23 11:32 FiO2 Intake & Output 10/22/23 10/23/23 10/23/23 18:59 06:59 18:59 Intake Total 481.8 110 Output Total 550 Balance 481.8 -550 110 Weight 65.771 kg Intake: IV 36.8 Heparin Sod,Pork in 0.45% 36.8 NaCl 25,000 unit In 0.45 % NaCl 1 250ml.bag @ 18 UNITS/KG/HR 11.839 mls/hr IV .Q21H7M [facility] Rx#: [id number] Oral 445 110 Output: Urine 550 Straight 550 Other: Voiding Method Bedside Commode Bedpan External Catheter External Catheter # Voids 0 1 # Bowel Movements 1 - Exam GENERAL: alert and oriented x3, sitting up in bed, NAD. HEENT: Normocephalic, Pupils are round and equally reacting to light. EOMI. No scleral icterus. No conjunctival pallor. Neck supple, no JVD. CARDIOVASCULAR: S1 and S2 present. No murmurs, rubs, or gallops. PULMONARY: Unlabored, Equal air entry, Chest is clear to auscultation, no wheezing , no crackles. ABDOMEN: Soft, nontender, nondistended, normoactive bowel sounds. No guarding EXTREMITIES: No cyanosis, clubbing, or pedal edema. NEUROLOGICAL: Gross neurological examination did not reveal any new focal deficits, right facial droop. SKIN: No rashes, warm and dry - Labs CBC & Chem 7: 10/22/23 02:32 10/22/23 02:32 Assessment and Plan Assessment: Acute right pulmonary embolism Right lower extremity deep vein thrombosis Hypotension, REYMUNDO inhibitor discontinued. EF 55-60% Severe intrahepatic biliary ductal dilatation that appears to have worsened as reported per computed tomography, follow-up with GI outpatient SARS-CoV-2 PCR positive Right lower lobe masslike consolidation, reported per CT, suspicious for malignancy, further workup /evaluation outpatient. Recent abnormal PET scan 08/05/2023, reporting worsening right lower lung consolidation with surrounding groundglass changes, additionally there is focus of abnormal FDG activity present suspicious for neoplastic process. Plan: Continue on current medication regime ,monitoring and symptomatic treatment. Maintain oral anticoagulation. Symptomatic hypotension , REYMUNDO inhibitor discontinued, discharge held , cardiology consulted. The impression and plan of care has been dictated as directed. : I performed a history and examination of this patient, discussed the same with the dictator. I agree with the dictator's note ,documented as a scribe. Any additional findings or plans will be noted.
[2023-10-24 00:11] VITALS: RESP 16
[2023-10-24 08:30] VITALS: BP 125/67; PULSE 105; TEMP 98
[2023-10-24 09:30] LABS: African American GFR (CKD) >90 (>60 ml/min/1.73 sqM); Anion Gap 7 mmol/L; Blood Urea Nitrogen 10 mg/dL (7-17); Calcium 8.8 mg/dL (8.4-10.2); Carbon Dioxide 24 mmol/L (22-30); Chloride 102 mmol/L (98-107); Glucose 119 mg/dL (74-99); Non-African American GFR(CKD) 87 (>60 ml/min/1.73 sqM); Potassium 3.9 mmol/L (3.5-5.1); Sodium 133 mmol/L (137-145)
[2023-10-24 09:36] LABS: Basophils % (A) 1 %; Eosinophils # (A) 0.4 k/uL (0-0.7); Eosinophils % (A) 7 %; HCT 38.1 % (34.0-46.0); HGB 12.4 gm/dL (11.4-16.0); Lymphocytes # (A) 0.3 k/uL (1.0-4.8); Lymphocytes % (A) 6 %; MCH 30.9 pg (25.0-35.0); MCHC 32.6 g/dL (31.0-37.0); MCV 94.8 fL (80.0-100.0); Mean Platelet Volume 7.1; Monocytes # (A) 0.1 k/uL (0-1.0); Monocytes % (A) 2 %; Neutrophils # (A) 4.6 k/uL (1.3-7.7); Neutrophils % (A) 84 %; Platelet Count 314 k/uL (150-450); RBC 4.02 m/uL (3.80-5.40); RDW 14.1 % (11.5-15.5); WBC 5.5 k/uL (3.8-10.6)
--- NOTE | 2023-10-24 10:21 | P.CRDCN ---
History of Present Illness History of present illness: HISTORY OF PRESENT ILLNESS: This is a 83-year-old female with a past medical history significant for hypertension, hyperlipidemia, and lung cancer with previous radiation. Patient does not follow with a law librarian. We have been asked to see the patient in consultation for hypotension. Patient examined at the bedside. Patient is admitted to the hospital secondary to Covid, right lower extremity DVT and right-sided pulmonary embolism. She states she initially came to the hospital due to a fall. She did not feel lightheaded. She reports a cough for 2 weeks. Sh e denies any chest pain. She was hypotensive yesterday. Her lisinopril was discontinued. Her hypotension has improved. * EKG reveals sinus tachycardia with no signs of acute ischemia * Chest xray ongoing right perihilar opacity. Consider low-grade neoplasm of the possible etiology. * Current home cardiac medications include lisinopril 10 mg daily and Zetia 10 mg daily * Echocardiogram obtained revealing ejection fraction of 55-60%, mild pulmonary hypertension, trace TR, moderate right ventricular dilatation with RVSP of 36.9 mmHg REVIEW OF SYSTEMS: At the time of my exam: CONSTITUTIONAL: Denies fever or chills. HEENT: Denies blurred vision, vision changes, or eye pain. Denies hemoptysis CARDIOVASCULAR: Denies chest pain. Denies orthopnea. Denies PND. Denies palpitations RESPIRATORY: Denies shortness of breath. GASTROINTESTINAL: Denies abdominal pain. Denies nausea or vomiting. HEMATOLOGIC: Denies bleeding disorders. GENITOURINARY: Denies any blood in urine. SKIN: Denies pruitis. Denies rash. PHYSICAL EXAM: VITAL SIGNS: Reviewed. GENERAL: Well-developed in no acute distress. HEENT: Head is normocephalic. Pupils are equal, round. Sclerae anicteric. Mucous membranes of the mouth are moist. Neck supple. No JVD or thyromegaly LUNGS: Respirations even and unlabored. Lungs with crackles at the bases. HEART: Regular rate and rhythm. S1 and S2 heard. ABDOMEN: Soft. Nondistended. Nontender. EXTREMITIES: Normal range of motion. No clubbing or cyanosis. Peripheral pulses intact. No lower extremity edema NEUROLOGIC: Awake and alert. Oriented x 3. ASSESSMENT: Acute Covid 19 Right-sided pulmonary embolism Right lower extremity DVT Hypotension, resolved Hypertension History of lung cancer with previous radiation Severe intrahepatic biliary ductal dilatation, per CT scan History of brain tumor History of DVT, many years ago, per patient PLAN: Echo obtained and reviewed Patient is currently on Eliquis per vascular service Lisinopril has been discontinued Continue to monitor blood pressure Patient is stable for discharge from a cardiac standpoint Nurse practitioner note has been reviewed by physician. Signing provider agrees with the documented findings, assessment, and plan of care. Past Medical History Past Medical History: Cancer, Fibromyalgia, Hypertension, Pulmonary Embolus (PE) Additional Past Medical History / Comment(s): acoustic neuroma, DEAF RT EAR. RIGHT HAND INDEX FINGER INFECTION. 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, MRSA Date of last positivie culture/infection: 12/03/15 MRSA; 03/27/15-ESBL MDRO Source:: Right 2nd Finger MRSA; Urine E.coli ESBL Past Surgical History: Cholecystectomy, Ear Surgery Additional Past Surgical History / Comment(s): right shoulder, right hand , BRAIN SURGERY, [facility], abscess lanced in groin, decompression of R balance system Past Anesthesia/Blood Transfusion Reactions: Family History of Problems w/ Anesthesia, Motion Sickness Additional Past Anesthesia/Blood Transfusion Reaction / Comment(s): brother had to be revived after anesthesia Past Psychological History: No Psychological Hx Reported Smoking Status: Never smoker Past Alcohol Use History: None Reported Past Drug Use History: None Reported - Past Family History Mother Family Medical History: No Reported History Medications and Allergies Home Medications Medication Instructions Recorded Confirmed Type Aspirin EC [Ecotrin Low Dose] 81 mg PO DAILY 01/14/15 10/21/23 History Omeprazole [PriLOSEC] 20 mg PO DAILY 01/14/15 10/21/23 History Levothyroxine Sodium [Synthroid] 75 mcg PO DAILY 08/23/20 10/21/23 History Cholecalciferol [Vitamin D3 (25 25 mcg PO MOWEFR 09/11/21 10/21/23 History Mcg = 1000 Iu)] Ezetimibe [Zetia] 10 mg PO DAILY 09/11/21 10/21/23 History Albuterol Inhaler [Ventolin Hfa 1 - 2 puff INHALATION RT-Q6H PRN 10/21/23 10/21/23 History Inhaler] Benzonatate [Tessalon Perle] 200 mg PO TID PRN 10/21/23 10/21/23 History Apixaban [Eliquis Starter Pack 5 - 10 mg PO DIRECTED 30 Days 10/22/23 Rx (for VTE)] #1 each Acetaminophen Tab [Tylenol] 650 mg PO Q6HR PRN tab 10/23/23 Rx Ascorbic Acid [Vitamin C] 1,000 mg PO DAILY tab 10/23/23 Rx HYDROcodone/APAP 5-325MG [[place] 1 each PO Q6H PRN 3 Days #12 tab 10/23/23 Rx 5-325] Zinc Sulfate [Orazinc] 220 mg PO DAILY #30 cap 10/23/23 Rx Allergies Allergy/AdvReac Type Severity Reaction Status Date / Time ciprofloxacin [From Cipro] Allergy Abdominal Verified 10/21/23 14:25 Pain, Nausea, vomiting nitrofurantoin Allergy Abdominal Verified 10/21/23 14:25 [From Macrobid] Pain, Nausea, vomiting pregabalin [From Lyrica] Allergy VERTIGO, Verified 10/21/23 14:25 confusion ciprofloxacin HCl AdvReac Abdominal Verified 10/21/23 14:25 [From Cipro] Pain, Nausea, vomiting desvenlafaxine [From Pristiq] AdvReac Confusion Verified 10/21/23 14:25 duloxetine [From Cymbalta] AdvReac Confusion Verified 10/21/23 14:25 hydrocodone [From Vicodin] AdvReac flushed, Verified 10/21/23 14:25 red face hydroxychloroquine sulfate AdvReac Confusion Verified 10/21/23 14:25 [From Plaquenil] milnacipran [From Savella] AdvReac Confusion Verified 10/21/23 14:25 nitrofurantoin AdvReac Abdominal Verified 10/21/23 14:25 macrocrystalline Pain, [From Macrobid] Nausea, vomiting sucralfate [From Carafate] AdvReac VERTIGO, Verified 10/21/23 14:25 [place] like she "was going to pass out" sulfamethoxazole AdvReac Abdominal Verified 10/21/23 14:26 [From Bactrim] Pain, Nausea, vomiting trimethoprim [From Bactrim] AdvReac Abdominal Verified 10/21/23 14:26 Pain, Nausea, vomiting Physical Exam Vitals: Vital Signs Temp Pulse Pulse Pulse Resp BP BP 10/23/23 13:47 99 117 H 10/23/23 11:32 10/23/23 11:21 98.2 F 99 20 79/49 81/55 10/23/23 08:00 98 F 74 20 10/23/23 03:38 98.1 F 92 16 10/23/23 00:00 98.3 F 88 16 10/22/23 22:16 10/22/23 20:44 10/22/23 20:36 10/22/23 20:33 98.6 F 95 18 10/22/23 16:46 98 F 87 20 BP BP Pulse Ox Pulse Ox Pulse Ox Pulse Ox 10/23/23 13:47 99 99 83 L 10/23/23 11:32 99 10/23/23 11:21 97/55 99 10/23/23 08:00 115/57 99 10/23/23 03:38 110/58 98 10/23/23 00:00 105/53 99 10/22/23 22:16 99/53 10/22/23 20:44 70/40 10/22/23 20:36 82/45 10/22/23 20:33 71/54 98 10/22/23 16:46 114/55 99 Intake and Output 10/22/23 10/23/23 10/23/23 22:59 06:59 14:59 Intake Total 225 220 Output Total 550 Balance 225 -550 220 Intake: Oral 225 220 Output: Urine 550 Straight 550 Other: Voiding Method Bedside Commode Bedside Commode Bedpan External Catheter External Catheter # Voids 0 1 # Bowel Movements 1 Results 10/24/23 08:40 10/24/23 08:40 Coagulation 10/23/23 Range/Units 09:29 APTT 25.8 (22.0-30.0) sec Current Medications Generic Name Dose Route Start Last Admin Trade Name Freq PRN Reason Stop Dose Admin Acetaminophen 650 mg 10/21/23 12:26 10/22/23 13:27 Acetaminophen Tab 325 Mg Tab PO 650 mg Q6HR PRN Administration Mild Pain or Fever > 100.5 Hydrocodone Bitart/Acetaminophen 1 each 10/21/23 12:26 10/22/23 22:12 Hydrocodone/Apap 5-325mg 1 Each Tab PO 1 each Q4HR PRN Administration Moderate Pain (Scale 4 to 6) Albuterol Sulfate 1 - 2 puff 10/21/23 18:00 Albuterol Hfa Inhaler INHALATION RT-Q6H PRN Shortness Of Breath Apixaban 10 mg 10/22/23 12:00 10/23/23 09:21 Apixaban Initiation Dose--Vte 5 Mg Tab PO 11/21/23 08:59 10 mg BID TRAVIS Administration Taper Ascorbic Acid 1,000 mg 10/22/23 09:00 10/23/23 09:21 Ascorbic Acid 500 Mg Tab PO Not Given DAILY TRAVIS Aspirin 81 mg 10/22/23 09:00 10/23/23 09:20 Aspirin 81 Mg PO 81 mg DAILY TRAVIS Administration Benzonatate 200 mg 10/21/23 18:00 Benzonatate 100 Mg Cap PO TID PRN Cough Cholecalciferol 50 mcg 10/22/23 09:00 10/23/23 09:20 Cholecalciferol 25 Mcg (1000 Iu) Tablet PO 50 mcg DAILY TRAVIS Administration Ezetimibe 10 mg 10/22/23 09:00 10/23/23 09:20 Ezetimibe 10 Mg Tab PO 10 mg DAILY TRAVIS Administration Famotidine 20 mg 10/21/23 21:00 10/23/23 09:20 Famotidine 20 Mg/2 Ml Vial IV 20 mg DAILY TRAVIS Administration Levothyroxine Sodium 75 mcg 10/22/23 09:00 10/23/23 09:19 Levothyroxine 75 Mcg Tab PO 75 mcg DAILY TRAVIS Administration Morphine Sulfate 4 mg 10/21/23 12:26 Morphine Sulfate 4 Mg/Ml Syringe IV Q4HR PRN Severe Pain (Scale 7 to 10) Naloxone HCl 0.2 mg 10/21/23 12:26 Naloxone 0.4 Mg/Ml 1 Ml Vial IV Q2M PRN Opioid Reversal Ondansetron HCl 4 mg 10/21/23 12:26 Ondansetron 4 Mg/2 Ml Vial IVP Q8HR PRN Nausea And Vomiting Pantoprazole Sodium 40 mg 10/22/23 09:00 10/23/23 09:20 Pantoprazole 40 Mg Tablet PO 40 mg DAILY TRAVIS Administration Zinc Sulfate 220 mg 10/22/23 09:00 10/23/23 09:20 Zinc Sulfate 220 Mg Cap PO 220 mg DAILY TRAVIS Administration Intake and Output 10/22/23 10/23/23 10/23/23 22:59 06:59 14:59 Intake Total 225 220 Output Total 550 Balance 225 -550 220 Intake: Oral 225 220 Output: Urine 550 Straight 550 Other: Voiding Method Bedside Commode Bedside Commode Bedpan External Catheter External Catheter # Voids 0 1 # Bowel Movements 1 10/22/23 02:32 10/22/23 02:32
--- NOTE | 2023-10-24 14:15 | P.PN ---
Subjective Progress Note Date: 10/24/23 CHIEF COMPLAINT: Weakness and shortness of breath HISTORY OF PRESENT ILLNESS: Patient denies any abdominal pain. Denies any nausea or vomiting. They're planning discharge today. PHYSICAL EXAM: VITAL SIGNS: Reviewed. GENERAL: Well-developed in no acute distress. ABDOMEN: Soft. Nondistended. Nontender. NEUROLOGIC: Alert and oriented. Cranial nerves II through XII grossly intact. ASSESSMENT: 1. Severe intrahepatic biliary ductal dilatation that seems to have worsened noted on computed tomography scan of abdomen and pelvis 2. PE and DVT right leg 3. History of cholecystectomy several years ago PLAN: -Okay to discharge from surgical standpoint when medically cleared -No surgical intervention planned -Recommend that patient follow up with GI service outpatient for ERCP for further evaluation of intrahepatic and biliary ductal dilatation -Continue regular diet Physician Wire Tinner note has been reviewed by physician. Signing provider agrees with the documented findings, assessment, and plan of care. Objective - Vital Signs Vital signs: Vital Signs Temp 98 F 10/24/23 08:00 Pulse 105 H 10/24/23 08:00 Resp 16 10/24/23 08:00 BP 125/67 10/24/23 08:00 Pulse Ox 100 10/24/23 08:00 FiO2 Intake & Output 10/23/23 10/24/23 10/24/23 18:59 06:59 18:59 Intake Total 220 240 240 Balance 220 240 240 Intake: Oral 220 240 240 Other: Voiding Method Bedpan Bedside Commode External Catheter External Catheter # Voids 2 1 1 - Labs CBC & Chem 7: 10/24/23 08:40 10/24/23 08:40 Labs: Abnormal Lab Results - Last 24 Hours (Table) 10/24/23 10/24/23 Range/Units 08:40 08:40 Lymphocytes # 0.3 L (1.0-4.8) k/uL Sodium 133 L (137-145) mmol/L Glucose 119 H (74-99) mg/dL
--- NOTE | 2023-10-24 14:35 | P.PN ---
Subjective Progress Note Date: 10/24/23 This is a pleasant 83-year-old female patient with a known history of lung cancer recently treated, COVID-19 infection 2-3 weeks ago, thyroid is in, hypertension, gastroesophageal reflux disease. She presented here to the emergency room yesterday increasing weakness and shortness of breath since her CoVID diagnosis. She was treated with Paxlovid in the outpatient setting without much improvement. His x-ray showed ongoing right perihilar opacity. CT angiogram was positive for an acute pulmonary emboli extending through the distal aspect of the right main pulmonary artery throughout the right sided lobar branches and some of the seventh segmental branches as well. No CT evidence of right heart strain. Extensive consolidation/airspace disease throughout the posterior right midlung consistent with lung cancer. There is also severe intrahepatic biliary ductal dilatation. White count 6.3. H emoglobin 12.8. Platelets 313. Sodium 131. Potassium 4.0. Bicarb 21. BUN 22. Creatinine 0.75. Pro-calcitonin 0.08. Initiated on a heparin drip. Echocardiogram is pending. Dopplers of the lower extremity did reveal a positive DVT on the right. He is seen today in consultation on the regular medical floor. She is awake and alert in no acute distress. Sitting up in bed. Denies any worsening shortness of breath, cough or congestion. No chest pain. No hemoptysis. Maintaining good O2 saturations up to 99% on room air. Afebrile. Hemodynamically stable. Patient was reevaluated today on 10/23/2023, patient is now off heparin with transition to eliquis as per protocol. Patient continues to have some shortness of breath upon ambulation or getting out of bed. May be considered for home oxygen. Patient remains on the COVID-19 cocktail for COVID-19 infection, patient is being considered for discharge planning on oral anticoagulation therapy. Patient seems to be quite comfortable, and not in any distress The patient is seen today D 07/25/2023 in follow-up on the selective care unit. She is currently awake and alert in no acute distress. Sitting up in a chair. Maintaining O2 saturations in the 90s on 2 liters nasal canula. She's afebrile. Hemodynamically stable. Denies any worsening shortness of breath, cough or congestion. No hemoptysis. White count 5.5. Hemoglobin 12.4.. Sodium 133. Potassium 3.9. Bicarb 24. BUN 10. Creatinine 0.56. She has been transitioned to Eliquis. She is continued on vitamin supplements. Objective - Vital Signs Vital signs: Vital Signs Temp 98 F 10/24/23 08:00 Pulse 105 H 10/24/23 08:00 Resp 16 10/24/23 08:00 BP 125/67 10/24/23 08:00 Pulse Ox 100 10/24/23 08:00 FiO2 Intake & Output 10/23/23 10/24/23 10/24/23 18:59 06:59 18:59 Intake Total 220 240 240 Balance 220 240 240 Intake: Oral 220 240 240 Other: Voiding Method Bedpan Bedside Commode Bedside Commode External Catheter External Catheter External Catheter # Voids 2 1 1 - Exam GENERAL EXAM: Alert, very pleasant 83-year-old female, up in a chair, on 2 liters oxygen, comfortable in no apparent distress. HEAD: Normocephalic. EYES: Normal reaction of pupils, equal size. NOSE: Clear with pink turbinates. THROAT: No erythema or exudates. NECK: No masses, no JVD. CHEST: No chest wall deformity. LUNGS: Equal air entry with no crackles, wheeze, rhonchi or dullness. CVS: S1 and S2 normal with no audible murmur, regular rhythm. ABDOMEN: No hepatosplenomegaly, normal bowel sounds, no guarding or rigidity. SPINE: No scoliosis or deformity SKIN: No rashes CENTRAL NERVOUS SYSTEM: No focal deficits, tone is normal in all 4 extremities. EXTREMITIES: There is no peripheral edema. No clubbing, no cyanosis. Peripheral pulses are intact. - Labs CBC & Chem 7: 10/24/23 08:40 10/24/23 08:40 Labs: Abnormal Lab Results - Last 24 Hours (Table) 10/24/23 10/24/23 Range/Units 08:40 08:40 Lymphocytes # 0.3 L (1.0-4.8) k/uL Sodium 133 L (137-145) mmol/L Glucose 119 H (74-99) mg/dL Assessment and Plan Assessment: Acute hypoxemic respiratory failure secondary to secondary to acute pulmonary emboli of the right lung suspect secondary to COVID-19 infection and/or recent cancer diagnosis Acute right lower extremity DVT COVID-19 infection, treated with Paxlovid in the outpatient setting Generalized weakness secondary to above Right lower lung consolidation PET scan in July 2023 with abnormal FDG uptake suspicious for neoplastic process. Positive for adenocarcinoma diagnosed at [facility] and had undergone radiation Hypothyroidism Hypertension Gastroesophageal reflux disease Plan: The patient was seen and evaluated Labs and medications reviewed Transitioned to Eliquis Cleared for discharge from the pulmonary standpoint I have personally seen and examined the patient, performed the documentation and the assessment and plan as written. Number of minutes spent on the visit: 10.
--- NOTE | 2023-10-24 15:24 | P.DS ---
Providers Date of admission: 10/21/23 12:30 Expected date of discharge: 10/24/23 Attending physician: Conor Lopez MD Consults: 10/21/23 21:06 Consult Physician Routine Consulting Provider: Danielle Kulkarni Consult Reason/Comments: pe, pul consolidation , covid Do you want consulting provider notified?: Yes, Notify in am 10/21/23 21:10 Consult Physician Routine Consulting Provider: Orlando Welch Consult Reason/Comments: dilated intrabiliary tract , r/u intraabd disease Do you want consulting provider notified?: Yes, Notify in am 10/22/23 08:32 Consult Physician Urgent Consulting Provider: Orlando Welch Consult Reason/Comments: dilated biliary tract Do you want consulting provider notified?: Yes 10/23/23 12:02 Consult Physician Routine Consulting Provider: London Oquendo Consult Reason/Comments: hypotension Do you want consulting provider notified?: Yes Primary care physician: Dianna Rodriguez Hospital Course: Final Diagnoses: Acute right pulmonary embolism suspect related to COVID-19 infection and possibly recent cancer diagnosis. Patient to follow-up with oncology radiologist as previously scheduled. Acute Right lower extremity deep vein thrombosis Hypotension, REYMUNDO inhibitor discontinued. EF 55-60% Severe intrahepatic biliary ductal dilatation that appears to have worsened as reported per computed tomography, follow-up with GI outpatient SARS-CoV-2 PCR positive Right lower lobe masslike consolidation, reported per CT, suspicious for malignancy, further workup /evaluation outpatient. Recent abnormal PET scan 08/05/2023, reporting worsening right lower lung consolidation with surrounding groundglass changes, additionally there is focus of abnormal FDG activity present suspicious for neoplastic process. Hospital course: 10/22/23 This is an 83-year-old female with past medical history significant for lung cancer,recent Covid 2-3 weeks ago, and multiple other medical issues admitted with shortness of breath accompanying diarrhea progressing weakness. Chest CTA reported acute pulmonary emboli extending through the distal aspect of right main pulmonary artery, right-sided lobar branches and some segmental branches throughout the right lung lobes moderate overall burden on the right. No evidence for right heart strain. Doppler positive right lower extremity DVT. Echo pending. Evaluated by vascular surgery, heparin drip initiated. CTA also reported severe intrahepatic biliary ductal dilation that worsened. Evaluated by general surgery with no surgical intervention recommended .Denies nausea vomiting or diarrhea. Denies abdominal pain. Denies chest pain, palpitations. Mild shortness of breath. 10/23/2023 transitioned to oral anticoagulant. Tolerating well. This morning, patient hypotensive, 97/55 lying, 79/49 sitting and 81/55 standing with heart rates ranging from 117-121, REYMUNDO inhibitor discontinued. Denies chest pain, palpitations. Reports exertional shortness of breath. Maintain oral anticoagulation. Symptomatic hypotension , REYMUNDO inhibitor discontinued, discharge held , cardiology consulted. 10/24/2023 significant clinical improvement. Fever during the night , attributing it to pink PE. WBC within normal limits . Sitting up in a chair, maintaining O2 sats in the 90s on 2 L nasal cannula. Blood pressure stable with just continuation of REYMUNDO inhibitor. Patient has been up in room ambulating, tolerated exertion well. Denies lightheadedness dizziness or focal deficits. Denies chest pain, palpitations or increased shortness of breath. Denies nausea vomiting or diarrhea. Evaluated by cardiology, cleared for discharge. Cleared by pulmonary and general surgery as well for discharge. Patient will be discharged home today with home care in a stable condition with guarded prognosis. The impression and plan of care has been dictated as directed. : I performed a history and examination of this patient, discussed the same with the dictator. I agree with the dictator's note ,documented as a scribe. Any additional findings or plans will be noted. Patient Condition at Discharge: Stable Plan - Discharge Summary New Discharge Prescriptions: New Apixaban [Eliquis Starter Pack (for VTE)] 5 - 10 mg PO DIRECTED 30 Days #1 each Ascorbic Acid [Vitamin C] 1,000 mg PO DAILY tab HYDROcodone/APAP 5-325MG [[place] 5-325] 1 each PO Q6H PRN 3 Days #12 tab PRN Reason: Pain Zinc Sulfate [Orazinc] 220 mg PO DAILY #30 cap Acetaminophen Tab [Tylenol] 650 mg PO Q6HR PRN tab PRN Reason: Mild Pain Or Fever > 100.5 Continue Aspirin EC [Ecotrin Low Dose] 81 mg PO DAILY Omeprazole [PriLOSEC] 20 mg PO DAILY Levothyroxine Sodium [Synthroid] 75 mcg PO DAILY Ezetimibe [Zetia] 10 mg PO DAILY Albuterol Inhaler [Ventolin Hfa Inhaler] 1 - 2 puff INHALATION RT-Q6H PRN PRN Reason: Shortness Of Breath Benzonatate [Tessalon Perle] 200 mg PO TID PRN PRN Reason: Cough Cholecalciferol [Vitamin D3 (25 Mcg = 1000 Iu)] 25 mcg PO MOWEFR Discontinued lisinopriL [Prinivil] 10 mg PO DAILY predniSONE See Taper PO DIRECTED Discharge Medication List Aspirin EC [Ecotrin Low Dose] 81 mg PO DAILY 01/14/15 [History] Omeprazole [PriLOSEC] 20 mg PO DAILY 01/14/15 [History] Levothyroxine Sodium [Synthroid] 75 mcg PO DAILY 08/23/20 [History] Cholecalciferol [Vitamin D3 (25 Mcg = 1000 Iu)] 25 mcg PO MOWEFR 09/11/21 [History] Ezetimibe [Zetia] 10 mg PO DAILY 09/11/21 [History] Albuterol Inhaler [Ventolin Hfa Inhaler] 1 - 2 puff INHALATION RT-Q6H PRN 10/21/23 [History] Benzonatate [Tessalon Perle] 200 mg PO TID PRN 10/21/23 [History] Apixaban [Eliquis Starter Pack (for VTE)] 5 - 10 mg PO DIRECTED 30 Days #1 each 10/22/23 [Rx] Acetaminophen Tab [Tylenol] 650 mg PO Q6HR PRN tab 10/23/23 [Rx] Ascorbic Acid [Vitamin C] 1,000 mg PO DAILY tab 10/23/23 [Rx] HYDROcodone/APAP 5-325MG [[place] 5-325] 1 each PO Q6H PRN 3 Days #12 tab 10/23/23 [Rx] Zinc Sulfate [Orazinc] 220 mg PO DAILY #30 cap 10/23/23 [Rx] Follow up Appointment(s)/Referral(s): [facility], [NON-STAFF] - Conor Lopez MD [STAFF PHYSICIAN] - 3 Days London Oquendo DO [STAFF PHYSICIAN] - 1 Week (office will call with an appt.) [facility] [NON-STAFF] - Filomena Mansfield MD [STAFF PHYSICIAN] - 1 Week (intrahepatic biliary ductal dilatation) Patient Instructions/Handouts: Pulmonary Embolism (DC), Deep Vein Thrombosis (DC) Discharge Disposition: HOME WITH HOME HEALTH SERVICES
== END 2023-10-24 13:10 | disposition home health service (06) ==
LOC: EC 09:43 → OR 12:30 → UNDOADMIN 12:30 → 3SCARD 12:30 → UNDODISIN 10-24 13:10 → OR 10-24 13:10
PROVIDERS: ATTEND Family Medicine
DX: I82.413 Acute embolism and thrombosis of femoral vein, bilateral (principal); I10 Essential (primary) hypertension; M79.7 Fibromyalgia; D33.3 Benign neoplasm of cranial nerves; Z90.49 Acquired absence of other specified parts of digestive tract; Z98.890 Other specified postprocedural states; Z79.899 Other long term (current) drug therapy; Z79.82 Long term (current) use of aspirin
CPT/HCPCS: 96361; 96365; 96366; 96375; 99291; 36415; 94640; 93005; 93308; 85379; 83880; 80053; 80048 ×2; 80076; 87449; 82550; 83605; 83615; 83735; 84484; 85025 ×3; 85610; 85730 ×3; 86140; 81003; 84145; 87636; 71046; 93970; 71275; J3490 ×4; J1644 ×2; Q9967

== ENCOUNTER 2023-11-15 21:24 | Inpatient (IN) | payer MEDICARE ==
[2023-11-15] MEDS: SODIUM CHLORIDE 0.9% 1,000 ML IV STA ×2 (21:45→22:56)
[2023-11-15 21:48] LABS: Basophils # (A) 0.1 k/uL (0-0.2); Basophils % (A) 1 %; Eosinophils # (A) 0.6 k/uL (0-0.7); Eosinophils % (A) 6 %; HCT 38.2 % (34.0-46.0); HGB 12.1 gm/dL (11.4-16.0); Hypochromasia Slight; Lymphocytes # (A) 1.4 k/uL (1.0-4.8); Lymphocytes % (A) 14 %; MCH 29.3 pg (25.0-35.0); MCHC 31.7 g/dL (31.0-37.0); MCV 92.5 fL (80.0-100.0); Mean Platelet Volume 6.8; Monocytes # (A) 0.6 k/uL (0-1.0); Monocytes % (A) 6 %; Neutrophils # (A) 7.2 k/uL (1.3-7.7); Neutrophils % (A) 71 %; RBC 4.13 m/uL (3.80-5.40); WBC 10.1 k/uL (3.8-10.6)
--- NOTE | 2023-11-15 21:49 | ED ---
Abdominal Pain HPI - General Chief Complaint: Abdominal Pain Stated Complaint: MYRNA, flank pain Time Seen by Provider: 11/15/23 21:25 Source: patient, EMS, RN notes reviewed, old records reviewed, Caregiver Mode of arrival: EMS Limitations: no limitations - History of Present Illness Initial Comments: This is a 83-year-old female to the emergency room after she for evaluation of shortness of breath. Severe shortness of breath here in the ER shortness of breath with right-sided abdominal pain and right flank pain. Pain is significantly patient is no travel history no sick contacts recent diagnosis of lung cancer with shortness of breath but that shortness of breath today significantly worsening with elevated heart rate MD Complaint: abdominal pain, other (0) -: days(s) Location: diffuse, suprapubic Radiation: suprapubic Migration to: suprapubic Severity: moderate Severity scale (1-10): 7 Quality: sharp Consistency: constant Improves With: nothing Worsens With: nothing Associated Symptoms: nausea, vomiting - Related Data Home Medications Medication Instructions Recorded Confirmed Aspirin EC [Ecotrin Low Dose] 81 mg PO DAILY 01/14/15 11/16/23 Omeprazole [PriLOSEC] 20 mg PO DAILY 01/14/15 11/16/23 Levothyroxine Sodium [Synthroid] 75 mcg PO DAILY 08/23/20 11/16/23 Cholecalciferol [Vitamin D3 (25 25 mcg PO MOWEFR 09/11/21 11/16/23 Mcg = 1000 Iu)] Ezetimibe [Zetia] 10 mg PO DAILY 09/11/21 11/16/23 Albuterol Inhaler [Ventolin Hfa 1 - 2 puff INHALATION RT-Q6H PRN 10/21/23 11/16/23 Inhaler] Benzonatate [Tessalon Perle] 200 mg PO TID PRN 10/21/23 11/16/23 Apixaban [Eliquis] 2.5 mg PO BID 11/16/23 11/16/23 Fluticasone Nasal [place] [Flonase 2 spray EA NOSTRIL DAILY 11/16/23 11/16/23 Nasal [place]] Previous Rx's Medication Instructions Recorded Acetaminophen Tab [Tylenol] 650 mg PO Q6HR PRN tab 10/23/23 Ascorbic Acid [Vitamin C] 1,000 mg PO DAILY tab 10/23/23 Zinc Sulfate [Orazinc] 220 mg PO DAILY #30 cap 10/23/23 Amoxic-Pot Clav 875-125Mg 1 tab PO BID 7 Days #14 tab 11/19/23 [Augmentin 875-125] predniSONE 10 mg PO DIRECTED #30 tab 11/19/23 Allergies Allergy/AdvReac Type Severity Reaction Status Date / Time ciprofloxacin [From Cipro] AdvReac Abdominal Verified 11/16/23 09:50 Pain, Nausea, vomiting ciprofloxacin HCl AdvReac Abdominal Verified 11/16/23 09:50 [From Cipro] Pain, Nausea, vomiting desvenlafaxine [From Pristiq] AdvReac Confusion Verified 11/16/23 09:50 duloxetine [From Cymbalta] AdvReac Confusion Verified 11/16/23 09:50 hydrocodone [From Vicodin] AdvReac flushed, Verified 11/16/23 09:50 red face hydroxychloroquine sulfate AdvReac Confusion Verified 11/16/23 09:50 [From Plaquenil] milnacipran [From Savella] AdvReac Confusion Verified 11/16/23 09:50 nitrofurantoin AdvReac Abdominal Verified 11/16/23 09:50 [From Macrobid] Pain, Nausea, vomiting nitrofurantoin AdvReac Abdominal Verified 11/16/23 09:50 macrocrystalline Pain, [From Macrobid] Nausea, vomiting pregabalin [From Lyrica] AdvReac VERTIGO, Verified 11/16/23 09:50 confusion sucralfate [From Carafate] AdvReac VERTIGO, Verified 11/16/23 09:50 [place] like she "was going to pass out" sulfamethoxazole AdvReac Abdominal Verified 11/16/23 09:50 [From Bactrim] Pain, Nausea, vomiting trimethoprim [From Bactrim] AdvReac Abdominal Verified 11/16/23 09:50 Pain, Nausea, vomiting Review of Systems ROS Statement: Those systems with pertinent positive or pertinent negative responses have been documented in the HPI. ROS Other: All systems not noted in ROS Statement are negative. Past Medical History Past Medical History: Cancer, Fibromyalgia, Hypertension, Pulmonary Embolus (PE) Additional Past Medical History / Comment(s): acoustic neuroma, DEAF RT EAR. RIGHT HAND INDEX FINGER INFECTION. 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, MRSA Date of last positivie culture/infection: 12/03/15 MRSA; 03/27/15-ESBL MDRO Source:: Right 2nd Finger MRSA; Urine E.coli ESBL Past Surgical History: Cholecystectomy, Ear Surgery Additional Past Surgical History / Comment(s): right shoulder, right hand , BRAIN SURGERY, [facility], abscess lanced in groin, decompression of R balance system Past Anesthesia/Blood Transfusion Reactions: Family History of Problems w/ Anesthesia, Motion Sickness Additional Past Anesthesia/Blood Transfusion Reaction / Comment(s): brother had to be revived after anesthesia Past Psychological History: No Psychological Hx Reported Smoking Status: Never smoker Past Alcohol Use History: None Reported Past Drug Use History: None Reported - Past Family History Mother Family Medical History: No Reported History General Exam Limitations: no limitations General appearance: alert, in no apparent distress, anxious, in distress Head exam: Present: atraumatic, normocephalic, normal inspection Eye exam: Present: normal appearance, PERRL, EOMI. Absent: scleral icterus, conjunctival injection, periorbital swelling ENT exam: Present: normal exam, mucous membranes moist Neck exam: Present: normal inspection. Absent: tenderness, meningismus, lymp hadenopathy Respiratory exam: Present: respiratory distress, accessory muscle use, decreased breath sounds, prolonged expiratory. Absent: wheezes, rales, rhonchi, stridor Cardiovascular Exam: Present: normal rhythm, tachycardia, normal heart sounds. Absent: systolic murmur, diastolic murmur, rubs, gallop, clicks GI/Abdominal exam: Present: soft, normal bowel sounds. Absent: distended, tenderness, guarding, rebound, rigid Extremities exam: Present: normal inspection, full ROM, normal capillary refill. Absent: tenderness, pedal edema, joint swelling, calf tenderness Back exam: Present: normal inspection Neurological exam: Present: alert, oriented X3, CN II-XII intact Psychiatric exam: Present: normal affect, normal mood Skin exam: Present: warm, dry, intact, normal color. Absent: rash Course Vital Signs 11/15/23 11/15/23 11/16/23 21:27 22:21 00:08 Temperature 98.6 F Pulse Rate 125 H 104 H 103 H Respiratory 28 H 22 20 Rate Blood Pressure 138/79 128/65 130/74 O2 Sat by Pulse 99 97 97 Oximetry 11/16/23 11/16/23 11/16/23 01:54 02:45 02:53 Temperature Pulse Rate 109 H 109 H 116 H Respiratory 16 Rate Blood Pressure 119/80 O2 Sat by Pulse 96 Oximetry 11/16/23 02:55 Temperature Pulse Rate 116 H Respiratory 16 Rate Blood Pressure 114/86 O2 Sat by Pulse 97 Oximetry - Reevaluation(s) Reevaluation #1: 11/15/23 23:50 Record is reviewed Reevaluation #2: Patient symptoms are unchanged Reevaluation #3: Patient informed of results and questions answered Reevaluation #4: 11/15/23 23:50 Was pt. sent in by a medical professional or institution ([facility], [facility], urgent care, hospital, or penitentiary...) When possible be specific @ -no Did you speak to anyone other than the patient for history (EMS, parent, family, police, friend...)? What history was obtained from this source @ -no Did you review nursing and triage notes (agree or disagree)? Why? @ -agree Are old charts reviewed (outside hosp., previous admission, EMS record, old EKG, old radiological studies, urgent care reports/EKG's, penitentiary records)? Report findings @ -yes Differential Diagnosis (chest pain, altered mental status, abdominal pain women, abdominal pain men, vaginal bleeding, weakness, fever, dyspnea, syncope, headache, dizziness, GI bleed, back pain, seizure, CVA, palpatations, mental health, musculoskeletal)? @ -prior EKG interpreted by me (3pts min.). @ -yes X-rays interpreted by me (1pt min.). @ -no CT interpreted by me (1pt min.). @ -yes is positive for pneumonia U/S interpreted by me (1pt. min.). @ -no What testing was considered but not performed or refused? (CT, X-rays, U/S, labs)? Why? @ -none What meds were considered but not given or refused? Why? @ -none Did you discuss the management of the patient with other professionals (professionals i.e. [facility], [facility], lab, RT, psych nurse, social welfare clerk, slot shift supervisor, teacher, staff electronic warfare officer, case folder)? Give summary @ -no Was smoking cessation discussed for >3mins.? @ -no Was critical care preformed (if so, how long)? @ -no Were there social determinants of health that impacted care today? How? (Homelessness, low income, unemployed, alcoholism, drug addiction, transporta tion, low edu. Level, literacy, decrease access to med. care, assisted, rehab)? @ -none Was there de-escalation of care discussed even if they declined (Discuss DNR or withdrawal of care, Hospice)? DNR status @ -no What co-morbidities impacted this encounter? (DM, HTN, Smoking, COPD, CAD, Cancer, CVA, ARF, Chemo, Hep., AIDS, mental health diagnosis, sleep apnea, morbid obesity)? @ -none Was patient admitted / discharged? Hospital course, mention meds given and route, prescriptions, significant lab abnormalities, going to OR and other pertinent info. @ - 88 male to the emergency department for evaluation today. Patient presents today for evaluation regards to fever with pneumonia, patient is in no acute distress does have baseline altered mental status does appear to be maybe mildly worse at baseline. Patient be admitted for IV antibiotics Admitted Undiagnosed new problem with uncertain prognosis? @ -no Drug Therapy requiring intensive monitoring for toxicity (Heparin, Nitro, Insulin, Cardizem)? @ -no Were any procedures done? @ -no Diagnosis/symptom? @ -Pneumonia, chest pain, abdominal pain Acute, or Chronic, or Acute on Chronic? @ -Acute Uncomplicated (without systemic symptoms) or Complicated (systemic symptoms)? @ -Complicated Side effects of treatment? @ -no Exacerbation, Progression, or Severe Exacerbation? @ -exacerbation Poses a threat to life or bodily function? How? (Chest pain, [place], MA, pneumonia, PE, COPD, DKA, ARF, appy, cholecystitis, CVA, Diverticulitis, Homicidal, Suicidal, threat to staff... and all critical care pts) @ -yes with extremes of age and cancer Reevaluation #5: 11/15/23 23:50 Differential Abdominal Pain Women: Appendicitis, Cholecystitis, diverticulosis, ischemic bowel, pancreatitis, h epatitis, UTI, gastroenteritis, AAA, incarcerated hernia, bowel obstruction, constipation, inflammatory bowel, hepatitis, peptic ulcer disease, splenic infarction, perforated viscus, vulvitis, ovarian torsion, PID, kidney stone, placenta abruption, this is not meant to be an all-inclusive list Dyspnea: Coronary syndrome, arrhythmia, tamponade, asthma, COPD, pulmonary embolism, pneumonia, pneumothorax, pulmonary effusion, anaphylaxis, diabetic ketoacidosis, flailed chest, pulmonary contusion, diaphragmatic rupture, anemia, neuromuscular, this is not meant to be an all-inclusive list. - Consultations Consultation #1: Spoke with admitting physicians who agree to admit this patient Medical Decision Making - Medical Decision Making 83 female the emergency department today for evaluation of abdominal pain back pain positive for pneumonia. Patient be admitted for IV antibiotics - Lab Data Result diagrams: 11/18/23 06:01 11/18/23 06:01 Lab Results 11/15/23 11/15/23 11/15/23 Range/Units 21:35 21:35 21:35 WBC 10.1 (3.8-10.6) k/uL RBC 4.13 (3.80-5.40) m/uL Hgb 12.1 (11.4-16.0) gm/dL Hct 38.2 (34.0-46.0) % MCV 92.5 (80.0-100.0) fL MCH 29.3 (25.0-35.0) pg MCHC 31.7 (31.0-37.0) g/dL RDW 15.0 (11.5-15.5) % Plt Count 867 H D (150-450) k/uL MPV 6.8 Neutrophils % 71 % Lymphocytes % 14 % Monocytes % 6 % Eosinophils % 6 % Basophils % 1 % Neutrophils # 7.2 (1.3-7.7) k/uL Lymphocytes # 1.4 (1.0-4.8) k/uL Monocytes # 0.6 (0-1.0) k/uL Eosinophils # 0.6 (0-0.7) k/uL Basophils # 0.1 (0-0.2) k/uL Hypochromasia Slight PT 11.6 (10.0-12.5) sec INR 1.1 (<1.2) APTT 26.2 (22.0-30.0) sec D-Dimer 0.49 (<0.60) mg/L FEU Sodium 133 L (137-145) mmol/L Potassium 4.4 (3.5-5.1) mmol/L Chloride 99 (98-107) mmol/L Carbon Dioxide 28 (22-30) mmol/L Anion Gap 6 mmol/L BUN 16 (7-17) mg/dL Creatinine 0.63 (0.52-1.04) mg/dL Est GFR (CKD-EPI)AfAm >90 (>60 ml/min/1.73 sqM) Est GFR (CKD-EPI)NonAf 83 (>60 ml/min/1.73 sqM) Glucose 104 H (74-99) mg/dL Plasma Lactic Acid Henry (0.7-2.0) mmol/L Calcium 8.8 (8.4-10.2) mg/dL Phosphorus 3.2 (2.5-4.5) mg/dL Magnesium 2.2 (1.6-2.3) mg/dL Total Bilirubin 0.5 (0.2-1.3) mg/dL AST 23 (14-36) U/L ALT 15 (4-34) U/L Alkaline Phosphatase 112 (38-126) U/L Troponin I (0.000-0.034) ng/mL Total Protein 5.7 L (6.3-8.2) g/dL Albumin 2.6 L (3.5-5.0) g/dL Lipase 120 (23-300) U/L 11/15/23 11/15/23 Range/Units 21:35 21:35 WBC (3.8-10.6) k/uL RBC (3.80-5.40) m/uL Hgb (11.4-16.0) gm/dL Hct (34.0-46.0) % MCV (80.0-100.0) fL MCH (25.0-35.0) pg MCHC (31.0-37.0) g/dL RDW (11.5-15.5) % Plt Count (150-450) k/uL MPV Neutrophils % % Lymphocytes % % Monocytes % % Eosinophils % % Basophils % % Neutrophils # (1.3-7.7) k/uL Lymphocytes # (1.0-4.8) k/uL Monocytes # (0-1.0) k/uL Eosinophils # (0-0.7) k/uL Basophils # (0-0.2) k/uL Hypochromasia PT (10.0-12.5) sec INR (<1.2) APTT (22.0-30.0) sec D-Dimer (<0.60) mg/L FEU Sodium (137-145) mmol/L Potassium (3.5-5.1) mmol/L Chloride (98-107) mmol/L Carbon Dioxide (22-30) mmol/L Anion Gap mmol/L BUN (7-17) mg/dL Creatinine (0.52-1.04) mg/dL Est GFR (CKD-EPI)AfAm (>60 ml/min/1.73 sqM) Est GFR (CKD-EPI)NonAf (>60 ml/min/1.73 sqM) Glucose (74-99) mg/dL Plasma Lactic Acid [place] 2.0 (0.7-2.0) mmol/L Calcium (8.4-10.2) mg/dL Phosphorus (2.5-4.5) mg/dL Magnesium (1.6-2.3) mg/dL Total Bilirubin (0.2-1.3) mg/dL AST (14-36) U/L ALT (4-34) U/L Alkaline Phosphatase (38-126) U/L Troponin I <0.012 (0.000-0.034) ng/mL Total Protein (6.3-8.2) g/dL Albumin (3.5-5.0) g/dL Lipase (23-300) U/L - EKG Data -: EKG Interpreted by Me (EKG is sinus 122 MS 122 QRS 60 QTC 370) - Radiology Data Radiology results: report reviewed (CT chest abdomen pelvis is positive for acute pneumonia), image reviewed Disposition Clinical Impression: Abdominal pain, Chest pain, Dyspnea, Lung cancer, Right lower lobe pneumonia, Pneumonia Disposition: ADMITTED IP TO THIS HOSP Condition: Stable Is patient prescribed a controlled substance at d/c from ED?: No Time of Disposition: 02:00
[2023-11-15 22:00] LABS: ALT 15 U/L (4-34); AST 23 U/L (14-36); African American GFR (CKD) >90 (>60 ml/min/1.73 sqM); Albumin 2.6 g/dL (3.5-5.0); Alkaline Phosphatase 112 U/L (38-126); Anion Gap 6 mmol/L; Blood Urea Nitrogen 16 mg/dL (7-17); Calcium 8.8 mg/dL (8.4-10.2); Carbon Dioxide 28 mmol/L (22-30); Chloride 99 mmol/L (98-107); Glucose 104 mg/dL (74-99); Lipase 120 U/L (23-300); Magnesium 2.2 mg/dL (1.6-2.3); Non-African American GFR(CKD) 83 (>60 ml/min/1.73 sqM); Phosphorus 3.2 mg/dL (2.5-4.5); Potassium 4.4 mmol/L (3.5-5.1); Sodium 133 mmol/L (137-145); Total Bilirubin 0.5 mg/dL (0.2-1.3); Total Protein 5.7 g/dL (6.3-8.2)
[2023-11-15 22:07] LABS: Platelet Count 867 k/uL (150-450)
[2023-11-15 22:21] LABS: INR 1.1 (<1.2); Partial Thromboplastin Time 26.2 sec (22.0-30.0); Prothrombin Time 11.6 sec (10.0-12.5)
[2023-11-15] MEDS: methylPREDNISolone SOD SUCCI 125 MG/2 ML VIAL IV STA (22:59)
--- NOTE | 2023-11-15 23:56 | CT ---
EXAM: CT Angiography Chest With Intravenous Contrast CLINICAL HISTORY: ITS.REASON CT Reason: pain TECHNIQUE: Axial computed tomographic angiography images of the chest with intravenous contrast. CTDI is 10 mGy and DLP is 233.2 mGy-cm. This CT exam was performed using one or more of the following dose reduction techniques: automated exposure control, adjustment of the mA and/or kV according to patient size, and/or use of iterative reconstruction technique. MIP reconstructed images were created and reviewed. COMPARISON: No relevant prior studies available. FINDINGS: Pulmonary arteries: Unremarkable. No acute pulmonary embolism. Aorta: Atherosclerotic changes of the aorta. No thoracic aortic aneurysm. Lungs: Airspace consolidations in the RIGHT upper and lower lobes, consistent with severe multilobar pneumonia. Mild patchy infiltrates are also present in the lingula. Pleural space: Unremarkable. No significant effusion. No pneumothorax. Heart: Unremarkable. No cardiomegaly. No significant pericardial effusion. No evidence of RV dysfunction. Bones/joints: Degenerative changes of the spine. No acute fracture. No dislocation. Soft tissues: Unremarkable. Lymph nodes: Unremarkable. No enlarged lymph nodes. Gallbladder and bile ducts: Severe intrahepatic biliary ductal dilation. Cholecystectomy. IMPRESSION: 1. Airspace consolidations in the RIGHT upper and lower lobes, consistent with severe multilobar pneumonia. Mild patchy infiltrates are also present in the lingula. 2. No acute pulmonary embolism. 3. Severe intrahepatic biliary ductal dilation. Cholecystectomy.
--- NOTE | 2023-11-16 00:32 | CT ---
EXAM: CT Abdomen and Pelvis With Intravenous Contrast CLINICAL HISTORY: ITS.REASON CT Reason: pain TECHNIQUE: Axial computed tomography images of the abdomen and pelvis with intravenous contrast. CTDI is 18 mGy and DLP is 722.2 mGy-cm. This CT exam was performed using one or more of the following dose reduction techniques: automated exposure control, adjustment of the mA and/or kV according to patient size, and/or use of iterative reconstruction technique. COMPARISON: No relevant prior studies available. FINDINGS: Lung bases: Consolidation at the RIGHT lung base, correlate for new aspiration pneumonia. ABDOMEN: Liver: Unremarkable. No mass. Gallbladder and bile ducts: Cholecystectomy. Severe intrahepatic biliary ductal dilation. Pancreas: Unremarkable. No mass. No ductal dilation. Spleen: Unremarkable. No splenomegaly. Adrenals: Unremarkable. No mass. Kidneys and ureters: Unremarkable. No solid mass. No hydronephrosis. Stomach and bowel: Diverticulosis, without acute diverticulitis. No bowel obstruction. No free air. PELVIS: Appendix: No findings to suggest acute appendicitis. Bladder: Unremarkable. No mass. Reproductive: Atrophied uterus. ABDOMEN and PELVIS: Intraperitoneal space: See above. Bones/joints: Degenerative changes of the spine. No acute fracture. No dislocation. Soft tissues: Unremarkable. Vasculature: Atherosclerotic changes of the aorta. No abdominal aortic aneurysm. Lymph nodes: Unremarkable. No enlarged lymph nodes. IMPRESSION: 1. Consolidation at the RIGHT lung base, correlate for new aspiration pneumonia. 2. Cholecystectomy. Severe intrahepatic biliary ductal dilation. 3. Diverticulosis, without acute diverticulitis. No bowel obstruction. No free air.
[2023-11-16] MEDS: MORPHINE SULFATE 4 MG/ML SYRINGE IVP STA (01:41)
[2023-11-16] MEDS: KETOROLAC 15 MG/ML 1 ML VIAL IVP STA (01:48)
[2023-11-16] MEDS ORDERED: ALBUTEROL NEBULIZED 2.5 MG/3 ML INHALATION PRN (01:49)
[2023-11-16] MEDS ORDERED: PNEUMONIA PROTOCOL UTILIZED 1 EACH MISC PO PRN (01:49)
[2023-11-16] MEDS ORDERED: AZITHROMYCIN 500 MG in SODIUM CHLORIDE 0.9% 250 ML IVPB STA (01:49)
[2023-11-16] MEDS: ACETAMINOPHEN IV (For NPO) 1,000 MG in EMPTY BAG 1 BAG IVPB ONE (02:41)
[2023-11-16] MEDS: IPRATROPIUM-ALBUTEROL 3 ML NEB INHALATION STA ×2 (02:44)
[2023-11-16] MEDS: PIPERACILLIN-TAZOBACTAM 3.375 GM in SODIUM CHLORIDE 0.9% 100 ML IVPB STA (04:25)
[2023-11-16] MEDS: SODIUM CHLORIDE 0.9% 1,000 ML IV SCH (04:28)
[2023-11-16] MEDS: AZITHROMYCIN 500 MG in SODIUM CHLORIDE 0.9% 250 ML IVPB SCH (05:10)
[2023-11-16] MEDS ORDERED: HYDROcodone/APAP 5-325MG 1 EACH TAB PO PRN (08:37)
[2023-11-16] MEDS: ASPIRIN 81 MG PO SCH (09:06)
[2023-11-16] MEDS: PANTOPRAZOLE 40 MG TABLET PO SCH (09:06)
[2023-11-16] MEDS: LEVOTHYROXINE 75 MCG TAB PO SCH (09:06)
[2023-11-16] MEDS: APIXABAN 5 MG TAB PO SCH (09:06)
[2023-11-16] MEDS ORDERED: PIPERACILLIN-TAZOBACTAM 3.375 GM in SODIUM CHLORIDE 0.9% 100 ML IVPB SCH (10:00)
[2023-11-16] MEDS: PIPERACILLIN-TAZOBACTAM 3.375 GM in SODIUM CHLORIDE 0.9% 100 ML IVPB SCH (12:16)
--- NOTE | 2023-11-16 15:49 | P.CONS ---
History of Present Illness - Reason for Consult Consult date: 11/16/23 lung cancer Requesting physician: Zach Roman - Chief Complaint SOB - History of Present Illness Patient is an 83 year old female who initially followed with Dr. Mathis for iron deficiency anemia. She was referred back to our clini in 07/2023 for lung mass. The patient had had MRI of the back for her chronic back pain, which incidentally revealed a right lung mass. The patient therefore had a CT of the chest abdomen and pelvis on 07/19/23 with contrast. This showed a 6.6 x 3.3 cm mass versus dense consolidation in the posterior medial right mid lung. There was a 1.1 cm right hilar node. PET scan showed areas of consolidation in the right lower lobe most consistent with inflammation, with one nodule that was FDG avid, concerning for malignancy, measuring 2.9 cm. MRI of the brain showed the known acoustic neuroma and postsurgical changes. Biopsy of the right lung nodule confirmed pulmonary adenocarcinoma. We discussed ended options of surgery, versus definitive radiation. The patient was felt to be a poor candidate for surgery medically, and did not want the same herself either. She was therefore seen by radiation oncology, and was started on definitive radiation completing 15 fractions in 2022. We discussed recent data utilizing immune checkpoint inhibitor immunotherapy after definitive radiation, showing significant improvement in event free survival. Prior auth was sent for regimen, but patient has missed 3 office visits since last visit with Dr. Mathis on 09/13, due to COVID and hospitalizations. Patient presented to the emergency room with complaints of shortness of breath, cough, and right flank/ side pain. Patient was diagnosed with COVID at the end of September and daughter states that she has never fully recovered. Patient denies hemoptysis. Denies fever and chills. Denies nausea vomiting. Denies urinary complaints. Upon admission CT abdomen and pelvis revealed consolidation of the right lung base. Cholecystectomy with severe intrahepatic biliary ductal dilation. Diverticulosis without diverticulitis and no evidence of bowel obstruction or free air. CT chest was negative for pulmonary embolism. Air space consolidation in the right upper and lower lobes consistent with severe multilobar pneumonia. Mild patchy infiltrates present in the lingula. Patient has been started on azithromycin and Zosyn. CBC revealed WBC 10.1, hemoglobin 12.1, platelets 867,000. Coags and d-dimer WNL. LFTs and bilirubin normal. Patient is afebrile, SPO2 97% on 4 L. Review of Systems 10 point ROS is negative except as stated in the HPI Past Medical History Past Medical History: Cancer, Deep Vein Thrombosis (DVT), Fibromyalgia, Hypertension, Pulmonary Embolus (PE) Additional Past Medical History / Comment(s): acoustic neuroma, DEAF RT EAR. RIGHT HAND INDEX FINGER INFECTION. 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, MRSA Year Discovered:: 12/03/15 MRSA; 03/27/15-ESBL MDRO Source:: Right 2nd Finger MRSA; Urine E.coli ESBL Past Surgical History: Cholecystectomy, Ear Surgery Additional Past Surgical History / Comment(s): right shoulder, right hand , BRAIN SURGERY, [facility], abscess lanced in groin, decompression of R balance system Past Anesthesia/Blood Transfusion Reactions: Family History of Problems w/ Anesthesia, Motion Sickness Additional Past Anesthesia/Blood Transfusion Reaction / Comm: brother had to be revived after anesthesia Past Psychological History: No Psychological Hx Reported Smoking Status: Never smoker Past Alcohol Use History: None Reported Past Drug Use History: None Reported - Past Family History Mother Family Medical History: No Reported History Medications and Allergies Home Medications Medication Instructions Recorded Confirmed Type Aspirin EC [Ecotrin Low Dose] 81 mg PO DAILY 01/14/15 11/16/23 History Omeprazole [PriLOSEC] 20 mg PO DAILY 01/14/15 11/16/23 History Levothyroxine Sodium [Synthroid] 75 mcg PO DAILY 08/23/20 11/16/23 History Cholecalciferol [Vitamin D3 (25 25 mcg PO MOWEFR 09/11/21 11/16/23 History Mcg = 1000 Iu)] Ezetimibe [Zetia] 10 mg PO DAILY 09/11/21 11/16/23 History Albuterol Inhaler [Ventolin Hfa 1 - 2 puff INHALATION RT-Q6H PRN 10/21/23 11/16/23 History Inhaler] Benzonatate [Tessalon Perle] 200 mg PO TID PRN 10/21/23 11/16/23 History Acetaminophen Tab [Tylenol] 650 mg PO Q6HR PRN tab 10/23/23 11/16/23 Rx Ascorbic Acid [Vitamin C] 1,000 mg PO DAILY tab 10/23/23 11/16/23 Rx Zinc Sulfate [Orazinc] 220 mg PO DAILY #30 cap 10/23/23 11/16/23 Rx Apixaban [Eliquis] 2.5 mg PO BID 11/16/23 11/16/23 History Fluticasone Nasal [place] [Flonase 2 spray EA NOSTRIL DAILY 11/16/23 11/16/23 History Nasal [place]] Allergies Allergy/AdvReac Type Severity Reaction Status Date / Time ciprofloxacin [From Cipro] AdvReac Abdominal Verified 11/16/23 09:50 Pain, Nausea, vomiting ciprofloxacin HCl AdvReac Abdominal Verified 11/16/23 09:50 [From Cipro] Pain, Nausea, vomiting desvenlafaxine [From Pristiq] AdvReac Confusion Verified 11/16/23 09:50 duloxetine [From Cymbalta] AdvReac Confusion Verified 11/16/23 09:50 hydrocodone [From Vicodin] AdvReac flushed, Verified 11/16/23 09:50 red face hydroxychloroquine sulfate AdvReac Confusion Verified 11/16/23 09:50 [From Plaquenil] milnacipran [From Savella] AdvReac Confusion Verified 11/16/23 09:50 nitrofurantoin AdvReac Abdominal Verified 11/16/23 09:50 [From Macrobid] Pain, Nausea, vomiting nitrofurantoin AdvReac Abdominal Verified 11/16/23 09:50 macrocrystalline Pain, [From Macrobid] Nausea, vomiting pregabalin [From Lyrica] AdvReac VERTIGO, Verified 11/16/23 09:50 confusion sucralfate [From Carafate] AdvReac VERTIGO, Verified 11/16/23 09:50 [place] like she "was going to pass out" sulfamethoxazole AdvReac Abdominal Verified 11/16/23 09:50 [From Bactrim] Pain, Nausea, vomiting trimethoprim [From Bactrim] AdvReac Abdominal Verified 11/16/23 09:50 Pain, Nausea, vomiting Physical Exam Vitals: Vital Signs Temp Pulse Pulse Resp BP BP Pulse Ox 11/16/23 13:22 97.9 F 92 18 99/59 100 11/16/23 07:35 96 17 11/16/23 06:58 98.2 F 96 17 99/63 97 11/16/23 03:49 98.5 F 119 H 19 101/65 97 11/16/23 02:55 116 H 16 114/86 97 11/16/23 02:53 116 H 11/16/23 02:45 109 H 11/16/23 01:54 109 H 16 119/80 96 11/16/23 00:08 103 H 20 130/74 97 11/15/23 22:21 104 H 22 128/65 97 11/15/23 21:27 98.6 F 125 H 28 H 138/79 99 Intake and Output 11/16/23 11/16/23 11/16/23 06:59 14:59 22:59 Other: # Voids 1 # Bowel Movements 1 Weight 68.039 kg - Constitutional General appearance: average body habitus, no acute distress - EENT Eyes: anicteric sclerae, EOMI ENT: hearing grossly normal - Respiratory Respiratory: bilateral: diminished - Cardiovascular Rhythm: regular Heart sounds: normal: S1, S2 - Integumentary Integumentary: no cyanotic - Musculoskeletal Musculoskeletal: generalized weakness - Psychiatric Psychiatric: A&O x's 3 Results CBC & Chem 7: 11/15/23 21:35 11/15/23 21:35 Labs: Abnormal Lab Results - Last 24 Hours (Table) 11/15/23 11/15/23 Range/Units 21:35 21:35 Plt Count 867 H D (150-450) k/uL Sodium 133 L (137-145) mmol/L Glucose 104 H (74-99) mg/dL Total Protein 5.7 L (6.3-8.2) g/dL Albumin 2.6 L (3.5-5.0) g/dL CT scan - abdomen: report reviewed CT scan - chest: report reviewed CT scan - pelvis: report reviewed Assessment and Plan (1) Pneumonia Current Visit: Yes Status: Acute Priority: High Code(s): J18.9 - PNEUMONIA, UNSPECIFIED ORGANISM SNOMED Code(s): 292453351 (2) Lung cancer Current Visit: Yes Status: Acute Priority: Medium Code(s): C34.90 - MALIGNANT NEOPLASM OF UNSP PART OF UNSP BRONCHUS OR LUNG SNOMED Code(s): 677780802 Plan: Pneumonia: -Presented with complaints of shortness of breath, cough, and right flank/ side pain. Patient was diagnosed with COVID at the end of September and daughter states that she has never fully recovered. Denies hemoptysis. Denies fever and chills. -CT chest was negative for pulmonary embolism. Air space consolidation in the right upper and lower lobes consistent with severe multilobar pneumonia. Mild patchy infiltrates present in the lingula. Patient has been started on azithromycin and Zosyn. Coags and d-dimer WNL. Patient is afebrile, SPO2 97% on 4 L -Defer management to IM team NSCLC: -Right lung mass incidentially noted on MRI. CT of the chest abdomen and pelvis on 07/19/23 with contrast. This showed a 6.6 x 3.3 cm mass versus dense consolidation in the posterior medial right mid lung. There was a 1.1 cm right hilar node. PET scan showed areas of consolidation in the right lower lobe most consistent with inflammation, with one nodule that was FDG avid, concerning for malignancy, measuring 2.9 cm. Biopsy of the right lung nodule confirmed pulmonary adenocarcinoma. We discussed ended options of surgery, versus definitive radiation. The patient was felt to be a poor candidate for surgery medically, and did not want the same herself either. She was therefore seen by radiation oncology, and was started on definitive radiation completing 15 fractions in 2022. We discussed recent data utilizing immune checkpoint inhibitor immunotherapy after definitive radiation, showing significant improvement in event free survival. Prior auth was sent for regimen, but patient has missed 3 office visits since last visit with Dr. Mathis on 09/13, due to COVID and hospitalizations. -Spoke with patient and family today regarding immunotherapy. They are unsure at this time if patient wants to pursue any active treatment. Daughter states they will further discuss this as a family and will call clinic to schedule f/u if they want to proceed.
--- NOTE | 2023-11-16 22:51 | P.HPIM ---
History of Present Illness H&P Date: 11/16/23 Chief Complaint: shortness of breath Adela Melton is an 83 yo F with hx recently discovered lung mass, being followed by Oncology who presented to the ED with shortness of breath and cough. She states that ever since she had Covid a few months ago she has dealt with difficulty catching her breath but over the past few days it worsened to the point she felt she had to come to the hospital. She denies fever, chills. She notes she had been following with Oncology and did undergo radiation treatment to the lungs in September. Upon admission CT abdomen and pelvis revealed consolidation of the right lung base. CT chest was negative for pulmonary embolism with air space consolidation in the right upper and lower lobes consistent with severe multilobar pneumonia. CBC revealed WBC 10.1, hemoglobin 12.1, platelets 867,000. Coags and d-dimer WNL. LFTs and bilirubin normal. Patient is afebrile, SPO2 97% on 4 L. Review of Systems All systems: negative Constitutional: Reports malaise, Reports weakness, Denies chills, Denies fever Eyes: denies blurred vision, denies pain Ears, nose, mouth and throat: Denies headache, Denies sore throat Cardiovascular: Denies chest pain, Denies shortness of breath Respiratory: Reports congestion, Reports cough, Reports cough with sputum Gastrointestinal: Denies abdominal pain, Denies diarrhea, Denies nausea, Denies vomiting Genitourinary: Denies dysuria, Denies hematuria Musculoskeletal: Denies myalgias Integumentary: Denies pruritus, Denies rash Neurological: Denies numbness, Denies weakness Psychiatric: Denies anxiety, Denies depression Endocrine: Denies fatigue, Denies weight change Past Medical History Past Medical History: Cancer, Deep Vein Thrombosis (DVT), Fibromyalgia, Hypertension, Pulmonary Embolus (PE) Additional Past Medical History / Comment(s): acoustic neuroma, DEAF RT EAR. RIGHT HAND INDEX FINGER INFECTION. 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, MRSA Date of last positivie culture/infection: 12/03/15 MRSA; 03/27/15-ESBL MDRO Source:: Right 2nd Finger MRSA; Urine E.coli ESBL Past Surgical History: Cholecystectomy, Ear Surgery Additional Past Surgical History / Comment(s): right shoulder, right hand , BRAIN SURGERY, [facility], abscess lanced in groin, decompression of R balance system Past Anesthesia/Blood Transfusion Reactions: Family History of Problems w/ Anesthesia, Motion Sickness Additional Past Anesthesia/Blood Transfusion Reaction / Comment(s): brother had to be revived after anesthesia Past Psychological History: No Psychological Hx Reported Smoking Status: Never smoker Past Alcohol Use History: None Reported Past Drug Use History: None Reported - Past Family History Mother Family Medical History: No Reported History Medications and Allergies Home Medications Medication Instructions Recorded Confirmed Type Aspirin EC [Ecotrin Low Dose] 81 mg PO DAILY 01/14/15 11/16/23 History Omeprazole [PriLOSEC] 20 mg PO DAILY 01/14/15 11/16/23 History Levothyroxine Sodium [Synthroid] 75 mcg PO DAILY 08/23/20 11/16/23 History Cholecalciferol [Vitamin D3 (25 25 mcg PO MOWEFR 09/11/21 11/16/23 History Mcg = 1000 Iu)] Ezetimibe [Zetia] 10 mg PO DAILY 09/11/21 11/16/23 History Albuterol Inhaler [Ventolin Hfa 1 - 2 puff INHALATION RT-Q6H PRN 10/21/23 11/16/23 History Inhaler] Benzonatate [Tessalon Perle] 200 mg PO TID PRN 10/21/23 11/16/23 History Acetaminophen Tab [Tylenol] 650 mg PO Q6HR PRN tab 10/23/23 11/16/23 Rx Ascorbic Acid [Vitamin C] 1,000 mg PO DAILY tab 10/23/23 11/16/23 Rx Zinc Sulfate [Orazinc] 220 mg PO DAILY #30 cap 10/23/23 11/16/23 Rx Apixaban [Eliquis] 2.5 mg PO BID 11/16/23 11/16/23 History Fluticasone Nasal [place] [Flonase 2 spray EA NOSTRIL DAILY 11/16/23 11/16/23 History Nasal [place]] Allergies Allergy/AdvReac Type Severity Reaction Status Date / Time ciprofloxacin [From Cipro] AdvReac Abdominal Verified 11/16/23 09:50 Pain, Nausea, vomiting ciprofloxacin HCl AdvReac Abdominal Verified 11/16/23 09:50 [From Cipro] Pain, Nausea, vomiting desvenlafaxine [From Pristiq] AdvReac Confusion Verified 11/16/23 09:50 duloxetine [From Cymbalta] AdvReac Confusion Verified 11/16/23 09:50 hydrocodone [From Vicodin] AdvReac flushed, Verified 11/16/23 09:50 red face hydroxychloroquine sulfate AdvReac Confusion Verified 11/16/23 09:50 [From Plaquenil] milnacipran [From [place]ella] AdvReac Confusion Verified 11/16/23 09:50 nitrofurantoin AdvReac Abdominal Verified 11/16/23 09:50 [From Macrobid] Pain, Nausea, vomiting nitrofurantoin AdvReac Abdominal Verified 11/16/23 09:50 macrocrystalline Pain, [From Macrobid] Nausea, vomiting pregabalin [From Lyrica] AdvReac VERTIGO, Verified 11/16/23 09:50 confusion sucralfate [From Carafate] AdvReac VERTIGO, Verified 11/16/23 09:50 [place] like she "was going to pass out" sulfamethoxazole AdvReac Abdominal Verified 11/16/23 09:50 [From Bactrim] Pain, Nausea, vomiting trimethoprim [From Bactrim] AdvReac Abdominal Verified 11/16/23 09:50 Pain, Nausea, vomiting Physical Exam Vitals: Vital Signs Temp Pulse Pulse Resp BP BP Pulse Ox 11/16/23 19:50 98.1 F 76 18 99/62 98 11/16/23 13:22 97.9 F 92 18 99/59 100 11/16/23 07:35 96 17 11/16/23 06:58 98.2 F 96 17 99/63 97 11/16/23 03:49 98.5 F 119 H 19 101/65 97 11/16/23 02:55 116 H 16 114/86 97 11/16/23 02:53 116 H 11/16/23 02:45 109 H 11/16/23 01:54 109 H 16 119/80 96 11/16/23 00:08 103 H 20 130/74 97 Intake and Output 11/16/23 11/16/23 11/16/23 06:59 14:59 22:59 Intake Total 1450 Balance 1450 Intake: Intake, IV Titration 900 Amount Piperacillin-Tazobactam 3 100 .375 gm In Sodium Chloride 0.9% 100 ml @ 25 mls/hr IVPB Q8H TRAVIS Rx#: [id number] Sodium Chloride 0.9% 1, 800 000 ml @ 100 mls/hr IV . Q10H TRAVIS Rx#:[id number] Oral 550 Other: # Voids 1 # Bowel Movements 1 Weight 68.039 kg Vitals reviewed General: elderly female, well nourished NAD HEENT: Normocephalic, atraumatic, mucus membranes moist Neck: supple, no JVD, no thyromegaly CV: Regular rate and rhythm, pulses 2+ Lungs: Increased effort, rales throughout Abd: soft, nontender, bowel sounds present Neuro: Alert and oriented x3, no focal deficit Skin: warm and dry Results CBC & Chem 7: 11/15/23 21:35 11/15/23 21:35 Thrombosis Risk Factor Assmnt - Choose All That Apply Any of the Below Risk Factors Present?: Yes Each Factor Represents 1 point: Obesity (BMI >25) Each Risk Factor Represents 3 Points: Age 75 years or older, History of DVT/PE Thrombosis Risk Factor Assessment Total Risk Factor Score: 7 Thrombosis Risk Factor Assessment Level: High Risk Assessment and Plan Plan: Community acquired pneumonia. Pt started on zosyn and azithromycin in the ED. Continue rocephin, azithromycin. Obtain sputum culture. Albuterol nebs as needed Acute hypoxic respiratory failure. Wean O2 as tolerated, treat underlying cause Metastatic lung cancer. Oncology consult
--- NOTE | 2023-11-17 08:27 | XR ---
EXAMINATION TYPE: XR chest 1V portable DATE OF EXAM: 11/17/2023 Comparison: 10/28/[address] 11/15/2023 [id number] female with pneumoniae with pneumHeart normal size. Focal right hilar opacity persists. Worsening adjacent right midlung and peripheral right basilar opacity. New small left pleural effusi on with adjacent opacity.djacent opacity. Impression: 1. Ongoing multifocal opacities right hilum and right mid to lower lung probably combination of pneum onia and pulmonary infarcts in a patient with known pulmonary emboli. 2. New small left pleural effusion with adjacent atelectasis and/or consolidation.
--- NOTE | 2023-11-17 15:30 | P.PN ---
Subjective Progress Note Date: 11/17/23 Adela Melton is an 83 yo F with hx recently discovered lung mass, being followed by Oncology who presented to the ED with shortness of breath and cough. She states that ever since she had Covid a few months ago she has dealt with difficulty catching her breath but over the past few days it worsened to the point she felt she had to come to the hospital. She denies fever, chills. She notes she had been following with Oncology and did undergo radiation treatment to the lungs in September. Upon admission CT abdomen and pelvis revealed consolidation of the right lung base. CT chest was negative for pulmonary embolism with air space consolidation in the right upper and lower lobes consistent with severe multilobar pneumonia. CBC revealed WBC 10.1, hemoglobin 12.1, platelets 867,000. Coags and d-dimer WNL. LFTs and bilirubin normal. Patient is afebrile, SPO2 97% on 4 L. 11/17. Patient seen and examined. States she feels slightly better compared to yesterday. Complaining of dry cough. Gets short of breath and exertion REVIEW OF SYSTEMS: CONSTITUTIONAL: No fever, no malaise,. CARDIOVASCULAR: No chest pain, no palpitations, no syncope. PULMONARY: As mentioned above GASTROINTESTINAL: No diarrhea, no nausea, no vomiting, no abdominal pain. NEUROLOGICAL: No headaches, no weakness, PHYSICAL EXAMINATION: GENERAL: The patient is alert and oriented x3, Ill-looking HEENT: Pupils are round and equally reacting to light. EOMI. No scleral icterus. No conjunctival pallor. Normocephalic, atraumatic. No pharyngeal erythema. No thyromegaly. CARDIOVASCULAR: S1 and S2 present. No murmurs, rubs, or gallops. PULMONARY: Coarse breath some bilaterally, no wheeze, no crackles ABDOMEN: Soft, nontender, nondistended, normoactive bowel sounds. No palpable organomegaly. MUSCULOSKELETAL: No joint swelling or deformity. EXTREMITIES: No cyanosis, clubbing, or pedal edema. NEUROLOGICAL: Gross neurological examination did not reveal any focal deficits. SKIN: No rashes. Assessment and plan Bacterial pneumonia Acute hypoxic respiratory failure Metastatic lung cancer Monitor vital signs Monitor CBC Monitor CMP Continue telemetry monitoring Encourage use of incentive spirometer Continue breathing treatments Follow-up on blood cultures Continue IV Zosyn and azithromycin Consult pulmonary Hematology oncology following Labs and medication were reviewed.. Continue same treatment. Continue with symptomatic treatment. Resume home medication. Monitor labs and vitals. DVT and GI prophylaxis. Further recommendations as per clinical course of the patient Dictation was produced using [employer] dictation software. please excuse any grammatical, word or spelling errors. Objective - Vital Signs Vital signs: Vital Signs Temp 98.5 F 11/17/23 07:45 Pulse 77 11/17/23 07:45 Resp 16 11/17/23 07:45 BP 103/60 11/17/23 07:45 Pulse Ox 98 11/17/23 07:45 FiO2 Intake & Output 11/16/23 11/17/23 11/17/23 18:59 06:59 18:59 Intake Total 1450 Balance 1450 Intake: Intake, IV Titration 900 Amount Piperacillin-Tazobactam 3 100 .375 gm In Sodium Chloride 0.9% 100 ml @ 25 mls/hr IVPB Q8H TRAVIS Rx#: [id number] Sodium Chloride 0.9% 1, 800 000 ml @ 100 mls/hr IV . Q10H TRAVIS Rx#:[id number] Oral 550 Other: # Voids 1 5 # Bowel Movements 1 - Labs CBC & Chem 7: 11/15/23 21:35 11/15/23 21:35 Labs: Microbiology - Last 24 Hours (Table) 11/16/23 02:27 Blood Culture - Preliminary Blood 11/16/23 02:12 Blood Culture - Preliminary Blood
[2023-11-18 09:55] LABS: ALT 14 U/L (8-44); AST 24 U/L (13-35); Albumin 2.4 g/dL (3.8-4.9); Albumin/Globulin Ratio 1.04 Ratio (1.60-3.17); Alkaline Phosphatase 75 U/L (41-126); BUN/Creat Ratio 19.33 Ratio (12.00-20.00); Blood Urea Nitrogen 11.6 mg/dL (9.0-27.0); Chloride 111 mmol/L (96-109); Globulin 2.3 g/dL (1.6-3.3); Glucose 78 mg/dL (70-110); Potassium 4.3 mmol/L (3.5-5.5); Sodium 143 mmol/L (135-145); Total Bilirubin 0.2 mg/dL (0.3-1.2); Total Protein 4.7 g/dL (6.2-8.2)
[2023-11-18 10:02] LABS: Basophils # (A) 0.11 X 10*3/uL (0.00-0.10); Basophils % (A) 1.6 %; Eosinophils # (A) 0.32 X 10*3/uL (0.04-0.35); Eosinophils % (A) 4.7 %; HCT 34.2 % (37.2-46.3); HGB 10.4 g/dL (12.0-15.0); Lymphocytes # (A) 1.01 X 10*3/uL (0.90-5.00); Lymphocytes % (A) 14.9 %; MCH 28.8 pg (27.0-32.0); MCHC 30.4 g/dL (32.0-37.0); MCV 94.7 FL (80.0-97.0); Mean Platelet Volume 8.3 FL (9.5-12.2); Monocytes # (A) 0.71 X 10*3/uL (0.20-1.00); Monocytes % (A) 10.5 %; NRBC Per 100 WBC 0 X 10*3/uL (0.00-0.01); Neutrophils # (A) 4.55 X 10*3/uL (1.80-7.70); Neutrophils % (A) 67.1 %; Platelet Count 744 X 10*3/uL (140-440); RBC 3.61 X 10*6/uL (4.10-5.20); RDW 16.6 % (11.5-14.5); WBC 6.78 X 10*3/uL (4.50-10.00)
--- NOTE | 2023-11-18 13:42 | P.CNPUL ---
History of Present Illness Consult date: 11/18/23 Requesting physician: Conor Lopez Reason for consult: dyspnea, hypoxemia, abnormal CXR/CT Chief complaint: Shortness of breath, right-sided abdominal/flank pain History of present illness: This is a pleasant 83-year-old female patient with a poor historian. She does have a history of fibromyalgia, hypertension, pulmonary embolism and the coagulated with Eliquis, pulmonary adenocarcinoma with radiation completed in September 2023, nonsmoker. She presented here to the emergency room with c omplaints of increasing shortness of breath right-sided abdominal/flank pain. She was seen here last month with an acute pulmonary embolism of the right lung suspected secondary to COVID-19 infection and/or recent cancer diagnosis. CT angiogram this admission revealed no acute pulmonary embolism. There is airspace consolidations in the right upper and lower lobes consistent with severe multilobar pneumonia. Mild patchy infiltrates present in the lingula. DT scan of the abdomen revealed previous cholecystectomy. Severe intrahepatic biliary ductal dilatation. Diverticulosis without diverticulitis. No bowel obstruction. No free air. Blood cultures revealing no growth. White count 6.7 . Hemoglobin 10.4. Platelets 744. Sodium 143. Potassium 4.3. Bicarb 25. BUN 12. Creatinine 0.6. Glucose 78. Urine legionella antigen was negative. She is seen today in consultation on the regular medical floor. She is currently resting comfortably in bed. Awake and alert. She is a poor historian. Unable to give much details. She does deny any worsening shortness of breath. She has a loose cough. No hemoptysis. She is maintaining good O2 saturations in the upper 90s on 2 L/m per nasal cannula. She's been afebrile. Hemodynamically stable. She's been initiated on ceftriaxone. Review of Systems ROS unobtainable: due to mental status Past Medical History Past Medical History: Cancer, Deep Vein Thrombosis (DVT), Fibromyalgia, Hypertension, Pulmonary Embolus (PE) Additional Past Medical History / Comment(s): acoustic neuroma, DEAF RT EAR. RIGHT HAND INDEX FINGER INFECTION. 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, MRSA Date of last positivie culture/infection: 12/03/15 MRSA; 03/27/15-ESBL MDRO Source:: Right 2nd Finger MRSA; Urine E.coli ESBL Past Surgical History: Cholecystectomy, Ear Surgery Additional Past Surgical History / Comment(s): right shoulder, right hand , BRAIN SURGERY, [facility], abscess lanced in groin, decompression of R balance system Past Anesthesia/Blood Transfusion Reactions: Family History of Problems w/ Anesthesia, Motion Sickness Additional Past Anesthesia/Blood Transfusion Reaction / Comment(s): brother had to be revived after anesthesia Past Psychological History: No Psychological Hx Reported Smoking Status: Never smoker Past Alcohol Use History: None Reported Past Drug Use History: None Reported - Past Family History Mother Family Medical History: No Reported History Medications and Allergies Home Medications Medication Instructions Recorded Confirmed Type Aspirin EC [Ecotrin Low Dose] 81 mg PO DAILY 01/14/15 11/16/23 History Omeprazole [PriLOSEC] 20 mg PO DAILY 01/14/15 11/16/23 History Levothyroxine Sodium [Synthroid] 75 mcg PO DAILY 08/23/20 11/16/23 History Cholecalciferol [Vitamin D3 (25 25 mcg PO MOWEFR 09/11/21 11/16/23 History Mcg = 1000 Iu)] Ezetimibe [Zetia] 10 mg PO DAILY 09/11/21 11/16/23 History Albuterol Inhaler [Ventolin Hfa 1 - 2 puff INHALATION RT-Q6H PRN 10/21/23 11/16/23 History Inhaler] Benzonatate [Tessalon Perle] 200 mg PO TID PRN 10/21/23 11/16/23 History Acetaminophen Tab [Tylenol] 650 mg PO Q6HR PRN tab 10/23/23 11/16/23 Rx Ascorbic Acid [Vitamin C] 1,000 mg PO DAILY tab 10/23/23 11/16/23 Rx Zinc Sulfate [Orazinc] 220 mg PO DAILY #30 cap 10/23/23 11/16/23 Rx Apixaban [Eliquis] 2.5 mg PO BID 11/16/23 11/16/23 History Fluticasone Nasal [place] [Flonase 2 spray EA NOSTRIL DAILY 11/16/23 11/16/23 History Nasal [place]] Allergies Allergy/AdvReac Type Severity Reaction Status Date / Time ciprofloxacin [From Cipro] AdvReac Abdominal Verified 11/16/23 09:50 Pain, Nausea, vomiting ciprofloxacin HCl AdvReac Abdominal Verified 11/16/23 09:50 [From Cipro] Pain, Nausea, vomiting desvenlafaxine [From Pristiq] AdvReac Confusion Verified 11/16/23 09:50 duloxetine [From Cymbalta] AdvReac Confusion Verified 11/16/23 09:50 hydrocodone [From Vicodin] AdvReac flushed, Verified 11/16/23 09:50 red face hydroxychloroquine sulfate AdvReac Confusion Verified 11/16/23 09:50 [From Plaquenil] milnacipran [From Savella] AdvReac Confusion Verified 11/16/23 09:50 nitrofurantoin AdvReac Abdominal Verified 11/16/23 09:50 [From Macrobid] Pain, Nausea, vomiting nitrofurantoin AdvReac Abdominal Verified 11/16/23 09:50 macrocrystalline Pain, [From Macrobid] Nausea, vomiting pregabalin [From Lyrica] AdvReac VERTIGO, Verified 11/16/23 09:50 confusion sucralfate [From Carafate] AdvReac VERTIGO, Verified 11/16/23 09:50 [place] like she "was going to pass out" sulfamethoxazole AdvReac Abdominal Verified 11/16/23 09:50 [From Bactrim] Pain, Nausea, vomiting trimethoprim [From Bactrim] AdvReac Abdominal Verified 11/16/23 09:50 Pain, Nausea, vomiting Physical Exam Vitals: Vital Signs Temp Pulse Resp BP Pulse Ox 11/18/23 07:24 98 11/18/23 07:14 97.5 F L 80 18 112/67 99 11/18/23 02:00 98 11/18/23 01:33 97.6 F 84 21 122/72 98 11/17/23 19:54 97.3 F L 87 21 113/70 99 11/17/23 13:52 97.6 F 84 17 109/97 100 Intake and Output 11/17/23 11/18/23 11/18/23 22:59 06:59 14:59 Other: # Voids 2 2 GENERAL EXAM: Alert, pleasant 83-year-old female on 2 L nasal cannula, poor historian, comfortable in no apparent distress. HEAD: Normocephalic. EYES: Normal reaction of pupils, equal size. NOSE: Clear with pink turbinates. THROAT: No erythema or exudates. NECK: No masses, no JVD. CHEST: No chest wall deformity. LUNGS: Equal air entry with bilateral scattered rhonchi more so on the right. CVS: S1 and S2 normal with no audible murmur, regular rhythm. ABDOMEN: No hepatosplenomegaly, normal bowel sounds, no guarding or rigidity. SPINE: No scoliosis or deformity SKIN: No rashes CENTRAL NERVOUS SYSTEM: No focal deficits, tone is normal in all 4 extremities. EXTREMITIES: There is no peripheral edema. No clubbing, no cyanosis. Peripheral pulses are intact. Results - Laboratory Findings CBC and BMP: 11/18/23 06:01 11/18/23 06:01 PT/INR, D-dimer PT 11.6 sec (10.0-12.5) 11/15/23 21:35 INR 1.1 (<1.2) 11/15/23 21:35 D-Dimer 0.49 mg/L FEU (<0.60) 11/15/23 21:35 Abnormal lab findings: Abnormal Labs 11/15/23 11/15/23 11/18/23 21:35 21:35 06:01 RBC 3.61 L Hgb 10.4 L Hct 34.2 L MCHC 30.4 L RDW 16.6 H Plt Count 867 H D 744 H MPV 8.3 L Immature Gran # 0.08 H Basophils # 0.11 H Sodium 133 L Chloride Glucose 104 H Total Bilirubin Total Protein 5.7 L Albumin 2.6 L Albumin/Globulin Ratio 11/18/23 06:01 RBC Hgb Hct MCHC RDW Plt Count MPV Immature Gran # Basophils # Sodium Chloride 111 H Glucose Total Bilirubin 0.2 L Total Protein 4.7 L Albumin 2.4 L Albumin/Globulin Ratio 1.04 L - Diagnostic Findings Chest x-ray: image reviewed CT scan - chest: image reviewed Assessment and Plan Assessment: Acute hypoxemic respiratory failure secondary to suspected postobstructive pneumonitis throughout the right lung History of pulmonary adenocarcinoma, not a candidate for surgery, received radiation treatment that completed in September 2023. History of pulmonary embolism, anticoagulated with Eliquis. This admission CT angiogram does not reveal pulmonary embolism Poor historian History of viral myalgia History of hypertension History of previous brain surgery Nonsmoker Low thyroidism Gastroesophageal reflux disease Plan: The patient was seen and evaluated Chest x-ray, CAT scan, labs and medications reviewed Discontinue ceftriaxone Add Zosyn Initiate prednisone 40 mg daily Continue Eliquis Titrate the FiO2 as tolerated We will continue to follow and make further recommendations based on her clinical status I have personally seen and examined the patient, performed the documentation and the assessment and plan as written. Number of minutes spent on the visit: 20.
--- NOTE | 2023-11-18 15:24 | P.PN ---
Subjective Progress Note Date: 11/18/23 Adela Melton is an 83 yo F with hx recently discovered lung mass, being followed by Oncology who presented to the ED with shortness of breath and cough. She states that ever since she had Covid a few months ago she has dealt with difficulty catching her breath but over the past few days it worsened to the point she felt she had to come to the hospital. She denies fever, chills. She notes she had been following with Oncology and did undergo radiation treatment to the lungs in September. Upon admission CT abdomen and pelvis revealed consolidation of the right lung base. CT chest was negative for pulmonary embolism with air space consolidation in the right upper and lower lobes consistent with severe multilobar pneumonia. CBC revealed WBC 10.1, hemoglobin 12.1, platelets 867,000. Coags and d-dimer WNL. LFTs and bilirubin normal. Patient is afebrile, SPO2 97% on 4 L. 11/17. Patient seen and examined. States she feels slightly better compared to yesterday. Complaining of dry cough. Gets short of breath and exertion 11/18. Patient seen and examined. Sitting upright in the bed. States breathing is improved. Denies any chest pain. REVIEW OF SYSTEMS: CONSTITUTIONAL: No fever, no malaise,. CARDIOVASCULAR: No chest pain, no palpitations, no syncope. PULMONARY: As mentioned above GASTROINTESTINAL: No diarrhea, no nausea, no vomiting, no abdominal pain. NEUROLOGICAL: No headaches, no weakness, PHYSICAL EXAMINATION: GENERAL: The patient is alert and oriented x3, Ill-looking HEENT: Pupils are round and equally reacting to light. EOMI. No scleral icterus. No conjunctival pallor. Normocephalic, atraumatic. No pharyngeal erythema. No thyromegaly. CARDIOVASCULAR: S1 and S2 present. No murmurs, rubs, or gallops. PULMONARY: Coarse breath some bilaterally, no wheeze, no crackles ABDOMEN: Soft, nontender, nondistended, normoactive bowel sounds. No palpable organomegaly. MUSCULOSKELETAL: No joint swelling or deformity. EXTREMITIES: No cyanosis, clubbing, or pedal edema. NEUROLOGICAL: Gross neurological examination did not reveal any focal deficits. SKIN: No rashes. Assessment and plan Bacterial pneumonia Acute hypoxic respiratory failure Metastatic lung cancer Monitor vital signs Monitor CBC Monitor CMP Continue telemetry monitoring Encourage use of incentive spirometer Continue breathing treatments Follow-up on blood cultures Continue IV Zosyn Continue Eliquis Continue Synthroid Continue prednisone Pulmonary following Hematology oncology following Labs and medication were reviewed.. Continue same treatment. Continue with symptomatic treatment. Resume home medication. Monitor labs and vitals. DVT and GI prophylaxis. Further recommendations as per clinical course of the patient Dictation was produced using [employer] dictation software. please excuse any grammatical, word or spelling errors. Objective - Vital Signs Vital signs: Vital Signs Temp 97.7 F 11/18/23 13:03 Pulse 94 11/18/23 13:03 Resp 17 11/18/23 13:03 BP 114/72 11/18/23 13:03 Pulse Ox 98 11/18/23 13:03 FiO2 Intake & Output 11/17/23 11/18/23 11/18/23 18:59 06:59 18:59 Intake Total 310 Balance 310 Intake: Intake, IV Titration 310 Amount Piperacillin-Tazobactam 3 100 .375 gm In Sodium Chloride 0.9% 100 ml @ 25 mls/hr IVPB Q8HR [facility] Rx# :[id number] Sodium Chloride 0.9% 1, 160 000 ml @ 100 mls/hr IV . Q10H [facility] Rx#:[id number] cefTRIAXone 1 gm In 50 Sodium Chloride 0.9% 50 ml @ 100 mls/hr IVPB Q24HR [facility]VIS Rx#:[id number] Other: # Voids 2 2 - Labs CBC & Chem 7: 11/18/23 06:01 11/18/23 06:01 Labs: Abnormal Lab Results - Last 24 Hours (Table) 11/18/23 11/18/23 Range/Units 06:01 06:01 RBC 3.61 L (4.10-5.20) X 10*6/uL Hgb 10.4 L (12.0-15.0) g/dL Hct 34.2 L (37.2-46.3) % MCHC 30.4 L (32.0-37.0) g/dL RDW 16.6 H (11.5-14.5) % Plt Count 744 H (140-440) X 10*3/uL MPV 8.3 L (9.5-12.2) FL Immature Gran # 0.08 H (0.00-0.04) X 10*3/uL Basophils # 0.11 H (0.00-0.10) X 10*3/uL Chloride 111 H (96-109) mmol/L Total Bilirubin 0.2 L (0.3-1.2) mg/dL Total Protein 4.7 L (6.2-8.2) g/dL Albumin 2.4 L (3.8-4.9) g/dL Albumin/Globulin Ratio 1.04 L (1.60-3.17) Ratio Microbiology - Last 24 Hours (Table) 11/16/23 02:27 Blood Culture - Preliminary Blood 11/16/23 02:12 Blood Culture - Preliminary Blood
[2023-11-18] MEDS: predniSONE 20 MG TAB PO SCH (15:32)
[2023-11-18] MEDS: PIPERACILLIN-TAZOBACTAM 3.375 GM in SODIUM CHLORIDE 0.9% 100 ML IVPB SCH (15:32)
[2023-11-19 03:20] VITALS: PULSE 91
[2023-11-19 09:10] VITALS: BP 134/74; RESP 17; TEMP 97.4
--- NOTE | 2023-11-19 14:45 | P.PN ---
Subjective Progress Note Date: 11/19/23 Principal diagnosis: Pneumonia, chest pain. This is a pleasant 83-year-old female patient with a poor historian. She does have a history of fibromyalgia, hypertension, pulmonary embolism and the coagulated with Eliquis, pulmonary adenocarcinoma with radiation completed in September 2023, nonsmoker. She presented here to the emergency room with complaints of increasing shortness of breath right-sided abdominal/flank pain. She was seen here last month with an acute pulmonary embolism of the right lung suspected secondary to COVID-19 infection and/or recent cancer diagnosis. CT angiogram this admission revealed no acute pulmonary embolism. There is airspace consolidations in the right upper and lower lobes consistent with severe multilobar pneumonia. Mild patchy infiltrates present in the lingula. DT scan of the abdomen revealed previous cholecystectomy. Severe intrahepatic biliary ductal dilatation. Diverticulosis without diverticulitis. No bowel obstruction. No free air. Blood cultures revealing no growth. White count 6.7. Hemoglobin 10.4. Platelets 744. Sodium 143. Potassium 4.3. Bicarb 25. BUN 12. Creatinine 0.6. Glucose 78. Urine legionella antigen was negative. She is seen today in consultation on the regular medical floor. She is cu rrently resting comfortably in bed. Awake and alert. She is a poor historian. Unable to give much details. She does deny any worsening shortness of breath. She has a loose cough. No hemoptysis. She is maintaining good O2 saturations in the upper 90s on 2 L/m per nasal cannula. She's been afebrile. Hemodynamically stable. She's been initiated on ceftriaxone. Progress note dated 11/19/2023. 83-year-old female DO NOT RESUSCITATE patient, seen in consultation yesterday. She has a history of fibromyalgia, hypertension, pulmonary embolism, pulmonary adenocarcinoma, among other things. The patient presented to the emergency department with complaints of increasing shortness of breath, and right-sided abdominal/flank pain. Currently, the patient's resting comfortably in room 466. She is a DO NOT RESUSCITATE patient. The patient's on 2 L of oxygen. She's currently on Zosyn. The patient is hoping to be discharged soon. No new labs today. Labs from November 18 are reviewed. Blood cultures are currently negative. Objective - Vital Signs Vital signs: Vital Signs Temp 97.4 F L 11/19/23 07:36 Pulse 91 11/19/23 07:36 Resp 17 11/19/23 07:36 BP 134/74 11/19/23 07:36 Pulse Ox 97 11/19/23 07:36 FiO2 Intake & Output 11/18/23 11/19/23 11/19/23 18:59 06:59 18:59 Intake Total 310 1000 Balance 310 1000 Intake: Intake, IV Titration 310 Amount Piperacillin-Tazobactam 3 100 .375 gm In Sodium Chloride 0.9% 100 ml @ 25 mls/hr IVPB Q8HR [facility] Rx# :[id number] Sodium Chloride 0.9% 1, 160 000 ml @ 100 mls/hr IV . Q10H [facility] Rx#:[id number] cefTRIAXone 1 gm In 50 Sodium Chloride 0.9% 50 ml @ 100 mls/hr IVPB Q24HR [facility] Rx#:[id number] Oral 1000 Other: # Voids 4 1 - Exam No acute distress, oriented 3. 2 L saturation is 97%. HEENT examination is grossly unremarkable. Mucous membranes are moist. No oral lesions. Neck supple. Full range of motion. No adenopathy thyromegaly or neck vein distention. Cardiovascular examination reveals regular rhythm rate. S1-S2 normal. No S3 or S4. No discernible murmur noted. Heart rate is 91 bpm. Lungs reveal slight clear breath sounds. Mild scattered rhonchi. No wheezes or crackles. Breath sounds equal bilaterally. Abdomen soft bowel sounds are heard. No masses or tenderness. Extremities are intact. No cyanosis clubbing or edema. Skin is without rash or lesion. Neurologic examination is brief but nonfocal. - Labs CBC & Chem 7: 11/18/23 06:01 11/18/23 06:01 Labs: Microbiology - Last 24 Hours (Table) 11/16/23 02:27 Blood Culture - Preliminary Blood 11/16/23 02:12 Blood Culture - Preliminary Blood Assessment and Plan Assessment: Acute hypoxemic respiratory failure secondary to suspected postobstructive pneumonitis throughout the right lung. History of pulmonary adenocarcinoma, not a candidate for surgery, received radiation treatment that completed in September 2023. History of pulmonary embolism, anticoagulated with Eliquis. This admission CT angiogram does not reveal pulmonary embolism. Poor historian. History of hypertension. History of previous brain surgery. Nonsmoker. Hypothyroidism. Gastroesophageal reflux disease. Plan: Plan dated 11/19/2023. The patient's doing well. The patient's currently on a couple of liters of oxygen. Her saturations are excellent. The patient is a DO NOT RESUSCITATE patient. The patient continues on Zosyn. Additional recommendations and suggestions are forthcoming. Labs, x-rays, medications are reviewed. The patient is currently on prednisone 40 mg a day. Oxygen is titrated. We will continue to follow make recommendations where appropriate. Time with Patient: Less than 30
[2023-11-19 16:01] VITALS: BMI 26.5
--- NOTE | 2023-11-21 10:16 | P.DS ---
Providers Date of admission: 11/16/23 01:50 Expected date of discharge: 11/19/23 Attending physician: Conor Lopez MD Consults: 11/16/23 01:49 Consult Physician Routine Consulting Provider: Herlinda Childers Consult Reason/Comments: known Do you want consulting provider notified?: Yes 11/17/23 15:27 Consult Physician Routine Consulting Provider: Danielle Kulkarni Consult Reason/Comments: Pneumonia, respiratory failure Do you want consulting provider notified?: Yes Primary care physician: Dianna Rodriguez Hospital Course: Final Diagnoses: Community-acquired pneumonia Acute on chronic hypoxic respiratory failure secondary to the above Metastatic lung cancer, adenocarcinoma, status post radiation treatment 10/04 History of PE, anticoagulated with follow closely Right buttock stage II pressure ulcer, present on admission Hospital course:Adela Melton is an 83 yo F with hx recently discovered lung mass, being followed by Oncology who presented to the ED with shortness of breath and cough. She states that ever since she had Covid a few months ago she has dealt with difficulty catching her breath but over the past few days it worsened to the point she felt she had to come to the hospital. She denies fever, chills. She notes she had been following with Oncology and did undergo radiation treatment to the lungs in September. Upon admission CT abdomen and pelvis revealed consolidation of the right lung base. CT chest was negative for pulmonary embolism with air space consolidation in the right upper and lower lobes consistent with severe multilobar pneumonia. CBC revealed WBC 10.1, hemoglobin 12.1, platelets 867,000. Coags and d-dimer WNL. LFTs and bilirubin normal. Patient is afebrile, SPO2 97% on 4 L. Evaluated/treated by pulmonary and oncology. Initially treated with Rocephin and azithromycin, adjusted to Zosyn, nebulized bronchodilators. Minimal cough, denies chest pain, palpitations or increased shortness of breath. Equal air entry, Occasional minimal scattered rhonchi, no wheezes or crackles. Eager for discharge. Blood cultures reported no growth after 72 hours. Immunotherapy discussed with patient and family per oncology. Significant clinical improvement, cleared by pulmonary for discharge. Patient will be discharged home today in a stable condition with guarded prognosis. The impression and plan of care has been dictated as directed. : I performed a history and examination of this patient, discussed the same with the dictator. I agree with the dictator's note ,documented as a scribe. Any additional findings or plans will be noted. Patient Condition at Discharge: Stable Plan - Discharge Summary Discharge Rx Participant: Yes New Discharge Prescriptions: New Amoxic-Pot Clav 875-125Mg [Augmentin 875-125] 1 tab PO BID 7 Days #14 tab predniSONE 10 mg PO DIRECTED #30 tab Continue Aspirin EC [Ecotrin Low Dose] 81 mg PO DAILY Omeprazole [PriLOSEC] 20 mg PO DAILY Levothyroxine Sodium [Synthroid] 75 mcg PO DAILY Ezetimibe [Zetia] 10 mg PO DAILY Albuterol Inhaler [Ventolin Hfa Inhaler] 1 - 2 puff INHALATION RT-Q6H PRN PRN Reason: Shortness Of Breath Benzonatate [Tessalon Perle] 200 mg PO TID PRN PRN Reason: Cough Ascorbic Acid [Vitamin C] 1,000 mg PO DAILY tab Fluticasone Nasal [place] [Flonase Nasal [place]] 2 spray EA NOSTRIL DAILY Cholecalciferol [Vitamin D3 (25 Mcg = 1000 Iu)] 25 mcg PO MOWEFR Zinc Sulfate [Orazinc] 220 mg PO DAILY #30 cap Acetaminophen Tab [Tylenol] 650 mg PO Q6HR PRN tab PRN Reason: Mild Pain Or Fever > 100.5 Apixaban [Eliquis] 2.5 mg PO BID Discharge Medication List Aspirin EC [Ecotrin Low Dose] 81 mg PO DAILY 01/14/15 [History] Omeprazole [PriLOSEC] 20 mg PO DAILY 01/14/15 [History] Levothyroxine Sodium [Synthroid] 75 mcg PO DAILY 08/23/20 [History] Cholecalciferol [Vitamin D3 (25 Mcg = 1000 Iu)] 25 mcg PO MOWEFR 09/11/21 [History] Ezetimibe [Zetia] 10 mg PO DAILY 09/11/21 [History] Albuterol Inhaler [Ventolin Hfa Inhaler] 1 - 2 puff INHALATION RT-Q6H PRN 10/21/23 [History] Benzonatate [Tessalon Perle] 200 mg PO TID PRN 10/21/23 [History] Acetaminophen Tab [Tylenol] 650 mg PO Q6HR PRN tab 10/23/23 [Rx] Ascorbic Acid [Vitamin C] 1,000 mg PO DAILY tab 10/23/23 [Rx] Zinc Sulfate [Orazinc] 220 mg PO DAILY #30 cap 10/23/23 [Rx] Apixaban [Eliquis] 2.5 mg PO BID 11/16/23 [History] Fluticasone Nasal [place] [Flonase Nasal [place]] 2 spray EA NOSTRIL DAILY 11/16/23 [History] Amoxic-Pot Clav 875-125Mg [Augmentin 875-125] 1 tab PO BID 7 Days #14 tab 11/19/23 [Rx] predniSONE 10 mg PO DIRECTED #30 tab 11/19/23 [Rx] Follow up Appointment(s)/Referral(s): [facility], [NON-STAFF] - 1 Week ([facility] will call you to aarange a visit) Conor Lopez MD [STAFF PHYSICIAN] - 11/22/23 2:00 pm Ramesh Mao DO [Doctor of Osteopathic Medicine] - 2 Weeks Discharge Disposition: HOME WITH HOME HEALTH SERVICES
--- NOTE | 2024-02-12 10:53 | CDI ---
Documentation Clarification Form Date: 02/12/2024 10:40:10 AM From: Genet Wang Phone: Admit Date: 11/16/2023 01:50:00 AM Patient Name: Adela Melton Visit Number: [id number] Discharge Date: 11/19/2023 04:20:00 PM ATTENTION: The Clinical Documentation Specialists (CDI) and [facility] Coding Staff appreciate your assistance in clarifying documentation. Please respond to the clarification below the line at the bottom and electronically sign. The CDI & [facility] Coding staff will review the response and follow-up if needed. Please note: Queries are made part of the Legal Health Record. If you have any questions, please contact the author of this message via ITS. Dr. Conor Lopez MultilobarCAP PNA is documented per H&P; however, suspectpostobstructive PNA,possibleradiation pneumonitis are documented per Consult 11/18. Additional clarification regarding the type of PNA is requested. History/Risk Factors: 83yo F, CAP, ACHRF, mets lung cancer sp radiation treatment, Hx PE, Rt buttock stage II pressure ulcer, Clinical Indicators: WBC/Left shift: 10.1 X-ray: Ongoing multifocalopacitiesright hilum and right mid to lower lungprobably combination ofPNAand pulmonaryinfarctsin a patient with known PE. 2. New small leftpleural effusionwith adjacentatelectasisand/or consolidation. Treatment: Evaluated/treated by pulmonary and oncology. Initially treated with Rocephin and azithromycin, adjusted to Zosyn, nebulized bronchodilators. Minimalcough, denieschest pain,palpitationsor increasedshortness of breath. Equal air entry, Occasional minimal scattered rhonchi,nowheezesor crackles. O2: She is maintaining good O2 saturations in the upper 90s on 2 L/m per nasal cannula. Please clarify the type of PNA, if known: [ X ] MultilobarPNA [ ] Postobstructive PNA [ ] Radiation pneumonitis [ ] Other, please specify [ ] Unable to determine (Template Last Revised: January 2021) MTDD
== END 2023-11-19 16:20 | disposition home health service (06) | DRG 193 ==
LOC: EC 21:24 → 4SSUR 11-16 01:50
PROVIDERS: ADMIT Family Medicine; ATTEND Family Medicine
DX: J18.1 Lobar pneumonia, unspecified organism (principal); J96.21 Acute and chronic respiratory failure with hypoxia; C79.9 Secondary malignant neoplasm of unspecified site; C34.2 Malignant neoplasm of middle lobe, bronchus or lung; L89.312 Pressure ulcer of right buttock, stage 2; D33.3 Benign neoplasm of cranial nerves; K83.8 Other specified diseases of biliary tract; I10 Essential (primary) hypertension; E03.9 Hypothyroidism, unspecified; M79.7 Fibromyalgia; H91.91 Unspecified hearing loss, right ear; K57.90 Diverticulosis of intestine, part unspecified, without perforation or abscess without bleeding; K21.9 Gastro-esophageal reflux disease without esophagitis; Z66 Do not resuscitate; Z91.198 Patient's noncompliance with other medical treatment and regimen for other reason; Z79.82 Long term (current) use of aspirin; Z86.16 Personal history of COVID-19; Z92.3 Personal history of irradiation; Z79.890 Hormone replacement therapy; Z79.01 Long term (current) use of anticoagulants; Z86.711 Personal history of pulmonary embolism; Z86.718 Personal history of other venous thrombosis and embolism; Z90.49 Acquired absence of other specified parts of digestive tract; Z79.899 Other long term (current) drug therapy; Z88.1 Allergy status to other antibiotic agents; Z88.8 Allergy status to other drugs, medicaments and biological substances; Z86.14 Personal history of Methicillin resistant Staphylococcus aureus infection
CPT/HCPCS: 36415; 71045; 71275; 74177; 80053; 83605; 83690; 83735; 84100; 84484; 85025; 85379; 85610; 85730; 87040; 87449; 93005; 94760; 96361; 96374; 96375; 99285

== ENCOUNTER 2023-11-29 04:50 | Observation (INO) | payer MEDICARE ==
--- NOTE | 2023-11-29 05:20 | ED ---
SOB HPI - General Stated Complaint: MYRNA Time Seen by Provider: 11/29/23 04:56 Source: patient, EMS Mode of arrival: EMS Limitations: no limitations - History of Present Illness Initial Comments: Patient is an 83-year-old woman who was diagnosed with lung cancer, recently admitted in the hospital from November 16 to November 19. She states that she has been getting more short of breath and having very frequent cough over the past 1-2 days. Patient did not note fever. She states there is a little bit of rib pain with cough otherwise no chest pain. She has not noted change in urination or bowel movements. MD Complaint: shortness of breath, cough -: days(s) Consistency: constant Improves With: nothing Worsens With: nothing Known History Of: other (On cancer) Associated Symptoms: cough Treatments Prior to Arrival: oxygen, bronchodilator - Related Data Home Oxygen Therapy: Yes Home Oxygen Amount: 2 Liters Home Medications Medication Instructions Recorded Confirmed Aspirin EC [Ecotrin Low Dose] 81 mg PO DAILY 01/14/15 11/16/23 Omeprazole [PriLOSEC] 20 mg PO DAILY 01/14/15 11/16/23 Levothyroxine Sodium [Synthroid] 75 mcg PO DAILY 08/23/20 11/16/23 Cholecalciferol [Vitamin D3 (25 25 mcg PO MOWEFR 09/11/21 11/16/23 Mcg = 1000 Iu)] Ezetimibe [Zetia] 10 mg PO DAILY 09/11/21 11/16/23 Albuterol Inhaler [Ventolin Hfa 1 - 2 puff INHALATION RT-Q6H PRN 10/21/23 11/16/23 Inhaler] Benzonatate [Tessalon Perle] 200 mg PO TID PRN 10/21/23 11/16/23 Apixaban [Eliquis] 2.5 mg PO BID 11/16/23 11/16/23 Fluticasone Nasal [place] [Flonase 2 spray EA NOSTRIL DAILY 11/16/23 11/16/23 Nasal [place]] Previous Rx's Medication Instructions Recorded Acetaminophen Tab [Tylenol] 650 mg PO Q6HR PRN tab 10/23/23 Ascorbic Acid [Vitamin C] 1,000 mg PO DAILY tab 10/23/23 Zinc Sulfate [Orazinc] 220 mg PO DAILY #30 cap 12/12/23 Amoxic-Pot Clav 875-125Mg 1 tab PO BID 7 Days #14 tab 11/19/23 [Augmentin 875-125] predniSONE 10 mg PO DIRECTED #30 tab 11/19/23 Allergies Allergy/AdvReac Type Severity Reaction Status Date / Time ciprofloxacin [From Cipro] AdvReac Abdominal Verified 11/29/23 05:00 Pain, Nausea, vomiting ciprofloxacin HCl AdvReac Abdominal Verified 11/29/23 05:00 [From Cipro] Pain, Nausea, vomiting desvenlafaxine [From Pristiq] AdvReac Confusion Verified 11/29/23 05:00 duloxetine [From Cymbalta] AdvReac Confusion Verified 11/29/23 05:00 hydrocodone [From Vicodin] AdvReac flushed, Verified 11/29/23 05:00 red face hydroxychloroquine sulfate AdvReac Confusion Verified 11/29/23 05:00 [From Plaquenil] milnacipran [From Savella] AdvReac Confusion Verified 11/29/23 05:00 nitrofurantoin AdvReac Abdominal Verified 11/29/23 05:00 [From Macrobid] Pain, Nausea, vomiting nitrofurantoin AdvReac Abdominal Verified 11/29/23 05:00 macrocrystalline Pain, [From Macrobid] Nausea, vomiting pregabalin [From Lyrica] AdvReac VERTIGO, Verified 11/29/23 05:00 confusion sucralfate [From Carafate] AdvReac VERTIGO, Verified 11/29/23 05:00 [place] like she "was going to pass out" sulfamethoxazole AdvReac Abdominal Verified 11/29/23 05:00 [From Bactrim] Pain, Nausea, vomiting trimethoprim [From Bactrim] AdvReac Abdominal Verified 11/29/23 05:00 Pain, Nausea, vomiting Review of Systems ROS Statement: Those systems with pertinent positive or pertinent negative responses have been documented in the HPI. ROS Other: All systems not noted in ROS Statement are negative. Constitutional: Reports: weakness. Denies: fever, chills Respiratory: Reports: cough, dyspnea, wheezes. Denies: hemoptysis Cardiovascular: Denies: chest pain, palpitations, orthopnea, edema, syncope Gastrointestinal: Denies: abdominal pain, vomiting, diarrhea Genitourinary: Denies: dysuria, hematuria Musculoskeletal: Denies: back pain Skin: Denies: rash Neurological: Denies: headache, weakness Past Medical History Past Medical History: Cancer, Fibromyalgia, Hypertension, Pulmonary Embolus (PE) Additional Past Medical History / Comment(s): acoustic neuroma, DEAF RT EAR. RIGHT HAND INDEX FINGER INFECTION. 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, MRSA Date of last positivie culture/infection: 12/03/15 MRSA; 03/27/15-ESBL MDRO Source:: Right 2nd Finger MRSA; Urine E.coli ESBL Past Surgical History: Cholecystectomy, Ear Surgery Additional Past Surgical History / Comment(s): right shoulder, right hand , BRAIN SURGERY, [facility], abscess lanced in groin, decompression of R balance system Past Anesthesia/Blood Transfusion Reactions: Family History of Problems w/ Anesthesia, Motion Sickness Additional Past Anesthesia/Blood Transfusion Reaction / Comment(s): brother had to be revived after anesthesia Past Psychological History: No Psychological Hx Reported Smoking Status: Never smoker Past Alcohol Use History: None Reported Past Drug Use History: None Reported - Past Family History Mother Family Medical History: No Reported History General Exam Limitations: no limitations General appearance: alert, in no apparent distress Head exam: Present: atraumatic, normocephalic Eye exam: Present: normal appearance. Absent: scleral icterus, conjunctival injection Neck exam: Present: normal inspection Respiratory exam: Present: respiratory distress (Tachypnea), rales (Rate mid and lower lung). Absent: wheezes, stridor, chest wall tenderness, accessory muscle use, decreased breath sounds Cardiovascular Exam: Present: regular rate, normal rhythm, normal heart sounds. Absent: systolic murmur, diastolic murmur, rubs, gallop GI/Abdominal exam: Present: soft. Absent: distended, tenderness, guarding, rebound, rigid, mass Extremities exam: Present: normal inspection, normal capillary refill. Absent: pedal edema, calf tenderness Back exam: Present: normal inspection. Absent: CVA tenderness (R), CVA tenderness (L) Neurological exam: Present: alert Skin exam: Present: warm, dry, intact, normal color. Absent: rash Course Vital Signs 11/29/23 11/29/23 11/29/23 04:52 05:05 06:00 Pulse Rate 86 88 Respiratory 28 H 28 H 14 Rate Blood Pressure 119/66 119/54 O2 Sat by Pulse 100 100 Oximetry Medical Decision Making - Medical Decision Making HEENT is a 83-year-old woman with recently diagnosed right lung cancer presents with increased cough and dyspnea. The had chest x-ray that in by my interpretation shows a be slightly worse picture than the previous though possibly unchanged. The patient pending computed tomography scan at time of admission, during the shift change, I did review the computed tomography scan myself and I do not appreciate pulmonary embolism. There is lung mass with possible pneumonia versus radiation pneumonitis. The liver has heterogeneous appearance. - Lab Data Result diagrams: 11/29/23 05:14 11/29/23 05:14 Lab Results 11/29/23 11/29/23 11/29/23 Range/Units 05:14 05:14 05:14 WBC 10.8 H (3.8-10.6) k/uL RBC 4.24 (3.80-5.40) m/uL Hgb 12.7 (11.4-16.0) gm/dL Hct 40.4 (34.0-46.0) % MCV 95.3 (80.0-100.0) fL MCH 30.0 (25.0-35.0) pg MCHC 31.5 (31.0-37.0) g/dL RDW 16.4 H (11.5-15.5) % Plt Count 465 H (150-450) k/uL MPV 7.1 Neutrophils % 70 % Lymphocytes % 21 % Monocytes % 4 % Eosinophils % 3 % Basophils % 0 % Neutrophils # 7.6 (1.3-7.7) k/uL Lymphocytes # 2.3 (1.0-4.8) k/uL Monocytes # 0.5 (0-1.0) k/uL Eosinophils # 0.3 (0-0.7) k/uL Basophils # 0.0 (0-0.2) k/uL Hypochromasia Slight Anisocytosis Slight PT 10.9 (10.0-12.5) sec INR 1.0 (<1.2) APTT 20.5 L (22.0-30.0) sec Sodium 138 (137-145) mmol/L Potassium 3.5 (3.5-5.1) mmol/L Chloride 107 (98-107) mmol/L Carbon Dioxide 27 (22-30) mmol/L Anion Gap 4 mmol/L BUN 21 H (7-17) mg/dL Creatinine 0.52 (0.52-1.04) mg/dL Est GFR (CKD-EPI)AfAm >90 (>60 ml/min/1.73 sqM) Est GFR (CKD-EPI)NonAf 89 (>60 ml/min/1.73 sqM) Glucose 82 (74-99) mg/dL Plasma Lactic Acid Henry (0.7-2.0) mmol/L Calcium 8.8 (8.4-10.2) mg/dL Total Bilirubin 0.8 (0.2-1.3) mg/dL AST 40 H (14-36) U/L ALT 50 H (4-34) U/L Alkaline Phosphatase 77 (38-126) U/L Troponin I (0.000-0.034) ng/mL NT-Pro-B Natriuret Pep 393 pg/mL Total Protein 5.6 L (6.3-8.2) g/dL Albumin 2.9 L (3.5-5.0) g/dL 11/29/23 11/29/23 Range/Units 05:14 05:14 WBC (3.8-10.6) k/uL RBC (3.80-5.40) m/uL Hgb (11.4-16.0) gm/dL Hct (34.0-46.0) % MCV (80.0-100.0) fL MCH (25.0-35.0) pg MCHC (31.0-37.0) g/dL RDW (11.5-15.5) % Plt Count (150-450) k/uL MPV Neutrophils % % Lymphocytes % % Monocytes % % Eosinophils % % Basophils % % Neutrophils # (1.3-7.7) k/uL Lymphocytes # (1.0-4.8) k/uL Monocytes # (0-1.0) k/uL Eosinophils # (0-0.7) k/uL Basophils # (0-0.2) k/uL Hypochromasia Anisocytosis PT (10.0-12.5) sec INR (<1.2) APTT (22.0-30.0) sec Sodium (137-145) mmol/L Potassium (3.5-5.1) mmol/L Chloride (98-107) mmol/L Carbon Dioxide (22-30) mmol/L Anion Gap mmol/L BUN (7-17) mg/dL Creatinine (0.52-1.04) mg/dL Est GFR (CKD-EPI)AfAm (>60 ml/min/1.73 sqM) Est GFR (CKD-EPI)NonAf (>60 ml/min/1.73 sqM) Glucose (74-99) mg/dL Plasma Lactic Acid Henry 2.2 H* (0.7-2.0) mmol/L Calcium (8.4-10.2) mg/dL Total Bilirubin (0.2-1.3) mg/dL AST (14-36) U/L ALT (4-34) U/L Alkaline Phosphatase (38-126) U/L Troponin I <0.012 (0.000-0.034) ng/mL NT-Pro-B Natriuret Pep pg/mL Total Protein (6.3-8.2) g/dL Albumin (3.5-5.0) g/dL - EKG Data -: EKG Interpreted by [facility] EKG shows normal: sinus rhythm, axis (Normal), intervals (Normal), QRS complexes (Voltage QRS complex) Rate: normal (Rate 89 bpm) Disposition Clinical Impression: Right lower lobe pneumonia, Lung cancer Disposition: ADMITTED IP TO THIS HOSP Condition: Fair Is patient prescribed a controlled substance at d/c from ED?: No Referrals: Dianna Rodriguez DO [Primary Care Provider] - 1-2 days
[2023-11-29 05:25] LABS: Anisocytosis Slight; Basophils % (A) 0 %; Eosinophils # (A) 0.3 k/uL (0-0.7); Eosinophils % (A) 3 %; HCT 40.4 % (34.0-46.0); HGB 12.7 gm/dL (11.4-16.0); Hypochromasia Slight; Lymphocytes # (A) 2.3 k/uL (1.0-4.8); Lymphocytes % (A) 21 %; MCHC 31.5 g/dL (31.0-37.0); MCV 95.3 fL (80.0-100.0); Mean Platelet Volume 7.1; Monocytes # (A) 0.5 k/uL (0-1.0); Monocytes % (A) 4 %; Neutrophils # (A) 7.6 k/uL (1.3-7.7); Neutrophils % (A) 70 %; Platelet Count 465 k/uL (150-450); RBC 4.24 m/uL (3.80-5.40); RDW 16.4 % (11.5-15.5); WBC 10.8 k/uL (3.8-10.6)
[2023-11-29 05:40] LABS: ALT 50 U/L (4-34); AST 40 U/L (14-36); African American GFR (CKD) >90 (>60 ml/min/1.73 sqM); Albumin 2.9 g/dL (3.5-5.0); Alkaline Phosphatase 77 U/L (38-126); Anion Gap 4 mmol/L; Blood Urea Nitrogen 21 mg/dL (7-17); Calcium 8.8 mg/dL (8.4-10.2); Carbon Dioxide 27 mmol/L (22-30); Chloride 107 mmol/L (98-107); Glucose 82 mg/dL (74-99); Non-African American GFR(CKD) 89 (>60 ml/min/1.73 sqM); Potassium 3.5 mmol/L (3.5-5.1); Sodium 138 mmol/L (137-145); Total Bilirubin 0.8 mg/dL (0.2-1.3); Total Protein 5.6 g/dL (6.3-8.2)
[2023-11-29 05:46] LABS: Prothrombin Time 10.9 sec (10.0-12.5)
[2023-11-29 05:48] LABS: NT-Pro-B-Type Natriuretic Pept 393 pg/mL
[2023-11-29 06:05] LABS: Partial Thromboplastin Time 20.5 sec (22.0-30.0)
[2023-11-29] MEDS ORDERED: NALOXONE 0.4 MG/ML 1 ML VIAL IV PRN (07:29)
[2023-11-29] MEDS ORDERED: MAG HYDROX/AL HYDROX/SIMETH 30 ML CUP PO PRN (07:29)
[2023-11-29] MEDS ORDERED: ACETAMINOPHEN TAB 325 MG TAB PO PRN (07:29)
[2023-11-29] MEDS ORDERED: MORPHINE SULFATE 4 MG/ML SYRINGE IV PRN (07:29)
[2023-11-29] MEDS ORDERED: SODIUM CHLORIDE 0.9% 1,000 ML IV SCH (07:30)
--- NOTE | 2023-11-29 07:31 | XR ---
EXAMINATION TYPE: XR chest 1V portable DATE OF EXAM: 11/29/2023 Comparison: 11/17/2023 Clinical History: 83-year-old female shortness of breath, dyspnea, history of lung cancer Findings: Heart normal size. Aorta and pulmonary vasculature within normal limits. Right hilar hazy right lower lung opacity persists. The previous left pleural effusion has improved. Impression: Focal right midlung and hazy right lower lung opacities persist. Previous left pleural effusion has r esolved. Background COPD.
[2023-11-29] MEDS ORDERED: PIPERACILLIN-TAZOBACTAM 3.375 GM in SODIUM CHLORIDE 0.9% 100 ML IVPB STA (07:33)
[2023-11-29] MEDS ORDERED: AZITHROMYCIN 500 MG TAB PO STA (07:34)
[2023-11-29] MEDS ORDERED: predniSONE 20 MG TAB PO STA (07:35)
--- NOTE | 2023-11-29 07:58 | CT ---
EXAMINATION TYPE: CT chest angio for PE DATE OF EXAM: 11/29/2023 COMPARISON: 11/15/2023 and 10/21/2023 HISTORY: 83-year-old female shortness of breath, dyspnea PE TECHNIQUE: Contiguous axial scanning of the chest performed with IV Contrast, patient injected with 1 00 ml mL of Isovue 370. Coronal and sagittal MIP reconstructions performed. CT DLP: 238.4 mGycm Automated exposure control for dose reduction was used. FINDINGS: Heart normal size without pericardial effusion. No flattening of the interventricular septum reflux o f contrast into the hepatic veins. LAD coronary artery calcifications. Ectatic ascending aorta 3.7 cm. Conventional arch vessel branching anatomy. There is stable prominent low right paratracheal lymph node at 8 mm. Satisfactory opacification pulmonary arterial system similar to slight decrease in clot within the ri ght upper lobe are pulmonary artery branch. A more extensive clot seen on 10/21/2023 has resolved. No new embolus is identified. However, there is worsening groundglass and airspace disease throughout the right lower lobe extendin g to the right hilum. Similar dense consolidation posterior right upper lobe and anteromedial right m id lung Mild patchy reticular changes at the left lower lung are similar.. Trace pleural effusions now presen t. Similar marked intrahepatic biliary ductal dilatation which should be correlated clinically. Cholecys tectomy clips. Moderate degenerative disc disease throughout the thoracic spine. IMPRESSION: 1. SIMILAR TO SLIGHTLY DECREASING RESIDUAL THROMBUS RIGHT UPPER LOBAR PULMONARY ARTERY BRANCH. NO NEW PULMONARY EMBOLUS SEEN. 2. PERSISTENT EXTENSIVE AIRSPACE DISEASE RIGHT LOWER LOBE, MEDIAL RIGHT MIDLUNG, AND POSTERIOR RIGHT UPPER LOBE. HOWEVER, THERE IS WORSENING AIRSPACE DISEASE, NOW MORE EXTENSIVELY PRESENT THROUGHOUT THE RIGHT LOWER LOBE. MILD PATCHY INFILTRATES AT THE LEFT BASE ARE SIMILAR. NEW TRACE EFFUSIONS. POSSIBL E ETIOLOGIES INCLUDE ANY COMBINATION OF WORSENING MULTIFOCAL PNEUMONIA, RADIATION PNEUMONITIS, AND/OR SOME UNDERLYING PULMONARY INFARCTS.
[2023-11-29 08:05] LABS: VBG PH 7.41 (7.31-7.41)
[2023-11-29] MEDS ORDERED: FAMOTIDINE 20 MG TAB PO SCH (09:00)
[2023-11-29] MEDS ORDERED: HEPARIN SODIUM,PORCINE 5,000 UNIT/ML 1 ML VIAL SQ SCH (09:00)
[2023-11-29] MEDS ORDERED: BENZONATATE 100 MG CAP PO PRN (09:25)
[2023-11-29] MEDS ORDERED: ALBUTEROL NEBULIZED 2.5 MG/3 ML INHALATION PRN (09:25)
[2023-11-29] MEDS ORDERED: LEVOTHYROXINE 75 MCG TAB PO SCH (09:30)
--- NOTE | 2023-11-29 12:09 | P.HPIM ---
Past Medical History Past Medical History: Cancer, Fibromyalgia, Hypertension, Pulmonary Embolus (PE) Additional Past Medical History / Comment(s): acoustic neuroma, DEAF RT EAR. RIGHT HAND INDEX FINGER INFECTION. 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, MRSA Date of last positivie culture/infection: 12/03/15 MRSA; 03/27/15-ESBL MDRO Source:: Right 2nd Finger MRSA; Urine E.coli ESBL Past Surgical History: Cholecystectomy, Ear Surgery Additional Past Surgical History / Comment(s): right shoulder, right hand , BRAIN SURGERY, [facility], abscess lanced in groin, decompression of R balance system Past Anesthesia/Blood Transfusion Reactions: Family History of Problems w/ Anesthesia, Motion Sickness Additional Past Anesthesia/Blood Transfusion Reaction / Comment(s): brother had to be revived after anesthesia Past Psychological History: No Psychological Hx Reported Smoking Status: Never smoker Past Alcohol Use History: None Reported Past Drug Use History: None Reported - Past Family History Mother Family Medical History: No Reported History Medications and Allergies Home Medications Medication Instructions Recorded Confirmed Type Aspirin EC [Ecotrin Low Dose] 81 mg PO DAILY 01/14/15 11/29/23 History Omeprazole [PriLOSEC] 20 mg PO HS 01/14/15 11/29/23 History Levothyroxine Sodium [Synthroid] 75 mcg PO DAILY 08/23/20 11/29/23 History Cholecalciferol [Vitamin D3 (25 25 mcg PO MOWEFR 09/11/21 11/29/23 History Mcg = 1000 Iu)] Ezetimibe [Zetia] 10 mg PO DAILY 09/11/21 11/29/23 History Albuterol Inhaler [Ventolin Hfa 1 - 2 puff INHALATION RT-Q6H PRN 10/21/23 11/29/23 History Inhaler] Benzonatate [Tessalon Perle] 200 mg PO TID PRN 10/21/23 11/29/23 History Acetaminophen Tab [Tylenol] 650 mg PO Q6HR PRN tab 10/23/23 11/29/23 Rx Ascorbic Acid [Vitamin C] 1,000 mg PO DAILY tab 10/23/23 11/29/23 Rx Zinc Sulfate [Orazinc] 220 mg PO DAILY #30 cap 10/23/23 11/29/23 Rx Apixaban [Eliquis] 2.5 mg PO BID 11/16/23 11/29/23 History Fluticasone Nasal [place] [Flonase 2 spr EA NOSTRIL DAILY 11/16/23 11/29/23 History Nasal [place]] predniSONE See Taper PO DAILY 11/29/23 11/29/23 History Allergies Allergy/AdvReac Type Severity Reaction Status Date / Time ciprofloxacin [From Cipro] AdvReac Abdominal Verified 11/29/23 08:26 Pain, Nausea, vomiting ciprofloxacin HCl AdvReac Abdominal Verified 11/29/23 08:26 [From Cipro] Pain, Nausea, vomiting desvenlafaxine [From Pristiq] AdvReac Confusion Verified 11/29/23 08:26 duloxetine [From Cymbalta] AdvReac Confusion Verified 11/29/23 08:26 hydrocodone [From Vicodin] AdvReac flushed, Verified 11/29/23 08:26 red face hydroxychloroquine sulfate AdvReac Confusion Verified 11/29/23 08:26 [From Plaquenil] milnacipran [From Savella] AdvReac Confusion Verified 11/29/23 08:26 nitrofurantoin AdvReac Abdominal Verified 11/29/23 08:26 [From Macrobid] Pain, Nausea, vomiting nitrofurantoin AdvReac Abdominal Verified 11/29/23 08:26 macrocrystalline Pain, [From Macrobid] Nausea, vomiting pregabalin [From Lyrica] AdvReac VERTIGO, Verified 11/29/23 08:26 confusion sucralfate [From Carafate] AdvReac VERTIGO, Verified 11/29/23 08:26 [place] like she "was going to pass out" sulfamethoxazole AdvReac Abdominal Verified 11/29/23 08:26 [From Bactrim] Pain, Nausea, vomiting trimethoprim [From Bactrim] AdvReac Abdominal Verified 11/29/23 08:26 Pain, Nausea, vomiting Physical Exam Vitals: Vital Signs Pulse Resp BP Pulse Ox 11/29/23 11:20 114 H 20 113/50 99 11/29/23 06:00 88 14 119/54 100 11/29/23 05:05 28 H 11/29/23 04:52 86 28 H 119/66 100 Intake and Output 11/28/23 11/29/23 11/29/23 22:59 06:59 14:59 Other: Weight 72.575 kg Results CBC & Chem 7: 11/29/23 05:14 11/29/23 05:14 Labs: Abnormal Lab Results - Last 24 Hours (Table) 11/29/23 11/29/23 11/29/23 Range/Units 05:14 05:14 05:14 WBC 10.8 H (3.8-10.6) k/uL RDW 16.4 H (11.5-15.5) % Plt Count 465 H (150-450) k/uL APTT 20.5 L (22.0-30.0) sec BUN 21 H (7-17) mg/dL Plasma Lactic Acid Henry (0.7-2.0) mmol/L AST 40 H (14-36) U/L ALT 50 H (4-34) U/L Total Protein 5.6 L (6.3-8.2) g/dL Albumin 2.9 L (3.5-5.0) g/dL 11/29/23 Range/Units 05:14 WBC (3.8-10.6) k/uL RDW (11.5-15.5) % Plt Count (150-450) k/uL APTT (22.0-30.0) sec BUN (7-17) mg/dL Plasma Lactic Acid Henry 2.2 H* (0.7-2.0) mmol/L AST (14-36) U/L ALT (4-34) U/L Total Protein (6.3-8.2) g/dL Albumin (3.5-5.0) g/dL Assessment and Plan Assessment: Dyspnea in a patient with history of metastatic lung cancer, recent inpatient admission for community-acquired pneumonia 11/16/23 Plan: Continue on current medication regime ,monitoring and symptomatic treatment. Discharge planning in progress pending final DC recommendations and clearance per pulmonary. The impression and plan of care has been dictated as directed. : I performed a history and examination of this patient, discussed the same with the dictator. I agree with the dictator's note ,documented as a scribe. Any additional findings or plans will be noted.
[2023-11-29] MEDS ORDERED: IPRATROPIUM-ALBUTEROL 3 ML NEB INHALATION PRN (12:11)
[2023-11-29] MEDS ORDERED: FLUTICASONE 50MCG/SPRAY NASAL 16GM EA NOSTRIL SCH (12:15)
[2023-11-29] MEDS: IPRATROPIUM-ALBUTEROL 3 ML NEB INHALATION SCH ×2 (16:58→19:51)
--- NOTE | 2023-11-29 17:24 | P.CNPUL ---
History of Present Illness Consult date: 11/29/23 Reason for consult: dyspnea History of present illness: 83-year-old female patient presented to the ED with worsening shortness of breath. She was having frequent cough or the past few days. No reported chest pain. She is known to have lung cancer and previous history of Covid 19 infection that was diagnosed and treated back in October 2023. Her last hospital visit was in October 2023. At that time, CT angiogram was positive for acute pulmonary embolism extending to the distal aspect of the right main pulmonary artery throughout the right sided lobar branches and some of the segmental branches as well. No evidence of any strain. There was also extensive consolidation/airspace disease throughout the posterior right mid lung consistent with lung cancer. Patient was also found to have intrahepatic biliary ductal dilatation. At the same time, the patient was found to have an acute DVT and her presentation back and was thought to be triggered by her lung cancer in her Covid 19 infection. As such, the patient was started on IV heparin and ultimately the patient was switched to oral anticoagulation with Eliquis. Subsequently, the patient was admitted to the hospital on 11/18/2023 and again she was seen in consultation. At that time, she was suspected to have a pneumonia versus radiation pneumonitis of the right lung. She was given antibiotics with Zosyn and she was also given steroids. The patient was di scharged home on 11/19/2022 and a course of prednisone burst taper and Augmentin. During this current admission, the patient had a repeat CT angiogram which again showed a thrombus in the right lobe pulmonary artery branch and this has slightly decreased in size. There is persistent extensive airspace disease involving the right lower lobe involving the medial posterior and basilar segment and there is worsening of airspace disease significant worsening the right lower lobe. There is also some mild patchy infiltrate in left lung base. Note that during her previous admissions, the blood cultures were negative and her pro-calcitonin level on 2 separate occasions from 10/22/2023 and 1 82,024 were within normal limits. Her most recent blood work shows no significant leukocytosis and the echoes at 10.8 with a hemoglobin of 12.7 and a platelet count of 465. The patient is currently on oxygen at 2 L with a pulse ox of 99%. She was placed on no antibiotics for now. She still had a nticoagulation with Eliquis. Far as her lung cancer, the patient was found to have an incidental right lung mass back in July 2023. CAT scan of the chest abdomen and pelvis showed a 6 x 3 cm mass in the posterior right mid lung. Patient also had a 1.1 cm right hilar lymph node. PET scan showed area of consolidation right lung base consistent with malignancy with increased FDG uptake. 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 Biopsy of the right lower lobe confirmed the diagnosis of pulmonary adenocarcinoma. Patient was felt to be a poor surgical candidate and the patient opted to take radiation therapy that was given to her by radiation oncology and received a total of 15 fractions of radiation that she completed in September 2023. It was also discussed with give this patient immunotherapy and apparently the patient last office visit to the oncology due to hospitalizations with Covid 19 and she has not been taking any form of immunotherapy at this point. Review of Systems CONSTITUTIONAL: Positive for generalized weakness. Denies any recent significant weight loss or weight gain. EYES: Denies change in vision. EARS, NOSE, MOUTH, THROAT: Denies headaches, denies sore throat. CARDIOVASCULAR: Denies chest pain, palpitations or syncopal episodes. RESPIRATORY: Positive for shortness of breath, cough, congestion no hemoptysis. GASTROINTESTINAL: Denies change in appetite, denies abdominal pain GENITOURINARY: Denies hematuria, denies infections. MUSKULOSKELETAL: Denies pain, denies swelling. INTEGUMENTARY: Denies rash, denies eczema. NEUROLOGICAL: Denies recent memory loss, no recent seizure activity. PSYCHIATRIC: Denies anxiety, denies depression. HEMATOLOGIC/LYMPHATIC: Denies anemia, denies enlarged lymph nodes. Past Medical History Past Medical History: Cancer, Fibromyalgia, Hypertension, Pulmonary Embolus (PE) Additional Past Medical History / Comment(s): acoustic neuroma, DEAF RT EAR. RIGHT HAND INDEX FINGER INFECTION. 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, MRSA Date of last positivie culture/infection: 12/03/15 MRSA; 03/27/15-ESBL MDRO Source:: Right 2nd Finger MRSA; Urine E.coli ESBL Past Surgical History: Cholecystectomy, Ear Surgery Additional Past Surgical History / Comment(s): right shoulder, right hand , BRAIN SURGERY, [facility], abscess lanced in groin, decompression of R balance system Past Anesthesia/Blood Transfusion Reactions: Family History of Problems w/ Anesthesia, Motion Sickness Additional Past Anesthesia/Blood Transfusion Reaction / Comment(s): brother had to be revived after anesthesia Past Psychological History: No Psychological Hx Reported Smoking Status: Never smoker Past Alcohol Use History: None Reported Past Drug Use History: None Reported - Past Family History Mother Family Medical History: No Reported History Medications and Allergies Home Medications Medication Instructions Recorded Confirmed Type Aspirin EC [Ecotrin Low Dose] 81 mg PO DAILY 01/14/15 11/29/23 History Omeprazole [PriLOSEC] 20 mg PO HS 01/14/15 11/29/23 History Levothyroxine Sodium [Synthroid] 75 mcg PO DAILY 08/23/20 11/29/23 History Cholecalciferol [Vitamin D3 (25 25 mcg PO MOWEFR 09/11/21 11/29/23 History Mcg = 1000 Iu)] Ezetimibe [Zetia] 10 mg PO DAILY 09/11/21 11/29/23 History Albuterol Inhaler [Ventolin Hfa 1 - 2 puff INHALATION RT-Q6H PRN 10/21/23 11/29/23 History Inhaler] Benzonatate [Tessalon Perle] 200 mg PO TID PRN 10/21/23 11/29/23 History Acetaminophen Tab [Tylenol] 650 mg PO Q6HR PRN tab 10/23/23 11/29/23 Rx Ascorbic Acid [Vitamin C] 1,000 mg PO DAILY tab 10/23/23 11/29/23 Rx Zinc Sulfate [Orazinc] 220 mg PO DAILY #30 cap 10/23/23 11/29/23 Rx Apixaban [Eliquis] 2.5 mg PO BID 11/16/23 11/29/23 History Fluticasone Nasal [place] [Flonase 2 spr EA NOSTRIL DAILY 11/16/23 11/29/23 History Nasal [place]] predniSONE See Taper PO DAILY 11/29/23 11/29/23 History Allergies Allergy/AdvReac Type Severity Reaction Status Date / Time ciprofloxacin [From Cipro] AdvReac Abdominal Verified 11/29/23 08:26 Pain, Nausea, vomiting ciprofloxacin HCl AdvReac Abdominal Verified 11/29/23 08:26 [From Cipro] Pain, Nausea, vomiting desvenlafaxine [From Pristiq] AdvReac Confusion Verified 11/29/23 08:26 duloxetine [From Cymbalta] AdvReac Confusion Verified 11/29/23 08:26 hydrocodone [From Vicodin] AdvReac flushed, Verified 11/29/23 08:26 red face hydroxychloroquine sulfate AdvReac Confusion Verified 11/29/23 08:26 [From Plaquenil] milnacipran [From Savella] AdvReac Confusion Verified 11/29/23 08:26 nitrofurantoin AdvReac Abdominal Verified 11/29/23 08:26 [From Macrobid] Pain, Nausea, vomiting nitrofurantoin AdvReac Abdominal Verified 11/29/23 08:26 macrocrystalline Pain, [From Macrobid] Nausea, vomiting pregabalin [From Lyrica] AdvReac VERTIGO, Verified 11/29/23 08:26 confusion sucralfate [From Carafate] AdvReac VERTIGO, Verified 11/29/23 08:26 Prospect like she "was going to pass out" sulfamethoxazole AdvReac Abdominal Verified 11/29/23 08:26 [From Bactrim] Pain, Nausea, vomiting trimethoprim [From Bactrim] AdvReac Abdominal Verified 11/29/23 08:26 Pain, Nausea, vomiting Physical Exam Vitals: Vital Signs Pulse Resp BP Pulse Ox 11/29/23 13:33 88 20 106/59 99 11/29/23 11:20 114 H 20 113/50 99 11/29/23 06:00 88 14 119/54 100 11/29/23 05:05 28 H 11/29/23 04:52 86 28 H 119/66 100 Intake and Output 11/29/23 11/29/23 11/29/23 06:59 14:59 22:59 Other: Weight 72.575 kg GENERAL EXAM: Alert, pleasant 83-year-old female, on room air, fairly comfortable in no apparent distress. HEAD: Normocephalic. Facial asymmetry related to previous history of surgery for acoustic neuroma EYES: Normal reaction of pupils, equal size. NOSE: Clear with pink turbinates. THROAT: No erythema or exudates. NECK: No masses, no JVD. CHEST: No chest wall deformity. LUNGS: Equal air entry with crackles in the right lung base. CVS: S1 and S2 normal with no audible murmur, regular rhythm. ABDOMEN: No hepatosplenomegaly, normal bowel sounds, no guarding or rigidity. SPINE: No scoliosis or deformity SKIN: No rashes CENTRAL NERVOUS SYSTEM: No focal deficits, tone is normal in all 4 extremities. EXTREMITIES: There is no peripheral edema. No clubbing, no cyanosis. Peripheral pulses are intact. Results - Laboratory Findings CBC and BMP: 11/29/23 05:14 11/29/23 05:14 PT/INR, D-dimer PT 10.9 sec (10.0-12.5) 11/29/23 05:14 INR 1.0 (<1.2) 11/29/23 05:14 Abnormal lab findings: Abnormal Labs 11/29/23 11/29/23 11/29/23 05:14 05:14 05:14 WBC 10.8 H RDW 16.4 H Plt Count 465 H APTT 20.5 L BUN 21 H Plasma Lactic Acid Henry AST 40 H ALT 50 H Total Protein 5.6 L Albumin 2.9 L 11/29/23 05:14 WBC RDW Plt Count APTT BUN Plasma Lactic Acid Henry 2.2 H* AST ALT Total Protein Albumin - Diagnostic Findings Chest x-ray: image reviewed CT scan - chest: image reviewed Assessment and Plan Plan: Acute hypoxemic respiratory failure , currently on 2 L of oxygen by nasal cannula Right lower lobe consolidation involving the medial basilar the posterior segment with interval worsening based on the CAT scan findings. No clear indication for pneumonia. The patient is afebrile. The patient is no significant leukocytosis and the pro calcitonin level has been negative on multiple occasions. During her previous hospitalization, the patient was treated with antibiotics without any major improvement. Suspect disease progression most likely related to radiation pneumonitis. Progression of an underlying malignancy cannot be completely ruled out despite radiation therapy although radiation pneumonitis highly favored. History of pulmonary adenocarcinoma, completed radiation treatment that completed in September 2023. Being considered for immunotherapy although this treatment was not offered to the patient yet pulmonary embolism with an underlying right lower extremity DVT, anticoagulated with Eliquis. The patient has some residual clotting in the right lung although it is improved compared to earlier CAT scan images. This was diagnosed back in October 2023 Covid 19 infection back in September 2023, treated on outpatient basis History of hypertension History of previous brain surgery/acoustic neuroma Nonsmoker Hypothyroidism Gastroesophageal reflux disease Previous history of acoustic neuroma surgically resected Plan Titrate oxygen flow to maintain saturation above 90% Continue anticoagulation with Eliquis Recommend steroids including a high-dose prednisone with slow taper regarding possibility of radiation pneumonitis Favored noninfectious causes The patient does not look toxic at all. She does not look septic at all. The patient can be discharged home on 40 mg of prednisone. I came to find other the patient follows up with Dr. Yuri Nunez on a outpatient basis and she can do her follow-up while being on steroids to monitor the progression of the port consolidation of the right lower lobe.
[2023-11-29 20:10] VITALS: BP 134/69; PULSE 86; RESP 18; TEMP 98.2
[2023-11-29] MEDS ORDERED: APIXABAN 5 MG TAB PO SCH (21:00)
[2023-11-29] MEDS ORDERED: PANTOPRAZOLE 40 MG TABLET PO SCH (21:00)
== END 2023-11-29 19:55 | disposition home or self-care (01) ==
LOC: EC 04:50 → 5NMEDONC 07:31
PROVIDERS: ADMIT Family Medicine; ATTEND Family Medicine
DX: J96.01 Acute respiratory failure with hypoxia (principal); C34.91 Malignant neoplasm of unspecified part of right bronchus or lung; I10 Essential (primary) hypertension; E03.9 Hypothyroidism, unspecified; M79.7 Fibromyalgia; K21.9 Gastro-esophageal reflux disease without esophagitis; H91.91 Unspecified hearing loss, right ear; K83.8 Other specified diseases of biliary tract; Z79.82 Long term (current) use of aspirin; Z79.890 Hormone replacement therapy; Z79.01 Long term (current) use of anticoagulants; Z79.52 Long term (current) use of systemic steroids; Z79.899 Other long term (current) drug therapy; Z88.1 Allergy status to other antibiotic agents; Z88.2 Allergy status to sulfonamides; Z88.5 Allergy status to narcotic agent; Z88.8 Allergy status to other drugs, medicaments and biological substances; Z86.16 Personal history of COVID-19; Z86.711 Personal history of pulmonary embolism; Z86.018 Personal history of other benign neoplasm; Z92.3 Personal history of irradiation; Z86.718 Personal history of other venous thrombosis and embolism; Z87.01 Personal history of pneumonia (recurrent); Z86.14 Personal history of Methicillin resistant Staphylococcus aureus infection; Z16.12 Extended spectrum beta lactamase (ESBL) resistance; Z90.49 Acquired absence of other specified parts of digestive tract; Z98.890 Other specified postprocedural states; Z84.89 Family history of other specified conditions
CPT/HCPCS: 96365; 96366; 96372; 99285; 36415; 94640; 93005; 83880; 80053; 82803; 83605; 84484; 85025; 85610; 85730; 84145; 87636; 71045; 71275; G0378; J2543; J1644; J7512; Q9967

== ENCOUNTER → 2024-02-21 | Outpatient (CLI) | payer MEDICARE ==
--- NOTE | 2024-02-21 12:35 | FL ---
Modified barium swallow. HISTORY: Dysphagia. Modified barium swallow was performed with the department of speech pathology. The patient was prese nted with various consistencies of barium. There is no evidence for aspiration or penetration. Hypertrophy of the cricopharyngeus musculature a t C4-5. Full report is to follow from the department of speech pathology. Impression: There is no evidence for aspiration or penetration.
== END | disposition home or self-care (01) ==
LOC: RADUSWWP 10:54
PROVIDERS: ATTEND Family Medicine
DX: J69.0 Pneumonitis due to inhalation of food and vomit (principal)
CPT/HCPCS: 74230

== ENCOUNTER → 2024-02-27 | Outpatient (CLI) | payer MEDICARE ==
[2024-02-27 13:14] LABS: African American GFR (CKD) >90 (>60 ml/min/1.73 sqM); Blood Urea Nitrogen 21 mg/dL (7-17); Non-African American GFR(CKD) 82 (>60 ml/min/1.73 sqM)
--- NOTE | 2024-02-27 22:54 | CT ---
EXAMINATION TYPE: CT soft tissue neck w con DATE OF EXAM: 02/27/2024 COMPARISON: 11/07/2018 and chest 11/29/2023 HISTORY: right side lump on neck bb placed over area, h/o right lung CA TECHNIQUE: Contiguous axial scanning of the soft tissues of the neck performed with IV Contrast, fernando ent injected with 100 mL of Isovue 300. Coronal/sagittal reconstructions performed. CT DLP: 373.6 mGycm Automated exposure control for dose reduction was used. FINDINGS: There is some type of metal overlying the surface of the right causing extensive artifact. Clinically correlate. Status post resection along the right mastoid air cells. Paranasal sinuses appear clear. Slight rightward nasal septal deviation. Nasopharynx and oropharynx appear clear. Patient is edentulous. Epiglottis and prevertebral soft tissues are satisfactory. Glottic and subglottic structures as well as the tracheal column are clear. Thyroid gland is atrophic. Right submandibular gland is asymmetrically atrophic. Parotid glands appear satisfactory. No cervical lymphadenopathy by CT size criteria. Palpable marker placed along the right posterolateral lower neck. There appears to be underlying lipo ma interposed between the trapezius muscle and the linear scapulae muscle measuring 4.2 cm craniocaud al by 3.6 cm wide by 1.6 cm thick. This is in comparison to 3.3 x 2.1 x 1.5 cm on 11/07/2018. There is ongoing extensive abnormal opacity involving the right lower lobe. This is either persistent or recurrent compared to 11/29/2023. Bones: Moderate spondylotic change mid to lower cervical spine. No osseous destructive process. IMPRESSION: 1. PALPABLE MARKER ALONG THE RIGHT POSTEROLATERAL LOWER NECK. UNDERLYING LIPOMA INTERPOSED BETWEEN TH E TRAPEZIUS MUSCLE AND LEVATOR SCAPULAE IS REDEMONSTRATED, SLIGHTLY LARGER MEASURING 4.2 CM NOW VERSU S 3.3 CM, PREVIOUSLY. THIS CAN BE FOLLOWED CLINICALLY. IF PERSISTENT GROWTH, CONSIDER SURGICAL EVALUA TION. 2. ONGOING EXTENSIVE ABNORMAL OPACITY PARTIALLY VISUALIZED IN THE RIGHT LOWER LOBE. THIS IS EITHER PE RSISTENT OR RECURRENT COMPARED TO 11/29/2023. CORRELATE FOR ANY SYMPTOMS OF PNEUMONIA. IF THIS IS FILM LABORATORY TECHNICIAN SANCHEZ AIRSPACE DISEASE, LYMPHOMA AND LOW-GRADE ADENOCARCINOMA WOULD BE ADDITIONAL CONSIDERATIONS AND AP PROPRIATE PULMONARY MEDICINE REFERRAL WOULD BE RECOMMENDED.
== END | disposition home or self-care (01) ==
LOC: RADCTMAIN 12:19
PROVIDERS: ATTEND Family Medicine
DX: D17.0 Benign lipomatous neoplasm of skin and subcutaneous tissue of head, face and neck (principal); C34.81 Malignant neoplasm of overlapping sites of right bronchus and lung; R91.8 Other nonspecific abnormal finding of lung field; R59.0 Localized enlarged lymph nodes
CPT/HCPCS: 82565; 84520; 70491; 36415; Q9967

== ENCOUNTER → 2024-05-06 | Outpatient (CLI) | payer MEDICARE ==
[2024-05-06 12:30] LABS: African American GFR (CKD) >90 (>60 ml/min/1.73 sqM); Blood Urea Nitrogen 7 mg/dL (7-17); Non-African American GFR(CKD) 81 (>60 ml/min/1.73 sqM)
--- NOTE | 2024-05-06 13:04 | CT ---
EXAMINATION TYPE: CT angio chest DATE OF EXAM: 05/06/2024 COMPARISON: 11/29/2023 HISTORY: PE CT DLP: 281.3 mGycm CONTRAST: CT chest with contrast and 3D reconstruction with MIP imaging is performed with IV Contrast, patient injected with 50 mL of Isovue 370. Contrast-enhanced CT of the chest was performed through the course of the pulmonary arteries with luis g and mediastinal window settings submitted. 3D reconstruction with MIP imaging was also performed. PULMONARY ARTERIES: The pulmonary arteries and their major tributaries are patent. I do not see joselyn dence for sizable filling defect to suggest pulmonary embolic process. LUNGS: Moderate to severe right lower lobe airspace consolidation is redemonstrated as was seen previ ously with smaller right upper lobe anterior component. Underlying mass is not excluded. The left luis g remains clear. Associated volume loss and narrowing right lower lobe bronchus. Associated bronchiec tasis. MEDIASTINUM: Thoracic aorta is of normal caliber.. The heart is not enlarged. No evidence for media stinal mass. No mediastinal lymph nodes greater than 1cm. HILAR STRUCTURES: No evidence for mass. No hilar lymph nodes greater than 1 cm. UPPER ABDOMEN: Abnormal attenuation throughout the liver. Consider ultrasound or dedicated CT of the abdomen. IMPRESSION: 1. No evidence for Pulmonary embolism at this time. 2. Progression of airspace consolidation right lower lobe and right upper lobe. Narrowing right lower lobe bronchus. Underlying mass is not excluded. Consider PET/CT if felt clinically indicated.
--- NOTE | 2024-05-06 13:44 | US ---
EXAMINATION TYPE: US venous doppler duplex LE BI DATE OF EXAM: 05/06/2024 1:11 PM COMPARISON: NONE CLINICAL INDICATION: Female, 83 years old with history of Z86.718 PERSONAL HX VENOUS THROMBOSIS; RLE DVT in october, on thinners, swelling in RLE since; Recheck for DVT SIDE PERFORMED: Bilateral TECHNIQUE: The lower extremity deep venous system is examined utilizing real time linear array sonog alma with graded compression, doppler sonography and color-flow sonography. VESSELS IMAGED: Common Femoral Vein Deep Femoral Vein Greater Saphenous Vein * Femoral Vein Popliteal Vein Small Saphenous Vein * Proximal Calf Veins (* superficial vessels) Right Leg: Negative for DVT Left Leg: Negative for DVT IMPRESSION: Grayscale, color doppler, spectral doppler imaging performed of the deep veins of the lo wer extremities. There is normal flow, compressibility, vascular waveforms.
== END | disposition home or self-care (01) ==
LOC: RADCTMAIN 11:48
PROVIDERS: ATTEND Internal Medicine
DX: R06.02 Shortness of breath (principal); Z86.718 Personal history of other venous thrombosis and embolism
CPT/HCPCS: 82565; 84520; 93970; 71275; 36415; Q9967

== ENCOUNTER 2024-05-23 21:29 | Inpatient (IN) | payer MEDICARE ==
--- NOTE | 2024-05-23 21:47 | ED ---
General Adult HPI - General Source: patient, EMS Mode of arrival: EMS <Diego Garcia - Last Filed: 05/23/24 23:04> <Barbara Santacruz - Last Filed: 05/24/24 03:33> - General Chief complaint: Fall Stated complaint: Fall- on thinners Time Seen by Provider: 05/23/24 21:31 - History of Present Illness Initial comments: Dictation was produced using [employer] dictation software. please excuse any grammatical, word or spelling errors. Chief Complaint: 83-year-old female presents to the ER after fall History of Present Illness: Patient is a 83-year-old female presents emergency department for fall. Patient went outside to do something with the air conditioner when she tripped and fell. Patient takes anticoagulation medications. Patient brought in by EMS. Daughter was here in the hospital being evaluated. Patient found on the ground when daughter went home. She states that she may have been on the ground for approximately 3 hours. Patient complaining of extremity pain. She was unable to get up because she is so weak. She normally ambulates with a walker. The ROS documented in this emergency department record has been reviewed and confirmed by me. Those systems with pertinent positive or negative responses have been documented in the HPI. All other systems are other negative and/or noncontributory. (Diego Garcia) - Related Data Home Medications Medication Instructions Recorded Confirmed Aspirin EC [Ecotrin Low Dose] 81 mg PO DAILY 01/14/15 11/29/23 Omeprazole [PriLOSEC] 20 mg PO HS 01/14/15 11/29/23 Levothyroxine Sodium [Synthroid] 75 mcg PO DAILY 08/23/20 11/29/23 Cholecalciferol [Vitamin D3 (25 25 mcg PO MOWEFR 09/11/21 11/29/23 Mcg = 1000 Iu)] Ezetimibe [Zetia] 10 mg PO DAILY 09/11/21 11/29/23 Albuterol Inhaler [Ventolin Hfa 1 - 2 puff INHALATION RT-Q6H PRN 10/21/23 11/29/23 Inhaler] Benzonatate [Tessalon Perle] 200 mg PO TID PRN 10/21/23 11/29/23 Apixaban [Eliquis] 2.5 mg PO BID 11/16/23 11/29/23 Fluticasone Nasal [place] [Flonase 2 spr EA NOSTRIL DAILY 11/16/23 11/29/23 Nasal [place]] Previous Rx's Medication Instructions Recorded Acetaminophen Tab [Tylenol] 650 mg PO Q6HR PRN tab 10/23/23 Ascorbic Acid [Vitamin C] 1,000 mg PO DAILY tab 10/23/23 Zinc Sulfate [Orazinc] 220 mg PO DAILY #30 cap 10/23/23 predniSONE 0 mg PO DIRECTED #50 tab 11/29/23 Allergies Allergy/AdvReac Type Severity Reaction Status Date / Time ciprofloxacin [From Cipro] AdvReac Abdominal Verified 05/23/24 21:36 Pain, Nausea, vomiting ciprofloxacin HCl AdvReac Abdominal Verified 05/23/24 21:36 [From Cipro] Pain, Nausea, vomiting desvenlafaxine [From Pristiq] AdvReac Confusion Verified 05/23/24 21:36 duloxetine [From Cymbalta] AdvReac Confusion Verified 05/23/24 21:36 hydrocodone [From Vicodin] AdvReac flushed, Verified 05/23/24 21:36 red face hydroxychloroquine sulfate AdvReac Confusion Verified 05/23/24 21:36 [From Plaquenil] milnacipran [From Savella] AdvReac Confusion Verified 05/23/24 21:36 nitrofurantoin AdvReac Abdominal Verified 05/23/24 21:36 [From Macrobid] Pain, Nausea, vomiting nitrofurantoin AdvReac Abdominal Verified 05/23/24 21:36 macrocrystalline Pain, [From Macrobid] Nausea, vomiting pregabalin [From Lyrica] AdvReac VERTIGO, Verified 05/23/24 21:36 confusion sucralfate [From Carafate] AdvReac VERTIGO, Verified 05/23/24 21:36 [place] like she "was going to pass out" sulfamethoxazole AdvReac Abdominal Verified 05/23/24 21:36 [From Bactrim] Pain, Nausea, vomiting trimethoprim [From Bactrim] AdvReac Abdominal Verified 05/23/24 21:36 Pain, Nausea, vomiting Review of Systems ROS Other: All systems not noted in ROS Statement are negative. <Diego Garcia D - Last Filed: 05/23/24 23:04> ROS Other: All systems not noted in ROS Statement are negative. <Barbara Santacruz Jelani - Last Filed: 05/24/24 03:33> ROS Statement: Those systems with pertinent positive or pertinent negative responses have been documented in the HPI. Past Medical History Past Medical History: Cancer, Fibromyalgia, Hypertension, Pulmonary Embolus (PE) Additional Past Medical History / Comment(s): acoustic neuroma, DEAF RT EAR. RIGHT HAND INDEX FINGER INFECTION. 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, MRSA Date of last positivie culture/infection: 12/03/15 MRSA; 03/27/15-ESBL MDRO Source:: Right 2nd Finger MRSA; Urine E.coli ESBL Past Surgical History: Cholecystectomy, Ear Surgery Additional Past Surgical History / Comment(s): right shoulder, right hand , BRAIN SURGERY, [facility], abscess lanced in groin, decompression of R balance system Past Anesthesia/Blood Transfusion Reactions: Family History of Problems w/ Anesthesia, Motion Sickness Additional Past Anesthesia/Blood Transfusion Reaction / Comment(s): brother had to be revived after anesthesia Past Psychological History: No Psychological Hx Reported Smoking Status: Never smoker Past Alcohol Use History: None Reported Past Drug Use History: None Reported - Past Family History Mother Family Medical History: No Reported History <Diego Garcia - Last Filed: 05/23/24 23:04> General Exam <Diego Garcia - Last Filed: 05/23/24 23:04> - General Exam Comments Initial Comments: PHYSICAL EXAM: General Impression: Alert and oriented x3, not in acute distress HEENT: Normocephalic atraumatic, extra-ocular movements intact, pupils equal and reactive to light bilaterally, mucous membranes moist. Cardiovascular: Heart regular rate and rhythm Chest: Able to complete full sentences, no retractions, no tachypnea Abdomen: abdomen soft, non-tender, non-distended, no organomegaly Musculoskeletal: Pulses present and equal in all extremities, no peripheral edema Motor: no focal deficits noted Neurological: CN II-XII grossly intact, no focal motor or sensory deficits noted Skin: I multiple skin tears to the right upper extremity right lower extremity, diffuse ecchymoses Psych: Normal affect and mood (Diego Garcia) Course <Diego Garcia - Last Filed: 05/23/24 23:04> Vital Signs 05/23/24 05/23/24 05/23/24 21:32 22:22 23:00 Temperature 98.3 F Pulse Rate 111 H 116 H 98 Respiratory 18 18 18 Rate Blood Pressure 174/90 144/81 126/88 O2 Sat by Pulse 95 97 98 Oximetry 05/24/24 05/24/24 00:00 02:00 Temperature Pulse Rate 96 86 Respiratory 18 18 Rate Blood Pressure 137/76 147/75 O2 Sat by Pulse 95 95 Oximetry - Reevaluation(s) Reevaluation #1: 05/23/24 21:45 C-collar cleared by [place] C-spine rules (Diego Garcia) Reevaluation #2: 05/23/24 23:04 Patient evaluated at 11:04 PM states that she is having some back pain. Patient sent for lumbar spine CT (Diego Garcia) EKG Findings - EKG Comments: EKG Findings:: My EKG interpretation: Ventricular rate 120, sinus tachycardia,. 109, cures 78, QTc 359. No FL prolongation, no QTC prolongation, no ST or T-wave changes noted. EKG compared to November 29, 2023 showing no changes. Overall, this EKG is unremarkable <Diego Garcia - Last Filed: 05/23/24 23:04> Medical Decision Making - Lab Data Result diagrams: 05/23/24 21:50 05/23/24 21:50 <Diego Garcia - Last Filed: 05/23/24 23:04> - Lab Data Result diagrams: 05/23/24 21:50 05/23/24 21:50 <Barbara Santacruz - Last Filed: 05/24/24 03:33> - Medical Decision Making Was pt. sent in by a medical professional or institution (, PA, GUEST RELATIONS COORDINATOR, urgent care, hospital, or [facility]...) When possible be specific @ -No Did you speak to anyone other than the patient for history (EMS, parent, family, police, friend...)? What history was obtained from this source @ -No Did you review nursing and triage notes (agree or disagree)? Why? @ -I reviewed and agree with nursing and triage notes Were old charts reviewed (outside hosp., previous admission, EMS record, old E KG, old radiological studies, urgent care reports/EKG's, [facility] records)? Report findings @ -No old charts were reviewed Differential Diagnosis (chest pain, altered mental status, abdominal pain women, abdominal pain men, vaginal bleeding, musculoskeletal, weakness, fever, dyspnea, syncope, headache, dizziness, GI bleed, back pain, seizure, CVA, palpatations, mental health)? @ -Syncope, mechanical fall, extremity injury EKG interpreted by me (3pts min.). @ -See above X-rays interpreted by me (1pt min.). @ -Pending CT interpreted by me (1pt min.). @ -Pending U/S interpreted by me (1pt. min.). @ -None done What testing was considered but not performed or refused? (CT, X-rays, U/S, labs)? Why? @ -None What meds were considered but not given or refused? Why? @ -None Was smoking cessation discussed for >3mins.? @ -No Were there social determinants of health that impacted care today? How? (Homelessness, low income, unemployed, alcoholism, drug addiction, transportation, low edu. Level, literacy, decrease access to med. care, snf, rehab)? @ -No Was there de-escalation of care discussed even if they declined (Discuss DNR or withdrawal of care, Hospice)? DNR status @ -No What co-morbidities impacted this encounter? (DM, HTN, Smoking, COPD, CAD, Cancer, CVA, ARF, Chemo, Hep., AIDS, mental health diagnosis, sleep apnea, morbid obesity)? @ -None Was patient admitted / discharged? Hospital course, mention meds given and route, prescriptions, significant lab abnormalities, going to OR and other pertinent info. @ -83-year-old female suffered mechanical fall. She has multiple skin tears on her right extremities. Patient fell was allegedly on the ground for hours. Vital signs upon arrival shows tachycardia of 111. Repeat vital signs shows persistent tachycardia. Plain film imaging is negative. Pending radiology reads. Patient care signed out to Dr. Fletcher at 11:00 PM Did you discuss the management of the patient with other professionals (professionals i.e. , PA, GUEST RELATIONS COORDINATOR, lab, RT, psych nurse, nephrology social worker, entertainment lawyer, teacher, commissary officer, case investigator)? Give summary @ -No Was critical care preformed (if so, how long)? @ -No Undiagnosed new problem with uncertain prognosis? @ -No Drug Therapy requiring intensive monitoring for toxicity (Heparin, Nitro, Insulin, Cardizem)? @ -No Were any procedures done? @ -No Diagnosis/symptom? Acute, or Chronic, or Acute on Chronic? Uncomplicated (without systemic symptoms) or Complicated (systemic symptoms)? @ -Fall (Diego Garcia) - Lab Data Lab Results 05/23/24 05/23/24 05/23/24 Range/Units 21:50 21:50 21:50 WBC 18.0 H (3.8-10.6) k/uL RBC 4.88 (3.80-5.40) m/uL Hgb 14.0 (11.4-16.0) gm/dL Hct 45.5 (34.0-46.0) % MCV 93.1 (80.0-100.0) fL MCH 28.7 (25.0-35.0) pg MCHC 30.8 L (31.0-37.0) g/dL RDW 14.8 (11.5-15.5) % Plt Count 604 H (150-450) k/uL MPV 7.4 Neutrophils % 88 % Lymphocytes % 5 % Monocytes % 5 % Eosinophils % 1 % Basophils % 1 % Neutrophils # 15.9 H (1.3-7.7) k/uL Lymphocytes # 0.9 L (1.0-4.8) k/uL Monocytes # 0.9 (0-1.0) k/uL Eosinophils # 0.2 (0-0.7) k/uL Basophils # 0.1 (0-0.2) k/uL Hypochromasia Slight PT 11.2 (10.0-12.5) sec INR 1.0 (<1.2) APTT 22.6 (22.0-30.0) sec Sodium 137 (137-145) mmol/L Potassium 3.5 (3.5-5.1) mmol/L Chloride 101 (98-107) mmol/L Carbon Dioxide 29 (22-30) mmol/L Anion Gap 7 mmol/L BUN 11 (7-17) mg/dL Creatinine 0.78 (0.52-1.04) mg/dL Est GFR (CKD-EPI)AfAm 82 (>60 ml/min/1.73 sqM) Est GFR (CKD-EPI)NonAf 71 (>60 ml/min/1.73 sqM) Glucose 94 (74-99) mg/dL Calcium 9.5 (8.4-10.2) mg/dL Creatine Kinase (30-135) U/L 05/23/24 Range/Units 21:50 WBC (3.8-10.6) k/uL RBC (3.80-5.40) m/uL Hgb (11.4-16.0) gm/dL Hct (34.0-46.0) % MCV (80.0-100.0) fL MCH (25.0-35.0) pg MCHC (31.0-37.0) g/dL RDW (11.5-15.5) % Plt Count (150-450) k/uL MPV Neutrophils % % Lymphocytes % % Monocytes % % Eosinophils % % Basophils % % Neutrophils # (1.3-7.7) k/uL Lymphocytes # (1.0-4.8) k/uL Monocytes # (0-1.0) k/uL Eosinophils # (0-0.7) k/uL Basophils # (0-0.2) k/uL Hypochromasia PT (10.0-12.5) sec INR (<1.2) APTT (22.0-30.0) sec Sodium (137-145) mmol/L Potassium (3.5-5.1) mmol/L Chloride (98-107) mmol/L Carbon Dioxide (22-30) mmol/L Anion Gap mmol/L BUN (7-17) mg/dL Creatinine (0.52-1.04) mg/dL Est GFR (CKD-EPI)AfAm (>60 ml/min/1.73 sqM) Est GFR (CKD-EPI)NonAf (>60 ml/min/1.73 sqM) Glucose (74-99) mg/dL Calcium (8.4-10.2) mg/dL Creatine Kinase 33 (30-135) U/L Disposition <Diego Garcia - Last Filed: 05/23/24 23:04> Is patient prescribed a controlled substance at d/c from ED?: No Time of Disposition: 03:33 Decision to Admit Reason: Admit from EC Decision Date: 05/24/24 Decision Time: 03:33 <Barbara Santacruz - Last Filed: 05/24/24 03:33> Clinical Impression: Fall, Compression fracture, Compression fracture of L3 vertebra Disposition: ADMITTED IP TO THIS [facility] Condition: Stable Referrals: Dianna Rodriguez DO [Primary Care Provider] - 1-2 days
[2024-05-23 22:05] LABS: Partial Thromboplastin Time 22.6 sec (22.0-30.0); Prothrombin Time 11.2 sec (10.0-12.5)
[2024-05-23 22:15] LABS: African American GFR (CKD) 82 (>60 ml/min/1.73 sqM); Anion Gap 7 mmol/L; Blood Urea Nitrogen 11 mg/dL (7-17); Calcium 9.5 mg/dL (8.4-10.2); Carbon Dioxide 29 mmol/L (22-30); Chloride 101 mmol/L (98-107); Glucose 94 mg/dL (74-99); Non-African American GFR(CKD) 71 (>60 ml/min/1.73 sqM); Potassium 3.5 mmol/L (3.5-5.1); Sodium 137 mmol/L (137-145)
[2024-05-23 22:16] LABS: Basophils # (A) 0.1 k/uL (0-0.2); Basophils % (A) 1 %; Eosinophils # (A) 0.2 k/uL (0-0.7); Eosinophils % (A) 1 %; HCT 45.5 % (34.0-46.0); Hypochromasia Slight; Lymphocytes # (A) 0.9 k/uL (1.0-4.8); Lymphocytes % (A) 5 %; MCH 28.7 pg (25.0-35.0); MCHC 30.8 g/dL (31.0-37.0); MCV 93.1 fL (80.0-100.0); Mean Platelet Volume 7.4; Monocytes # (A) 0.9 k/uL (0-1.0); Monocytes % (A) 5 %; Neutrophils # (A) 15.9 k/uL (1.3-7.7); Neutrophils % (A) 88 %; Platelet Count 604 k/uL (150-450); RBC 4.88 m/uL (3.80-5.40); RDW 14.8 % (11.5-15.5)
[2024-05-23] MEDS: SODIUM CHLORIDE 0.9% 1,000 ML IV STA (22:21)
[2024-05-23] MEDS: ACETAMINOPHEN TAB 500 MG TAB PO STA (22:30)
[2024-05-23] MEDS: DIPH,PERTUS(ACELL)TETVAC-LF 0.5 ML VIAL IM ONE (22:30)
--- NOTE | 2024-05-24 01:22 | CT ---
EXAM: CT Head Without Intravenous Contrast CLINICAL HISTORY: fall TECHNIQUE: Axial computed tomography images of the head/brain without intravenous contrast. CTDI is 45.2 mGy and DLP is 1044 mGy-cm. This CT exam was performed using one or more of the following dose reduction techniques: automated exposure control, adjustment of the mA and/or kV according to patient size, and/or use of iterative reconstruction technique. Coronal and sagittal reformatted images were created and reviewed. COMPARISON: No relevant prior studies available. FINDINGS: Brain: Loss and chronic small vessel ischemic changes. 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 No hemorrhage. Ventricles: Unremarkable. No ventriculomegaly. Bones/joints: Right frontal and occipital zachary holes. Soft tissues: Unremarkable. Sinuses: Unremarkable as visualized. No acute sinusitis. Mastoid air cells: Right partial mastoidectomy. Orbits: Bilateral cataract surgeries. Tubes, lines and devices: Right frontal catheter tract. Other findings: Moderate age-related generalized. IMPRESSION: No acute findings in the head/brain. EXAM: CT Cervical Spine Without Intravenous Contrast CLINICAL HISTORY: fall TECHNIQUE: Axial computed tomography images of the cervical spine without intravenous contrast. CTDI is 11.4 mGy and DLP is 342 mGy-cm. This CT exam was performed using one or more of the following dose reduction techniques: automated exposure control, adjustment of the mA and/or kV according to patient size, and/or use of iterative reconstruction technique. Coronal and sagittal reformatted images were created and reviewed. COMPARISON: No relevant prior studies available. FINDINGS: Vertebrae: Osteopenia. Moderate degenerative disc disease. No fracture. Toothless Discs/spinal canal/neural foramina: No acute findings. Soft tissues: Unremarkable. IMPRESSION: No acute findings in the cervical spine.
--- NOTE | 2024-05-24 01:31 | CT ---
EXAM: CT Lumbar Spine Without Intravenous Contrast CLINICAL HISTORY: fall, back pain TECHNIQUE: Axial computed tomography images of the lumbar spine without intravenous contrast. CTDI is 20.7 mGy and DLP is 695.9 mGy-cm. This CT exam was performed using one or more of the following dose reduction techniques: automated exposure control, adjustment of the mA and/or kV according to patient size, and/or use of iterative reconstruction technique. Coronal and sagittal reformatted images were created and reviewed. 367 images COMPARISON: CT abdomen and pelvis from 11-15-23 FINDINGS: Vertebrae: Osteopenia. Moderate lower lumbar scoliosis convexed to the left. Mild superior endplate compression fracture at L3 with about 25% loss in height on the left, new. 6 mm anterolisthesis of L3 on L4. 1 cm antral anterolisthesis of L4 and L5. These are unchanged. Moderate degenerative disease. Discs/spinal canal/neural foramina: No acute findings. No spinal canal stenosis. Soft tissues: Unremarkable. Pleural space: Partially visualized right pleural effusion versus consolidations, increased. Gallbladder and bile ducts: Cholecystectomy clips. Moderate-severe intrahepatic biliary duct dilatation. Hilar mass is not excluded. Cholecystectomy clips. Mild common duct dilatation measuring up to 9 mm. These are not substantially changed. Kidneys and ureters: Likely subcentimeter right renal cyst, unchanged. Stomach and bowel: Colonic diverticulosis. IMPRESSION: 1. Mild superior endplate compression fracture at L3 with about 25% loss in height on the left, new. Please correlate with mechanism of the injury and the location of pain. 2. Partially visualized right pleural effusion versus consolidations, increased. Follow-up to resolution is recommended.
[2024-05-24] MEDS ORDERED: MORPHINE SULFATE 4 MG/ML SYRINGE IV PRN (03:33)
[2024-05-24] MEDS ORDERED: NALOXONE 0.4 MG/ML 1 ML VIAL IV PRN (03:33)
--- NOTE | 2024-05-24 04:13 | XR ---
EXAM: XR Chest, 2 Views CLINICAL HISTORY: ITS.REASON XR Reason: fall TECHNIQUE: Frontal and lateral views of the chest. COMPARISON: 11/29/2023 FINDINGS: Lungs: Linear opacities over right middle lung zone, slightly decreased. Large consolidation over right lower lung zone is increased. Left lung is clear. Pleural space: Cannot rule out right pleural effusion. Mediastinum: Unremarkable. Normal mediastinal contour. Bones/joints: No acute findings. IMPRESSION: Right lower lung zone consolidation/airspace disease is worse
[2024-05-24] MEDS: KETOROLAC 15 MG/ML 1 ML VIAL IVP PRN (04:40)
--- NOTE | 2024-05-24 04:48 | XR ---
EXAM: XR Pelvis, frontal View CLINICAL HISTORY: ITS.REASON XR Reason: fall TECHNIQUE: Frontal view of the pelvis. COMPARISON: No relevant prior studies available. FINDINGS: Bones/joints: No fracture or dislocation. Osteopenia. Degenerative disc disease in the visualized lower lumbar spine Soft tissues: Unremarkable. IMPRESSION: No acute findings
[2024-05-24] MEDS: ACETAMINOPHEN TAB 325 MG TAB PO PRN (05:17)
[2024-05-24] MEDS: HYDROcodone/APAP 5-325MG 1 EACH TAB PO PRN (09:59)
--- NOTE | 2024-05-24 12:47 | P.CNOR ---
History of Present Illness - [facility] Consult date: 05/24/24 Consult reason: other (L3 vertebral body compression fracture) History of present illness: Patient is an 83-year-old female who was brought in to [facility] ER by EMS on 05/23/2024 after being found on the floor by her daughter. Patient underwent multiple imaging and lab test upon arrival. Patient was noted to have a compression fracture involving the L3 vertebral body. Patient was admitted under internal medicine with our orthopedic team placed on consult. Patient was evaluated today at bedside, her daughter was also present, she is resting on the medical/surgical floor. Patient appears to be in no acute distress. Patient has a relatively detailed history with regards to her lumbar spine. She has chronic back pain and has followed up with a [facility] and has received multiple epidural injections. Patient was diagnosed with adenocarcinoma of the lung some back in July 2023. Patient underwent radiation at that time, since then she has declined further treatment for this. Most of the history was obtained from the daughter today at bedside, she states that she is not very ambulatory, she spends most of her day in a chair. She does utilize a walker when she ambulates. Patient is able to get to the bathroom, she has had no issues with incontinence of both bowel or bladder. When discussing with the patient, she does have generalized low back pain that seems a little worse since her fall. She did ended up with a abrasion to the lateral aspect of the right knee. She also has multiple abrasions to the right forearm and elbow, all are covered with bandaging at this time. She denies any headaches, cervical or thoracic pain at this time. She denies any numbness or tingling to the bilateral upper or lower extremities at this time. She denies any numbness or tingling to the genital or perineal region. Review of Systems Constitutional: Reports as per HPI Past Medical History Past Medical History: Cancer, Fibromyalgia, Hypertension, Pulmonary Embolus (PE) Additional Past Medical History / Comment(s): acoustic neuroma, DEAF RT EAR. RIGHT HAND INDEX FINGER INFECTION. 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, MRSA Year Discovered:: 12/03/15 MRSA; 03/27/15-ESBL MDRO Source:: Right 2nd Finger MRSA; Urine E.coli ESBL Past Surgical History: Cholecystectomy, Ear Surgery Additional Past Surgical History / Comment(s): right shoulder, right hand , BRAIN SURGERY, [facility], abscess lanced in groin, decompression of R balance system Past Anesthesia/Blood Transfusion Reactions: Family History of Problems w/ Anesthesia, Motion Sickness Additional Past Anesthesia/Blood Transfusion Reaction / Comm: brother had to be revived after anesthesia Past Psychological History: No Psychological Hx Reported Smoking Status: Never smoker Past Alcohol Use History: None Reported Past Drug Use History: None Reported - Past Family History Mother Family Medical History: No Reported History Medications and Allergies Home Medications Medication Instructions Recorded Confirmed Type Omeprazole [PriLOSEC] 20 mg PO DAILY 01/14/15 05/24/24 History Levothyroxine Sodium [Synthroid] 75 mcg PO DAILY 08/23/20 05/24/24 History Ezetimibe [Zetia] 10 mg PO DAILY 09/11/21 05/24/24 History Albuterol Inhaler [Ventolin Hfa 1 - 2 puff INHALATION RT-Q6H PRN 10/21/23 05/24/24 History Inhaler] Apixaban [Eliquis] 2.5 mg PO BID 11/16/23 05/24/24 History Furosemide [Lasix] 40 mg PO DAILY 05/24/24 05/24/24 History Pentoxifylline [TRENtal] 400 mg PO BID 05/24/24 05/24/24 History Potassium Chloride [Klor-Con 20 20 meq PO DAILY 05/24/24 05/24/24 History Packets] predniSONE 40 mg PO DAILY 05/24/24 05/24/24 History Allergies Allergy/AdvReac Type Severity Reaction Status Date / Time ciprofloxacin [From Cipro] AdvReac Abdominal Verified 05/24/24 09:46 Pain, Nausea, vomiting ciprofloxacin HCl AdvReac Abdominal Verified 05/24/24 09:46 [From Cipro] Pain, Nausea, vomiting desvenlafaxine [From Pristiq] AdvReac Confusion Verified 05/24/24 09:46 duloxetine [From Cymbalta] AdvReac Confusion Verified 05/24/24 09:46 hydrocodone [From Vicodin] AdvReac flushed, Verified 05/24/24 09:46 red face hydroxychloroquine sulfate AdvReac Confusion Verified 05/24/24 09:46 [From Plaquenil] milnacipran [From Savella] AdvReac Confusion Verified 05/24/24 09:46 nitrofurantoin AdvReac Abdominal Verified 05/24/24 09:46 [From Macrobid] Pain, Nausea, vomiting nitrofurantoin AdvReac Abdominal Verified 05/24/24 09:46 macrocrystalline Pain, [From Macrobid] Nausea, vomiting pregabalin [From Lyrica] AdvReac VERTIGO, Verified 05/24/24 09:46 confusion sucralfate [From Carafate] AdvReac VERTIGO, Verified 05/24/24 09:46 [place] like she "was going to pass out" sulfamethoxazole AdvReac Abdominal Verified 05/24/24 09:46 [From Bactrim] Pain, Nausea, vomiting trimethoprim [From Bactrim] AdvReac Abdominal Verified 05/24/24 09:46 Pain, Nausea, vomiting Physical Examination Gen: AOx3, NAD VSS stable at this time Integument: No open lesions or sores visualized throughout the thoracic or lumbar region Palpation: No significant tenderness appreciated with palpation to the lumbar midline or paraspinal region ROM: Full range of motion in all major muscle groups of the bilateral upper and lower extremities, no focal deficits Sensory Exam: [place] exam to light touch is intact C5-T1 Sen[place] exam to light touch is intact L2-S1 Motor: 4/5 strength appreciated in the upper extremities with shoulder elevation, shoulder abduction, elbow extension, elbow flexion, wrist extension, wrist flexion, commissary agent 4-/5 strength appreciated the bilateral lower extremities with hip flexion, knee extension, knee flexion, plantarflexion, dorsiflexion, EHL, FHL Reflexes: 2/4 in all UE and LE Negative Daryn's bilaterally Negative clonus left lower extremity, positive clonus 3 beats right lower extremity Special Test: Negative straight leg raise bilaterally Negative logroll maneuver bilaterally Results - Labs Labs: Abnormal Lab Results - Last 24 Hours (Table) 05/23/24 Range/Units 21:50 WBC 18.0 H (3.8-10.6) k/uL MCHC 30.8 L (31.0-37.0) g/dL Plt Count 604 H (150-450) k/uL Neutrophils # 15.9 H (1.3-7.7) k/uL Lymphocytes # 0.9 L (1.0-4.8) k/uL H & H 05/23/24 Range/Units 21:50 Hgb 14.0 (11.4-16.0) gm/dL Hct 45.5 (34.0-46.0) % Coagulation 05/23/24 Range/Units 21:50 INR 1.0 (<1.2) Result Diagrams: 05/23/24 21:50 05/23/24 21:50 - Diagnostic results CT Scan - lumbar: report reviewed, image reviewed (CT scan of the lumbar spine both reports and images were reviewed. Multilevel lumbar spondylosis with severe degenerative disc disease, worst being at L5-S1. There is vacuum disc phenomenon noted at L3-L4, L4-L5, L5-S1. Endplate changes noted in the superior aspect of the L3 vertebral body ) Assessment and Plan Assessment: Chronic low back pain Severe lumbar degenerative disc disease with vacuum phenomenon, worst being L3- L4, L4-L5, L5-S1 Spondylolisthesis noted at L3-L4, L4-L5 L3 vertebral body compression fracture Lung cancer Multiple medical comorbidities Plan: I was able to discuss the case, this to include both physical exam findings and imaging studies my attending Dr. Daly. No emergent orthopedic surgical intervention is recommended at this time Recommending conservative measures, LSO brace will be ordered on 05/26/2024, she will utilize this when up and ambulating. She may ambulate without it at this time. Utilize walker for ambulation Pain control, combination of Tylenol, NSAIDs, low-dose muscle relaxers and narcotics as needed GI and DVT prophylaxis per primary medical service PT/OT evaluation Other medical specialty recommendations appreciated We will continue to follow during hospital stay Time with Patient: Less than 30
--- NOTE | 2024-05-24 14:19 | P.GSHP ---
History of Present Illness H&P Date: 05/24/24 History of Present Illness: Patient is a 83-year-old female presents to the emergency department for fall. Patient went outside to do something with the air conditioner when she tripped and fell. Patient takes anticoagulation medications. Patient brought in by EMS. Daughter was here in the hospital being evaluated. Patient found on the ground when daughter went home. She states that she may have been on the ground for approximately 3 hours. Patient complaining of extremity pain. She was unable to get up because she is so weak. She normally ambulates with a walker. The ROS documented in this emergency department record has been reviewed and confirmed by me. Those systems with pertinent positive or negative responses have been documented in the HPI. All other systems are other negative and/or noncontributory. Review of Systems ROS Other: All systems not noted in ROS Statement are negative. Past Medical History Past Medical History: Cancer, Fibromyalgia, Hypertension, Pulmonary Embolus (PE) Additional Past Medical History / Comment(s): acoustic neuroma, DEAF RT EAR. RIGHT HAND INDEX FINGER INFECTION. 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, MRSA Date of last positivie culture/infection: 12/03/15 MRSA; 03/27/15-ESBL MDRO Source:: Right 2nd Finger MRSA; Urine E.coli ESBL Past Surgical History: Cholecystectomy, Ear Surgery Additional Past Surgical History / Comment(s): right shoulder, right hand , BRAIN SURGERY, [facility], abscess lanced in groin, decompression of R balance system Past Anesthesia/Blood Transfusion Reactions: Family History of Problems w/ Anesthesia, Motion Sickness Additional Past Anesthesia/Blood Transfusion Reaction / Comment(s): brother had to be revived after anesthesia Past Psychological History: No Psychological Hx Reported Smoking Status: Never smoker Past Alcohol Use History: None Reported Past Drug Use History: None Reported PHYSICAL EXAM: General Impression: Alert and oriented x3, not in acute distress HEENT: Normocephalic atraumatic, extra-ocular movements intact, pupils equal and reactive to light bilaterally, mucous membranes moist. Cardiovascular: Heart regular rate and rhythm Chest: Able to complete full sentences, no retractions, no tachypnea Abdomen: abdomen soft, non-tender, non-distended, no organomegaly Musculoskeletal: Pulses present and equal in all extremities, no peripheral edema Motor: no focal deficits noted Neurological: CN II-XII grossly intact, no focal motor or sensory deficits noted Skin: I multiple skin tears to the right upper extremity right lower extremity, diffuse ecchymoses Psych: Normal affect and mood 83 year old female with fall and L3 compression fracture - Regular Diet - Pain Control -Ortho Consult -Medicine Consult -AM labs -Social Work Consult Past Medical History Past Medical History: Cancer, Fibromyalgia, Hypertension, Pulmonary Embolus (PE) Additional Past Medical History / Comment(s): acoustic neuroma, DEAF RT EAR. RIGHT HAND INDEX FINGER INFECTION. 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, MRSA Date of last positivie culture/infection: 12/03/15 MRSA; 03/27/15-ESBL MDRO Source:: Right 2nd Finger MRSA; Urine E.coli ESBL Past Surgical History: Cholecystectomy, Ear Surgery Additional Past Surgical History / Comment(s): right shoulder, right hand , BRAIN SURGERY, [facility], abscess lanced in groin, decompression of R balance system Past Anesthesia/Blood Transfusion Reactions: Family History of Problems w/ Anesthesia, Motion Sickness Additional Past Anesthesia/Blood Transfusion Reaction / Comment(s): brother had to be revived after anesthesia Past Psychological History: No Psychological Hx Reported Smoking Status: Never smoker Past Alcohol Use History: None Reported Past Drug Use History: None Reported - Past Family History Mother Family Medical History: No Reported History Medications and Allergies Home Medications Medication Instructions Recorded Confirmed Type Omeprazole [PriLOSEC] 20 mg PO DAILY 01/14/15 05/24/24 History Levothyroxine Sodium [Synthroid] 75 mcg PO DAILY 08/23/20 05/24/24 History Ezetimibe [Zetia] 10 mg PO DAILY 09/11/21 05/24/24 History Albuterol Inhaler [Ventolin Hfa 1 - 2 puff INHALATION RT-Q6H PRN 10/21/23 05/24/24 History Inhaler] Apixaban [Eliquis] 2.5 mg PO BID 11/16/23 05/24/24 History Furosemide [Lasix] 40 mg PO DAILY 05/24/24 05/24/24 History Pentoxifylline [TRENtal] 400 mg PO BID 05/24/24 05/24/24 History Potassium Chloride [Klor-Con 20 20 meq PO DAILY 05/24/24 05/24/24 History Packets] predniSONE 40 mg PO DAILY 05/24/24 05/24/24 History Allergies Allergy/AdvReac Type Severity Reaction Status Date / Time ciprofloxacin [From Cipro] AdvReac Abdominal Verified 05/24/24 09:46 Pain, Nausea, vomiting ciprofloxacin HCl AdvReac Abdominal Verified 05/24/24 09:46 [From Cipro] Pain, Nausea, vomiting desvenlafaxine [From Pristiq] AdvReac Confusion Verified 05/24/24 09:46 duloxetine [From Cymbalta] AdvReac Confusion Verified 05/24/24 09:46 hydrocodone [From Vicodin] AdvReac flushed, Verified 05/24/24 09:46 red face hydroxychloroquine sulfate AdvReac Confusion Verified 05/24/24 09:46 [From Plaquenil] milnacipran [From Savella] AdvReac Confusion Verified 05/24/24 09:46 nitrofurantoin AdvReac Abdominal Verified 05/24/24 09:46 [From Macrobid] Pain, Nausea, vomiting nitrofurantoin AdvReac Abdominal Verified 05/24/24 09:46 macrocrystalline Pain, [From Macrobid] Nausea, vomiting pregabalin [From Lyrica] AdvReac VERTIGO, Verified 05/24/24 09:46 confusion sucralfate [From Carafate] AdvReac VERTIGO, Verified 05/24/24 09:46 [place] like she "was going to pass out" sulfamethoxazole AdvReac Abdominal Verified 05/24/24 09:46 [From Bactrim] Pain, Nausea, vomiting trimethoprim [From Bactrim] AdvReac Abdominal Verified 05/24/24 09:46 Pain, Nausea, vomiting Surgical - Exam Vital Signs Temp Pulse Resp BP Pulse Ox 98.3 F 111 H 18 174/90 95 05/23/24 21:32 05/23/24 21:32 05/23/24 21:32 05/23/24 21:32 05/23/24 21:32 Results - Labs 05/23/24 21:50 05/23/24 21:50 Abnormal Lab Results - Last 24 Hours (Table) 05/23/24 Range/Units 21:50 WBC 18.0 H (3.8-10.6) k/uL MCHC 30.8 L (31.0-37.0) g/dL Plt Count 604 H (150-450) k/uL Neutrophils # 15.9 H (1.3-7.7) k/uL Lymphocytes # 0.9 L (1.0-4.8) k/uL Diabetes panel 05/23/24 Range/Units 21:50 Sodium 137 (137-145) mmol/L Potassium 3.5 (3.5-5.1) mmol/L Chloride 101 (98-107) mmol/L Carbon Dioxide 29 (22-30) mmol/L BUN 11 (7-17) mg/dL Creatinine 0.78 (0.52-1.04) mg/dL Glucose 94 (74-99) mg/dL Calcium 9.5 (8.4-10.2) mg/dL Calcium panel 05/23/24 Range/Units 21:50 Calcium 9.5 (8.4-10.2) mg/dL Pituitary panel 05/23/24 Range/Units 21:50 Sodium 137 (137-145) mmol/L Potassium 3.5 (3.5-5.1) mmol/L Chloride 101 (98-107) mmol/L Carbon Dioxide 29 (22-30) mmol/L BUN 11 (7-17) mg/dL Creatinine 0.78 (0.52-1.04) mg/dL Glucose 94 (74-99) mg/dL Calcium 9.5 (8.4-10.2) mg/dL Adrenal panel 05/23/24 Range/Units 21:50 Sodium 137 (137-145) mmol/L Potassium 3.5 (3.5-5.1) mmol/L Chloride 101 (98-107) mmol/L Carbon Dioxide 29 (22-30) mmol/L BUN 11 (7-17) mg/dL Creatinine 0.78 (0.52-1.04) mg/dL Glucose 94 (74-99) mg/dL Calcium 9.5 (8.4-10.2) mg/dL
--- NOTE | 2024-05-24 14:28 | P.CONS ---
History of Present Illness - Reason for Consult Consult date: 05/24/24 Medical management - History of Present Illness History of present illness; patient 83-year-old lady with past medical history significant for lung cancer, PE, hypertension brought in the ER after a fall. Patient is accompanied by her daughter who she lives with. Apparently patient was all right yesterday when was trying to get out to check on her air conditioner when she tripped and fell. There was no Loss of consciousness. There was no complaint of palpitation at the time. Open no chest pain or shortness of breath. Patient was found later by her daughter lying on the ground. Patient was brought to ER Initial lab work done in the ER showed WBC 18, hemoglobin 14, platelet count 604, sodium 135, potassium 3.5, BUN 11, creatinine 0.78, glucose 94, creatinine kinase 33 Pelvic x-ray no acute finding Chest x-ray done in the ER showed right lower lung zone saltation/airspace disease CT head done showed no acute intracranial process CT cervical spine did not show any cervical spine fractures CT lumbar spine done showed mild superior endplate compression fracture at L3, partially related right-sided pleural effusion Patient admitted to trauma service REVIEW OF SYSTEMS: CONSTITUTIONAL: No fever, no malaise, no fatigue. HEENT: No recent visual problems or hearing problems. Denied any sore throat. CARDIOVASCULAR: No chest pain, orthopnea, PND, no palpitations, no syncope. PULMONARY: No shortness of breath, no cough, no hemoptysis. GASTROINTESTINAL: No diarrhea, no nausea, no vomiting, no abdominal pain. NEUROLOGICAL: No headaches, no weakness, no numbness. HEMATOLOGICAL: Denies any bleeding or petechiae. GENITOURINARY: Denies any burning micturition, frequency, or urgency. MUSCULOSKELETAL/RHEUMATOLOGICAL: Right arm pain ENDOCRINE: Denies any polyuria or polydipsia. The rest of the 14-point review of systems is negative. PHYSICAL EXAMINATION: GENERAL: The patient is alert and oriented x3, not in any acute distress. Well developed, well nourished. HEENT: Pupils are round and equally reacting to light. EOMI. No scleral icterus. No conjunctival pallor. Normocephalic, atraumatic. No pharyngeal erythema. No thyromegaly. CARDIOVASCULAR: S1 and S2 present. No murmurs, rubs, or gallops. PULMONARY: Chest is clear to auscultation, no wheezing or crackles. ABDOMEN: Soft, nontender, nondistended, normoactive bowel sounds. No palpable organomegaly. MUSCULOSKELETAL: Right upper extremity bandages seen EXTREMITIES: No cyanosis, clubbing, or pedal edema. NEUROLOGICAL: Gross neurological examination did not reveal any focal deficits. SKIN: No rashes. Assessment and plan Fall Superior endplate compression fracture at L3 History of lung cancer history of PE Hypertension Hypothyroidism Monitor vital signs Monitor CBC Monitor CMP Fall precaution Delirium precaution Continue pain management Continue IV fluids Resume home meds Orthopedic consulted Labs and medication were reviewed.. Continue same treatment. Continue with symptomatic treatment. Resume home medication. Monitor labs and vitals. DVT and GI prophylaxis. Further recommendations as per clinical course of the patient Dictation was produced using [employer] dictation software. please excuse any grammatical, word or spelling errors. Past Medical History Past Medical History: Cancer, Fibromyalgia, Hypertension, Pulmonary Embolus (PE) Additional Past Medical History / Comment(s): acoustic neuroma, DEAF RT EAR. RIGHT HAND INDEX FINGER INFECTION. 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, MRSA Year Discovered:: 12/03/15 MRSA; 03/27/15-ESBL MDRO Source:: Right 2nd Finger MRSA; Urine E.coli ESBL Past Surgical History: Cholecystectomy, Ear Surgery Additional Past Surgical History / Comment(s): right shoulder, right hand , BRAIN SURGERY, [facility], abscess lanced in groin, decompression of R balance system Past Anesthesia/Blood Transfusion Reactions: Family History of Problems w/ Anesthesia, Motion Sickness Additional Past Anesthesia/Blood Transfusion Reaction / Comm: brother had to be revived after anesthesia Past Psychological History: No Psychological Hx Reported Smoking Status: Never smoker Past Alcohol Use History: None Reported Past Drug Use History: None Reported - Past Family History Mother Family Medical History: No Reported History Medications and Allergies Home Medications Medication Instructions Recorded Confirmed Type Omeprazole [PriLOSEC] 20 mg PO DAILY 01/14/15 05/24/24 History Levothyroxine Sodium [Synthroid] 75 mcg PO DAILY 08/23/20 05/24/24 History Ezetimibe [Zetia] 10 mg PO DAILY 09/11/21 05/24/24 History Albuterol Inhaler [Ventolin Hfa 1 - 2 puff INHALATION RT-Q6H PRN 10/21/23 05/24/24 History Inhaler] Apixaban [Eliquis] 2.5 mg PO BID 11/16/23 05/24/24 History Furosemide [Lasix] 40 mg PO DAILY 05/24/24 05/24/24 History Pentoxifylline [TRENtal] 400 mg PO BID 05/24/24 05/24/24 History Potassium Chloride [Klor-Con 20 20 meq PO DAILY 05/24/24 05/24/24 History Packets] predniSONE 40 mg PO DAILY 05/24/24 05/24/24 History Allergies Allergy/AdvReac Type Severity Reaction Status Date / Time ciprofloxacin [From Cipro] AdvReac Abdominal Verified 05/24/24 09:46 Pain, Nausea, vomiting ciprofloxacin HCl AdvReac Abdominal Verified 05/24/24 09:46 [From Cipro] Pain, Nausea, vomiting desvenlafaxine [From Pristiq] AdvReac Confusion Verified 05/24/24 09:46 duloxetine [From Cymbalta] AdvReac Confusion Verified 05/24/24 09:46 hydrocodone [From Vicodin] AdvReac flushed, Verified 05/24/24 09:46 red face hydroxychloroquine sulfate AdvReac Confusion Verified 05/24/24 09:46 [From Plaquenil] milnacipran [From Savella] AdvReac Confusion Verified 05/24/24 09:46 nitrofurantoin AdvReac Abdominal Verified 05/24/24 09:46 [From Macrobid] Pain, Nausea, vomiting nitrofurantoin AdvReac Abdominal Verified 05/24/24 09:46 macrocrystalline Pain, [From Macrobid] Nausea, vomiting pregabalin [From Lyrica] AdvReac VERTIGO, Verified 05/24/24 09:46 confusion sucralfate [From Carafate] AdvReac VERTIGO, Verified 05/24/24 09:46 [place] like she "was going to pass out" sulfamethoxazole AdvReac Abdominal Verified 05/24/24 09:46 [From Bactrim] Pain, Nausea, vomiting trimethoprim [From Bactrim] AdvReac Abdominal Verified 05/24/24 09:46 Pain, Nausea, vomiting Physical Exam Vitals: Vital Signs Temp Pulse Pulse Resp BP BP Pulse Ox 05/24/24 09:26 97.3 F L 85 16 122/77 97 05/24/24 07:00 97.8 F 82 17 134/78 96 05/24/24 04:22 97.7 F 80 16 148/88 95 05/24/24 04:07 77 18 131/69 95 05/24/24 02:00 86 18 147/75 95 05/24/24 00:00 96 18 137/76 95 05/23/24 23:00 98 18 126/88 98 05/23/24 22:22 116 H 18 144/81 97 05/23/24 21:32 98.3 F 111 H 18 174/90 95 Intake and Output 05/23/24 05/24/24 05/24/24 22:59 06:59 14:59 Intake Total 240 118 Output Total 0 Balance 240 118 Intake: Oral 240 118 Output: Urine 0 Other: Voiding Method External Catheter Weight 62.596 kg 62.596 kg Results CBC & Chem 7: 05/23/24 21:50 05/23/24 21:50 Labs: Abnormal Lab Results - Last 24 Hours (Table) 05/23/24 Range/Units 21:50 WBC 18.0 H (3.8-10.6) k/uL MCHC 30.8 L (31.0-37.0) g/dL Plt Count 604 H (150-450) k/uL Neutrophils # 15.9 H (1.3-7.7) k/uL Lymphocytes # 0.9 L (1.0-4.8) k/uL
[2024-05-24] MEDS: APIXABAN 2.5 MG TABLET PO SCH (20:05)
[2024-05-25] MEDS: LEVOTHYROXINE 75 MCG TAB PO SCH (06:06)
[2024-05-25] MEDS: ALBUTEROL NEBULIZED 2.5 MG/3 ML INHALATION PRN (08:40)
[2024-05-25] MEDS: EZETIMIBE 10 MG TAB PO SCH (09:10)
[2024-05-25] MEDS: PANTOPRAZOLE 40 MG TABLET PO SCH (09:10)
[2024-05-25 09:43] LABS: Basophils # (A) 0.18 X 10*3/uL (0.00-0.10); Eosinophils # (A) 0.31 X 10*3/uL (0.04-0.35); Eosinophils % (A) 3.4 %; HCT 38.1 % (37.2-46.3); HGB 11.8 g/dL (12.0-15.0); Lymphocytes # (A) 0.85 X 10*3/uL (0.90-5.00); Lymphocytes % (A) 9.2 %; MCH 28.9 pg (27.0-32.0); MCV 93.2 FL (80.0-97.0); Monocytes # (A) 0.47 X 10*3/uL (0.20-1.00); Monocytes % (A) 5.1 %; NRBC Per 100 WBC 0 X 10*3/uL (0.00-0.01); Neutrophils # (A) 7.32 X 10*3/uL (1.80-7.70); Neutrophils % (A) 79.2 %; Platelet Count 483 X 10*3/uL (140-440); RBC 4.09 X 10*6/uL (4.10-5.20); RDW 14.6 % (11.5-14.5); WBC 9.23 X 10*3/uL (4.50-10.00)
[2024-05-25 09:49] LABS: Blood Urea Nitrogen 13.3 mg/dL (9.0-27.0); Calcium 8.8 mg/dL (8.7-10.3); Carbon Dioxide 27.7 mmol/L (21.6-31.8); Chloride 96 mmol/L (96-109); Glucose 81 mg/dL (70-110); Potassium 2.9 mmol/L (3.5-5.5); Sodium 136 mmol/L (135-145)
[2024-05-25] MEDS: POTASSIUM BICARBONATE/CIT AC 20 MEQ TABLET.EFF PO ONE ×2 (11:38→13:30)
[2024-05-25] MEDS ORDERED: POTASSIUM CHLORIDE ER 20 MEQ TAB.ER PO SCH (12:00)
--- NOTE | 2024-05-25 12:18 | P.PN ---
Subjective Progress Note Date: 05/25/24 Principal diagnosis: L3 vertebral body compression fracture, multilevel lumbar degenerative disc disease, right upper extremity skin tears Patient was evaluated today at bedside, she is resting comfortably. Patient's daughter remains at bedside with her. Patient states that she is having no acute pain with regards to her back. She did complain of some right elbow and shoulder pain today, x-rays have been ordered of both of those. Patient continues to deny any loss of bowel or bladder function at this time. She denies chest pain, shortness of breath, nausea or vomiting Objective - Vital Signs Vital signs: Vital Signs Temp 98.0 F 05/25/24 07:34 Pulse 101 H 05/25/24 08:55 Resp 17 05/25/24 07:34 BP 121/75 05/25/24 07:34 Pulse Ox 92 L 05/25/24 08:41 FiO2 Intake & Output 05/24/24 05/25/24 05/25/24 18:59 06:59 18:59 Intake Total 118 Output Total 900 Balance -782 Intake: Oral 118 Output: Urine 450 Straight 450 Post Void Residual 450 Other: Voiding Method Diaper External Catheter # Voids 0 - Exam Gen: AOx3, NAD VSS stable at this time Integument: No open lesions or sores visualized throughout the thoracic or lumbar region There are multiple bandages present on the right upper extremity, just proximal to the elbow and also on the proximal forearm. Multiple skin tears are noted in that area Palpation: No significant tenderness appreciated with palpation to the lumbar midline or paraspinal region Patient demonstrates no significant tenderness with palpation surrounding the elbow along with forearm ROM: Full range of motion in all major muscle groups of the bilateral upper and lower extremities, no focal deficits She demonstrates full range of motion with extension, flexion, pronation and supination at the elbow Sensory Exam: Senory exam to light touch is intact C5-T1 Senosry exam to light touch is intact L2-S1 Motor: 4/5 strength appreciated in the upper extremities with shoulder elevation, shoulder abduction, elbow extension, elbow flexion, wrist extension, wrist flexion, network intelligence analyst 4-/5 strength appreciated the bilateral lower extremities with hip flexion, knee extension, knee flexion, plantarflexion, dorsiflexion, EHL, FHL Reflexes: 2/4 in all UE and LE Negative Daryn's bilaterally Negative clonus left lower extremity, positive clonus 3 beats right lower extremity Special Test: Negative straight leg raise bilaterally Negative logroll maneuver bilaterally - Labs CBC & Chem 7: 05/25/24 03:10 05/25/24 03:10 Labs: Abnormal Lab Results - Last 24 Hours (Table) 05/25/24 05/25/24 Range/Units 03:10 03:10 RBC 4.09 L (4.10-5.20) X 10*6/uL Hgb 11.8 L (12.0-15.0) g/dL MCHC 31.0 L (32.0-37.0) g/dL RDW 14.6 H (11.5-14.5) % Plt Count 483 H (140-440) X 10*3/uL MPV 9.0 L (9.5-12.2) FL Immature Gran # 0.10 H (0.00-0.04) X 10*3/uL Lymphocytes # 0.85 L (0.90-5.00) X 10*3/uL Basophils # 0.18 H (0.00-0.10) X 10*3/uL Potassium 2.9 L (3.5-5.5) mmol/L Anion Gap 12.30 H (4.00-12.00) mmol/L Est GFR (CKD-EPI) 56 L (>=60) Assessment and Plan Assessment: Chronic low back pain Severe lumbar degenerative disc disease with vacuum phenomenon, worst being L3- L4, L4-L5, L5-S1 Spondylolisthesis noted at L3-L4, L4-L5 L3 vertebral body compression fracture Right upper extremity skin tears, multiple Right elbow contusion Right shoulder acromioclavicular joint osteoarthritis Lung cancer Multiple medical comorbidities Plan: Imaging: X-rays were reviewed along with reports from the right shoulder and right elbow. Images demonstrate no acute fractures or dislocations of both the elbow and shoulder. Acromioclavicular joint osteoarthritis is appreciated in the right shoulder. No other acute osseous abnormalities appreciated Plan: LSO brace has been placed in chart, will make case management aware this on 05/26/2024 to have that fitted. Continue conservative measures with regards to the elbow and vertebral body compression fracture. The combination use of Tylenol, NSAIDs, low-dose muscle relaxer Wound care to the skin tears involving the right upper extremity and right lower extremity, would recommend use of a Vaseline coated bandage and multiple layers of padding to prevent further skin breakdown GI and DVT prophylaxis per primary medical service PT/OT evaluation Other medical specialty recommendations appreciated Will continue to follow during hospital stay Time with Patient: Less than 30
--- NOTE | 2024-05-25 12:47 | P.PN ---
Subjective Progress Note Date: 05/25/24 Principal diagnosis: Fall with fracture Patient admitted to the trauma service after falling at home. Today complaining of some right arm pain. Orthopedics has ordered right shoulder and right arm x- rays. Tolerating diet. No nausea or vomiting. Objective - Vital Signs Vital signs: Vital Signs Temp 98.0 F 05/25/24 07:34 Pulse 101 H 05/25/24 08:55 Resp 17 05/25/24 07:34 BP 121/75 05/25/24 07:34 Pulse Ox 92 L 05/25/24 08:41 FiO2 Intake & Output 05/24/24 05/25/24 05/25/24 18:59 06:59 18:59 Intake Total 118 Output Total 900 Balance -782 Intake: Oral 118 Output: Urine 450 Straight 450 Post Void Residual 450 Other: Voiding Method Diaper External Catheter # Voids 0 - Exam Abdomen: Soft, nontender, nondistended - Labs CBC & Chem 7: 05/25/24 03:10 05/25/24 03:10 Labs: Abnormal Lab Results - Last 24 Hours (Table) 05/25/24 05/25/24 Range/Units 03:10 03:10 RBC 4.09 L (4.10-5.20) X 10*6/uL Hgb 11.8 L (12.0-15.0) g/dL MCHC 31.0 L (32.0-37.0) g/dL RDW 14.6 H (11.5-14.5) % Plt Count 483 H (140-440) X 10*3/uL MPV 9.0 L (9.5-12.2) FL Immature Gran # 0.10 H (0.00-0.04) X 10*3/uL Lymphocytes # 0.85 L (0.90-5.00) X 10*3/uL Basophils # 0.18 H (0.00-0.10) X 10*3/uL Potassium 2.9 L (3.5-5.5) mmol/L Anion Gap 12.30 H (4.00-12.00) mmol/L Est GFR (CKD-EPI) 56 L (>=60) Assessment and Plan (1) Compression fracture of L3 vertebra Narrative/Plan: 83-year-old female doing well after recent fall with compression fracture of back. Await x-rays of right arm. Possible transfer to medical service once that is reviewed. Patient and family requesting rehab after discharge. Current Visit: Yes Status: Acute Code(s): S32.030A - WEDGE COMPRESSION FRACTURE OF THIRD LUMBAR VERTEBRA, INIT SNOMED Code(s): 407319222
--- NOTE | 2024-05-25 12:51 | XR ---
EXAMINATION TYPE: XR shoulder complete RT DATE OF EXAM: 05/25/2024 CLINICAL HISTORY: pain TECHNIQUE: Three views of the right shoulder are obtained. COMPARISON: None FINDINGS: There is no acute fracture/dislocation evident. The acromioclavicular and glenohumeral leonora int spaces appear within normal limits. The visualized ribs are intact and unremarkable. Right hilar masslike opacity. CT is recommended for further evaluation. IMPRESSION: 1. There is no acute fracture or dislocation. ICD 10 NO FRACTURE, INITIAL EVALUATION
--- NOTE | 2024-05-25 12:52 | XR ---
No EXAMINATION TYPE: XR elbow complete RT DATE OF EXAM: 05/25/2024 CLINICAL HISTORY: Fall, pain TECHNIQUE: Frontal, lateral and oblique images of the right elbow are obtained. COMPARISON: None. FINDINGS: There is no acute fracture/dislocation evident of the elbow. No abnormal fat pad signs ar e seen. The overlying soft tissue appears unremarkable. IMPRESSION: There is no acute fracture or dislocation of the elbow. ICD 10 NO FRACTURE, INITIAL EVALUATION
--- NOTE | 2024-05-25 13:38 | P.PN ---
Subjective Progress Note Date: 05/25/24 patient 83-year-old lady with past medical history significant for lung cancer, PE, hypertension brought in the ER after a fall. Patient is accompanied by her daughter who she lives with. Apparently patient was all right yesterday when was trying to get out to check on her air conditioner when she tripped and fell. There was no Loss of consciousness. There was no complaint of palpitation at the time. Open no chest pain or shortness of breath. Patient was found later by her daughter lying on the ground. Patient was brought to ER Initial lab work done in the ER showed WBC 18, hemoglobin 14, platelet count 604, sodium 135, potassium 3.5, BUN 11, creatinine 0.78, glucose 94, creatinine kinase 33 Pelvic x-ray no acute finding Chest x-ray done in the ER showed right lower lung zone saltation/airspace disease CT head done showed no acute intracranial process CT cervical spine did not show any cervical spine fractures CT lumbar spine done showed mild superior endplate compression fracture at L3, partially related right-sided pleural effusion Patient admitted to trauma service 05/25. Patient seen and examined. Complaining of right arm pain, will order x- ray of right elbow and shoulder. Potassium this morning is 2.9, replacement ordered REVIEW OF SYSTEMS: CONSTITUTIONAL: No fever, no malaise,. CARDIOVASCULAR: No chest pain, no palpitations, no syncope. PULMONARY: No shortness of breath, no cough, GASTROINTESTINAL: No diarrhea, no nausea, no vomiting, no abdominal pain. NEUROLOGICAL: No headaches, no weakness, PHYSICAL EXAMINATION: GENERAL: The patient is alert and oriented x3, not in any acute distress. Well developed, well nourished. HEENT: Pupils are round and equally reacting to light. EOMI. No scleral icterus. No conjunctival pallor. Normocephalic, atraumatic. No pharyngeal erythema. No thyromegaly. CARDIOVASCULAR: S1 and S2 present. No murmurs, rubs, or gallops. PULMONARY: Chest is clear to auscultation, no wheezing or crackles. ABDOMEN: Soft, nontender, nondistended, normoactive bowel sounds. No palpable organomegaly. MUSCULOSKELETAL: No joint swelling or deformity. EXTREMITIES: No cyanosis, clubbing, or pedal edema. NEUROLOGICAL: Gross neurological examination did not reveal any focal deficits. SKIN: No rashes. Assessment and plan Fall Superior endplate compression fracture at L3 History of lung cancer history of PE Hypertension Hypothyroidism Hypokalemia Monitor vital signs Monitor CBC Monitor CMP Fall precaution Delirium precaution Continue pain management Continue IV fluids Potassium was 2.9, replacement ordered Ordered x-ray of right elbow Ordered x-ray of shoulder Orthopedic following Labs and medication were reviewed.. Continue same treatment. Continue with symptomatic treatment. Resume home medication. Monitor labs and vitals. DVT and GI prophylaxis. Further recommendations as per clinical course of the patient Dictation was produced using [employer] dictation software. please excuse any grammatical, word or spelling errors. Objective - Vital Signs Vital signs: Vital Signs Temp 98.0 F 05/25/24 07:34 Pulse 101 H 05/25/24 08:55 Resp 17 05/25/24 07:34 BP 121/75 05/25/24 07:34 Pulse Ox 92 L 05/25/24 08:41 FiO2 Intake & Output 05/24/24 05/25/24 05/25/24 18:59 06:59 18:59 Intake Total 118 Output Total 900 Balance -782 Intake: Oral 118 Output: Urine 450 Straight 450 Post Void Residual 450 Other: Voiding Method Diaper External Catheter # Voids 0 - Labs CBC & Chem 7: 05/25/24 03:10 05/25/24 03:10 Labs: Abnormal Lab Results - Last 24 Hours (Table) 05/25/24 05/25/24 Range/Units 03:10 03:10 RBC 4.09 L (4.10-5.20) X 10*6/uL Hgb 11.8 L (12.0-15.0) g/dL MCHC 31.0 L (32.0-37.0) g/dL RDW 14.6 H (11.5-14.5) % Plt Count 483 H (140-440) X 10*3/uL MPV 9.0 L (9.5-12.2) FL Immature Gran # 0.10 H (0.00-0.04) X 10*3/uL Lymphocytes # 0.85 L (0.90-5.00) X 10*3/uL Basophils # 0.18 H (0.00-0.10) X 10*3/uL Potassium 2.9 L (3.5-5.5) mmol/L Anion Gap 12.30 H (4.00-12.00) mmol/L Est GFR (CKD-EPI) 56 L (>=60)
[2024-05-25] MEDS: guaiFENesin SYRUP 100MG/5ML 200 MG/10 ML CUP PO PRN (23:12)
[2024-05-26] MEDS: PENTOXIFYLLINE 400 MG TABLET.ER PO SCH (08:18)
[2024-05-26 10:04] LABS: Basophils # (A) 0.1 k/uL (0-0.2); Basophils % (A) 1 %; Eosinophils # (A) 0.2 k/uL (0-0.7); Eosinophils % (A) 2 %; HCT 36.8 % (34.0-46.0); HGB 11.6 gm/dL (11.4-16.0); Hypochromasia Slight; Lymphocytes # (A) 0.6 k/uL (1.0-4.8); Lymphocytes % (A) 7 %; MCH 29.5 pg (25.0-35.0); MCHC 31.5 g/dL (31.0-37.0); MCV 93.7 fL (80.0-100.0); Mean Platelet Volume 6.9; Monocytes # (A) 0.4 k/uL (0-1.0); Monocytes % (A) 5 %; Neutrophils # (A) 7.5 k/uL (1.3-7.7); Neutrophils % (A) 84 %; Platelet Count 450 k/uL (150-450); RBC 3.93 m/uL (3.80-5.40); RDW 14.7 % (11.5-15.5); WBC 8.8 k/uL (3.8-10.6)
[2024-05-26 10:18] LABS: African American GFR (CKD) 83 (>60 ml/min/1.73 sqM); Anion Gap 1 mmol/L; Blood Urea Nitrogen 11 mg/dL (7-17); Calcium 8.7 mg/dL (8.4-10.2); Carbon Dioxide 34 mmol/L (22-30); Chloride 95 mmol/L (98-107); Glucose 120 mg/dL (74-99); Non-African American GFR(CKD) 72 (>60 ml/min/1.73 sqM); Potassium 3.6 mmol/L (3.5-5.1); Sodium 130 mmol/L (137-145)
--- NOTE | 2024-05-26 10:34 | P.PN ---
Subjective Progress Note Date: 05/26/24 This is an 83-year-old female admitted with fall, L3 compression fracture, immunity acquired pneumonia, and multiple other medical issues. Denies chest pain, palpitations or shortness of breath. Currently maintaining O2 sats at 97% on 3 L nasal cannula. Reports she wears 2 L at night at home. Loose congested cough. Chest x-ray reported large consolidation over right lower lung zone increased. WBC 18 on admission, resolved. IV antibiotics initiated. Afebrile. Sodium 130, potassium 3.6, supplemented, renal function stable. Elbow x-ray of the right shoulder and elbow reported no fracture or dislocation. Pain controlled. Conservative management as per orthopedic surgery. Objective - Vital Signs Vital signs: Vital Signs Temp 98.4 F 05/26/24 07:21 Pulse 91 05/26/24 07:21 Resp 16 05/26/24 07:21 BP 129/83 05/26/24 07:21 Pulse Ox 97 05/26/24 07:21 FiO2 Intake & Output 05/25/24 05/26/24 05/26/24 18:59 06:59 18:59 Intake Total 240 Output Total 400 600 Balance -400 -600 240 Intake: Oral 240 Output: Urine 400 600 Other: Voiding Method Indwelling Catheter Indwelling Catheter - Exam GENERAL: Sitting up in bed, alert and oriented x3, not in any acute distress. HEENT: Pupils are round and equally reacting to light. EOMI. No scleral icterus. No conjunctival pallor. Normocephalic, atraumatic. CARDIOVASCULAR: S1 and S2 present. No murmurs, rubs, or gallops. PULMONARY: Unlabored, equal air entry, clear to auscultation, ABDOMEN: Soft, nontender, nondistended, normoactive bowel sounds. No palpable organomegaly. EXTREMITIES: No cyanosis, clubbing, or pedal edema. NEUROLOGICAL: Gross neurological examination did not reveal any focal deficits. SKIN: No rashes. multiple skin tears with dressings clean dry and intact. - Labs CBC & Chem 7: 05/26/24 09:39 05/26/24 09:39 Labs: Abnormal Lab Results - Last 24 Hours (Table) 05/26/24 05/26/24 Range/Units 09:39 09:39 Lymphocytes # 0.6 L (1.0-4.8) k/uL Sodium 130 L (137-145) mmol/L Chloride 95 L (98-107) mmol/L Carbon Dioxide 34 H (22-30) mmol/L Glucose 120 H (74-99) mg/dL Assessment and Plan Assessment: Fall Superior endplate compression fracture at L3 Acute community-acquired pneumonia History of lung cancer history of PE Hypertension Hypothyroidism Hypokalemia Plan: Continue on current medication resume ,monitoring and symptomatic treatment. Medically stable for discharge. Antibiotics ordered. O2 sat on room air after ambulation pending-patient states she wears 2 L nasal cannula at night-case management to confirm. Follow-up with PCP in 1 week. LSO brace pending. PT/OT ordered for potential subacute rehab at discharge. The impression and plan of care has been dictated as directed. : I performed a history and examination of this patient, discussed the same with the dictator. I agree with the dictator's note ,documented as a scribe. Any additional findings or plans will be noted.
[2024-05-26] MEDS: POTASSIUM CHLORIDE ER 20 MEQ TAB.ER PO STA (11:52)
[2024-05-26] MEDS: DOCUSATE 100 MG CAP PO SCH (11:52)
--- NOTE | 2024-05-26 13:12 | P.PN ---
Subjective Progress Note Date: 05/26/24 CHIEF COMPLAINT: Follow-up with L3 compression fracture HISTORY OF PRESENT ILLNESS: Patient lying in bed comfortably. She reports her pain is controlled. Denies any new pain. X-ray of the shoulder and elbow reported no evidence of fracture. Patient is awaiting her back brace. She is awaiting ECF placement. Afebrile. WBC 8.8 Hgb 11.6 sodium 130 PHYSICAL EXAM: VITAL SIGNS: Reviewed. GENERAL: Well-developed in no acute distress. ABDOMEN: Soft. Nondistended. Nontender. NEUROLOGIC: Alert and oriented. Cranial nerves II through XII grossly intact. ASSESSMENT: 1. Fall with L3 compression fracture 2. Right upper extremity skin tears 3. Right elbow contusion 4. Pneumonia 5. History of lung cancer 6. Hypokalemia improved PLAN: -Patient is awaiting her back brace -Patient is awaiting ECF placement -Continue pain management -Anticipate discharge possibly tomorrow -Continue to work with PT OT Physician Call Center Manager note has been reviewed by physician. Signing provider agrees with the documented findings, assessment, and plan of care. I have personally seen and examined the patient, reviewed the PREDATORY ANIMAL HUNTER /PAs history, exam and MDM and agree with the assessment and plan as written. Based on total visit time, I have performed more than 50% of the visit. As above: Patient feels well today. Complaining of back pain. Apparently they are waiting for ECF placement and a brace that orthopedics has ordered. Possible transfer tomorrow if stable. Objective - Vital Signs Vital signs: Vital Signs Temp 98.4 F 05/26/24 07:21 Pulse 91 05/26/24 07:21 Resp 16 05/26/24 07:21 BP 129/83 05/26/24 07:21 Pulse Ox 97 05/26/24 07:21 FiO2 Intake & Output 05/25/24 05/26/24 05/26/24 18:59 06:59 18:59 Intake Total 240 Output Total 400 600 Balance -400 -600 240 Intake: Oral 240 Output: Urine 400 600 Other: Voiding Method Indwelling Catheter Indwelling Catheter - Labs CBC & Chem 7: 05/26/24 09:39 05/26/24 09:39 Labs: Abnormal Lab Results - Last 24 Hours (Table) 05/26/24 05/26/24 Range/Units 09:39 09:39 Lymphocytes # 0.6 L (1.0-4.8) k/uL Sodium 130 L (137-145) mmol/L Chloride 95 L (98-107) mmol/L Carbon Dioxide 34 H (22-30) mmol/L Glucose 120 H (74-99) mg/dL
[2024-05-26] MEDS: AZITHROMYCIN 500 MG in SODIUM CHLORIDE 0.9% 250 ML IVPB SCH (15:52)
--- NOTE | 2024-05-27 09:46 | P.PN ---
Subjective Progress Note Date: 05/27/24 This is an 83-year-old female admitted with fall, L3 compression fracture, immunity acquired pneumonia, and multiple other medical issues. Denies chest pain, palpitations or shortness of breath. Currently maintaining O2 sats at 97% on 3 L nasal cannula. Reports she wears 2 L at night at home. Loose congested cough. Chest x-ray reported large consolidation over right lower lung zone increased. WBC 18 on admission, resolved. IV antibiotics initiated. Afebrile. Sodium 130, potassium 3.6, supplemented, renal function stable. Elbow x-ray of the right shoulder and elbow reported no fracture or dislocation. Pain controlled. Conservative management as per orthopedic surgery. 05/27/2024 discharge planning in progress for subacute rehab as per general surgery. LSO brace at bedside-has not been out of bed yet with brace. Reports back pain improving, controlled on current pain management. IV antibiotics initiated yesterday, respiratory status improving, decreased rhonchi scattered throughout.Maintaining O2 sats in the high 90s on 3 L nasal cannula. Colace initiated yesterday, reports no bowel movement. Small bowel movement 05/25. Denies chest pain, palpitations or shortness of breath. Objective - Vital Signs Vital signs: Vital Signs Temp 97.8 F 05/27/24 07:11 Pulse 103 H 05/27/24 07:11 Resp 22 05/27/24 07:11 BP 120/46 05/27/24 07:11 Pulse Ox 96 05/27/24 07:11 FiO2 Intake & Output 05/26/24 05/27/24 05/27/24 18:59 06:59 18:59 Intake Total 600 180 Output Total 675 500 Balance -75 -500 180 Intake: Oral 600 180 Output: Urine 675 500 Other: Voiding Method Indwelling Catheter Indwelling Catheter - Exam GENERAL: Sitting up in bed, alert and oriented x3,NAD HEENT: Pupils are round and equally reacting to light. EOMI. No scleral icterus. No conjunctival pallor. Normocephalic, atraumatic. CARDIOVASCULAR: S1 and S2 present. No murmurs, rubs, or gallops. PULMONARY: Unlabored, equal air entry, mild scattered rhonchi, loose cough ABDOMEN: Soft, nontender, nondistended, normoactive bowel sounds. No palpable organomegaly. EXTREMITIES: No cyanosis, clubbing, or pedal edema. NEUROLOGICAL: Gross neurological examination did not reveal any focal deficits. SKIN: No rashes. multiple skin tears with dressings clean dry and intact. - Labs CBC & Chem 7: 05/26/24 09:39 05/26/24 09:39 Labs: Abnormal Lab Results - Last 24 Hours (Table) 05/26/24 05/26/24 Range/Units 09:39 09:39 Lymphocytes # 0.6 L (1.0-4.8) k/uL Sodium 130 L (137-145) mmol/L Chloride 95 L (98-107) mmol/L Carbon Dioxide 34 H (22-30) mmol/L Glucose 120 H (74-99) mg/dL Assessment and Plan Assessment: Fall Superior endplate compression fracture at L3 Acute community-acquired pneumonia Acute on chronic hypoxic respiratory failure secondary to the above. Wears 2 L nasal cannula O2 during the night at home. History of lung cancer history of PE Constipation Hypertension Hypothyroidism Hypokalemia Plan: Continue on current medication resume ,monitoring and symptomatic treatment. Labs pending. additional MiraLAX ordered for complaints of constipation. maintain aggressive pulmonary toileting with incentive spirometer reinforced, continue ceftriaxone and azithromycin. DC Charles catheter, bladder scan for postvoid residuals. Medically stable for discharge. DC antibiotics ordered. O2 sat on room air after ambulation pending for discharge planning. follow-up with PCP in 1 week after DC from subacute rehab. Pain management. LSO brace as advised per orthopedics. The impression and plan of care has been dictated as directed. : I performed a history and examination of this patient, discussed the same with the dictator. I agree with the dictator's note ,documented as a scribe. Any additional findings or plans will be noted.
[2024-05-27] MEDS: polyethylene glycoL 3350 17 GM POWD.PACK PO STA (09:55)
[2024-05-27 12:11] LABS: BUN/Creat Ratio 11.62 Ratio (12.00-20.00); Blood Urea Nitrogen 9.3 mg/dL (9.0-27.0); Calcium 9.1 mg/dL (8.7-10.3); Carbon Dioxide 25.9 mmol/L (21.6-31.8); Chloride 98 mmol/L (96-109); Glucose 83 mg/dL (70-110); Potassium 4.4 mmol/L (3.5-5.5); Sodium 137 mmol/L (135-145)
--- NOTE | 2024-05-27 15:22 | P.PN ---
Subjective Progress Note Date: 05/27/24 CHIEF COMPLAINT: Follow-up with L3 compression fracture HISTORY OF PRESENT ILLNESS: Patient reports her pain is controlled. She is sitting at bedside chair. She did receive her back brace. She is awaiting insurance authorization for ECF placement. Afebrile PHYSICAL EXAM: VITAL SIGNS: Reviewed. GENERAL: Well-developed in no acute distress. ABDOMEN: Soft. Nondistended. Nontender. NEUROLOGIC: Alert and oriented. Cranial nerves II through XII grossly intact. ASSESSMENT: 1. Fall with L3 compression fracture 2. Right upper extremity skin tears 3. Right elbow contusion 4. Pneumonia 5. History of lung cancer 6. Hypokalemia improved PLAN: -Anticipate discharge tomorrow. Awaiting insurance authorization for ECF placement -Continue pain management -Continue to increase activity level Physician Cosmetic Account Coordinator note has been reviewed by physician. Signing provider agrees with the documented findings, assessment, and plan of care. I have personally seen and examined the patient, reviewed the LARRIMAN HELPER /PAs history, exam and MDM and agree with the assessment and plan as written. Based on total visit time, I have performed more than 50% of the visit. As above: Patient doing well today. Pain improving. Anticipate transfer to rehab tomorrow. Objective - Vital Signs Vital signs: Vital Signs Temp 97.9 F 05/27/24 13:31 Pulse 92 05/27/24 13:31 Resp 20 05/27/24 13:31 BP 124/74 05/27/24 13:31 Pulse Ox 99 05/27/24 13:31 FiO2 Intake & Output 05/26/24 05/27/24 05/27/24 18:59 06:59 18:59 Intake Total 600 180 Output Total 675 500 Balance -75 -500 180 Intake: Oral 600 180 Output: Urine 675 500 Other: Voiding Method Indwelling Catheter Indwelling Catheter Indwelling Catheter - Labs CBC & Chem 7: 05/26/24 09:39 05/27/24 05:22 Labs: Abnormal Lab Results - Last 24 Hours (Table) 05/27/24 Range/Units 05:22 Anion Gap 13.10 H (4.00-12.00) mmol/L BUN/Creatinine Ratio 11.62 L (12.00-20.00) Ratio
--- NOTE | 2024-05-28 09:24 | P.PN ---
Subjective Progress Note Date: 05/28/24 This is an 83-year-old female admitted with fall, L3 compression fracture, immunity acquired pneumonia, and multiple other medical issues. Denies chest pain, palpitations or shortness of breath. Currently maintaining O2 sats at 97% on 3 L nasal cannula. Reports she wears 2 L at night at home. Loose congested cough. Chest x-ray reported large consolidation over right lower lung zone increased. WBC 18 on admission, resolved. IV antibiotics initiated. Afebrile. Sodium 130, potassium 3.6, supplemented, renal function stable. Elbow x-ray of the right shoulder and elbow reported no fracture or dislocation. Pain controlled. Conservative management as per orthopedic surgery. 05/27/2024 discharge planning in progress for subacute rehab as per general surgery. LSO brace at bedside-has not been out of bed yet with brace. Reports back pain improving, controlled on current pain management. IV antibiotics initiated yesterday, respiratory status improving, decreased rhonchi scattered throughout.Maintaining O2 sats in the high 90s on 3 L nasal cannula. Colace initiated yesterday, reports no bowel movement. Small bowel movement 05/25. Denies chest pain, palpitations or shortness of breath. 05/28/24 maintaining O2 sats in the 90s on 3 L nasal cannula. Loose wet cough. Denies chest pain, palpitations or shortness of breath.Charles discontinued, patient spontaneously voiding without difficulty. Reports mild to moderate pain with exertion, adjusting to back brace. Tolerating diet, denies nausea vomiting or diarrhea. Denies abdominal pain. Afebrile. Discharge planning in progress for subacute rehab today as per general surgery. Objective - Vital Signs Vital signs: Vital Signs Temp 97.8 F 05/28/24 07:19 Pulse 101 H 05/28/24 07:19 Resp 20 05/28/24 07:19 BP 146/83 05/28/24 07:19 Pulse Ox 97 05/28/24 08:54 FiO2 Intake & Output 05/27/24 05/28/24 05/28/24 18:59 06:59 18:59 Intake Total 180 240 Balance 180 240 Intake: Oral 180 240 Other: Voiding Method Indwelling Catheter Bedside Commode # Voids 7 1 1 # Bowel Movements 2 - Exam GENERAL: Sitting up in bed, alert and oriented x3,NAD HEENT: Normocephalic, atraumatic ,pupils are round and equally reacting to light. EOMI. MMM. CARDIOVASCULAR: S1 and S2 present. No murmurs, rubs, or gallops. PULMONARY: Unlabored, equal air entry, mild loose cough, fine expiratory wheeze ABDOMEN: Soft, nontender, nondistended, normoactive bowel sounds. No palpable organomegaly. EXTREMITIES: No cyanosis, clubbing, or pedal edema. NEUROLOGICAL: Gross neurological examination did not reveal any focal deficits. SKIN: No rashes. multiple skin tears with dressings clean dry and intact. - Labs CBC & Chem 7: 05/26/24 09:39 05/27/24 05:22 Labs: Abnormal Lab Results - Last 24 Hours (Table) 05/27/24 Range/Units 05:22 Anion Gap 13.10 H (4.00-12.00) mmol/L BUN/Creatinine Ratio 11.62 L (12.00-20.00) Ratio Assessment and Plan Assessment: Fall Superior endplate compression fracture at L3 Acute community-acquired pneumonia Acute on chronic hypoxic respiratory failure secondary to the above. Wears 2 L nasal cannula O2 during the night at home. History of lung cancer history of PE Constipation Hypertension Hypothyroidism Hypokalemia Plan: Continue on current medication resume ,monitoring and symptomatic treatment. Medically cleared for discharge to [facility] subacute rehab.patient has been advised to continue aggressive pulmonary toileting with incentive spirometer reinforced.Follow-up with PCP in 1 week after DC from subacute rehab. Pain management. LSO brace as advised per orthopedics. Patient is being discharged today to subacute rehab as per general surgery. The impression and plan of care has been dictated as directed. : I performed a history and examination of this patient, discussed the same with the dictator. I agree with the dictator's note ,documented as a scribe. Any additional findings or plans will be noted.
[2024-05-28 14:07] VITALS: BP 126/80; PULSE 94; RESP 19; TEMP 98
[2024-05-28 14:44] LABS: Appearance,Urine Clear (Clear); Bilirubin,Urine Negative (Negative); Blood,Urine Trace (Negative); Color,Urine Yellow; Glucose,Urine (UA) Negative (Negative); Ketones,Urine Negative (Negative); Leukocyte Esterase,Urine Trace (Negative); Mucus,Urine Occasional /hpf; Nitrite,Urine Negative (Negative); PH, Urine 5.5 (5.0-8.0); Protein,Urine Trace (Negative); RBC,Urine 8 /hpf (0-5); Specific Gravity,Urine 1.031 (1.001-1.035); Squamous Epithelial Cell,Urine <1 /hpf (0-4); Urobilinogen,Urine <2.0 mg/dL (<2.0); WBC,Urine 4 /hpf (0-5)
--- NOTE | 2024-05-28 14:58 | P.DS ---
Providers Date of admission: 05/24/24 10:46 Expected date of discharge: 05/28/24 Attending physician: Marlon Sorto Consults: 05/24/24 03:33 Consult Physician Urgent Consulting Provider: Desmond Daly Consult Reason/Comments: fall, l3 compression fracture Do you want consulting provider notified?: Yes 05/24/24 03:41 Consult Physician Urgent Consulting Provider: Conor Lopez Consult Reason/Comments: fall, compression fracture, luekocytosis Do you want consulting provider notified?: Yes Primary care physician: Dianna Rodriguez Hospital Course: Discharge diagnosis 1. Fall with L3 compression fracture 2. Right upper extremity skin tears 3. Right elbow contusion 4. Pneumonia 5. History of lung cancer 6. Hypokalemia improved Hospital course This is a 83-year-old female who presented to the ER after a fall. She had been outside and had been doing something with her air conditioning when she tripped and fell. She takes anticoagulation at home. Imaging had reported an L3 compression fracture. She was also found to have skin tears on upper extremities and right elbow contusion. Patient has been seen by orthopedic service and medical service. They have cleared her for discharge. She has her back brace. She is able to ambulate. Her pain is controlled. She has worked with physical therapy they recommended rehab. Patient is being discharged to [facility]. She is tolerating diet. She is having bowel movements. She is afebrile. Her pain is controlled. She is stable for discharge. Please refer to chart for any further details. Physician Mortgage Lender note has been reviewed by physician. Signing provider agrees with the documented findings, assessment, and plan of care. Patient Condition at Discharge: Stable Plan - Discharge Summary New Discharge Prescriptions: New Amoxic-Pot Clav 875-125Mg [Augmentin 875-125] 1 tab PO BID 5 Days #10 tab HYDROcodone/APAP 5-325MG [[place] 5-325] 1 tab PO Q6HR PRN 3 Days #12 tab PRN Reason: Pain Continue Omeprazole [PriLOSEC] 20 mg PO DAILY Levothyroxine Sodium [Synthroid] 75 mcg PO DAILY Ezetimibe [Zetia] 10 mg PO DAILY Albuterol Inhaler [Ventolin Hfa Inhaler] 1 - 2 puff INHALATION RT-Q6H PRN PRN Reason: Shortness Of Breath Pentoxifylline [TRENtal] 400 mg PO BID Potassium Chloride [Klor-Con 20 Packets] 20 meq PO DAILY Apixaban [Eliquis] 2.5 mg PO BID Furosemide [Lasix] 40 mg PO DAILY Discontinued predniSONE 40 mg PO DAILY Discharge Medication List Omeprazole [PriLOSEC] 20 mg PO DAILY 01/14/15 [History] Levothyroxine Sodium [Synthroid] 75 mcg PO DAILY 08/23/20 [History] Ezetimibe [Zetia] 10 mg PO DAILY 09/11/21 [History] Albuterol Inhaler [Ventolin Hfa Inhaler] 1 - 2 puff INHALATION RT-Q6H PRN 10/21/23 [History] Apixaban [Eliquis] 2.5 mg PO BID 11/16/23 [History] Furosemide [Lasix] 40 mg PO DAILY 05/24/24 [History] Pentoxifylline [TRENtal] 400 mg PO BID 05/24/24 [History] Potassium Chloride [Klor-Con 20 Packets] 20 meq PO DAILY 05/24/24 [History] Amoxic-Pot Clav 875-125Mg [Augmentin 875-125] 1 tab PO BID 5 Days #10 tab 05/26/24 [Rx] HYDROcodone/APAP 5-325MG [[place] 5-325] 1 tab PO Q6HR PRN 3 Days #12 tab 05/28/24 [Rx] Follow up Appointment(s)/Referral(s): Conor Lopez MD [STAFF PHYSICIAN] - 1 Week Activity/Diet/Wound Care/Special Instructions: Continue using incentive spirometer every hour x 10 while awake FINN CBC,BMP in 3 days Discharge Disposition: TRANSFER TO SNF/ECF
== END 2024-05-28 16:30 | DRG 551 ==
LOC: EC 21:29 → 6NMEDSUR 05-24 03:33 → 4SSUR 05-24 09:32 → OBSVTOIN 05-24 10:46
PROVIDERS: ADMIT Surgery; ATTEND Surgery
DX: S32.038A Other fracture of third lumbar vertebra, initial encounter for closed fracture (principal); J18.9 Pneumonia, unspecified organism; J96.21 Acute and chronic respiratory failure with hypoxia; C34.31 Malignant neoplasm of lower lobe, right bronchus or lung; Z99.81 Dependence on supplemental oxygen; I10 Essential (primary) hypertension; E03.9 Hypothyroidism, unspecified; M79.7 Fibromyalgia; H91.91 Unspecified hearing loss, right ear; S41.111A Laceration without foreign body of right upper arm, initial encounter; G89.29 Other chronic pain; S50.811A Abrasion of right forearm, initial encounter; M47.816 Spondylosis without myelopathy or radiculopathy, lumbar region; M51.37 Other intervertebral disc degeneration, lumbosacral region; M51.87 Other intervertebral disc disorders, lumbosacral region; M51.86 Other intervertebral disc disorders, lumbar region; E87.6 Hypokalemia; K59.00 Constipation, unspecified; M43.16 Spondylolisthesis, lumbar region; W01.0XXA Fall on same level from slipping, tripping and stumbling without subsequent striking against object, initial encounter; Y92.007 Garden or yard of unspecified non-institutional (private) residence as the place of occurrence of the external cause; Z79.01 Long term (current) use of anticoagulants; Z92.3 Personal history of irradiation; Z79.890 Hormone replacement therapy; Z86.14 Personal history of Methicillin resistant Staphylococcus aureus infection; Z86.711 Personal history of pulmonary embolism; Z79.899 Other long term (current) drug therapy; Z88.1 Allergy status to other antibiotic agents; Z88.8 Allergy status to other drugs, medicaments and biological substances; Z88.5 Allergy status to narcotic agent; M19.011 Primary osteoarthritis, right shoulder; S50.01XA Contusion of right elbow, initial encounter; Z79.82 Long term (current) use of aspirin
CPT/HCPCS: 36415; 70450; 71046; 72125; 72131; 72170; 80048; 81001; 82550; 85025; 85610; 85730; 90471; 90715; 93005; 94640; 94760; 96360; 99285